=== PATIENT | female | born 1940 | race Caucasian/White ===

== ENCOUNTER → 2016-11-11 | Outpatient (CLI) | payer OTHER ==
[2016-11-11 11:19] LABS: ESTIMATED AVERAGE GLUCOSE 117 mg/dl; HA1C FLAG Normal (Normal)
[2016-11-11 11:39] LABS: ALT/SGPT 107 U/L (12-78); AST/SGOT 74 U/L (15-37); BLOOD UREA NITROGEN 32 mg/dl (7-18); BUN/CREATININE RATIO 21.5 (10-20); CALCIUM 9.8 mg/dl (8.5-10.1); CARBON DIOXIDE 26 mmol/L (21-32); CHLORIDE 105 mmol/L (98-107); GLUCOSE 114 mg/dl (70-99); POTASSIUM 3.8 mmol/L (3.5-5.1); SODIUM 142 mmol/L (136-145)
[2016-11-11 11:42] LABS: ALB/GLOB RATIO 0.9 (0.9-2); ALKALINE PHOSPHATASE 69 U/L (45-117); CHOLESTEROL 143 mg/dl (0-200); CHOLESTEROL/HDL RATIO 2.7; HDL CHOLESTEROL 53 mg/dl; LDL CHOLESTEROL CALCULATED 52 mg/dl; TRIGLYCERIDES 189 mg/dl (0-150); VERY LOW DENSITY LIPOPROT CALC 38 mg/dl
--- NOTE | 2016-11-17 13:55 | CODING QUERY MEDICAL NECESSITY ---
SUPPORTING DIAGNOSIS NEEDED A supporting diagnosis is required for the test/procedure performed on this patient in order for us to be reimbursed by the patient's insurance. Please provide a supporting diagnosis for the following test/procedure listed below next to the test name along with your signature. *If there is no additional diagnosis for this patient that would support the following test/procedure please document that below next to the test/procedure. Test(s)/Procedure(s) that require a supporting diagnosis: * GLYCATED HEMOGLOBIN DIAGNOSIS: * DOS: 11/11/16 Provider Signature: Date: Thank you Luann Sargent Health Information Management Once completed, please kindly fax back to [phone] For questions please call [phone]
== END | disposition home or self-care (01) ==
LOC: C.LABBC 08:19
PROVIDERS: ATTEND Family Medicine
DX: I12.9 Hypertensive chronic kidney disease with stage 1 through stage 4 chronic kidney disease, or unspecified chronic kidney disease (principal); E03.9 Hypothyroidism, unspecified; E78.00 Pure hypercholesterolemia, unspecified; E88.81 Metabolic syndrome and other insulin resistance; N18.3 Chronic kidney disease, stage 3 (moderate); R32 Unspecified urinary incontinence

== ENCOUNTER → 2016-12-01 | Outpatient (CLI) | payer OTHER | END | disposition home or self-care (01) | LOC: C.LABBC 14:48 | PROVIDERS: ATTEND Family Medicine | DX: R74.8 Abnormal levels of other serum enzymes (principal) ==

== ENCOUNTER → 2016-12-10 | Outpatient (CLI) | payer OTHER ==
--- NOTE | 2016-12-10 10:23 | DIAGNOSTIC IMAGING REPORT ---
ULTRASOUND RIGHT UPPER QUADRANT ABDOMEN CLINICAL HISTORY: Elevated hepatic transaminases. COMPARISON STUDY: No priors. TECHNIQUE: Real-time, grayscale, and color flow sonography of the right upper quadrant of the abdomen was performed. Images are reviewed in the transverse and longitudinal planes. FINDINGS: Liver: The liver is normal in size. The liver demonstrates slightly increased and heterogeneous echotexture suggesting steatosis. There is no intrahepatic biliary ductal dilatation. The main portal vein is patent. Gallbladder: The gallbladder is surgically absent. The common bile duct measures up to 1.0 cm in diameter. Pancreas: Visualized portions of the pancreatic head and body are normal in appearance. The splenic vein is patent. Right kidney: Survey images of the right kidney demonstrate mild cortical atrophy. There is no hydronephrosis. An 8 mm cyst is incidentally noted. Ascites: None. IMPRESSION: 1. No acute sonographic abnormality is identified noting status post cholecystectomy. 2. Findings suggest mild hepatic steatosis. Electronically signed by: Dom Ordaz M.D. 12/10/2016 10:21 AM Dictated Date/Time: 12/10/2016 10:20 AM
== END | disposition home or self-care (01) ==
LOC: C.ULTR 09:33
PROVIDERS: ATTEND Family Medicine
DX: R74.8 Abnormal levels of other serum enzymes (principal)

== ENCOUNTER → 2017-01-10 | Outpatient (CLI) | payer OTHER | END | disposition home or self-care (01) | LOC: C.LABBC 11:42 | PROVIDERS: ATTEND Family Medicine | DX: R74.8 Abnormal levels of other serum enzymes (principal) ==

== ENCOUNTER → 2017-06-16 | Outpatient (CLI) | payer OTHER ==
[2017-06-16 11:09] LABS: BASO % 0.1 %; BASO ABS # 0.01 K/uL (0-0.2); COMPLETE YES; EOS % 3.6 %; HEMATOCRIT 39.9 % (37-47); IG% 0.5 %; LYMPH % 36.7 %; LYMPH ABS # 3.17 K/uL (1.2-3.4); MEAN CELL VOLUME 90.1 fL (80-100); MEAN CORPUSCULAR HEMOGLOBIN 30.7 pg (25-34); MEAN CORPUSCULAR HGB CONC 34.1 g/dl (32-36); MEAN PLATELET VOLUME 10.2 fL (7.4-10.4); MONO % 10.1 %; PLATELET COUNT 234 K/uL (130-400); RED BLOOD COUNT 4.43 M/uL (4.2-5.4); WHITE BLOOD COUNT 8.63 K/uL (4.8-10.8)
[2017-06-16 11:36] LABS: ESTIMATED AVERAGE GLUCOSE 114 mg/dl; HA1C FLAG Normal (Normal)
[2017-06-16 11:39] LABS: ALT/SGPT 28 U/L (12-78); BLOOD UREA NITROGEN 28 mg/dl (7-18); BUN/CREATININE RATIO 18.5 (10-20); CALCIUM 9.3 mg/dl (8.5-10.1); CARBON DIOXIDE 28 mmol/L (21-32); CHLORIDE 105 mmol/L (98-107); CHOLESTEROL 224 mg/dl (0-200); GLUCOSE 113 mg/dl (70-99); POTASSIUM 3.7 mmol/L (3.5-5.1); SODIUM 139 mmol/L (136-145)
[2017-06-16 11:49] LABS: ALB/GLOB RATIO 0.9 (0.9-2); ALKALINE PHOSPHATASE 61 U/L (45-117); AST/SGOT 23 U/L (15-37); CHOLESTEROL/HDL RATIO 5.2; HDL CHOLESTEROL 43 mg/dl; LDL CHOLESTEROL CALCULATED 126 mg/dl; TRIGLYCERIDES 274 mg/dl (0-150); VERY LOW DENSITY LIPOPROT CALC 55 mg/dl
--- NOTE | 2017-07-01 13:44 | CODING QUERY MEDICAL NECESSITY ---
SUPPORTING DIAGNOSIS NEEDED A supporting diagnosis is required for the test/procedure performed on this patient in order for us to be reimbursed by the patient's insurance. Please provide a supporting diagnosis for the following test/procedure listed below next to the test name along with your signature. *If there is no additional diagnosis for this patient that would support the following test/procedure please document that below next to the test/procedure. Test(s)/Procedure(s) that require a supporting diagnosis: * HEMOGLOBIN A1C DIAGNOSIS: Provider Signature: Date: Thank you Marlyn Whiteside [employer] Information Management Once completed, please kindly fax back to [phone] For questions please call [phone]
== END | disposition home or self-care (01) ==
LOC: C.LABBC 07:59
PROVIDERS: ATTEND Family Medicine
DX: I12.9 Hypertensive chronic kidney disease with stage 1 through stage 4 chronic kidney disease, or unspecified chronic kidney disease (principal); E03.9 Hypothyroidism, unspecified; E78.00 Pure hypercholesterolemia, unspecified; N18.3 Chronic kidney disease, stage 3 (moderate); E66.3 Overweight

== ENCOUNTER → 2017-07-13 | Outpatient (CLI) | payer OTHER ==
--- NOTE | 2017-07-13 14:21 | MAMMOGRAPHY REPORT ---
BILATERAL DIGITAL SCREENING MAMMOGRAM TOMOSYNTHESIS WITH CAD: 07/13/2017 CLINICAL HISTORY: Routine screening. Patient has no complaints. TECHNIQUE: Breast tomosynthesis in addition to standard 2D mammography was performed. Current study was also evaluated with a Computer Aided Detection (CAD) system. COMPARISON: Comparison is made to exams dated: 07/12/2016 mammogram, 07/09/2015 mammogram, 07/08/2014 yane mogram, 07/05/2013 mammogram, 07/04/2012 mammogram, and 07/01/2011 mammogram - [facility] . BREAST COMPOSITION: There are scattered areas of fibroglandular density in both breasts. FINDINGS: No suspicious masses, calcifications, or areas of architectural distortion are noted in ei ther breast. There has been no significant interval change compared to prior exams. Scattered bilater al benign-appearing calcifications are not significantly changed. IMPRESSION: ACR BI-RADS CATEGORY 2: BENIGN There is no mammographic evidence of malignancy. A 1 year screening mammogram is recommended. The pa tient will receive written notification of the results. Approximately 10% of breast cancers are not detected with mammography. A negative mammographic report should not delay biopsy if a clinically suggestive mass is present. Kathleen Toledo M.D. /:07/13/2017 13:11:15 Infirmary Attendant: Larisa BRANNON)(M), [facility] letter sent: Normal 1/2 BI-RADS Code: ACR BI-RADS Category 2: Benign
== END | disposition home or self-care (01) ==
LOC: C.MAMM 12:05
PROVIDERS: ATTEND Nurse Practitioner Adult Health
DX: Z12.31 Encounter for screening mammogram for malignant neoplasm of breast (principal)

== ENCOUNTER → 2017-07-28 | Outpatient (CLI) | payer OTHER | END | disposition home or self-care (01) | LOC: C.LABBC 08:43 | PROVIDERS: ATTEND Nurse Practitioner Adult Health | DX: E78.00 Pure hypercholesterolemia, unspecified (principal) ==

== ENCOUNTER → 2017-12-27 | Outpatient (CLI) | payer OTHER ==
--- NOTE | 2017-12-27 10:20 | DIAGNOSTIC IMAGING REPORT ---
L VENOUS DOPP LOWER EXT UNILAT CLINICAL HISTORY: 77 years-old Female presenting with M79.89 Swelling of left lower [id number]. TECHNIQUE: Real-time grayscale and color and spectral Doppler ultrasound imaging of the veins of the left lower extremity was performed. Compression and augmentation were also utilized. COMPARISON: None. FINDINGS: Left: Common femoral vein: Patent. Greater saphenous vein: Patent. Deep femoral vein: Patent. Femoral vein: Patent. Popliteal vein: Patent. Calf veins: Patent. Other: None. IMPRESSION: No evidence of deep venous thrombosis. Electronically signed by: Spencer Alonzo M.D. 12/27/2017 10:19 AM Dictated Date/Time: 12/27/2017 10:18 AM
--- NOTE | 2018-01-02 10:07 | CODING QUERY MEDICAL NECESSITY ---
SUPPORTING DIAGNOSIS NEEDED Ritter SOLANO, A supporting diagnosis is required for the test/procedure performed on this patient in order for us to be reimbursed by the patient's insurance. Please provide a supporting diagnosis for the following test/procedure listed below next to the test name along with your signature. *If there is no additional diagnosis for this patient that would support the following test/procedure please document that below next to the test/procedure. Test(s)/Procedure(s) that require a supporting diagnosis: * ([id number]) VENOUS DOPPLER LOWER EXT UNILA DIAGNOSIS: DATE OF SERVICE: 12/27/17 Provider Signature: Date: Thank you Mack Saha [facility] Information Management Once completed, please kindly fax back to [phone] For questions please call [phone]
== END | disposition home or self-care (01) ==
LOC: C.ULTRBC 09:59
PROVIDERS: ATTEND Nurse Practitioner Adult Health
DX: M79.89 Other specified soft tissue disorders (principal)

== ENCOUNTER → 2018-01-24 | Outpatient (CLI) | payer OTHER ==
[2018-01-24 14:08] LABS: ALBUMIN 3.9 gm/dl (3.4-5.0); BLOOD UREA NITROGEN 35 mg/dl (7-18); CALCIUM 9.5 mg/dl (8.5-10.1); CARBON DIOXIDE 27 mmol/L (21-32); CREATININE 1.62 mg/dl (0.60-1.20); GLUCOSE 120 mg/dl (70-99); PHOSPHORUS 3.2 mg/dl (2.5-4.9); POTASSIUM 3.8 mmol/L (3.5-5.1); SODIUM 135 mmol/L (136-145)
== END | disposition home or self-care (01) ==
LOC: C.LABBC 10:19
PROVIDERS: ATTEND Neuromusculoskeletal Medicine & OMM
DX: N18.3 Chronic kidney disease, stage 3 (moderate) (principal)

== ENCOUNTER → 2018-06-20 | Outpatient (CLI) | payer OTHER ==
[2018-06-20 11:07] LABS: HEMOGLOBIN A1C 5.8 % (4.5-5.6)
[2018-06-20 11:24] LABS: ALBUMIN 3.7 gm/dl (3.4-5.0); ALKALINE PHOSPHATASE 56 U/L (45-117); ALT/SGPT 25 U/L (12-78); AST/SGOT 19 U/L (15-37); BLOOD UREA NITROGEN 36 mg/dl (7-18); CALCIUM 9.4 mg/dl (8.5-10.1); CARBON DIOXIDE 28 mmol/L (21-32); CHOLESTEROL 130 mg/dl (0-200); CREATININE 1.66 mg/dl (0.60-1.20); GLUCOSE 124 mg/dl (70-99); LDL CHOLESTEROL CALCULATED 51 mg/dl; POTASSIUM 3.7 mmol/L (3.5-5.1); SODIUM 137 mmol/L (136-145)
== END | disposition home or self-care (01) ==
LOC: C.LABBC 08:39
PROVIDERS: ATTEND Neuromusculoskeletal Medicine & OMM
DX: I10 Essential (primary) hypertension (principal); E03.9 Hypothyroidism, unspecified; E78.00 Pure hypercholesterolemia, unspecified; E88.81 Metabolic syndrome and other insulin resistance; Z86.39 Personal history of other endocrine, nutritional and metabolic disease

== ENCOUNTER 2019-08-20 07:46 | Observation (INO) ==
[2019-08-13 10:08] LABS: Basophils # (auto) 0.01 K/uL (0-0.2); Basophils % (auto) 0.1 %; Eosinophils # (auto) 0.26 K/uL (0-0.5); Eosinophils % (auto) 3.1 %; Hematocrit (blood only) 39.3 % (37-47); Hemoglobin 14.1 g/dL (12.0-16.0); Immature Granulocytes # (auto) 0.02 K/uL (0.00-0.02); Immature Granulocytes % (auto) 0.2 %; Lymphocytes # (auto) 3.21 K/uL (1.2-3.4); Lymphocytes % (auto) 37.8 %; Mean Corpuscular Hemoglobin 31.8 pg (25-34); Mean Corpuscular Hgb Conc 35.9 g/dL (32-36); Mean Corpuscular Volume 88.7 fL (80-100); Mean Platelet Volume 10.1 fL (7.4-10.4); Monocytes # (auto) 0.72 K/uL (0.11-0.59); Monocytes % (auto) 8.5 %; Neutrophils # (auto) 4.27 K/uL (1.4-6.5); Neutrophils % (auto) 50.3 %; Platelet Count 252 K/uL (130-400); RDW Standard Deviation 41.9 fL (36.4-46.3); Red Blood Count 4.43 M/uL (4.2-5.4); White Blood Count 8.49 K/uL (4.8-10.8)
[2019-08-13 10:21] LABS: BUN Creatinine Ratio 17.7 (10-20); Blood Urea Nitrogen 32 mg/dl (7-18); Calcium 10.1 mg/dl (8.5-10.1); Carbon Dioxide 25 mmol/L (21-32); Chloride 104 mmol/L (98-107); Est GFR (African American) 29.9; Est GFR (Non-African American) 25.8; Glucose 122 mg/dl (70-99); Potassium 3.5 mmol/L (3.5-5.1); Sodium 138 mmol/L (136-145)
--- NOTE | 2019-08-15 08:31 | Anesthesiology Consultation ---
Date of Service August 15, 2019 Assessment & Plan (1) Encounter for pre-operative examination: Chart Review Chart Review: Acceptable Risk for Surgery and Patient NOT seen in Pre Admission Testing Consults Requested none History Surgery Operation Date: 08/20/19 10:00 Proposed Procedures p Left Breast Lumpectomy with Needle Localization and Left [place] Lymph Node Biopsy (Injection Only) - Garrett Shelley MD, FACS Height/Weight Height: 5 ft 7 in Weight: 119.748 kg Allergies Allergy/AdvReac Type Severity Reaction Status Date / Time No Known Drug Allergies Allergy Verified 08/14/19 15:51 Medications Home Medications Medication Instructions Recorded Confirmed Last Taken calcium carbonate-vitamin D3 600 1 tab PO QAM 06/27/19 08/14/19 Unknown mg (1,500 mg)-800 unit tablet levothyroxine 137 mcg tablet 137 mcg PO QAM #90 tab 06/27/19 08/14/19 Unknown lisinopril 20 1 tab PO BID #180 tab 06/27/19 08/14/19 Unknown mg-hydrochlorothiazide 12.5 mg tablet multivitamin tablet 1 tab PO QAM 06/27/19 08/14/19 Unknown omega-3 fatty acids 1,000 mg 1,000 mg PO QAM 06/27/19 08/14/19 Unknown capsule simvastatin 20 mg tablet 20 mg PO HS #90 tab 06/27/19 08/14/19 Unknown hydrocodone 10 mg-acetaminophen 2 tab PO DAILY PRN #120 tab 07/03/19 08/14/19 Unknown 325 mg tablet ketoconazole 2 % topical cream 1 appln TOP BID #60 gm 07/03/19 08/14/19 Unknown oxybutynin chloride ER 10 mg 10 mg PO HS #90 tab 07/03/19 08/14/19 Unknown tablet,extended release 24 hr valacyclovir 1,000 mg PO DAILY PRN 08/14/19 08/14/19 Unknown Past Medical History Medical History Hyperlipidemia Hypertension Hypothyroidism Osteoarthritis Past Family History Family History Mother Thyroid disease Father Osteoarthritis Brother Colon cancer Grandmother Colon cancer Past Surgical History Surgical History Hx of cholecystectomy Hx of colonoscopy Social History Smoking Status: Former smoker Do You Dip or Chew Tobacco: No Smoking End Date: QUIT 40 YEARS AGO Hx Alcohol Use: No Hx Substance Use: No substance use type: does not use Testing Laboratory Results 08/20/19 10:00 08/20/19 10:00 Electrocardiogram Date: 08/13/19 Findings: + NSR @ (75 bpm) 1st degree av block
[~2019-08-20 07:46] MED LIST: CEFAZOLIN 2000MG 2,000 MG/15 ML SYR IV SCH; LR 15ML/HR IV SCH
--- NOTE | 2019-08-20 09:00 | Nuclear Medicine Report ---
Study: Breast sentinel node injection HISTORY: Carcinoma Prior studies: None. FINDINGS: Following description of procedure and informed consent, a total of 5 sequential left peria reolar injections were made. This totaled 0.548 mCi technetium 99m lymphocele. There are no complications. IMPRESSION: Successful left periareolar Edgar node injection. No complications at the time of the procedure. Electronically signed by: Marko Eaton M.D. 08/20/2019 8:58 AM
[2019-08-20] MEDS ORDERED: LIDOCAINE HCL 2% 2 ML VIAL/AMP(20MG/ML) INFIL ONE (11:58)
[2019-08-20] MEDS ORDERED: ONDANSETRON INJ 2 MG/ML 2 ML VIAL ONE (11:58)
[2019-08-20] MEDS ORDERED: PROPOFOL IV EMULSION 10 MG/ML 20 ML VIAL IV ONE (11:58)
[2019-08-20] MEDS ORDERED: MIDAZOLAM HCL 1 MG/ML 2ML VIAL ONE (11:59)
[2019-08-20] MEDS ORDERED: fentaNYL citrate 100 MCG/2 ML VIAL ONE ×2 (11:59→12:45)
--- NOTE | 2019-08-20 12:03 | History & Physical Bridge Note ---
Date of Service August 20, 2019 History & Physical Bridge Note I have examined the patient, reviewed the History & Physical and in the interval since the performance of the History & Physical I have noted the following changes of clinical significance: no changes noted
[2019-08-20] MEDS ORDERED: METHYLENE BLUE 0.5% 10 ML VIAL ONE (12:06)
[2019-08-20] MEDS ORDERED: BUPIVACAINE 0.5 % 5 MG/1 ML MPF 30ML VIAL ONE (12:06)
[2019-08-20] MEDS ORDERED: ACETAMINOPHEN 1,000 MG/100 ML VIAL IV STA (13:23)
--- NOTE | 2019-08-20 13:23 | Operative Report ---
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 Any exceptions are noted below.
[2019-08-20] MEDS ORDERED: ACETAMINOPHEN 1000 MG/100 ML IV IV ONE (13:54)
[2019-08-20] MEDS ORDERED: ATROPINE SULFATE 0.1 MG/ML 10ML SYR IV PRN (14:08)
[2019-08-20] MEDS ORDERED: ePHEDrine sulfate 50 MG/ML AMP IV PRN (14:08)
--- NOTE | 2019-08-20 14:09 | Anesthesiology Progress Note ---
Date of Service August 20, 2019 Anesthesia Post Procedure Vital Signs Vital Signs: Temp Pulse Pulse Resp BP BP Pulse Ox 08/20/19 14:05 73 18 120/55 L 95 08/20/19 13:55 73 18 123/52 L 95 08/20/19 13:45 77 18 126/49 L 93 08/20/19 13:38 36.0 C L 87 18 101/85 98 08/20/19 09:34 36.6 C 69 18 169/80 H 95 Transfer of Care Handoff Completed per policy Notes Mental Status: alert / awake / arousable Patient Amnestic to Procedure: Yes Nausea / Vomiting: adequately controlled Pain: adequately controlled Airway Patency, RR, SpO2: stable & adequate BP & HR: stable & adequate Hydration State: stable & adequate Anesthetic Complications: no major complications apparent
[2019-08-20] MEDS ORDERED: HYDROCODONE/ACETAMOPHEN 5/325MG TAB PO PRN (14:34)
[2019-08-20] MEDS ORDERED: ONDANSETRON INJ 2 MG/ML 2 ML VIAL IV PRN (14:34)
[2019-08-20] MEDS ORDERED: MoRPHine SULFATE 2 MG/ML CARP IV PRN ×2 (14:34)
[2019-08-20] MEDS ORDERED: PROMETHAZINE HCL 12.5 MG in SODIUM CHLORIDE 0.9% 50 ML IV PRN (14:34)
[2019-08-20] MEDS ORDERED: SODIUM CHLORIDE 0.9% 1000ML 1,000 ML IV SCH (14:34)
[2019-08-20] MEDS ORDERED: ACETAMINOPHEN 325 MG TAB PO PRN (14:34)
--- NOTE | 2019-08-20 15:00 | Mammography Report ---
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 She presents for preoperative needle and wire localization prior to lumpectomy. COMPARISON: Left breast stereotactic/tomosynthesis guided biopsy and post procedure mammograms dated 07/25/2019, left diagnostic mammograms 07/23/2019, screening mammograms 07/18/2019, 07/17/2018, 07/13/2017 . PATIENT CONSENT: The risks of the procedure were explained to the patient and informed consent was ob tained both verbally and in writing. Specific risks include: Bleeding, infection, puncture of adjace nt structure, nontarget localization, medication reaction. The patient denied eating or drinking any thing this morning that would preclude anesthesia. She also denied allergy to lidocaine. PROCEDURE DESCRIPTION: A timeout was performed and the left breast was confirmed as the site for preo perative localization. With the patient in the seated position, the left breast was placed in latera lmedial compression. A tomosynthesis warehouse logistics manager view was obtained which demonstrates the hourglass shape d biopsy marker and a few residual punctate calcifications within the localization window of an alpha numeric grid. The skin of the lateral left breast was cleansed with alcohol. 1% buffered Lidocaine without epinephrine was administered as local anesthesia. A 7.5cm Burrell II needle and wire combinat ion was inserted into the breast. Optimal positioning was confirmed and the wire was locked in place, leaving both the needle and wire within the breast, as per surgeon's preference. The entire procedu re including approach and needle length were discussed with the operating surgeon prior to surgery. The patient tolerated the procedure well and there was no immediate complication. She was sent to [facility] operating room in satisfactory condition. A specimen radiograph was obtained which demonstrates the localizing needle and wire, hourglass shape d biopsy marker and residual calcifications centrally within the surgical specimen, compatible with s uccessful preoperative localization and subsequent surgical excision. Final surgical pathology is pe nding. IMPRESSION: NEEDLE LOCALIZATION Status post preoperative needle and wire localization for biopsy-proven DCIS in the lateral left [facility]. The imaged specimen includes the intended abnormalities. Final surgical pathology is pending. Caroline Solano M.D. ay/:08/20/2019 13:22:16 Attending Technologist: RT Brandi(R)(M), [facility] Security Systems Engineer: RT Lindsay(R)(M), [facility]
--- NOTE | 2019-08-20 15:30 | Operative Report ---
DATE OF OPERATION: 08/20/2019 NAME OF OPERATION: Left breast lumpectomy with sentinel lymph node biopsy. PREOPERATIVE DIAGNOSIS: Ductal carcinoma in situ. POSTOPERATIVE DIAGNOSIS: Ductal carcinoma in situ. STAFF SURGEON: Garrett Shelley M.D. BELL PERSON: Janette Lopez. ANESTHESIA: General. DESCRIPTION OF PROCEDURE: The patient was brought in the operating room and placed on the operating table in supine position. Her left breast was prepped and draped in usual fashion. She had had a needle localization and also injection for sentinel lymph node biopsy. 0.5% plain Marcaine was used to anesthetize the skin and subcutaneous tissue of both incisions. Incision was made in the left axilla, carrying dissection down very deep into the axilla, identifying the sentinel lymph node sending it for frozen section, it was negative. During the frozen section, we performed lumpectomy. Elliptical incision was made around the needle which was essentially inferior and projected toward the retroareolar area. Dissection was carried down around the needle excising the tissue. This was marked left breast tissue with long silk lateral, short silk medial. Skin and needle were inferior. Additional anterior/superior tissue was taken. This was essentially retroareolar and marked with long silk lateral, short silk medial, methylene blue new margin. Then additional posterior/inferior tissue was taken, again this was marked, long silk lateral, short silk medial, methylene blue new margin. Deep tissue in both sites were closed using 2-0 plain suture and then the skin reapproximated in the breast using subcuticular 4-0 Monocryl with Steri-Strips. The axilla was closed using interrupted 4-0 nylon suture. My contract assistant Janette Lopez helped with prepping, draping, excision of the breast tissue and lymph node and closure of the wounds. I attest to the content of the Intraoperative Record and any orders documented therein. Any exception s are noted below.
[2019-08-20] MEDS: HYDROCODONE/ACETAMOPHEN 5/325MG TAB PO PRN ×2 (15:40→23:25)
[2019-08-20] MEDS: LISINOPRIL/HCTZ 20/12.5MG 1 TAB TAB PO SCH (18:52)
[2019-08-20] MEDS ORDERED: OXYBUTYNIN CHLORIDE XL 5 MG TABCR PO SCH (21:00)
[2019-08-20] MEDS ORDERED: SIMVASTATIN 20 MG TAB PO SCH (21:00)
[2019-08-20] MEDS ORDERED: INFLUENZA VACCINE HIGH DOSE 65+ 0.5 ML SYR IM ONE (21:30)
[2019-08-20] MEDS ORDERED: INFLUENZA ADMINISTRATION CHARGE ONE (21:30)
[2019-08-21] MEDS ORDERED: CEFAZOLIN 1000MG 1,000 MG/7.5 ML SYR IV SCH
--- NOTE | 2019-08-21 06:27 | Discharge Summary ---
PRINCIPAL DIAGNOSIS: Ductal carcinoma in situ, left breast. PROCEDURES: The patient underwent a left lumpectomy with sentinel lymph node biopsy. 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 HOSPITAL COURSE: She was brought into the hospital on 08/20/2019, where she underwent needle localization left breast lumpectomy with sentinel lymph node biopsy. She tolerated the procedure well, has done well overnight and is felt stable for discharge home today to be followed in the surgical clinic within 1-2 weeks.
[2019-08-21] MEDS ORDERED: LEVOTHYROXINE SODIUM 137 MCG TABLET PO SCH (06:30)
--- NOTE | 2019-08-21 08:03 | Anesthesiology Progress Note ---
Date of Service August 21, 2019 Anesthesia Post Procedure Vital Signs Vital Signs: Temp Pulse Pulse Resp BP BP Pulse Ox 08/21/19 07:12 36.8 C 70 18 114/70 98 08/21/19 03:27 36.8 C 60 16 125/56 L 99 08/20/19 23:15 36.5 C 69 16 121/70 100 08/20/19 17:24 36.5 C 61 17 104/61 98 08/20/19 16:32 36.6 C 61 17 100/62 98 08/20/19 15:04 36.5 C 64 17 110/63 99 08/20/19 14:35 37 C 69 18 121/71 99 08/20/19 14:15 36.2 C L 71 18 125/56 L 97 08/20/19 14:05 73 18 120/55 L 95 08/20/19 13:55 73 18 123/52 L 95 08/20/19 13:45 77 18 126/49 L 93 08/20/19 13:38 36.0 C L 87 18 101/85 98 08/20/19 09:34 36.6 C 69 18 169/80 H 95 Pain Intensity Bilateral Chest: Pain Intensity: 5 Notes Mental Status: alert / awake / arousable and participated in evaluation Patient Amnestic to Procedure: Yes Nausea / Vomiting: adequately controlled Pain: adequately controlled Airway Patency, RR, SpO2: stable & adequate BP & HR: stable & adequate Hydration State: stable & adequate Anesthetic Complications: no major complications apparent and Pt Satisfied with anesthetic care
[2019-08-21] MEDS: HYDROCODONE/ACETAMOPHEN 5/325MG TAB PO PRN (09:02)
[2019-08-21] MEDS: LISINOPRIL/HCTZ 20/12.5MG 1 TAB TAB PO SCH (09:54)
== END 2019-08-21 10:33 | disposition home or self-care (01) ==
LOC: ASU 07:46 → 3N 07:46

== ENCOUNTER 2019-09-24 06:25 | Observation (INO) ==
--- NOTE | 2019-09-17 14:21 | Anesthesiology Consultation ---
Date of Service September 17, 2019 Assessment & Plan (1) Encounter for pre-operative examination: s/p breast biopsy/lumpectomy 08/20/19 c= LMA #4, atraumatic, no issues noted on records. Chart Review Chart Review: Acceptable Risk for Surgery and Patient NOT seen in Pre Admission Testing History Surgery Operation Date: 09/24/19 09:40 Proposed Procedures p Re-Excision Left Breast Tissue - Garrett Shelley MD, FACS Height/Weight Height: 5 ft 7 in Weight: 117.934 kg Allergies Allergy/AdvReac Type Severity Reaction Status Date / Time No Known Drug Allergies Allergy Verified 09/17/19 10:14 Medications Home Medications Medication Instructions Recorded Confirmed Last Taken calcium carbonate-vitamin D3 600 1 tab PO QAM 06/27/19 09/17/19 08/19/19 21:00 mg (1,500 mg)-800 unit tablet levothyroxine 137 mcg tablet 137 mcg PO QAM #90 tab 06/27/19 09/17/19 08/20/19 06:15 lisinopril 20 1 tab PO BID #180 tab 06/27/19 09/17/19 08/20/19 06:15 mg-hydrochlorothiazide 12.5 mg tablet multivitamin 1 tab PO QAM 06/27/19 09/17/19 08/19/19 09:00 omega-3 fatty acids 1,000 mg 1,000 mg PO QAM 06/27/19 09/17/19 08/19/19 09:00 capsule hydrocodone 10 mg-acetaminophen 2 tab PO DAILY PRN #120 tab 07/03/19 09/17/19 Unknown 325 mg tablet valacyclovir [Valtrex] 1,000 mg PO DAILY PRN 08/14/19 09/17/19 Unknown acetaminophen [Tylenol] 325 mg PO Q6H PRN 08/20/19 09/17/19 08/18/19 cannabidiol (CBD) extract 100 mg PO DAILY 08/20/19 09/17/19 08/19/19 21:00 diphenhydramine-acetaminophen 2 tab PO HS PRN MDD and pain 08/20/19 09/17/19 08/19/19 21:00 [Tylenol PM Extra Strength] oxybutynin chloride [Ditropan XL] 10 mg PO HS 08/20/19 09/17/19 08/19/19 21:00 hydrocodone-acetaminophen [[place]] 1 - 2 tab PO Q6H PRN #30 tab 08/21/19 09/17/19 Unknown simvastatin 20 mg tablet 20 mg PO DAILY #90 tab 08/21/19 09/17/19 Unknown Past Medical History Medical History Chronic kidney disease stage 3 monitoring Hyperlipidemia Hypertension Hypothyroidism Osteoarthritis Past Surgical History Surgical History Hx of cholecystectomy Hx of colonoscopy Status post left breast lumpectomy (08/20/19) Left Breast Lumpectomy with Needle Localization and Left [place] Lymph Node Biopsy Dr. Shelley 08/20/19 Social History Smoking Status: Former smoker tobacco type: cigarettes Do You Dip or Chew Tobacco: No Smoking End Date: 1978 Hx Alcohol Use: No Hx Substance Use: No substance use type: does not use Testing Laboratory Results 08/20/19 WBC: 8.49 H/H: 14.1/39.3 PLATELETS: 252 SODIUM: 138 POTASSIUM: 3.5 CHLORIDE: 104 CO2: 25 BUN: 32 CREATININE: 1.82 GLUCOSE: 122 A1C = 5.7% Electrocardiogram Date: 08/13/19 Sinus rhythm at 75 bpm with first-degree AV block. Otherwise normal EKG.
--- NOTE | 2019-09-24 06:01 | History & Physical Report ---
Date of Service September 24, 2019 Assessment & Plan (1) Status post left breast lumpectomy: Patient with DCIS of the left breast at the lateral margin status post prior lumpectomy She is for reexcision of the left breast [facility], observation LMA anesthesia History of Present Illness Primary Care Provider: Dutch Moore, DO Please see prior H&P and office visit On 08/20/2019 patient underwent left lumpectomy with sentinel lymph node biopsy for prior biopsy high-grade DCIS Her tissue showed DCIS the lateral margin We planned MRI but her renal function not support the study The patient is now for reexcision of the left breast margins Allergies Allergy/AdvReac Type Severity Reaction Status Date / Time No Known Drug Allergies Allergy Verified 09/17/19 10:14 Home Medications Home Medications Medication Instructions Recorded Confirmed Type calcium carbonate-vitamin D3 600 1 tab PO QAM 06/27/19 09/24/19 History mg (1,500 mg)-800 unit tablet levothyroxine 137 mcg tablet 137 mcg PO QAM #90 tab 06/27/19 09/24/19 History lisinopril 20 1 tab PO BID #180 tab 06/27/19 09/24/19 History mg-hydrochlorothiazide 12.5 mg tablet multivitamin 1 tab PO QAM 06/27/19 09/24/19 History omega-3 fatty acids 1,000 mg 1,000 mg PO QAM 06/27/19 09/24/19 History capsule hydrocodone 10 mg-acetaminophen 2 tab PO DAILY PRN #120 tab 07/03/19 09/24/19 Rx 325 mg tablet valacyclovir [Valtrex] 1,000 mg PO DAILY PRN 08/14/19 09/24/19 History acetaminophen [Tylenol] 325 mg PO Q6H PRN 08/20/19 09/24/19 History cannabidiol (CBD) extract 100 mg PO DAILY 08/20/19 09/24/19 History diphenhydramine-acetaminophen 2 tab PO HS PRN MDD and pain 08/20/19 09/24/19 History [Tylenol PM Extra Strength] oxybutynin chloride [Ditropan XL] 10 mg PO HS 08/20/19 09/24/19 History hydrocodone-acetaminophen [[place]] 1 - 2 tab PO Q6H PRN #30 tab 08/21/19 09/24/19 Rx simvastatin 20 mg tablet 20 mg PO DAILY #90 tab 08/21/19 09/24/19 Rx Past Med/Surg History Medical History Chronic kidney disease stage 3 monitoring Hyperlipidemia Hypertension Hypothyroidism Osteoarthritis Surgical History Hx of cholecystectomy Hx of colonoscopy Status post left breast lumpectomy (08/20/19) Left Breast Lumpectomy with Needle Localization and Left [place] Lymph Node Biopsy Dr. Shelley 08/20/19 Social History Preferred Language: Latvian Communication Ability: Effective Visual Impairment: No Limitations 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: Normal Mac Artist Required: No Beliefs That Will Affect Care: None marital status: Single Current Living Situation: Spouse current occupational status: retired Other Information That Helps Us Care for You: No Feels Safe at Home: Yes Safety Concerns: Feels Safe At This Time Smoking Status: Former smoker Tobacco Type: cigarettes ; Do You Dip or Chew Tobacco: No ; Smoking End Date: 1978 ; Second Hand Exposure: No ; Tobacco Cessation Education Requested by Patient: No Hx Alcohol Use: No Hx Substance Use: No Childhood Exposure to Second-Hand Smoke: Yes Dental Care, Regularly: No Physical Activity Frequency: 1-2 Times per Week Seatbelt Use: always Review of Systems All systems reviewed & are unremarkable except as noted in HPI & below Physical Exam Physical Exam: Patient has a healing incision of the left breast Constitutional: well developed and well nourished; no acute distress Eyes: + anicteric sclerae Respiratory: normal respiratory effort; no respiratory distress Cardiovascular: Rate/Rhythm: regular rate Gastrointestinal (Abdomen): Percussion/Palpation: abdomen soft Musculoskeletal: Gait: normal gait Skin: no rashes, warm and dry Neurologic: awake Psychiatric: Orientation: alert
[2019-09-24] MEDS ORDERED: PROPOFOL IV EMULSION 10 MG/ML 20 ML VIAL IV ONE (07:25)
[2019-09-24] MEDS ORDERED: LIDOCAINE HCL 2% 2 ML VIAL/AMP(20MG/ML) INFIL ONE (07:25)
[2019-09-24] MEDS ORDERED: fentaNYL citrate 100 MCG/2 ML VIAL ONE ×3 (07:25→09:26)
[2019-09-24] MEDS ORDERED: ONDANSETRON INJ 2 MG/ML 2 ML VIAL ONE ×2 (07:25→08:39)
[2019-09-24] MEDS ORDERED: ISOSULFAN BLUE 10 MG/ML VIAL 5 ML ONE (07:46)
[2019-09-24] MEDS ORDERED: BUPIVACAINE 0.5 % 5 MG/1 ML MPF 30ML VIAL ONE (07:47)
[2019-09-24] MEDS ORDERED: ePHEDrine sulfate 50 MG/ML SYR ONE (08:39)
[2019-09-24] MEDS ORDERED: DEXAMETHASONE SOD INJ 4 MG/ML VIAL ONE (08:39)
[2019-09-24] MEDS ORDERED: ATROPINE SULFATE 0.1 MG/ML 10ML SYR IV PRN (09:00)
[2019-09-24] MEDS ORDERED: ePHEDrine sulfate 50 MG/ML AMP IV PRN (09:00)
[2019-09-24] MEDS ORDERED: ONDANSETRON INJ 2 MG/ML 2 ML VIAL IV PRN ×2 (09:00→10:16)
[2019-09-24] MEDS ORDERED: FLUMAZENIL 0.1 MG/1 ML 10 ML VIAL IV PRN (09:00)
[2019-09-24] MEDS ORDERED: LABETALOL HCL IV 5 MG/ML 20ML IV PRN (09:00)
[2019-09-24] MEDS ORDERED: PROMETHAZINE HCL 12.5 MG in SODIUM CHLORIDE 0.9% 50 ML IV PRN ×2 (09:00→10:16)
[2019-09-24] MEDS ORDERED: NALOXONE HCL 0.4 MG/1 ML VIAL/CARP IV PRN (09:00)
--- NOTE | 2019-09-24 09:06 | Post Operative Brief Note ---
PG Immediate Post Op with CF Date of Surgery September 24, 2019 Pre & Post Diagnosis Operation Date: 09/24/19 08:20 Pre-Op Diagnosis: Left Breast, Positive Lateral Margin Post-Op Diagnosis: Left Breast, Positive Lateral Margin I identified the patient and participated in the time-out.: Yes Procedure Operation Date: 09/24/19 08:20 Actual Procedures p Re-Excision Left Breast Tissue(Left) - Garrett Shelley MD, FACS Surgeon Garrett Shelley MD, FACS Traffic Inspector Shavonne Baker Estimated Blood Loss 5 Findings Consistent with Post-Op Diagnosis Specimens Specimen Description: A. Skin Left Breast- Silk Suture Lateral B. Lateral Breast Tissue Biopsy Cavity Medial Long Silk deep, Short silk superior, Methylene Blue New Margain C. Medial Tissue, Long Silk Deep, Short Silk Superior, Plan suture Inferior, Methylene blue New Margain
[2019-09-24] MEDS ORDERED: ACETAMINOPHEN 1,000 MG/100 ML VIAL IV ONE (09:10)
[2019-09-24] MEDS ORDERED: ACETAMINOPHEN 1000 MG/100 ML IV IV ONE (09:26)
[2019-09-24] MEDS: fentaNYL citrate 100 MCG/2 ML VIAL IV PRN ×3 (09:27→09:37)
--- NOTE | 2019-09-24 10:11 | Anesthesiology Progress Note ---
Date of Service September 24, 2019 Anesthesia Post Procedure Vital Signs Vital Signs: Temp Pulse Pulse Resp BP BP Pulse Ox 09/24/19 09:55 36.5 C 62 17 139/56 L 98 09/24/19 09:45 72 17 137/58 L 93 09/24/19 09:35 69 10 L 135/59 L 92 09/24/19 09:25 73 18 144/61 H 92 09/24/19 09:19 36.2 C L 81 15 132/64 96 09/24/19 07:02 36.9 C 75 18 178/90 H 95 Pain Intensity Left Breast: Pain Intensity: 2 Transfer of Care Handoff Completed per policy Notes Mental Status: alert / awake / arousable Patient Amnestic to Procedure: Yes Nausea / Vomiting: adequately controlled Pain: adequately controlled Airway Patency, RR, SpO2: stable & adequate BP & HR: stable & adequate Hydration State: stable & adequate Anesthetic Complications: no major complications apparent
[2019-09-24] MEDS ORDERED: HYDROCODONE/ACETAMOPHEN 5/325MG TAB PO PRN ×2 (10:16)
[2019-09-24] MEDS ORDERED: SODIUM CHLORIDE 0.9% 1000ML 1,000 ML IV SCH (10:16)
[2019-09-24] MEDS ORDERED: MoRPHine SULFATE 2 MG/ML CARP IV PRN ×2 (10:16)
[2019-09-24] MEDS ORDERED: ACETAMINOPHEN 325 MG TAB PO PRN (10:16)
[2019-09-24] MEDS ORDERED: POLYETHYLENE (MIRALAX) 17 GM PACK PO PRN (10:58)
[2019-09-24] MEDS ORDERED: DOCUSATE SODIUM/SENNA 50/8.6MG TAB PO PRN (10:58)
--- NOTE | 2019-09-24 11:02 | Operative Report ---
DATE OF OPERATION: 09/24/2019 NAME OF OPERATION: Reexcision of left breast tissue. PREOPERATIVE DIAGNOSIS: Ductal carcinoma in situ, left breast. POSTOPERATIVE DIAGNOSIS: Ductal carcinoma in situ, left breast with positive lateral margin on initial lumpectomy. STAFF SURGEON: Garrett Shelley MD. CURRICULUM WRITER: Janette Lopez. ANESTHESIA: General. DESCRIPTION OF PROCEDURE: The patient was brought in the operating room and placed on the operating table in supine position. Her left breast and axilla were prepped and draped in usual fashion. My commercial loan assistant helped with prepping, draping, excision of the breast tissue and closure of the wound. The initial incision was healed well. It was more inferior on the breast. Elliptical incision was made around this area, excising the skin marking it with a silk suture lateral. I then went deeper entering the biopsy cavity. At this point, the biopsy cavity was not significantly large. I took 2 pieces of the tissue, both specimens around the cavity, the initial specimen was lateral tissue, the biopsy cavity was medial, long silk suture deep, short silk suture superior, methylene blue was new lateral margin. I then took additional medial tissue around the biopsy cavity with it marked long silk suture deep, short silk suture superior and plain suture was inferior with methylene blue as the new medial margin. I placed clips at the level of the prior clip, which was approximately 3-4 centimeters deep to the skin. We closed the deep tissue using 2-0 plain suture and then the skin was reapproximated using subcuticular 4-0 Monocryl with Steri-Strips. The patient was transferred to recovery room in stable condition. I attest to the content of the Intraoperative Record and any orders documented therein. Any exception s are noted below.
--- NOTE | 2019-09-24 11:12 | Hospitalist Consultation ---
Date of Consultation September 24, 2019 Assessment & Plan (1) Chronic kidney disease, stage III (moderate): Avoid nephrotoxic agents. Will check for PTH. Control blood pressure systolic to be less than 135 and diastolic less than 85. Patient is borderline diabetic or prediabetic. Recommended diabetic diet for now. Patient would benefit from weight loss. Discussed with patient and her family. Patient is following with Dr. Candelaria nephrology every 6 months recommended to follow-up wi th her when appointment is scheduled. We also switched her from lisinopril hydrochlorothiazide due to her decreased renal function to amlodipine 5 mg daily. Patient advised to follow-up her blood pressure with PCP and titrate up medication as needed. Present on Admission?: Yes (2) Hypothyroidism: Will check PTH. Follow-up with the results. Follow-up with Dr. Candelaria. Continue calcium carbonate vitamin D3 600 mg / 800 units p.o. every morning. Present on Admission?: Yes (3) Essential (primary) hypertension: We switched lisinopril hydrochlorothiazide to amlodipine because of higher possibility of kidney injury when patient is already CKD stage III. Titrate up but amlodipine to keep blood pressure below 135/85 since patient also has predisposition to develop full-blown diabetes with A1c of 5.7. Present on Admission?: Yes (4) Vitamin D deficiency: Will check vitamin D. Follow-up with the results. Present on Admission?: Yes (5) Hypercholesterolemia: Continue home medicine: Simvastatin 20 mg p.o. daily, and fish oil 1000 mg p.o. every morning. Continue multivitamins every morning. Present on Admission?: Yes (6) Metabolic syndrome: Patient was advised to try to lose weight. Join a group such as weight watchers sometimes can be helpful. Present on Admission?: Yes (7) Hypothyroidism: TSH in July normal. Continue levothyroxine 137 MCG's p.o. every morning. (8) Status post left breast lumpectomy: Managed per surgery. Thank you for the consult will follow. Patient with DCIS of the left breast excision the lateral margin status post prior lumpectomy status post breast excision of the left breast tissue. Follow- up with the pathology. Present on Admission?: Yes History of Present Illness Reason for Consultation: Medical management Requesting Physician: Dr. Garrett Shelley Attending Physician: Garrett Shelley MD, [facility] History of Present Illness Patient is a 79 years old female with past medical history of ductal carcinoma in situ of the left breast with positive lateral margins in the initial lumpectomy. Patient is status post that this morning reexcision of the left breast tissue. Patient has past medical history of chronic kidney disease stage III, hypothyroidism, essential hypertension, hypercholesterolemia, osteoarthritis, vitamin D deficiency, urinary incontinence. Patient is postoperatively doing well. No specific complaint at this time. Patient reports that her pain status post surgery is acceptably controlled. Patient had large bowel movement yesterday. She did not have any bowel movement today. Labs are reviewed from August 20, 2019: WBCs 8.49, hemoglobin 14.1, hematocrit 39.3, platelets 252, sodium 138, potassium 3.5, chloride 104, anion gap 9, BUN 32, creatinine 1.82, GFR 25.8, hemoglobin A1c 5.7, calcium 10.1, cholesterol checked in May 2019 was within the normal limits with cholesterol 154, LDL 61, VLDL 47, HDL 46, TSH 2.25, PTH was last checked at December 2018 and it was 65.6. Allergies Allergy/AdvReac Type Severity Reaction Status Date / Time No Known Drug Allergies Allergy Verified 09/17/19 10:14 Home Medications Home Medications Medication Instructions Recorded Confirmed Type calcium carbonate-vitamin D3 600 1 tab PO QAM 06/27/19 09/24/19 History mg (1,500 mg)-800 unit tablet levothyroxine 137 mcg tablet 137 mcg PO QAM #90 tab 06/27/19 09/24/19 History lisinopril 20 1 tab PO BID #180 tab 06/27/19 09/24/19 History mg-hydrochlorothiazide 12.5 mg tablet multivitamin 1 tab PO QAM 06/27/19 09/24/19 History omega-3 fatty acids 1,000 mg 1,000 mg PO QAM 06/27/19 09/24/19 History capsule hydrocodone 10 mg-acetaminophen 2 tab PO DAILY PRN #120 tab 07/03/19 09/24/19 Rx 325 mg tablet valacyclovir [Valtrex] 1,000 mg PO DAILY PRN 08/14/19 09/24/19 History acetaminophen [Tylenol] 325 mg PO Q6H PRN 08/20/19 09/24/19 History cannabidiol (CBD) extract 100 mg PO DAILY 08/20/19 09/24/19 History diphenhydramine-acetaminophen 2 tab PO HS PRN MDD and pain 08/20/19 09/24/19 History [Tylenol PM Extra Strength] oxybutynin chloride [Ditropan XL] 10 mg PO HS 08/20/19 09/24/19 History hydrocodone-acetaminophen [[place]] 1 - 2 tab PO Q6H PRN #30 tab 08/21/19 09/24/19 Rx simvastatin 20 mg tablet 20 mg PO DAILY #90 tab 08/21/19 09/24/19 Rx Patient History Medical History Chronic kidney disease stage 3 monitoring Hyperlipidemia Hypertension Hypothyroidism Osteoarthritis Surgical History Hx of cholecystectomy Hx of colonoscopy Status post left breast lumpectomy (08/20/19) Left Breast Lumpectomy with Needle Localization and Left [place] Lymph Node Biopsy Dr. Shelley 08/20/19 Family History Mother Thyroid disease Father Osteoarthritis Brother Colon cancer Grandmother Colon cancer Social History Preferred Language: Sami Communication Ability: Effective Visual Impairment: No Limitations 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: Normal Gel Coat Sprayer Required: No Beliefs That Will Affect Care: None marital status: Single Current Living Situation: Spouse current occupational status: retired Other Information That Helps Us Care for You: No Feels Safe at Home: Yes Safety Concerns: Feels Safe At This Time Smoking Status: Former smoker Tobacco Type: cigarettes ; Do You Dip or Chew Tobacco: No ; Smoking End Date: 1978 ; Second Hand Exposure: No ; Tobacco Cessation Education Requested by Patient: No Hx Alcohol Use: No Hx Substance Use: No Childhood Exposure to Second-Hand Smoke: Yes Dental Care, Regularly: No Physical Activity Frequency: 1-2 Times per Week Seatbelt Use: always Physical Exam Constitutional: well developed, well nourished and + morbidly obese; no acute distress Eyes: + anicteric sclerae ENMT: Mouth: + edentulous; no dentition abnormality Mallampati Class: II Neck: normal visual inspection and trachea midline; neck extension not limited Respiratory: normal respiratory effort; no respiratory distress Auscultation: lungs clear to auscultation bilaterally Cardiovascular: Rate/Rhythm: regular rate and regular rhythm Heart Sounds: no murmur Vessels: no carotid bruit Gastrointestinal (Abdomen): Percussion/Palpation: abdomen soft Musculoskeletal: Spine: normal cervical ROM Gait: normal gait Skin: no rashes, warm and dry Neurologic: moves all extremities and awake Motor/Sensory: no sensory deficit Psychiatric: Orientation: alert and oriented x 3 Results & Data Vital Signs (Past 12 Hours) Vital Signs Temp Pulse Pulse Resp BP BP Pulse Ox 09/24/19 10:39 63 16 129/60 96 09/24/19 10:05 36.4 C L 67 16 130/67 98 09/24/19 09:55 36.5 C 62 17 139/56 L 98 09/24/19 09:45 72 17 137/58 L 93 09/24/19 09:35 69 10 L 135/59 L 92 09/24/19 09:25 73 18 144/61 H 92 09/24/19 09:19 36.2 C L 81 15 132/64 96 09/24/19 07:02 36.9 C 75 18 178/90 H 95 PG Care Time/CCT Total # of Minutes Spent Total Time Spent with Patient: Total time spent is greater than 50% in coordination of care (as documented) at patient's floor/unit and/or counseling patient: (1) Hypothyroidism Hypothyroidism type: unspecified Qualified Code(s): E03.9 - Hypothyroidism, unspecified
[2019-09-24] MEDS: CEFAZOLIN 1000MG 1,000 MG/7.5 ML SYR IV SCH (17:16)
[2019-09-24] MEDS ORDERED: LISINOPRIL/HCTZ 20/12.5MG 1 TAB TAB PO SCH (21:00)
[2019-09-24] MEDS ORDERED: OXYBUTYNIN CHLORIDE XL 5 MG TABCR PO SCH (21:00)
[2019-09-25] MEDS: CEFAZOLIN 1000MG 1,000 MG/7.5 ML SYR IV SCH ×2 (00:20→07:40)
--- NOTE | 2019-09-25 06:23 | Discharge Summary ---
PRINCIPAL DIAGNOSIS: Ductal carcinoma in situ, left breast. PROCEDURES: The patient underwent a reexcision left breast tissue. HISTORY OF PRESENT ILLNESS: The patient is an 79-year-old female who had undergone prior lumpectomy on the left side with sentinel lymph node biopsy showing a positive margin. HOSPITAL COURSE: She was brought into the hospital on 09/24/2019, taken to the operating room where she underwent reexcision of left breast tissue which she tolerated very well and was felt stable for discharge home today to be followed in the surgical clinic within 1-2 weeks.
[2019-09-25] MEDS ORDERED: LEVOTHYROXINE SODIUM 137 MCG TABLET PO SCH (06:30)
--- NOTE | 2019-09-25 08:07 | Anesthesiology Progress Note ---
Date of Service September 25, 2019 Anesthesia Post Procedure Vital Signs Vital Signs: Temp Pulse Pulse Pulse Resp BP Pulse Ox 09/25/19 07:50 36.9 C 64 18 146/67 H 94 09/25/19 03:57 36.8 C 68 17 130/70 92 09/24/19 23:08 36.9 C 72 18 148/79 H 94 09/24/19 19:53 36.8 C 69 17 142/66 H 96 09/24/19 15:05 36.8 C 75 17 124/66 94 09/24/19 13:05 36.8 C 81 16 145/67 H 93 09/24/19 12:13 36.6 C 77 16 127/80 95 09/24/19 11:10 65 16 129/64 96 09/24/19 10:39 63 16 129/60 96 09/24/19 10:05 36.4 C L 67 16 130/67 98 09/24/19 09:55 36.5 C 62 17 139/56 L 98 09/24/19 09:45 72 17 137/58 L 93 09/24/19 09:35 69 10 L 135/59 L 92 09/24/19 09:25 73 18 144/61 H 92 09/24/19 09:19 36.2 C L 81 15 132/64 96 Pain Intensity Left Breast: Pain Intensity: 2 Notes Mental Status: alert / awake / arousable and participated in evaluation Patient Amnestic to Procedure: Yes Nausea / Vomiting: adequately controlled Pain: adequately controlled Airway Patency, RR, SpO2: stable & adequate BP & HR: stable & adequate Hydration State: stable & adequate Anesthetic Complications: no major complications apparent and Pt Satisfied with anesthetic care
[2019-09-25 08:34] LABS: Basophils # (auto) 0.01 K/uL (0-0.2); Basophils % (auto) 0.1 %; Eosinophils # (auto) 0.03 K/uL (0-0.5); Eosinophils % (auto) 0.3 %; Hematocrit (blood only) 35.9 % (37-47); Hemoglobin 12.4 g/dL (12.0-16.0); Immature Granulocytes # (auto) 0.04 K/uL (0.00-0.02); Immature Granulocytes % (auto) 0.4 %; Lymphocytes % (auto) 26.1 %; Mean Corpuscular Hemoglobin 31.7 pg (25-34); Mean Corpuscular Hgb Conc 34.5 g/dL (32-36); Mean Corpuscular Volume 91.8 fL (80-100); Monocytes % (auto) 7.2 %; Neutrophils # (auto) 7.35 K/uL (1.4-6.5); Neutrophils % (auto) 65.9 %; Platelet Count 216 K/uL (130-400); RDW Coefficient of Variation 13.1 % (11.5-14.5); RDW Standard Deviation 43.6 fL (36.4-46.3); Red Blood Count 3.91 M/uL (4.2-5.4); White Blood Count 11.13 K/uL (4.8-10.8)
[2019-09-25] MEDS ORDERED: SIMVASTATIN 20 MG TAB PO SCH (09:00)
[2019-09-25] MEDS ORDERED: AMLODIPINE BESYLATE 5 MG TAB PO SCH (09:00)
[2019-09-25 09:09] LABS: Albumin Level 3.5 gm/dl (3.4-5.0); BUN Creatinine Ratio 23.7 (10-20); Calcium 9.3 mg/dl (8.5-10.1); Est GFR (African American) 34.6; Est GFR (Non-African American) 29.9; Potassium 3.6 mmol/L (3.5-5.1)
[2019-09-25 09:14] LABS: Albumin Globulin Ratio 0.8 (0.9-2); Bilirubin,Total 0.6 mg/dl (0.2-1); Globulin 4.2 gm/dl (2.5-4.0); Total Protein 7.7 gm/dl (6.4-8.2)
[2019-09-25 10:04] LABS: Estimated Average Glucose 117 mg/dl; Hemoglobin A1C 5.7 % (4.5-5.6)
== END 2019-09-25 08:53 | disposition home or self-care (01) ==
LOC: 3N 06:25 → ASU 06:25

== ENCOUNTER 2019-11-12 06:57 | Observation (INO) ==
--- NOTE | 2019-11-05 09:40 | Anesthesiology Consultation ---
Date of Service November 05, 2019 Assessment & Plan (1) Encounter for pre-operative examination: Chart Review Chart Review: Acceptable Risk for Surgery and Patient NOT seen in Pre Admission Testing Consults Requested none History Surgery Operation Date: 11/12/19 08:50 Proposed Procedures p Left Breast Mastectomy - Garrett Shelley MD, FACS Height/Weight Height: 5 ft 7 in Weight: 117.934 kg Allergies Allergy/AdvReac Type Severity Reaction Status Date / Time No Known Drug Allergies Allergy Verified 11/02/19 12:20 Medications Home Medications Medication Instructions Recorded Confirmed Last Taken calcium carbonate-vitamin D3 600 1 tab PO QAM 06/27/19 11/02/19 09/23/19 09:00 mg (1,500 mg)-800 unit tablet levothyroxine 137 mcg tablet 137 mcg PO QAM #90 tab 06/27/19 11/02/19 09/24/19 05:15 lisinopril 20 1 tab PO BID #180 tab 06/27/19 11/02/19 09/23/19 22:30 mg-hydrochlorothiazide 12.5 mg tablet multivitamin 1 tab PO QAM 06/27/19 11/02/19 09/23/19 09:00 omega-3 fatty acids 1,000 mg 1,000 mg PO QAM 06/27/19 11/02/19 09/23/19 09:00 capsule hydrocodone 10 mg-acetaminophen 2 tab PO DAILY PRN #120 tab 07/03/19 11/02/19 Unknown 325 mg tablet valacyclovir [Valtrex] 1,000 mg PO DAILY PRN 08/14/19 11/02/19 Unknown acetaminophen [Tylenol] 325 mg PO Q6H PRN 08/20/19 11/02/19 08/18/19 cannabidiol (CBD) extract 100 mg PO DAILY 08/20/19 11/02/19 09/23/19 09:00 diphenhydramine-acetaminophen 2 tab PO HS PRN MDD and pain 08/20/19 11/02/19 08/19/19 21:00 [Tylenol PM Extra Strength] oxybutynin chloride [Ditropan XL] 10 mg PO HS 08/20/19 11/02/19 09/23/19 22:30 simvastatin 20 mg tablet 20 mg PO DAILY #90 tab 08/21/19 11/02/19 09/23/19 22:30 Past Medical History Medical History Chronic kidney disease stage 3 monitoring Hyperlipidemia Hypertension Hypothyroidism Osteoarthritis Past Family History Family History Mother Thyroid disease Father Osteoarthritis Brother Colon cancer Grandmother Colon cancer Past Surgical History Surgical History (Updated 11/05/19 @ 09:38 by Arie Marrero MD) Hx of cholecystectomy Hx of colonoscopy Status post left breast lumpectomy (08/20/19) Left Breast Lumpectomy with Needle Localization and Left [place] Lymph Node Biopsy Dr. Shelley 08/20/19. LMA #4. No issues. Social History Smoking Status: Former smoker tobacco type: cigarettes Do You Dip or Chew Tobacco: No Smoking End Date: 1978 Hx Alcohol Use: No Hx Substance Use: No substance use type: does not use Testing Laboratory Results Laboratory Tests 09/25/19 09/25/19 08:16 08:16 WBC 11.13 H Hgb 12.4 Hct 35.9 L Plt Count 216 Sodium 139 Potassium 3.6 Chloride 105 Carbon Dioxide 25 Creatinine 1.61 H Glucose 114 H Electrocardiogram Date: 09/24/19 Findings: + NSR @ (82) Sinus rhythm with 1st degree A-V block Increased R/S ratio in V1, consider early transition or posterior infarct Nonspecific ST abnormality Abnormal ECG When compared with ECG of 13-AUG-2019 09:36, No significant change was found Confirmed by Con Rodríguez ([id number]) on 09/25/2019 6:08:57 AM
[2019-11-12] MEDS ORDERED: DEXAMETHASONE SOD INJ 4 MG/ML VIAL ONE (07:43)
[2019-11-12] MEDS ORDERED: LIDOCAINE HCL 2% 2 ML VIAL/AMP(20MG/ML) INFIL ONE (07:43)
[2019-11-12] MEDS ORDERED: ONDANSETRON INJ 2 MG/ML 2 ML VIAL ONE (07:43)
[2019-11-12] MEDS ORDERED: fentaNYL citrate 100 MCG/2 ML VIAL ONE ×2 (07:43→09:01)
[2019-11-12] MEDS ORDERED: PROPOFOL IV EMULSION 10 MG/ML 20 ML VIAL IV ONE (07:43)
[2019-11-12] MEDS ORDERED: MIDAZOLAM HCL 1 MG/ML 2ML VIAL ONE (07:44)
--- NOTE | 2019-11-12 08:14 | History & Physical Report ---
Date of Service November 12, 2019 Assessment & Plan (1) Ductal carcinoma in situ (DCIS) of breast: Patient is for left mastectomy General anesthesia Admission to the hospital History of Present Illness Primary Care Provider: Dutch Moore DO Patient is an 79-year-old female. Who has Widespread DCIS of the left breast. She has had prior lumpectomy and reexcision showing additional DCIS .She is now for left mastectomy Allergies Allergy/AdvReac Type Severity Reaction Status Date / Time No Known Drug Allergies Allergy Verified 11/12/19 07:22 Home Medications Home Medications Medication Instructions Recorded Confirmed Type calcium carbonate-vitamin D3 600 1 tab PO QAM 06/27/19 11/12/19 History mg (1,500 mg)-800 unit tablet levothyroxine 137 mcg tablet 137 mcg PO QAM #90 tab 06/27/19 11/12/19 History lisinopril 20 1 tab PO BID #180 tab 06/27/19 11/12/19 History mg-hydrochlorothiazide 12.5 mg tablet multivitamin 1 tab PO QAM 06/27/19 11/12/19 History omega-3 fatty acids 1,000 mg 1,000 mg PO QAM 06/27/19 11/12/19 History capsule hydrocodone 10 mg-acetaminophen 2 tab PO DAILY PRN #120 tab 07/03/19 11/12/19 Rx 325 mg tablet valacyclovir [Valtrex] 1,000 mg PO DAILY PRN 08/14/19 11/12/19 History acetaminophen [Tylenol] 325 mg PO Q6H PRN 08/20/19 11/12/19 History cannabidiol 100 mg PO DAILY 08/20/19 11/12/19 History diphenhydramine-acetaminophen 2 tab PO HS PRN MDD and pain 08/20/19 11/12/19 History [Tylenol PM Extra Strength] oxybutynin chloride [Ditropan XL] 10 mg PO HS 08/20/19 11/12/19 History simvastatin 20 mg tablet 20 mg PO DAILY #90 tab 08/21/19 11/12/19 Rx Past Med/Surg History Family History Mother Thyroid disease Father Osteoarthritis Brother Colon cancer Grandmother Colon cancer Social History Preferred Language: Upper Sorbian Communication Ability: Effective Visual Impairment: No Limitations 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: 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 Beliefs That Will Affect Care: None marital status: Single Current Living Situation: Spouse current occupational status: retired Feels Safe at Home: Yes Safety Concerns: Feels Safe At This Time Smoking Status: Former smoker Tobacco Type: cigarettes ; Do You Dip or Chew Tobacco: No ; Smoking End Date: 1978 ; Second Hand Exposure: No ; Hx Alcohol Use: No Hx Substance Use: No Childhood Exposure to Second-Hand Smoke: Yes Dental Care, Regularly: No Physical Activity Frequency: 1-2 Times per Week Seatbelt Use: always Review of Systems All systems reviewed & are unremarkable except as noted in HPI & below Physical Exam Constitutional: well developed and well nourished; no acute distress Eyes: + anicteric sclerae Respiratory: normal respiratory effort; no respiratory distress Cardiovascular: Rate/Rhythm: regular rate Gastrointestinal (Abdomen): Percussion/Palpation: abdomen soft Musculoskeletal: Gait: normal gait Skin: no rashes, warm and dry Neurologic: awake Psychiatric: Orientation: alert Results & Data Vital Signs (Past 12 Hours) Vital Signs Temp Pulse Resp BP Pulse Ox 11/12/19 07:20 36.7 C 72 20 163/79 H 97
[2019-11-12] MEDS ORDERED: fentaNYL citrate 100 MCG/2 ML VIAL IV PRN (08:21)
[2019-11-12] MEDS ORDERED: ONDANSETRON INJ 2 MG/ML 2 ML VIAL IV PRN ×2 (08:21→11:40)
[2019-11-12] MEDS ORDERED: ePHEDrine sulfate 50 MG/ML AMP IV PRN (08:21)
[2019-11-12] MEDS ORDERED: ATROPINE SULFATE 0.1 MG/ML 10ML SYR IV PRN (08:21)
--- NOTE | 2019-11-12 09:51 | Post Operative Brief Note ---
PG Immediate Post Op with CF Date of Surgery November 12, 2019 Pre & Post Diagnosis Operation Date: 11/12/19 08:50 Pre-Op Diagnosis: Left Breast Ductal carcinoma in situ Post-Op Diagnosis: Left Breast Ductal carcinoma in situ I identified the patient and participated in the time-out.: Yes Procedure Operation Date: 11/12/19 08:50 Actual Procedures p Left Breast Mastectomy(Left) - Garrett Shelley MD, FACS Surgeon Garrett Shelley MD, FACS Early Education Teacher Roxanne Menendez Estimated Blood Loss 20 Findings Consistent with Post-Op Diagnosis Specimens Specimen Description: Permanent specimen: A. left breast tissue - silk is lateral Drains David-Mesa Drain (15Fr round.)
[2019-11-12] MEDS ORDERED: ACETAMINOPHEN 1,000 MG/100 ML VIAL IV STA (09:55)
--- NOTE | 2019-11-12 11:30 | Operative Report ---
DATE OF OPERATION: 11/12/2019 NAME OF OPERATION: Left mastectomy. PREOPERATIVE DIAGNOSIS: Ductal carcinoma in situ, left breast. POSTOPERATIVE DIAGNOSIS: Ductal carcinoma in situ, left breast. STAFF SURGEON: Garrett Shelley MD. PSYCH NURSE: Mack Menendez PA-C. ANESTHESIA: General. DESCRIPTION OF PROCEDURE: The patient was brought in the operating room and placed on the operating table in supine position. Left arm was extended onto an arm board. Her left breast and axilla were prepped and draped in usual fashion. My psychiatric technician assistant helped with prepping, draping the mastectomy and then closure of the wound. An elliptical incision was made widely around the nipple areolar complex from the sternum to the axilla. The breast tissue was dissected away from the subcutaneous tissue constructing superior and inferior chest wall flaps. Dissection was carried down to the pectoralis muscle and then the fascia and breast dissected away from the pectoralis major muscle. The site was irrigated and then a 15 round David-Mesa drain placed into the chest wound, secured to the skin using 3-0 nylon suture. Subcutaneous tissue was reapproximated using 3-0 Vicryl suture, then the skin reapproximated using 4-0 Monocryl with Steri-Strips. Dressing applied and the patient was transferred to recovery room in stable condition. I attest to the content of the Intraoperative Record and any orders documented therein. Any exception s are noted below.
[2019-11-12] MEDS ORDERED: ACETAMINOPHEN 325 MG TAB PO PRN (11:40)
[2019-11-12] MEDS ORDERED: HYDROCODONE/ACETAMOPHEN 5/325MG TAB PO PRN (11:40)
[2019-11-12] MEDS ORDERED: PROMETHAZINE HCL 12.5 MG in SODIUM CHLORIDE 0.9% 50 ML IV PRN (11:40)
[2019-11-12] MEDS ORDERED: MoRPHine SULFATE 2 MG/ML CARP IV PRN ×2 (11:40)
--- NOTE | 2019-11-12 11:44 | Anesthesiology Progress Note ---
Date of Service November 12, 2019 Anesthesia Post Procedure Vital Signs Vital Signs: Temp Pulse Pulse Resp BP BP Pulse Ox 11/12/19 11:15 60 21 137/67 97 11/12/19 11:00 58 L 18 135/63 100 11/12/19 10:50 36.4 C L 57 L 17 143/62 H 100 11/12/19 10:40 59 L 15 145/68 H 99 11/12/19 10:30 62 13 148/68 H 100 11/12/19 10:20 64 16 146/68 H 100 11/12/19 10:12 36.5 C 71 16 136/67 100 11/12/19 07:20 36.7 C 72 20 163/79 H 97 Pain Intensity Left Breast: Pain Intensity: 3 Transfer of Care Handoff Completed per policy Notes Mental Status: alert / awake / arousable and participated in evaluation Patient Amnestic to Procedure: Yes Nausea / Vomiting: adequately controlled Pain: adequately controlled Airway Patency, RR, SpO2: stable & adequate BP & HR: stable & adequate Hydration State: stable & adequate Anesthetic Complications: no major complications apparent and Pt Satisfied with anesthetic care
--- NOTE | 2019-11-12 12:16 | Hospitalist Consultation ---
Date of Consultation November 12, 2019 Assessment & Plan (1) Ductal carcinoma in situ (DCIS) of breast: -Patient is s/p left mastectomy -Patient follows with heme-onc, Dr. Lezama as an outpatient -Patient has had newly diagnosed left breast high-grade ductal carcinoma in situ since abnormal mammography on 07/23/2019. Patient underwent needle biopsy on 07/25/2019 with positive margins, then has repeat mid July for lumpectomy, those surgical margins were also positive, then went back to the operating room on 09/24/2019 for reexcision. Pt now s/p mastectomy with Dr. Shelley. -Pain control and bowel regimen on board -Encourage ambulation -Follow-up with Dr. Shelley and Dr. Lezama have already been scheduled for the end of this month. (2) Hypertension: -BP stable at 137/59, continue lisinopril/HCTZ 1 tab twice daily. Pt did not take her morning med today with surgery, resume tomorrow. (3) Hypercholesterolemia: -Continue simvastatin 20 mg daily (4) Chronic kidney disease, stage III (moderate): -Trend morning PRP, creatinine 1.61 on 09/25 -Encourage p.o. hydration (5) Hypothyroidism: -Continue levothyroxine 137 mcg daily (6) DVT prophylaxis: -Teds, ambulatory Thank you for involving us in the care of Ms. Luo. Please do not hesitate to call with questions or concerns. At this time medicine service will sign off. Supervising Physician Co-Signing Physician Notes I personally saw and examined the patient. I verified all fontanez points and agree with ADRIÁN Carrasco with the following exceptions and/or additions: No acute medical needs identified by the patient or family at bedside. Chronic medications restarted. Vital signs stable On exam: CTAB (limited by post operative band), HS1+2, RRR, no murmurs, Abdo SNT, BS +ve Chronic medical conditions of hypothyroidism, hyperlipidemia and hypertension stable - continue home meds Thank you for the consult. Please do not hesitate to call with questions or concerns. Medicine to sign off at this time. History of Present Illness Reason for Consultation: Medical management Requesting Physician: Dr. Shelley Attending Physician: Garrett Shelley MD, [facility] History of Present Illness This is an 79 yo F with PMHx of HTN, HLD, CKD stage III, hypothyroidism, osteoarthritis, status post left breast lumpectomy on 08/20/2019 with reexcision showing DCIS who presented for elective left mastectomy completed by Dr. Shelley on 11/12/2019. The patient is doing well since surgery. Her three daughters are present at bedside. Pt notes she has been up and ambulated to the bathroom without difficulty, urinated, no discomfort, and has a lunch tray being delivered during our meeting. Her pain is well controlled, we discussed using tylenol around the clock for now and she would like to try this. Pt has regular BMs, will order dulcolax with having narcotic medications prn. Pt reports her left arm feels somewhat sore, denies numbness or tingling and has full active ROM. She denies any other acute complaints. She anticipates going home soon, lives alone, but has a good support system. Allergies Allergy/AdvReac Type Severity Reaction Status Date / Time No Known Drug Allergies Allergy Verified 11/12/19 07:22 Home Medications Home Medications Medication Instructions Recorded Confirmed Type calcium carbonate-vitamin D3 600 1 tab PO QAM 06/27/19 11/12/19 History mg (1,500 mg)-800 unit tablet levothyroxine 137 mcg tablet 137 mcg PO QAM #90 tab 06/27/19 11/12/19 History lisinopril 20 1 tab PO BID #180 tab 06/27/19 11/12/19 History mg-hydrochlorothiazide 12.5 mg tablet multivitamin 1 tab PO QAM 06/27/19 11/12/19 History omega-3 fatty acids 1,000 mg 1,000 mg PO QAM 06/27/19 11/12/19 History capsule hydrocodone 10 mg-acetaminophen 2 tab PO DAILY PRN #120 tab 07/03/19 11/12/19 Rx 325 mg tablet valacyclovir [Valtrex] 1,000 mg PO DAILY PRN 08/14/19 11/12/19 History acetaminophen [Tylenol] 325 mg PO Q6H PRN 08/20/19 11/12/19 History cannabidiol 100 mg PO DAILY 08/20/19 11/12/19 History diphenhydramine-acetaminophen 2 tab PO HS PRN MDD and pain 08/20/19 11/12/19 History [Tylenol PM Extra Strength] oxybutynin chloride [Ditropan XL] 10 mg PO HS 08/20/19 11/12/19 History simvastatin 20 mg tablet 20 mg PO DAILY #90 tab 08/21/19 11/12/19 Rx Patient History Medical History (Updated 11/12/19 @ 12:07 by Leslye Carrasco PA-C) Chronic kidney disease stage 3 monitoring Hyperlipidemia Hypertension Hypothyroidism Osteoarthritis Surgical History (Updated 11/12/19 @ 10:11 by Christie Alford RN) H/O mastectomy (11/12/19) Left Breast Mastectomy Dr. Shelley 11-12-19 Hx of cholecystectomy Hx of colonoscopy Status post left breast lumpectomy (08/20/19) Left Breast Lumpectomy with Needle Localization and Left [place] Lymph Node Biopsy Dr. Shelley 08/20/19. LMA #4. No issues. Family History Mother Thyroid disease Father Osteoarthritis Brother Colon cancer Grandmother Colon cancer Social History Preferred Language: [place] Communication Ability: Effective Visual Impairment: No Limitations 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: Normal Outreach Representative Required: No Beliefs That Will Affect Care: None marital status: Single Current Living Situation: Spouse current occupational status: retired Feels Safe at Home: Yes Safety Concerns: Feels Safe At This Time Smoking Status: Former smoker Tobacco Type: cigarettes ; Do You Dip or Chew Tobacco: No ; Smoking End Date: 1978 ; Second Hand Exposure: No ; Hx Alcohol Use: No Hx Substance Use: No Childhood Exposure to Second-Hand Smoke: Yes Dental Care, Regularly: No Physical Activity Frequency: 1-2 Times per Week Seatbelt Use: always Review of Systems Review of Systems: Constitutional: No fever, sweats or chills Eyes: No diplopia, no worsening or blurred vision ENT: normal hearing, no trouble swallowing Respiratory: No cough, sputum, dyspnea at rest or on exertion Cardiovascular: No chest pain, tightness or palpitations Abdomen: No pain, nausea, vomiting, diarrhea or constipation Musculoskeletal: No joint pain, calf pain, swelling Neurologic: No weakness, numbness/tingling, or balance problems Psychiatric: No anxiety or depression Skin: No rash or itch Physical Exam Physical Exam: General: awake, alert, no apparent distress Head: Normocephalic, atraumatic ENT: PERRL, EOMI, no pharyngeal exudate, mucous membranes moist Chest: Clear to auscultation, on room air, no adventitious breath sounds. + Chest bandaged s/p left mastectomy, dressing c/d/i. Cardiac: Regular rate and rhythm, no murmur, no JVD, normal peripheral pulses, good capillary refill Abdominal: NABS x 4 quadrants, soft, nondistended, nontender to palpation, no rebound, guarding or tenderness Extremities: Normal inspection, no peripheral edema or erythema, calfs nontender to palpation Psych: Normal mood and affect Neuro: AAO x 3, no gross motor deficits, speech is clear, no peripheral sensory deficits Results & Data Vital Signs (Past 12 Hours) Vital Signs Temp Pulse Pulse Resp BP BP Pulse Ox 11/12/19 11:31 36.4 C L 60 16 142/69 H 100 11/12/19 11:15 60 21 137/67 97 11/12/19 11:00 58 L 18 135/63 100 11/12/19 10:50 36.4 C L 57 L 17 143/62 H 100 11/12/19 10:40 59 L 15 145/68 H 99 11/12/19 10:30 62 13 148/68 H 100 11/12/19 10:20 64 16 146/68 H 100 11/12/19 10:12 36.5 C 71 16 136/67 100 11/12/19 07:20 36.7 C 72 20 163/79 H 97 PG Care Time/CCT Total # of Minutes Spent Total Time Spent with Patient: Total time spent is greater than 50% in c oordination of care (as documented) at patient's floor/unit and/or counseling patient: (1) Hypothyroidism Hypothyroidism type: unspecified Qualified Code(s): E03.9 - Hypothyroidism, unspecified
[2019-11-12] MEDS: ACETAMINOPHEN 325 MG TAB PO SCH ×3 (12:55→20:55)
[2019-11-12] MEDS: HYDROCODONE/ACETAMOPHEN 5/325MG TAB PO PRN ×2 (13:05→23:21)
[2019-11-12] MEDS ORDERED: SODIUM CHLORIDE 0.9% 1000ML 1,000 ML IV SCH (14:00)
[2019-11-12] MEDS: CEFAZOLIN 2000MG 2,000 MG/15 ML SYR IV SCH ×2 (15:37→23:22)
[2019-11-12] MEDS: LISINOPRIL/HCTZ 20/12.5MG 1 TAB TAB PO SCH (20:55)
[2019-11-12] MEDS: OXYBUTYNIN CHLORIDE XL 5 MG TABCR PO SCH (20:55)
[2019-11-13] MEDS: LEVOTHYROXINE SODIUM 137 MCG TABLET PO SCH (05:31)
[2019-11-13 06:46] LABS: Hematocrit (blood only) 37.4 % (37-47); Hemoglobin 12.7 g/dL (12.0-16.0); Mean Corpuscular Hemoglobin 31.1 pg (25-34); Mean Corpuscular Volume 91.4 fL (80-100); Mean Platelet Volume 9.9 fL (7.4-10.4); Platelet Count 233 K/uL (130-400); RDW Standard Deviation 43.3 fL (36.4-46.3); Red Blood Count 4.09 M/uL (4.2-5.4); White Blood Count 11.06 K/uL (4.8-10.8)
--- NOTE | 2019-11-13 07:04 | Surgery Progress Note ---
Date of Service November 13, 2019 Assessment & Plan (1) H/O mastectomy: awake, alert- vitals stable some pain- po meds drain- 25 cc last shift overall stable- change dressing, supportive care- plan d/c Wed 11/14 Results & Data Vital Signs (Past 12 Hours) Vital Signs Temp Pulse Pulse Resp BP Pulse Ox 11/13/19 06:54 36.9 C 55 L 19 148/68 H 96 11/13/19 03:25 36.6 C 61 18 143/74 H 96 11/12/19 23:15 37.0 C 63 18 139/71 95 11/12/19 20:57 66 135/78 11/12/19 20:22 36.9 C 75 16 145/72 H 95 PG Care Time/CCT Total # of Minutes Spent Total Time Spent with Patient: Total time spent is greater than 50% in coordination of care (as documented) at patient's floor/unit and/or counseling patient:
--- NOTE | 2019-11-13 07:39 | Anesthesiology Progress Note ---
Date of Service November 13, 2019 Anesthesia Post Procedure Vital Signs Vital Signs: Temp Pulse Pulse Pulse Resp BP Pulse Ox 11/13/19 06:54 36.9 C 55 L 19 148/68 H 96 11/13/19 03:25 36.6 C 61 18 143/74 H 96 11/12/19 23:15 37.0 C 63 18 139/71 95 11/12/19 20:57 66 135/78 11/12/19 20:22 36.9 C 75 16 145/72 H 95 11/12/19 14:57 72 16 134/74 95 11/12/19 13:30 67 16 113/69 92 11/12/19 12:30 71 16 131/77 99 11/12/19 12:04 60 16 137/59 L 99 11/12/19 11:31 36.4 C L 60 16 142/69 H 100 11/12/19 11:15 60 21 137/67 97 11/12/19 11:00 58 L 18 135/63 100 11/12/19 10:50 36.4 C L 57 L 17 143/62 H 100 11/12/19 10:40 59 L 15 145/68 H 99 11/12/19 10:30 62 13 148/68 H 100 11/12/19 10:20 64 16 146/68 H 100 11/12/19 10:12 36.5 C 71 16 136/67 100 Pain Intensity Left Breast: Pain Intensity: 6 Notes Mental Status: alert / awake / arousable and participated in evaluation Patient Amnestic to Procedure: Yes Nausea / Vomiting: adequately controlled Pain: adequately controlled Airway Patency, RR, SpO2: stable & adequate BP & HR: stable & adequate Hydration State: stable & adequate Anesthetic Complications: no major complications apparent and Pt Satisfied with anesthetic care
[2019-11-13] MEDS: ACETAMINOPHEN 325 MG TAB PO SCH ×4 (08:00→20:48)
[2019-11-13] MEDS: CEFAZOLIN 2000MG 2,000 MG/15 ML SYR IV SCH ×2 (08:52→16:39)
[2019-11-13] MEDS: SIMVASTATIN 20 MG TAB PO SCH (08:55)
[2019-11-13] MEDS: HEPARIN SOD 5,000 UNIT/0.5 ML VIAL SQ SCH ×2 (08:57→20:49)
[2019-11-13] MEDS: LISINOPRIL/HCTZ 20/12.5MG 1 TAB TAB PO SCH ×2 (08:57→20:48)
[2019-11-13] MEDS: bisacodyL 5 MG TABEC PO SCH (09:06)
[2019-11-13] MEDS: HYDROCODONE/ACETAMOPHEN 5/325MG TAB PO PRN (11:13)
[2019-11-13] MEDS: OXYBUTYNIN CHLORIDE XL 5 MG TABCR PO SCH (20:48)
[2019-11-14] MEDS: CEFAZOLIN 2000MG 2,000 MG/15 ML SYR IV SCH ×2 (00:22→08:59)
[2019-11-14] MEDS ORDERED: ACETAMINOPHEN 325 MG TAB PO PRN (05:47)
[2019-11-14] MEDS: LEVOTHYROXINE SODIUM 137 MCG TABLET PO SCH (05:48)
--- NOTE | 2019-11-14 06:46 | Discharge Summary ---
PRINCIPAL DIAGNOSIS: Ductal carcinoma in situ, left breast. PROCEDURES: The patient underwent left breast mastectomy. HISTORY OF PRESENT ILLNESS: The patient is an 79-year-old female with diffuse widespread DCIS of the left breast brought into the hospital for mastectomy. On 11/12/2019, she was taken to the operating room. She underwent left mastectomy. She tolerated it very well and has done quite well in the hospital with no significant abnormal physical findings today except her healing wound and drain in place. She was felt stable for discharge home for followup next week in the office.
[2019-11-14] MEDS: ACETAMINOPHEN 325 MG TAB PO SCH (09:00)
[2019-11-14] MEDS: SIMVASTATIN 20 MG TAB PO SCH (09:00)
[2019-11-14] MEDS: LISINOPRIL/HCTZ 20/12.5MG 1 TAB TAB PO SCH (09:02)
[2019-11-14] MEDS: bisacodyL 5 MG TABEC PO SCH (09:03)
[2019-11-14] MEDS: HEPARIN SOD 5,000 UNIT/0.5 ML VIAL SQ SCH (09:04)
== END 2019-11-14 10:31 | disposition home health service (06) ==
LOC: ASU 06:57 → 3W 09:54 → INTOOBSV 09:54

== ENCOUNTER 2022-03-27 15:38 | Inpatient (IN) ==
[2022-03-27] MEDS ORDERED: CEFEPIME 2,000 MG/20 ML VIAL IV STA (16:18)
[2022-03-27] MEDS ORDERED: ONDANSETRON INJ 2 MG/ML 2 ML VIAL IV STA (16:18)
--- NOTE | 2022-03-27 16:22 | Emergency Department Note ---
Impression & Plan Weakness, Anemia, Hematuria, Acute hyponatremia, Renal mass ED Provider Note NAME: ISABELLA SAMPSON AGE: 81 SEX: F : 1940 ARRIVES VIA: Walk-In INFORMANT: [Patient][family] ED PROVIDER(S): [Dom Mijares MD] CHIEF COMPLAINT: Urinary symptoms HISTORY OF PRESENT ILLNESS: The patient is an 81-year-old female who has had about a week of blood in her urine, she has been diagnosed with a UTI. She was on 1 antibiotic for a few days and then switched to a new antibiotic. She is now on Keflex but has only had a dose or 2. The patient is still having hematuria. She feels weak and tired. She began vomiting yesterday and continued vomiting today. There has been no fever, no cough or congestion or shortness of breath. She has not had any abdominal or bladder pain. She does state that she was recently diagnosed with a left renal malignancy. REVIEW OF SYSTEMS: See HPI for pertinent positives and negatives. A total of ten systems were reviewed and were otherwise negative. PMHx/PSHx: See Below SOCIAL HISTORY: See Below. PHYSICAL EXAM: GENERAL: Patient is in no acute distress. HEENT: No acute trauma, normocephalic atraumatic, mucous membranes moist, no nasal congestion, no scleral icterus. NECK: No stridor, no adenopathy, no meningismus, trachea is midline. LUNGS: Clear to auscultation bilaterally, no wheeze, no rhonchi, breath sounds equal. HEART: 3/6 systolic murmur, regular rate and rhythm. ABDOMEN: Soft, nontender, bowel sounds positive, no peritonitis. EXTREMITIES: No cyanosis, mild bilateral pedal edema, full range of motion of all the joints without pain or difficulty, no signs for acute trauma. NEUROLOGIC: Oriented x 3, no acute motor or sensory deficits, no focal weakness. SKIN: No rash, no jaundice, no diaphoresis. DIFFERENTIAL DIAGNOSIS: UTI, pyelonephritis, renal mass, hydronephrosis, urinary obstruction, anemia, electrolyte imbalance, failed outpatient treatment, bacteremia, sepsis, among others. EMERGENCY DEPARTMENT COURSE/PROCEDURES: Critical Care Note: I have personally spent 42 minutes of critical care time in the direct management of this patient. This includes bedside care, interpretation of diagnostic studies, and testing, discussion with consultants, patient, and family members, and other required patient management activities. This 42 minutes is in excess of all separately billable procedures. MEDICAL DECISION MAKING: There is no leukocytosis. The hemoglobin is low at just under 8. This is a significant drop for her. There is a normal platelet count. No coagulopathy. Sodium was quite low at 114. Her creatinine was elevated above baseline consistent with some acute kidney injury. Lactic acid level was not elevated making sepsis less likely. Magnesium was low at 1.4. No concerning liver enzyme elevation. Urinalysis showed white cells and red cells, no bacteria. COVID test returned negative. Abdominal and pelvis CT shows evidence for metastasis as well as a left renal mass. No urinary obstruction. The patient presents with ongoing hematuria. She has been weak. She has been on antibiotics for the possibility of UTI. The patient was given IV saline, 2 L. She received IV Zofran, IV magnesium, IV cefepime. I suspect the patient's hematuria is result of bleeding from her renal mass. I doubt UTI. The patient's weakness is from her anemia, her low magnesium, her low sodium. She is in need of a hospital stay. She will likely require a blood transfusion as I suspect her hemoglobin to drop below 7. I spoke with the patient and her family, I spoke with case management, the on- call hospitalist was consulted. Past Med/Surg History Medical History Benign colonic polyp Chronic kidney disease stage 3 monitoring Ductal carcinoma in situ (DCIS) of breast Gross hematuria Herpes simplex Herpesviral infection Hyperlipidemia Hypertension Hypothyroidism Left renal mass Osteoarthritis UTI (urinary tract infection) Surgical History H/O breast surgery (09/24/19) H/O lumpectomy H/O mastectomy (11/12/19) Hx of cholecystectomy Hx of colonoscopy Status post left breast lumpectomy (08/20/19) Family History Mother Thyroid disease Father Osteoarthritis Brother Colon cancer Grandmother Colon cancer Denies family history of Ovarian cancer Prostate cancer Myocardial infarction Breast cancer Social History Smoking Status: Former smoker Tobacco Type: Cigarettes Age Started Using Tobacco: 18; Age Quit Using Tobacco: 29; packs per day: 0.5; Years Smoked: 11; Cigarettes Per Day: 10; Number of Years Since Quit: 52; Second Hand Exposure: No; Do You Dip or Chew Tobacco: No; Tobacco Cessation Education Requested by Patient: No Hx Alcohol Use: No Hx Substance Use: No Preferred Language: American Communication Ability: Effective Visual Impairment: No Limitations 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: Normal 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 Beliefs That Will Affect Care: None marital status: / Current Living Situation: Alone current occupational status: retired How many Children do You have: 3 Other Information That Helps Us Care for You: No Feels Safe at Home: Yes Safety Concerns: Feels Safe At This Time Childhood Exposure to Second-Hand Smoke: Yes caffeine: Yes during the past year weight has: increased > 10 lbs Dental Care, Regularly: No Physical Activity Frequency: Does not Exercise Seatbelt Use: always Sunscreen Use: No Assistive Devices: Cane Allergies Allergies Allergy/AdvReac Type Severity Reaction Status Date / Time No Known Drug Allergies Allergy Verified 03/27/22 17:10 Home Meds Home Medications Medication Instructions Recorded Confirmed calcium carbonate 600 mg-vitamin 1 tab PO QAM 06/27/19 03/27/22 D3 20 mcg (800 unit) tablet (Caltrate with Vitamin D3) multivitamin (One Daily 1 tab PO QAM 06/27/19 03/27/22 Multivitamin) acetaminophen 325 mg tablet 325 mg PO Q6H PRN 08/20/19 03/27/22 (Tylenol) diphenhydramine 25 2 tab PO HS PRN MDD and pain 08/20/19 03/27/22 mg-acetaminophen 500 mg tablet (Tylenol PM Extra Strength) Previous Rx's Medication Instructions Recorded ketoconazole 2 % topical cream 1 applic TOPICAL BID #60 g 08/18/20 alprazolam 0.5 mg tablet 0.5 mg PO PRN #4 tab 12/17/21 levothyroxine 137 mcg tablet See Rx Instructions .ROUTE 12/22/21 .COMPLEX #90 tab lisinopril 20 1 tab PO BID #180 tab 12/28/21 mg-hydrochlorothiazide 12.5 mg tablet hydrocodone 10 mg-acetaminophen 2 tab PO DAILY PRN #60 tab 01/12/22 325 mg tablet valacyclovir 1 gram tablet 1,000 mg PO DAILY PRN #90 tab 01/12/22 (Valtrex) sulfamethoxazole 400 1 tab PO BID 3 Days #6 tab 03/09/22 mg-trimethoprim 80 mg tablet (Bactrim) oxybutynin chloride 10 mg 10 mg PO HS #90 tab 03/22/22 tablet,extended release 24 hr (Ditropan XL) simvastatin 20 mg tablet (Zocor) 20 mg PO DAILY #90 tab 03/22/22 cephalexin 500 mg capsule 500 mg PO Q12H #10 cap 03/26/22 Results & Data (ED) Vital Signs Vital Signs - 24 hr 03/27/22 15:41 03/27/22 16:32 03/27/22 16:35 Temperature 36.4 C L Temperature Source Temporal Artery Scan Pulse Rate 75 74 Pulse Rate [Right Finger] Pulse Rhythm Regular Respiratory Rate 18 19 20 Respiratory Effort / Characteristics Non-Labored Non-Labored Respiratory Depth Normal Respiratory Pattern Regular Blood Pressure 113/62 Blood Pressure [Right Arm] Blood Pressure Mean 79 Blood Pressure Mean [Right Arm] Pulse Oximetry 98 99 99 Oxygen Delivery Method Room Air Room Air Room Air Sepsis Recent Fever Within 48 Hours No Sepsis New/Unexplained Change in Mental Status No Sepsis Action Taken by Nursing No Action Required 03/27/22 16:50 03/27/22 19:35 03/27/22 19:36 Temperature Temperature Source Pulse Rate Pulse Rate [Right Finger] 68 75 Pulse Rhythm Respiratory Rate 19 21 21 Respiratory Effort / Characteristics Non-Labored Non-Labored Non-Labored Respiratory Depth Normal Respiratory Pattern Blood Pressure Blood Pressure [Right Arm] 136/57 L 127/74 Blood Pressure Mean Blood Pressure Mean [Right Arm] 83 91 Pulse Oximetry 99 99 99 Oxygen Delivery Method Room Air Room Air Room Air Sepsis Recent Fever Within 48 Hours Sepsis New/Unexplained Change in Mental Status Sepsis Action Taken by Custodial Medications Current Medication List: was personally reviewed by me Laboratory Data Attestation: I reviewed the patient's lab results. Result diagrams: 03/28/22 00:30 03/27/22 21:42 Lab Results 03/27/22 03/27/22 03/27/22 Range/Units 16:29 16:29 16:29 WBC 9.04 (4.8-10.8) K/uL RBC 2.56 L (4.2-5.4) M/uL Hgb 7.8 L (12.0-16.0) g/dL Hct 21.5 L (37-47) % MCV 84.0 (80-100) fL MCH 30.5 (25-34) pg MCHC 36.3 H (32-36) g/dL RDW Std Deviation 38.4 (36.4-46.3) fL RDW Coeff of Gala 12.5 (11.5-14.5) % Plt Count 253 (130-400) K/uL MPV 9.3 (7.4-10.4) fL Immature Gran % (Auto) 0.6 % Neut % (Auto) 68.8 % Lymph % (Auto) 20.6 % [place] % (Auto) 7.6 % Eos % (Auto) 2.3 % Baso % (Auto) 0.1 % Neut # (Auto) 6.22 (1.4-6.5) K/uL Lymph # (Auto) 1.86 (1.2-3.4) K/uL [place] # (Auto) 0.69 H (0.11-0.59) K/uL Eos # (Auto) 0.21 (0-0.5) K/uL Baso # (Auto) 0.01 (0-0.2) K/uL Immature Gran # (Auto) 0.05 H (0.00-0.02) K/uL RBC Morphology Unremarkable PT 10.7 (9.0-12.0) Seconds INR 1.0 (0.9-1.1) APTT 32.4 H (21.0-31.0) Seconds PTT Ratio 1.2 Sodium 114 L* (136-145) mmol/L Potassium 3.9 (3.5-5.1) mmol/L Chloride 84 L (98-107) mmol/L Carbon Dioxide 20 L (21-32) mmol/L Anion Gap 10 (3-11) BUN 38 H (6-23) mg/dl Creatinine 2.47 H (0.6-1.2) mg/dl Est Cr Clr Drug Dosing 24.4 ml/min Est GFR ( Amer) 20.4 ml/min Est GFR (Non-Af Amer) 17.6 ml/min BUN/Creatinine Ratio 15.4 (10-20) Glucose 102 H (70-99(Fasting)) mg/dl Lactate (0.4-2.0) mmol/L Calcium 9.2 (8.5-10.1) mg/dl Magnesium 1.4 L (1.7-2.4) mg/dl Total Bilirubin 0.6 (0.2-1.0) mg/dl AST 19 (13-39) U/L ALT 11 (7-52) U/L Alkaline Phosphatase 59 (34-104) U/L Total Protein 6.8 (6.0-8.3) gm/dl Albumin 3.8 (3.4-5.0) gm/dl Globulin 3.0 (2.5-4.0) gm/dl Albumin/Globulin Ratio 1.3 (0.9-2) Procalcitonin (0-0.5) ng/ml Urine Color Urine Appearance (Clear) Urine pH (4.5-7.5) Ur Specific Rudolph (1.000-1.030) Urine Protein (Negative) Urine Glucose (UA) (Negative) Urine Ketones (Negative) Urine Blood (Negative) Urine Nitrite (Negative) Urine Bilirubin (Negative) Urine Urobilinogen (Negative) Ur Leukocyte Esterase (Negative) Urine RBC (0-4) /hpf Urine WBC (0-5) /hpf Ur Epithelial Cells (0-5) /lpf Urine Bacteria (Negative) Ur Random Creatinine mg/dl Ur Random Sodium mmol/L SARS-CoV-2, RNA, NAAT (NEGATIVE) Blood Type Antibody Screen 03/27/22 03/27/22 03/27/22 Range/Units 16:29 16:29 16:43 WBC (4.8-10.8) K/uL RBC (4.2-5.4) M/uL Hgb (12.0-16.0) g/dL Hct (37-47) % MCV (80-100) fL MCH (25-34) pg MCHC (32-36) g/dL RDW Std Deviation (36.4-46.3) fL RDW Coeff of Gala (11.5-14.5) % Plt Count (130-400) K/uL MPV (7.4-10.4) fL Immature Gran % (Auto) % Neut % (Auto) % Lymph % (Auto) % [place] % (Auto) % Eos % (Auto) % Baso % (Auto) % Neut # (Auto) (1.4-6.5) K/uL Lymph # (Auto) (1.2-3.4) K/uL [place] # (Auto) (0.11-0.59) K/uL Eos # (Auto) (0-0.5) K/uL Baso # (Auto) (0-0.2) K/uL Immature Gran # (Auto) (0.00-0.02) K/uL RBC Morphology PT (9.0-12.0) Seconds INR (0.9-1.1) APTT (21.0-31.0) Seconds PTT Ratio Sodium (136-145) mmol/L Potassium (3.5-5.1) mmol/L Chloride (98-107) mmol/L Carbon Dioxide (21-32) mmol/L Anion Gap (3-11) BUN (6-23) mg/dl Creatinine (0.6-1.2) mg/dl Est Cr Clr Drug Dosing ml/min Est GFR ( Amer) ml/min Est GFR (Non-Af Amer) ml/min BUN/Creatinine Ratio (10-20) Glucose (70-99(Fasting)) mg/dl Lactate 0.9 (0.4-2.0) mmol/L Calcium (8.5-10.1) mg/dl Magnesium (1.7-2.4) mg/dl Total Bilirubin (0.2-1.0) mg/dl AST (13-39) U/L ALT (7-52) U/L Alkaline Phosphatase (34-104) U/L Total Protein (6.0-8.3) gm/dl Albumin (3.4-5.0) gm/dl Globulin (2.5-4.0) gm/dl Albumin/Globulin Ratio (0.9-2) Procalcitonin 0.06 (0-0.5) ng/ml Urine Color Urine Appearance (Clear) Urine pH (4.5-7.5) Ur Specific Rudolph (1.000-1.030) Urine Protein (Negative) Urine Glucose (UA) (Negative) Urine Ketones (Negative) Urine Blood (Negative) Urine Nitrite (Negative) Urine Bilirubin (Negative) Urine Urobilinogen (Negative) Ur Leukocyte Esterase (Negative) Urine RBC (0-4) /hpf Urine WBC (0-5) /hpf Ur Epithelial Cells (0-5) /lpf Urine Bacteria (Negative) Ur Random Creatinine mg/dl Ur Random Sodium mmol/L SARS-CoV-2, RNA, NAAT NEGATIVE (NEGATIVE) Blood Type Antibody Screen 03/27/22 03/27/22 03/27/22 Range/Units 17:15 17:15 17:39 WBC (4.8-10.8) K/uL RBC (4.2-5.4) M/uL Hgb (12.0-16.0) g/dL Hct (37-47) % MCV (80-100) fL MCH (25-34) pg MCHC (32-36) g/dL RDW Std Deviation (36.4-46.3) fL RDW Coeff of Gala (11.5-14.5) % Plt Count (130-400) K/uL MPV (7.4-10.4) fL Immature Gran % (Auto) % Neut % (Auto) % Lymph % (Auto) % [place] % (Auto) % Eos % (Auto) % Baso % (Auto) % Neut # (Auto) (1.4-6.5) K/uL Lymph # (Auto) (1.2-3.4) K/uL [place] # (Auto) (0.11-0.59) K/uL Eos # (Auto) (0-0.5) K/uL Baso # (Auto) (0-0.2) K/uL Immature Gran # (Auto) (0.00-0.02) K/uL RBC Morphology PT (9.0-12.0) Seconds INR (0.9-1.1) APTT (21.0-31.0) Seconds PTT Ratio Sodium (136-145) mmol/L Potassium (3.5-5.1) mmol/L Chloride (98-107) mmol/L Carbon Dioxide (21-32) mmol/L Anion Gap (3-11) BUN (6-23) mg/dl Creatinine (0.6-1.2) mg/dl Est Cr Clr Drug Dosing ml/min Est GFR ( Amer) ml/min Est GFR (Non-Af Amer) ml/min BUN/Creatinine Ratio (10-20) Glucose (70-99(Fasting)) mg/dl Lactate (0.4-2.0) mmol/L Calcium (8.5-10.1) mg/dl Magnesium (1.7-2.4) mg/dl Total Bilirubin (0.2-1.0) mg/dl AST (13-39) U/L ALT (7-52) U/L Alkaline Phosphatase (34-104) U/L Total Protein (6.0-8.3) gm/dl Albumin (3.4-5.0) gm/dl Globulin (2.5-4.0) gm/dl Albumin/Globulin Ratio (0.9-2) Procalcitonin (0-0.5) ng/ml Urine Color Red Urine Appearance Cloudy A (Clear) Urine pH 6.5 (4.5-7.5) Ur Specific Rudolph 1.020 (1.000-1.030) Urine Protein 3+ H (Negative) Urine Glucose (UA) Negative (Negative) Urine Ketones Negative (Negative) Urine Blood 3+ H (Negative) Urine Nitrite Negative (Negative) Urine Bilirubin 1+ H (Negative) Urine Urobilinogen Negative (Negative) Ur Leukocyte Esterase Negative (Negative) Urine RBC >30 H (0-4) /hpf Urine WBC >30 H (0-5) /hpf Ur Epithelial Cells 5-10 H (0-5) /lpf Urine Bacteria Negative (Negative) Ur Random Creatinine 44.4 mg/dl Ur Random Sodium 52 mmol/L SARS-CoV-2, RNA, NAAT (NEGATIVE) Blood Type A Positive Antibody Screen NEGATIVE Administered Medications Acetaminophen (Acetaminophen 325 Mg Tab) 650 mg PO Q4H PRN PRN Reason: Pain or Fever Stop: 04/26/22 20:22 Last Admin: 03/27/22 22:23 Dose: 650 mg Documented by: [id number] Ketoconazole (Ketoconazole 2% Cr 15 Gm Tube) 1 appln EXT BID EMELY Stop: 04/06/22 21:32 Last Admin: 03/27/22 22:20 Dose: Not Given Documented by: [id number] Oxybutynin Chloride (Oxybutynin Chloride Xl 5 Mg Tabcr) 10 mg PO HS EMELY Stop: 04/26/22 21:32 Last Admin: 03/27/22 22:21 Dose: 10 mg Documented by: [id number] Discontinued Medications Alprazolam (Alprazolam 0.5 Mg Tablet) 0.5 mg PO PRN EMELY Stop: 04/26/22 21:32 Last Admin: 03/27/22 22:18 Dose: Not Given Documented by: [id number] Sodium Chloride (Nss 1000ml) 1,000 mls @ 999 mls/hr IV .Q1H1M EMELY Stop: 03/27/22 17:30 Last Infusion: 03/27/22 17:48 Dose: 0 mls/hr Documented by: [id number] Admin: 03/27/22 16:30 Dose: 999 mls/hr Documented by: [id number] Cefepime HCl (Maxipime) 2,000 mg in 20 mls @ 5 mls/min IV NOW STA; Protocol Stop: 03/27/22 16:21 Last Admin: 03/27/22 16:30 Dose: 5 mls/min Documented by: [id number] Magnesium Sulfate/Dextrose (Magnesium Sulfate / D5w) 1 gm in 100 mls @ 100 mls/hr IV NOW STA Stop: 03/27/22 19:38 Last Infusion: 03/27/22 20:28 Dose: 0 mls/hr Documented by: [id number] Admin: 03/27/22 19:35 Dose: 100 mls/hr Documented by: [id number] Sodium Chloride (Nss 1000ml) 500 mls @ 999 mls/hr IV .Q31M ONE Stop: 03/27/22 19:09 Last Infusion: 03/27/22 20:28 Dose: 0 mls/hr Documented by: [id number] Admin: 03/27/22 19:35 Dose: 999 mls/hr Documented by: [id number] Sodium Chloride (Nss 1000ml) 500 mls @ 999 mls/hr IV .Q31M ONE Stop: 03/27/22 23:07 Last Infusion: 03/27/22 23:44 Dose: 0 mls/hr Documented by: [id number] Admin: 03/27/22 22:59 Dose: 999 mls/hr Documented by: [id number] Ondansetron HCl (Ondansetron Inj 2 Mg/Ml 2 Ml Vial) 4 mg IV NOW STA Stop: 03/27/22 16:19 Last Admin: 03/27/22 16:30 Dose: 4 mg Documented by: [id number] Imaging Data Radiologist's Impression: Abdomen/Pelvis CT 03/27/22 18:[address] WITHOUT CONTRAST CT DOSE: 1519.46 mGy.cm HISTORY: bloody urine, high creat TECHNIQUE: Multiaxial CT images of the abdomen and pelvis were performed without contrast. A dose lowering technique was utilized adhering to the principles of ALARA. COMPARISON STUDY: Abdomen and pelvis CT 12/24/2021. FINDINGS: Increase in size and number of the multiple pulmonary nodules with the largest in the right middle lobe measuring 1 cm. Therefore, this is highly suspicious for metastatic disease. No pneumoperitoneum. No pneumatosis. There is a 1.8 cm sclerotic focus within the left iliac bone on image 279. This is new from the prior study and is concerning for metastatic disease. There is a small hiatus hernia. Cholecystectomy. The unenhanced liver, spleen, adrenal glands, and pancreas unremarkable. Slight increase in size in a 5.2 cm mass within the upper pole the left kidney. Left perinephric edema has also slightly progressed. The left periaortic lymphadenopathy has also slightly increased in size with the dominant lymph node measuring 3.5 x 2.6 cm. Increased density within the distal left ureter suggestive of blood products given the patient's history of hematuria. No left-sided hydronephrosis. Normal right kidney. The bladder is unremarkable. The uterus and bilateral adnexa are within normal limits. There is mild pelvic floor collapse. A few colonic diverticula. No evidence for acute diverticulitis. No bowel wall thickening or obstruction. Normal appendix. Increase in size in a 1.2 cm left perinephric nodule on image 159. This likely represents a metastatic focus. Soft tissue thickening adjacent to the left adrenal gland may also represent metastatic disease.. IMPRESSION: 1. Interval increase in size in the 5.2 cm mass within the upper pole of the left kidney consistent with a renal cell carcinoma. 2. Interval progression of the pulmonary nodules and left perinephric lymphadenopathy consistent with metastatic disease. 3. A new sclerotic focus within the left iliac bone which is also concerning for metastatic focus. 4. Increased density within the distal left ureter suggestive of blood products given the patient's history of hematuria. ACT 112: Negative or not required by law. Electronically signed by: Vinod Yanez M.D. 03/27/2022 7:28 PM Discharge Plan Visit Data Chief Complaint: Urinary Symptoms Stated Complaint: BLOOD IN URINE, THROWING UP, GOING ON SINCE 5/22 ED Provider: Dom Mijares Discharge Problem: Weakness, Anemia, Hematuria, Acute hyponatremia, Renal mass Patient Disposition: Admitted As Inpatient Condition: Serious Discharge Instructions Interventions: ED Discharge Assessment Last Done: 03/27/22 21:13
[2022-03-27] MEDS ORDERED: SODIUM CHLORIDE 0.9% 1000ML 1,000 ML IV SCH (16:30)
[2022-03-27 16:58] LABS: Basophils # (auto) 0.01 K/uL (0-0.2); Basophils % (auto) 0.1 %; Eosinophils # (auto) 0.21 K/uL (0-0.5); Eosinophils % (auto) 2.3 %; Hematocrit (blood only) 21.5 % (37-47); Hemoglobin 7.8 g/dL (12.0-16.0); Immature Granulocytes # (auto) 0.05 K/uL (0.00-0.02); Immature Granulocytes % (auto) 0.6 %; Lymphocytes # (auto) 1.86 K/uL (1.2-3.4); Lymphocytes % (auto) 20.6 %; Mean Corpuscular Hemoglobin 30.5 pg (25-34); Mean Corpuscular Hgb Conc 36.3 g/dL (32-36); Mean Platelet Volume 9.3 fL (7.4-10.4); Monocytes # (auto) 0.69 K/uL (0.11-0.59); Monocytes % (auto) 7.6 %; Neutrophils # (auto) 6.22 K/uL (1.4-6.5); Neutrophils % (auto) 68.8 %; Platelet Count 253 K/uL (130-400); RDW Coefficient of Variation 12.5 % (11.5-14.5); RDW Standard Deviation 38.4 fL (36.4-46.3); Red Blood Count 2.56 M/uL (4.2-5.4); White Blood Count 9.04 K/uL (4.8-10.8)
[2022-03-27 16:59] LABS: Partial Thromboplastin Ratio 1.2; Partial Thromboplastin Time 32.4 Seconds (21.0-31.0); Prothrombin Time 10.7 Seconds (9.0-12.0)
[2022-03-27 17:20] LABS: RBC Morphology Unremarkable
[2022-03-27 17:32] LABS: Appearance Urine Cloudy (Clear); Bilirubin Urine 1+ (Negative); Blood Urine 3+ (Negative); Color Urine Red; Glucose Urine UA Negative (Negative); Ketones Urine Negative (Negative); Leukocyte Esterase Urine Negative (Negative); Nitrite Urine Negative (Negative); Protein Urine 3+ (Negative); Urobilinogen Urine Negative (Negative); pH Urine 6.5 (4.5-7.5)
[2022-03-27 17:34] LABS: RBC Urine >30 /hpf (0-4); WBC Urine >30 /hpf (0-5)
[2022-03-27 17:35] LABS: Bacteria Urine Negative (Negative)
[2022-03-27 18:35] LABS: Albumin Globulin Ratio 1.3 (0.9-2); Albumin Level 3.8 gm/dl (3.4-5.0); BUN Creatinine Ratio 15.4 (10-20); Bilirubin,Total 0.6 mg/dl (0.2-1.0); Calcium 9.2 mg/dl (8.5-10.1); Creatinine Clr Calc Pharmacy 24.4 ml/min; Est GFR (African American) 20.4 ml/min; Est GFR (Non-African American) 17.6 ml/min; Magnesium 1.4 mg/dl (1.7-2.4); Potassium 3.9 mmol/L (3.5-5.1); Total Protein 6.8 gm/dl (6.0-8.3)
[2022-03-27] MEDS ORDERED: SODIUM CHLORIDE 0.9% 1000ML 500 ML IV ONE ×2 (18:39→22:37)
[2022-03-27] MEDS ORDERED: MAGNESIUM SULFATE / D5W 1 GM/100 ML BAG IV STA (18:39)
--- NOTE | 2022-03-27 19:22 | History & Physical Report ---
Date of Service March 27, 2022 Assessment & Plan (1) Gross hematuria: Plan: This is an 81-year-old female with recent diagnosis of hematuria and L renal mass w/ paraaortic LN suspected to represent RCC, alongside h/o recurrent UTIs and possible incomplete bladder emptying on recent cystoscopy 02/2022, left- sided DCIS status postmastectomy, CKD stage IV, dyslipidemia, hypertension, hypothyroidism who presented to [facility] for evaluation of hematuria, subsequently found to have evidence of acute blood loss anemia on arrival alongside significant hyponatremia (114). Hematuria with Acute Blood Loss Anemia - Patient reporting approx. 6 days of margie hematuria with some dysuria, no but no frequency/urgency, in context of known L-sided renal mass - CT-A/P with interval growth in L kidney mass and "increased density within the distal left ureter suggestive of blood products given patient's history of hematuria" - Review of outpatient urology notes reveals patient had cystoscopy 03/09 - severe cystitis, incomplete bladder emptying, but negative to explain hematuria (per note) - Suspect her symptoms are primarily due to renal mass and possible invasion/erosion of vasculature - Consult urology: appreciate technical expertise on ?need for procedural intervention and preference for continued ABX given outpatient dx of cystitis - Hgb at 7.7 on arrival -- recheck now, in AM - Transfuse < 7 or with associated symptoms (somewhat difficult to elucidate right now given ongoing hyponatremia, poor PO intake) Patient received 1-time dose of cefepime in the ED. She was on Keflex for outpatient management of cystitis. Will hold from further scheduled antimicrobials for now - appreciate urology input given her h/o recurrent UTIs (2) Hyponatremia: Plan: Hyponatremia -- suspect euvolemic vs. hypovolemic - On arrival, presented with Na 114, chloride 84, and e/o TERRENCE (38 / 2.47) in context of L renal mass ; no e/o hypervolemia on exam - Check sOsm, uOsm, Betty, UCr (currently send-out labs) - In context of poor PO intake over last several days and previous +heavy consumption of water, but also worsening metastatic burden on CT-A/P - Primarily suspect secondary to polydipsia, potentially with SIADH - however, also likely from some GI losses - Await recheck s/p 1L NSS in ED to check response to guide next steps - Serial BMPs q4h - Neurovascular checks q4h, seizure precautions - Hold HCTZ-triamterene - Check CT-H to evaluate for metastases given severity of this hyponatremia and extensive metastases on CT-A/P - Monitor in PCU. Consider gentle 3% administration if needed. (3) Left renal mass: Plan: - Has been following with [facility] [place] [facility] -- recent paraaortic LN biopsy concerning for RCC - CT-A/P on admission: "1. Interval increase in size in the 5.2 cm mass within the upper pole of the left kidney consistent with a renal cell carcinoma. / 2. Interval progression of the pulmonary nodules and left perinephric lymphadenopathy consistent with metastatic disease. 3. A new sclerotic focus within the left iliac bone which is also concerning for metastatic focus." - Information above shared with patient and her daughter - Consult urology as above - Once acute issues are stabilized (ABLA, hyponatremia) - consider oncology consultation while here (patient does have appointment set up on 04/08) (4) TERRENCE (acute kidney injury): Plan: TERRENCE atop CKD4 - Patient with known h/o CKD4 (baseline creatinine appears to be 1.7 - 2.0 on recent labs) - On arrival, found to have e/o TERRENCE -- BUN 38 / Cr 2.47 - Suspect primarily prerenal process in setting of recent n/v x 3 days reported by patient - s/p 1L NSS in ED; hold from further fluids until recheck BMP is obtained for eval of Na - Betty, UCr sent (5) UTI (urinary tract infection): Plan: - Patient with history of recurrent UTIs, followed by Urology -- currently on Keflex at time of admission - Lower suspicion hematuria is secondary to [id number] UTI as outlined above -- no symptoms at this time - Obtain UCX. Last culture from 01/30/22 demonstrating pansensitive E. coli - s/p receipt of cefepime x 1 in ED As above, hold from further ABX at this time until clinical picture is clarified and urology consultation is obtained. Low threshold to restart PO/IV therapies if needed/symptoms develop. (6) Hypothyroidism: Plan: - Continue levothyroxine (7) Essential (primary) hypertension: Plan: - Hold HCTZ-triamterene in setting of ABLA, hyponatremia - Can give PRNs if needed once acute issues are resolved (8) Aortic stenosis: Plan: - Mild noted on TTE 07/2018; LVEF 55-60% with mild cLVH, grade I diastolic dysfunction Plan: Code: Full Diet: NPO at midnight in case of need for procedure PPX: Pharmacologic contraindicated w/ ABLA. SCDs. Dispo: PCU Exam, impression, and plan communicated with daughter who was in the room throughout the entirety of the admission. Case signed out to night team given ongoing work-up. History of Present Illness Primary Care Provider: Dutch Moore DO This is an 81-year-old female with recent diagnosis of hematuria and L renal mass w/ paraaortic LN suspected to represent RCC, alongside h/o recurrent UTIs and possible incomplete bladder emptying on recent cystoscopy 02/2022, left- sided DCIS status postmastectomy, CKD stage IV, dyslipidemia, hypertension, hypothyroidism who presented to [facility] for evaluation of hematuria. She says that intermittently over the last month, she has been having bouts of hematuria. Then over the last 6 days, became more persistent. She says that over the last 3 days, she has been experiencing nausea with vomiting. She also endorses some lightheadedness and feeling "off." Denies any chest pain, palpitations, shortness of breath. In the context of her nausea and vomiting, she says she has not been able to keep any food down. She says that prior to 3 days ago, she was drinking "a lot of water"perhaps more than 10 cups a dayto stay hydrated. This is decreased over the last few days. She has been voiding normally, but with margie blood. Of note, patient is currently being worked up for a left-sided renal mass. On CT abdomen pelvis, this has been associated with para-aortic lymph node. This lymph node was biopsied in 02/17/2022, and per recent urology note, "the morphology and immunoprofile are most suggestive of renal cell carcinoma, however this immunoprofile is nonspecific. I breast or bladder primary tumor, while less likely, cannot be excluded." Cystoscopy was recently performed in 02/2022 which demonstrated incomplete bladder emptying, but was otherwise negative for observed lesions and urine cytology was negative. Medications reviewed and include acetaminophen, alprazolam, calcium/vitamin D3, Keflex 500 mg twice daily, Tylenol PM as needed, hydrocodone/acetaminophen, levothyroxine, lisinopril 20hydrochlorothiazide 12.5 twice daily, multivitamin, oxybutynin 10 mg nightly, simvastatin. In the ED, patient was found to have normal vital signs but with temperature 36.4. Her labs demonstrated normocytic anemia 7.8 (appreciable drop from 13.5 in 12/2021), APTT 32.4, hyponatremia to 114, chloride 84, BUN 38, creatinine 2.47 (baseline appears to be between 1.7 - 2.0). Pro-Brian negative. Urinalysis demonstrated red cloudy urine with 3+ protein, 3+ blood, 1+ bilirubin, negative for nitrites and leuk esterase. Microscopy did reveal significantly elevated urine RBCs, WBCs. CT-A/P demonstrated "1. Interval increase in size in the 5.2 cm mass within the upper pole of the left kidney consistent with a renal cell carcinoma. / 2. Interval progression of the pulmonary nodules and left perinephric lymphadenopathy consistent with metastatic disease. 3. A new sclerotic focus within the left iliac bone which is also concerning for metastatic focus / 4 Increased density within the distal left ureter suggestive of blood products given the patient's history of hematuria." Type and screen was performed. She was given 1 L of NSS. She was given cefepime. Allergies Allergy/AdvReac Type Severity Reaction Status Date / Time No Known Drug Allergies Allergy Verified 03/27/22 17:10 Home Medications Medication Instructions Recorded Confirmed Type calcium carbonate 600 mg-vitamin 1 tab PO QAM 06/27/19 03/27/22 History D3 20 mcg (800 unit) tablet (Caltrate with Vitamin D3) multivitamin (One Daily 1 tab PO QAM 06/27/19 03/27/22 History Multivitamin) acetaminophen 325 mg tablet 325 mg PO Q6H PRN 08/20/19 03/27/22 History (Tylenol) diphenhydramine 25 2 tab PO HS PRN MDD and pain 08/20/19 03/27/22 History mg-acetaminophen 500 mg tablet (Tylenol PM Extra Strength) ketoconazole 2 % topical cream 1 applic TOPICAL BID #60 g 08/18/20 03/27/22 Rx alprazolam 0.5 mg tablet 0.5 mg PO PRN #4 tab 12/17/21 03/27/22 Rx levothyroxine 137 mcg tablet See Rx Instructions .ROUTE 12/22/21 03/27/22 Rx .COMPLEX #90 tab lisinopril 20 1 tab PO BID #180 tab 12/28/21 03/27/22 Rx mg-hydrochlorothiazide 12.5 mg tablet hydrocodone 10 mg-acetaminophen 2 tab PO DAILY PRN #60 tab 01/12/22 03/27/22 Rx 325 mg tablet valacyclovir 1 gram tablet 1,000 mg PO DAILY PRN #90 tab 01/12/22 03/27/22 Rx (Valtrex) sulfamethoxazole 400 1 tab PO BID 3 Days #6 tab 03/09/22 03/27/22 Rx mg-trimethoprim 80 mg tablet (Bactrim) oxybutynin chloride 10 mg 10 mg PO HS #90 tab 03/22/22 03/27/22 Rx tablet,extended release 24 hr (Ditropan XL) simvastatin 20 mg tablet (Zocor) 20 mg PO DAILY #90 tab 03/22/22 03/27/22 Rx cephalexin 500 mg capsule 500 mg PO Q12H #10 cap 03/26/22 03/27/22 Rx Past Med/Surg History Medical History Benign colonic polyp Chronic kidney disease stage 3 monitoring Ductal carcinoma in situ (DCIS) of breast Gross hematuria Herpes simplex Herpesviral infection Hyperlipidemia Hypertension Hypothyroidism Left renal mass Osteoarthritis UTI (urinary tract infection) Surgical History H/O breast surgery (09/24/19) H/O lumpectomy H/O mastectomy (11/12/19) Hx of cholecystectomy Hx of colonoscopy Status post left breast lumpectomy (08/20/19) Family History Mother Thyroid disease Father Osteoarthritis Brother Colon cancer Grandmother Colon cancer Denies family history of Ovarian cancer Prostate cancer Myocardial infarction Breast cancer Social History Smoking Status: Former smoker Tobacco Type: Cigarettes Age Started Using Tobacco: 18; Age Quit Using Tobacco: 29; packs per day: 0.5; Years Smoked: 11; Cigarettes Per Day: 10; Number of Years Since Quit: 52; Second Hand Exposure: No; Do You Dip or Chew Tobacco: No; Tobacco Cessation Education Requested by Patient: No Hx Alcohol Use: No Hx Substance Use: No Preferred Language: Turkmen Communication Ability: Effective Visual Impairment: No Limitations 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: Normal Overhead Garage Door Hanger Required: No Beliefs That Will Affect Care: None marital status: / Current Living Situation: Alone current occupational status: retired How many Children do You have: 3 Other Information That Helps Us Care for You: No Feels Safe at Home: Yes Safety Concerns: Feels Safe At This Time Childhood Exposure to Second-Hand Smoke: Yes caffeine: Yes during the past year weight has: increased > 10 lbs Dental Care, Regularly: No Physical Activity Frequency: Does not Exercise Seatbelt Use: always Sunscreen Use: No Assistive Devices: Cane Review of Systems Review of Systems: as per HPI Physical Exam Physical Exam: General: 81-year old female who is alert, oriented, and appears in no acute distress. HEENT: NCAT. - Eyes - Sclera are white, anicteric, and without injection. - Mouth - MMM - Neck - supple, no appreciable JVD Cardiac: Normal rate and regular rhythm; S1 and S2 present with no murmurs, rubs, or gallops. Pulmonary: Good respiratory effort with symmetric expansion of the chest. No use of accessory muscles. Lungs were clear to auscultation bilaterally with no crackles or wheezes. Abdominal: Normoactive bowel sounds. Abdomen was soft, nondistended, and non- tender to palpation. Extremities: Upper and lower extremities are warm and well perfused. [] peripheral edema in the lower extremities bilaterally Psych: Well-developed, well-nourished, appropriately dressed for occasion. Behavior is cooperative and appropriate. Affect is WNL. Insight is appropriate. Results & Data Results & Data ([facility]) Vital Signs (Past 12 Hours) Vital Signs Temp Pulse Pulse Resp BP BP Pulse Ox 03/27/22 16:50 68 19 136/57 L 99 03/27/22 16:35 74 20 99 03/27/22 16:32 19 99 03/27/22 15:41 36.4 C L 75 18 113/62 98 Supervising Physician Co-Signing Physician Notes Attending addendum: I have physically seen this patient, have supervised the medical residents activities, and agree with the H&P unless as otherwise noted. Assessment and Plan: Gross hematuria/left-sided renal mass- CT notes intermittent interval growth left kidney mass NPO Consult urology Anemia secondary to hematuria- Hemoglobin 7.7 upon admission Vital signs stable Type and screen performed and consent obtained Transfuse if hemoglobin less than 7 H&H every 6 hours Hyponatremia- Sodium 114 upon admission Check urine and serum osmolalities Received NSS 1 L in the ED Follow serial BMP and magnesium levels Hold triamterene/HCTZ Start sodium chloride 1 tablet p.o. twice daily Fluid restriction to 1500 cc Suspect polydipsia versus SIADH TERRENCE on CKD stage IV- Creatinine 2.47, with base range 1.7-to 2.0 Follow labs serially with rehydration Hypomagnesemia- Magnesium 1.4 upon admission Replete orally and recheck laboratories in a.m. Remaining orders and notations as noted Resident Activity Tracking Resident Involvement: Resident Care Provided Care Provided: Adult [facility] (1) Aortic stenosis Cardiac valve disease etiology: nonrheumatic Qualified Code(s): I35.0 - Nonrheumatic aortic (valve) stenosis
--- NOTE | 2022-03-27 19:30 | CT Scan Report ---
ABDOMEN AND PELVIS CT WITHOUT CONTRAST CT DOSE: 1519.46 mGy.cm HISTORY: bloody urine, high creat TECHNIQUE: Multiaxial CT images of the abdomen and pelvis were performed without contrast. A dose lo wering technique was utilized adhering to the principles of ALARA. COMPARISON STUDY: Abdomen and pelvis CT 12/24/2021. FINDINGS: Increase in size and number of the multiple pulmonary nodules with the largest in the right middle lobe measuring 1 cm. Therefore, this is highly suspicious for metastatic disease. No pneumope ritoneum. No pneumatosis. There is a 1.8 cm sclerotic focus within the left iliac bone on image 279. This is new from the prior study and is concerning for metastatic disease. There is a small hiatus he rnia. Cholecystectomy. The unenhanced liver, spleen, adrenal glands, and pancreas unremarkable. Sligh t increase in size in a 5.2 cm mass within the upper pole the left kidney. Left perinephric edema has also slightly progressed. The left periaortic lymphadenopathy has also slightly increased in size wi th the dominant lymph node measuring 3.5 x 2.6 cm. Increased density within the distal left ureter xie ggestive of blood products given the patient's history of hematuria. No left-sided hydronephrosis. No rmal right kidney. The bladder is unremarkable. The uterus and bilateral adnexa are within normal calvin its. There is mild pelvic floor collapse. A few colonic diverticula. No evidence for acute diverticul itis. No bowel wall thickening or obstruction. Normal appendix. Increase in size in a 1.2 cm left per inephric nodule on image 159. This likely represents a metastatic focus. Soft tissue thickening adjac ent to the left adrenal gland may also represent metastatic disease.. IMPRESSION: 1. Interval increase in size in the 5.2 cm mass within the upper pole of the left kidney consistent w ith a renal cell carcinoma. 2. Interval progression of the pulmonary nodules and left perinephric lymphadenopathy consistent with metastatic disease. 3. A new sclerotic focus within the left iliac bone which is also concerning for metastatic focus. 4. Increased density within the distal left ureter suggestive of blood products given the patient's h istory of hematuria. ACT 112: Negative or not required by law. Electronically signed by: Vinod Yanez M.D. 03/27/2022 7:28 PM
[2022-03-27 20:17] LABS: Creatinine Urine Random 44.4 mg/dl
[2022-03-27] MEDS ORDERED: ALPRAZolam 0.5 MG TABLET PO SCH (21:33)
[2022-03-27] MEDS ORDERED: ACETAMINOPHEN 325 MG TAB PO PRN (21:33)
[2022-03-27 21:59] LABS: Hematocrit (blood only) 21.4 % (37-47); Hemoglobin 7.7 g/dL (12.0-16.0)
[2022-03-27] MEDS: KETOCONAZOLE 2% CR 15 GM TUBE EXT SCH (22:20)
[2022-03-27] MEDS: OXYBUTYNIN CHLORIDE XL 5 MG TABCR PO SCH (22:21)
[2022-03-27 22:23] LABS: BUN Creatinine Ratio 15.7 (10-20); Creatinine Clr Calc Pharmacy 25.7 ml/min; Est GFR (African American) 21.6 ml/min; Est GFR (Non-African American) 18.7 ml/min; Potassium 3.8 mmol/L (3.5-5.1)
[2022-03-27] MEDS: ACETAMINOPHEN 325 MG TAB PO PRN (22:23)
[2022-03-28 01:06] LABS: Hematocrit (blood only) 18.3 % (37-47); Hemoglobin 6.7 g/dL (12.0-16.0)
[2022-03-28 01:22] LABS: BUN Creatinine Ratio 15.4 (10-20); Calcium 8.3 mg/dl (8.5-10.1); Creatinine Clr Calc Pharmacy 25.4 ml/min; Est GFR (African American) 21.7 ml/min; Est GFR (Non-African American) 18.8 ml/min; Potassium 3.9 mmol/L (3.5-5.1)
[2022-03-28] MEDS ORDERED: SODIUM CHLORIDE 0.9% 250 ML IV PRN (01:33)
[2022-03-28] MEDS: ACETAMINOPHEN 325 MG TAB PO PRN ×3 (04:34→21:08)
[2022-03-28] MEDS: LEVOTHYROXINE SODIUM 137 MCG TABLET PO SCH (05:16)
--- NOTE | 2022-03-28 05:54 | Billing Data ---
Date of Service March 28, 2022 Coding Level of Care Code 13821 Initial Inpt Care Lvl 3
--- NOTE | 2022-03-28 07:33 | CT Scan Report ---
HEAD CT NONCONTRAST CT DOSE: 773.57 mGy.cm HISTORY: severe hyponatremia, metastatic RCC TECHNIQUE: Multiaxial CT images of the head were performed without the use of intravenous contrast. A utomated exposure control was utilized for this study. A dose lowering technique was utilized adheri ng to the principles of ALARA. Comparison: None. Findings: The paranasal sinuses and mastoid air cells are clear. The calvarium and skull base are int act. There is no mass, hematoma, midline shift, acute infarct. White matter hypodensity is nonspecifi c but suggestive of microvascular ischemic change. The ventricles and sulci demonstrate mild age-rela ike involutional changes. Impression: No acute intracranial abnormality. ACT 112: Negative or not required by law. Electronically signed by: Vinod Yanez M.D. 03/28/2022 7:31 AM
[2022-03-28] MEDS: CALCIUM 600MG + VIT D 400 IU TAB PO SCH (07:38)
[2022-03-28] MEDS: KETOCONAZOLE 2% CR 15 GM TUBE EXT SCH ×2 (07:38→20:14)
[2022-03-28] MEDS: SIMVASTATIN 20 MG TAB PO SCH (07:39)
[2022-03-28] MEDS: MULTIVITAMIN TAB PO SCH (07:39)
--- NOTE | 2022-03-28 07:42 | Hospitalist Progress Note ---
Date of Service March 28, 2022 Assessment & Plan (1) Gross hematuria: Plan: 81-year-old female w/ L renal mass (possibly RCC w/ mets), recurrent UTIs, CKD4, HTN, hypothyroidim, and L DCIS s/p mastectectomy who presents for evaluation for hematuria and found to have anemia 7.7 and hyponatremia 114. - CT-A/P with interval growth in L kidney mass and "increased density within the distal left ureter suggestive of blood products given patient's history of hematuria" - cystoscopy 03/09 - severe cystitis, incomplete bladder emptying, but negative to explain hematuria - Consult urology: no intervention planned at this time; follow H/H for stability - Hgb at 7.7 on arrival -- check H/H q6h - Patient received 1-time dose of cefepime in the ED. She was on Keflex for outpatient management of cystitis. Per urology, consider Ancef; deferred at this time (2) TERRENCE (acute kidney injury): Plan: CKD4, baseline Cr 1.7-~2 - Cr slightly above baseline 2.47 at admission, down to 2.1s - considered prerenal w/ hx of n/v x 3 days - Fena 2.4% c/w intrinsic; interpret in context of ckd4 (3) Hyponatremia: Plan: - Presented with Na 114, chloride 84 - serum osm more consistent w/ siadh than primary polydipsia, though clinically more suggestive of the latter - q6h BMPs - Hold home HCTZ-triamterene (4) Left renal mass: Plan: - [place] been [place] [facility] [place] [facility] -- recent paraaortic LN biopsy concerning for RCC - CT-A/P on admission: "1. Interval increase in size in the 5.2 cm mass within the upper pole of the left kidney consistent with a renal cell carcinoma. / 2. Interval progression of the pulmonary nodules and left perinephric lymphadenopathy consistent with metastatic disease. 3. A new sclerotic focus within the left iliac bone which is also concerning for metastatic focus." - rad onc consult placed (5) Hypothyroidism: Plan: - Continue levothyroxine (6) Essential (primary) hypertension: Plan: - Hold HCTZ-triamterene as per above (7) Aortic stenosis: Plan: - Mild noted on TTE 07/2018; LVEF 55-60% with mild cLVH, grade I diastolic dysfunction (8) Anemia: Plan: - see above Plan: Code: Full Diet: full liquid PPX: SCDs. chemoppx contraindicated Dispo: PCU Admission and Anticipated Discharge Date Admission Date: March 27, 2022 Supervising Physician Co-Signing Physician Notes I personally examined the patient and verified all fontanez points of history and exam, discussed case, and agree with decision making with Dr Clements feeling better blood in urine about the same often getting up ~once an hour. no other new complaints. family present extensive questions answered to the best of my ability and to their satisfaction. ?45mins in the room answering questions, reviewing scans w family/etc vitals noted nad heent nc at mmm breathing unlabored no accessory muscles good effort skin no rashes no pallor or icterus neuro no focal deficits hematuria - from renal cancer. did cause enough acute blood loss anemia to require transfusion x 1 unit. continue to follow. hopefully will slow. ask radiation oncology to eval ?benefit from XRT to lesion to slow/stop bleeding? for oncology appt 04/08 - depending on clinical course ?possibly move up metastatic cancer - extensive discussion w pt and family in this regard - worrisome overall, but have seen some surprising results w immunotherapy - to that end will definitely want oncology opinion/eval and close f/u DVT proph - pharmacologic contraindicated due to bleeding. mechanical of dubious benefit and possible risks (skin breakdown, falls); encouraged to be as ambulatory as possible otherwise as above Subjective She is feeling better this morning. No current dizziness or N/V (her presenting complaint that started 2 days ago). She had drank a lot of water ("8 glasses/day" as she had been told once while sick). Denies melena or bloody stool. Review of Systems Review of Systems: All systems reviewed & are unremarkable except as noted in HPI & below Physical Exam Physical Exam: General: Grossly A&O. NAD. Cooperative. HEENT: Atraumatic, normocephalic. EOMI Pulm: CTAB. -wheezes, -rales, -rhonchi. No respiratory distress. Cardiac: RRR, -mrg. Abdominal: Nontender, nondistended, soft. Results & Data Results & Data ([facility]) Vital Signs (Past 12 Hours) Vital Signs Temp Pulse Pulse Resp BP BP Pulse Ox 03/28/22 07:01 36.7 C 68 18 123/64 100 03/28/22 06:01 36.7 C 65 18 108/65 100 03/28/22 05:01 36.7 C 75 18 132/69 100 03/28/22 04:31 36.7 C 64 18 130/74 100 03/28/22 04:16 36.7 C 68 18 100/65 100 03/28/22 03:58 36.4 C L 69 18 100/59 L 100 03/28/22 03:00 36.6 C 66 16 110/63 98 03/28/22 02:47 36.4 C L 84 20 96/56 L 99 03/27/22 23:41 86 18 138/60 99 03/27/22 22:20 66 03/27/22 21:55 76 03/27/22 21:34 36.5 C 82 18 100/65 100 03/27/22 21:25 36.5 C 82 18 100/65 100 Resident Activity Tracking Resident Involvement: Resident Care Provided Care Provided: Adult Hospital Medicine (1) Aortic stenosis Cardiac valve disease etiology: nonrheumatic Qualified Code(s): I35.0 - Nonrheumatic aortic (valve) stenosis (2) Anemia Anemia type: unspecified type Qualified Code(s): D64.9 - Anemia, unspecified
--- NOTE | 2022-03-28 08:29 | Urology Consultation ---
Date of Consultation March 28, 2022 Assessment & Plan (1) Hematuria: (2) Acute hyponatremia: (3) Left renal mass: (4) Metastatic cancer: 81-year-old female with a history of a left renal mass and UTIs who was admitted to the hospital for acute blood loss anemia and significant hyponatremia. Transfuse as necessary per primary team Q6h hemoglobin and hematocrit until proven stability Slowly replete sodium per primary team Patient does not require Iyer catheter at this time. Recommend bladder scan post void to ensure she is emptying. If PVRs were greater than 300, recommend Iyer catheter placement. No urgent intervention needed at this time. If patient were to not improve with transfusions, recommend transfer to tertiary care center with interventional radiology as the next step would be embolization of the kidney to help with bleeding. Nephrectomy is not the answer as this would put her at significant risk given her current medical state and age. Additionally, cancer is metastatic and therefore nephrectomy would not be curative. Ideally would avoid embolization as this would decrease the chance of any further chemotherapeutics reaching that kidney depending on what treatment medical oncology elects for in the future. Patient is scheduled to see medical oncology on April 08. Patient can have clear liquid diet. Hold off on solid food until we can prove hemoglobin stability following transfusion -Regarding antibiotics, no obvious concern for UTI at this point but urine may be sterile as she was previously on antibiotics prior to admission. Scheduled Ancef is not unreasonable until we get culture data back. Urology to follow History of Present Illness Reason for Consultation: Left renal mass and hematuria Attending Physician: Mikal Ray MD History of Present Illness 81-year-old female with a history of a left renal mass and UTIs who was admitted to the hospital for acute blood loss anemia and significant hyponatremia. She is a patient of Dr. Thapa. She has a known left renal mass and para-aortic lymphadenopathy. She underwent a biopsy of the periaortic lymph nodes on 02/17/2022. Biopsy results were not entirely clear but was suggestive of renal cell carcinoma. Could not rule out a breast or primary bladder tumor. Her last 2 urine cultures in the system back in December and January of this year have grown out E. coli. Dr. Thapa performed a cystoscopy on 03/09/2022 which showed evidence of incomplete bladder emptying and cystitis cystica. There was no concern for malignancy. She has been referred to Dr. Galeana for a medical oncology appointment to manage her suspected metastatic kidney cancer. She called into our office several times with hematuria concerning for infection and was recently started on a 5-day course of Keflex on 03/26/2022. She presented to the hospital on 03/27/2022 with gross hematuria. Labs were significant for hyponatremia with a sodium of 114, and TERRENCE with a creatinine of 2.47 up from baseline of roughly 1.8. Hemoglobin was noted to be 7.7 down from 13.5 on 12/14/2021. Her hemoglobin this morning was 6.7. Creatinine slightly down to 2.34 and sodium is [address] scan of the abdomen and pelvis on 03/27/2022 without contrast was independently reviewed and shows increased interval size of 5.2 cm mass within the upper pole of the left kidney. There is interval progression of pulmonary nodes and left perinephric lymphadenopathy. She has a new sclerotic focus within left iliac bone concerning for metastatic disease and increased density within the left distal ureter which could be blood product. Urinalysis on 03/19/2022 was negative for nitrites and leukocyte esterase, had 30+ RBCs, 30+ WBCs and negative for bacteria. Urine and blood cultures are pending. She was given cefepime in the ED. She is hemodynamically stable today. Urine output is 0.73 ml/kg/hr. She has been transfused 1 unit of blood so far. She reports feeling better since admission. She does report hematuria that is stable with minimal clot passage. She does feel as if she is emptying her bladder. Allergies Allergy/AdvReac Type Severity Reaction Status Date / Time No Known Drug Allergies Allergy Verified 03/27/22 17:10 Home Medications Medication Instructions Recorded Confirmed Type calcium carbonate 600 mg-vitamin 1 tab PO QAM 06/27/19 03/27/22 History D3 20 mcg (800 unit) tablet (Caltrate with Vitamin D3) multivitamin (One Daily 1 tab PO QAM 06/27/19 03/27/22 History Multivitamin) acetaminophen 325 mg tablet 325 mg PO Q6H PRN 08/20/19 03/27/22 History (Tylenol) diphenhydramine 25 2 tab PO HS PRN MDD and pain 08/20/19 03/27/22 History mg-acetaminophen 500 mg tablet (Tylenol PM Extra Strength) ketoconazole 2 % topical cream 1 applic TOPICAL BID #60 g 08/18/20 03/27/22 Rx alprazolam 0.5 mg tablet 0.5 mg PO PRN #4 tab 12/17/21 03/27/22 Rx levothyroxine 137 mcg tablet See Rx Instructions .ROUTE 12/22/21 03/27/22 Rx .COMPLEX #90 tab lisinopril 20 1 tab PO BID #180 tab 12/28/21 03/27/22 Rx mg-hydrochlorothiazide 12.5 mg tablet hydrocodone 10 mg-acetaminophen 2 tab PO DAILY PRN #60 tab 01/12/22 03/27/22 Rx 325 mg tablet valacyclovir 1 gram tablet 1,000 mg PO DAILY PRN #90 tab 01/12/22 03/27/22 Rx (Valtrex) sulfamethoxazole 400 1 tab PO BID 3 Days #6 tab 03/09/22 03/27/22 Rx mg-trimethoprim 80 mg tablet (Bactrim) oxybutynin chloride 10 mg 10 mg PO HS #90 tab 03/22/22 03/27/22 Rx tablet,extended release 24 hr (Ditropan XL) simvastatin 20 mg tablet (Zocor) 20 mg PO DAILY #90 tab 03/22/22 03/27/22 Rx cephalexin 500 mg capsule 500 mg PO Q12H #10 cap 03/26/22 03/27/22 Rx Patient History Medical History Benign colonic polyp Chronic kidney disease stage 3 monitoring Ductal carcinoma in situ (DCIS) of breast Gross hematuria Herpes simplex Herpesviral infection Hyperlipidemia Hypertension Hypothyroidism Left renal mass Osteoarthritis UTI (urinary tract infection) Surgical History H/O breast surgery (09/24/19) H/O lumpectomy H/O mastectomy (11/12/19) Hx of cholecystectomy Hx of colonoscopy Status post left breast lumpectomy (08/20/19) Family History Mother Thyroid disease Father Osteoarthritis Brother Colon cancer Grandmother Colon cancer Denies family history of Ovarian cancer Prostate cancer Myocardial infarction Breast cancer Social History Smoking Status: Former smoker Tobacco Type: Cigarettes Age Started Using Tobacco: 18; Age Quit Using Tobacco: 29; packs per day: 0.5; Years Smoked: 11; Cigarettes Per Day: 10; Number of Years Since Quit: 52; Second Hand Exposure: No; Do You Dip or Chew Tobacco: No; Tobacco Cessation Education Requested by Patient: No Hx Alcohol Use: No Hx Substance Use: No Preferred Language: Marshallese Communication Ability: Effective Visual Impairment: No Limitations 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: Normal Sweatband Maker Required: No Beliefs That Will Affect Care: None marital status: / Current Living Situation: Alone current occupational status: retired How many Children do You have: 3 Other Information That Helps Us Care for You: No Feels Safe at Home: Yes Safety Concerns: Feels Safe At This Time Childhood Exposure to Second-Hand Smoke: Yes caffeine: Yes during the past year weight has: increased > 10 lbs Dental Care, Regularly: No Physical Activity Frequency: Does not Exercise Seatbelt Use: always Sunscreen Use: No Assistive Devices: Cane Review of Systems Review of Systems: 14 point review of systems negative outside of what is listed above in HPI Physical Exam Physical Exam: General: Alert and oriented, no acute distress HEENT: Normocephalic, mucous membranes moist Pulmonary: Nonlabored respirations Abdomen: Nondistended soft, nontender. No CVA tenderness. Extremities: Moves all 4 spontaneously Neuro: No gross deficits Skin: Warm, dry, no rashes noted Results & Data ([facility]) Vital Signs (Past 12 Hours) Vital Signs Temp Pulse Pulse Resp BP BP Pulse Ox 03/28/22 08:00 71 03/28/22 07:01 36.7 C 68 18 123/64 100 03/28/22 06:01 36.7 C 65 18 108/65 100 03/28/22 05:01 36.7 C 75 18 132/69 100 03/28/22 04:31 36.7 C 64 18 130/74 100 03/28/22 04:16 36.7 C 68 18 100/65 100 03/28/22 03:58 36.4 C L 69 18 100/59 L 100 03/28/22 03:00 36.6 C 66 16 110/63 98 03/28/22 02:47 36.4 C L 84 20 96/56 L 99 03/27/22 23:41 86 18 138/60 99 05/28/22 22:20 66 03/27/22 21:55 76 03/27/22 21:34 36.5 C 82 18 100/65 100 03/27/22 21:25 36.5 C 82 18 / 100 PG Care Time/CCT Total # of Minutes Spent Total Time Spent with Patient: Total time spent is greater than 50% in coordination of care (as documented) at patient's floor/unit and/or counseling patient: [place] [address] Inpt Consult Level 5 Patient Type Established History Comprehensive Exam Comprehensive Medical Decision Making High Complexity Diagnoses Hematuria R31.0 Hematuria type: gross Acute hyponatremia E87.1 Left renal mass N28.89 Metastatic cancer C79.9 (1) Hematuria Hematuria type: gross Qualified Code(s): R31.0 - Gross hematuria
[2022-03-28 09:21] LABS: Eosinophils % (auto) 2.9 %; Hematocrit (blood only) 23.4 % (37-47); Hemoglobin 8.5 g/dL (12.0-16.0); Immature Granulocytes # (auto) 0.06 K/uL (0.00-0.02); Immature Granulocytes % (auto) 0.6 %; Lymphocytes % (auto) 23.4 %; Mean Corpuscular Hemoglobin 30.5 pg (25-34); Mean Corpuscular Hgb Conc 36.3 g/dL (32-36); Mean Corpuscular Volume 83.9 fL (80-100); Monocytes # (auto) 0.74 K/uL (0.11-0.59); Monocytes % (auto) 7.2 %; Neutrophils # (auto) 6.75 K/uL (1.4-6.5); Neutrophils % (auto) 65.9 %; Platelet Count 258 K/uL (130-400); RDW Coefficient of Variation 12.9 % (11.5-14.5); RDW Standard Deviation 39.5 fL (36.4-46.3); Red Blood Count 2.79 M/uL (4.2-5.4); White Blood Count 10.25 K/uL (4.8-10.8)
[2022-03-28 09:50] LABS: Calcium 8.8 mg/dl (8.5-10.1); Creatinine Clr Calc Pharmacy 27.7 ml/min; Est GFR (African American) 24.2 ml/min; Est GFR (Non-African American) 20.9 ml/min; Potassium 3.9 mmol/L (3.5-5.1)
[2022-03-28 13:26] LABS: Hemoglobin 8.6 g/dL (12.0-16.0); Mean Corpuscular Hemoglobin 29.9 pg (25-34); Mean Corpuscular Hgb Conc 35.8 g/dL (32-36); Mean Corpuscular Volume 83.3 fL (80-100); Mean Platelet Volume 9.1 fL (7.4-10.4); Platelet Count 273 K/uL (130-400); RDW Coefficient of Variation 12.8 % (11.5-14.5); RDW Standard Deviation 38.9 fL (36.4-46.3); Red Blood Count 2.88 M/uL (4.2-5.4); White Blood Count 10.23 K/uL (4.8-10.8)
[2022-03-28 13:45] LABS: BUN Creatinine Ratio 14.4 (10-20); Creatinine Clr Calc Pharmacy 27.6 ml/min; Est GFR (African American) 24.1 ml/min; Est GFR (Non-African American) 20.8 ml/min; Potassium 3.8 mmol/L (3.5-5.1)
--- NOTE | 2022-03-28 16:12 | Billing Data ---
Date of Service March 28, 2022 Coding Level of Care Code 58399 Subseq Hosp Care Lvl 3
[2022-03-28 19:20] LABS: Hematocrit (blood only) 21.7 % (37-47); Hemoglobin 7.9 g/dL (12.0-16.0); Mean Corpuscular Hemoglobin 30.3 pg (25-34); Mean Corpuscular Hgb Conc 36.4 g/dL (32-36); Mean Corpuscular Volume 83.1 fL (80-100); Mean Platelet Volume 8.9 fL (7.4-10.4); Platelet Count 233 K/uL (130-400); RDW Standard Deviation 38.8 fL (36.4-46.3); Red Blood Count 2.61 M/uL (4.2-5.4); White Blood Count 9.11 K/uL (4.8-10.8)
[2022-03-28 19:28] LABS: BUN Creatinine Ratio 15.4 (10-20); Calcium 8.7 mg/dl (8.5-10.1); Creatinine Clr Calc Pharmacy 29.5 ml/min; Est GFR (African American) 26.1 ml/min; Est GFR (Non-African American) 22.5 ml/min; Potassium 3.9 mmol/L (3.5-5.1)
[2022-03-28] MEDS: OXYBUTYNIN CHLORIDE XL 5 MG TABCR PO SCH (20:15)
[2022-03-29] MEDS ORDERED: MELATONIN 3 MG TAB PO PRN (00:23)
[2022-03-29 01:45] LABS: BUN Creatinine Ratio 15.5 (10-20); Calcium 8.6 mg/dl (8.5-10.1); Creatinine Clr Calc Pharmacy 31.7 ml/min; Est GFR (African American) 28.5 ml/min; Est GFR (Non-African American) 24.6 ml/min; Potassium 3.9 mmol/L (3.5-5.1)
[2022-03-29 01:53] LABS: Hematocrit (blood only) 20.8 % (37-47); Hemoglobin 7.6 g/dL (12.0-16.0); Mean Corpuscular Hemoglobin 30.4 pg (25-34); Mean Corpuscular Hgb Conc 36.5 g/dL (32-36); Mean Corpuscular Volume 83.2 fL (80-100); Mean Platelet Volume 9.1 fL (7.4-10.4); Platelet Count 247 K/uL (130-400); RDW Coefficient of Variation 13.3 % (11.5-14.5); White Blood Count 9.22 K/uL (4.8-10.8)
[2022-03-29] MEDS: LEVOTHYROXINE SODIUM 137 MCG TABLET PO SCH (05:57)
[2022-03-29] MEDS: ACETAMINOPHEN 325 MG TAB PO PRN (06:00)
[2022-03-29 06:44] LABS: Hematocrit (blood only) 21.2 % (37-47); Hemoglobin 7.6 g/dL (12.0-16.0); Mean Corpuscular Hgb Conc 35.8 g/dL (32-36); Mean Corpuscular Volume 83.8 fL (80-100); Mean Platelet Volume 9.1 fL (7.4-10.4); Platelet Count 243 K/uL (130-400); RDW Coefficient of Variation 13.3 % (11.5-14.5); RDW Standard Deviation 40.3 fL (36.4-46.3); Red Blood Count 2.53 M/uL (4.2-5.4); White Blood Count 9.34 K/uL (4.8-10.8)
[2022-03-29 07:11] LABS: BUN Creatinine Ratio 14.5 (10-20); Calcium 8.6 mg/dl (8.5-10.1); Creatinine Clr Calc Pharmacy 30.5 ml/min; Est GFR (African American) 27.4 ml/min; Est GFR (Non-African American) 23.7 ml/min
[2022-03-29] MEDS: KETOCONAZOLE 2% CR 15 GM TUBE EXT SCH ×2 (08:11→19:44)
[2022-03-29] MEDS: SIMVASTATIN 20 MG TAB PO SCH (08:11)
[2022-03-29] MEDS: CALCIUM 600MG + VIT D 400 IU TAB PO SCH (08:11)
[2022-03-29] MEDS: MULTIVITAMIN TAB PO SCH (08:11)
[2022-03-29] MEDS ORDERED: oxyCODONE/ACETAMINOPHEN 10-325 TAB PO PRN ×2 (08:27→10:13)
--- NOTE | 2022-03-29 09:07 | Urology Progress Note ---
Date of Service March 29, 2022 Assessment & Plan (1) Metastatic cancer: (2) Gross hematuria: (3) Left renal mass: Plan: 81-year-old female with a history of a left renal mass and UTIs who was admitted to the hospital for acute blood loss anemia and significant hyponatremia. Transfuse as necessary per primary team Ok to space out hemoglobins at this point to q12 Slowly replete sodium per primary team Patient does not require Iyer catheter at this time. Bladder scan reportedly low yesterday. No urgent intervention needed at this time. If patient were to not improve with transfusions, recommend transfer to tertiary care center with interventional radiology as the next step would be embolization of the kidney to help with bleeding. Nephrectomy is not the answer as this would put her at significant risk given her current medical state and age. Additionally, cancer is metastatic and therefore nephrectomy would not be curative. Ideally would avoid embolization as this would decrease the chance of any further chemother apeutics reaching that kidney depending on what treatment medical oncology elects for in the future. Patient is scheduled to see medical oncology on April 08. Patient can have regular diet. -Regarding antibiotics, no obvious concern for UTI at this point but urine may be sterile as she was previously on antibiotics prior to admission. Scheduled Ancef is not unreasonable until we get culture data back. Urine culture prelim negative at this time Urology to follow Admission and Anticipated Discharge Date Admission Date: March 27, 2022 Subjective No acute issues overnight. Patient doing well. Does report some lower abdominal and back pain. I suspect back pain is due to laying in bed. She reports hematuria is relatively stable and feels as if she continues to empty her bladder. Hemoglobin trend was 7.7, 8.5, 7.9 and 7.6 this morning. Sodium has slowly improved to 122 this morning. Creatinine downtrending to 1.93 this morning. Urine and blood cultures preliminarily no growth. She has received 1 unit of PRBCs at this point. Remains hemodynamically stable. Urine output currently at 0.74 ml/kg/hr. Review of Systems Review of Systems: 14 point review of systems negative outside of what is listed above in HPI Physical Exam Physical Exam: General: Alert and oriented, no acute distress HEENT: Normocephalic, mucous membranes moist Pulmonary: Nonlabored respirations Abdomen: Nondistended, soft, nontender. Mild CVA tenderness bilaterally Extremities: Moves all 4 spontaneously Neuro: No gross deficits Skin: Warm, dry, no rashes noted Results & Data ([facility]) Vital Signs (Past 12 Hours) Vital Signs Temp Pulse Resp BP Pulse Ox 03/29/22 08:09 36.4 C L 66 17 108/64 100 03/29/22 04:00 36.8 C 63 20 128/57 L 100 03/28/22 23:08 36.7 C 76 20 123/66 100 PG Care Time/CCT Total # of Minutes Spent Total Time Spent with Patient: Total time spent is greater than 50% in coordination of care (as documented) at patient's floor/unit and/or counseling patient: Coding Level of Care Code 58617 Subseq Hosp Care Lvl 2 Diagnoses Metastatic cancer C79.9 Gross hematuria R31.0 Left renal mass N28.89
--- NOTE | 2022-03-29 15:23 | Hospitalist Progress Note ---
Date of Service March 29, 2022 Assessment & Plan (1) Gross hematuria: Plan: 81-year-old female w/ L renal mass (possibly RCC w/ mets), recurrent UTIs, CKD4, HTN, hypothyroidim, and L DCIS s/p mastectectomy who presents for evaluation for hematuria and found to have anemia 7.7 and hyponatremia 114. Hematuria and acute blood loss Anemia - CT-A/P with interval growth in L kidney mass and "increased density within the distal left ureter suggestive of blood products given patient's history of hematuria" - Cystoscopy 03/09 - severe cystitis, incomplete bladder emptying, but negative to explain hematuria - Urine cx 03/24 and 03/27 negative to date - Urology following: no intervention, follow H/H for stability - Pt received 1x dose of cefepime in ED. Was on Keflex for outpt management of cystitis; - d/c abx since urine culture neg - Hgb at 7.7 on arrival -- H/H checks q6h with stability therefore will decrease H/H check to q12h Left renal mass - RCC with mets - s/p paraaoritc LN biopsy. - Has been following with [facility] -- recent paraaortic LN biopsy concerning for RCC - CT-A/P on admission: Interval increase in size in the 5.2 cm mass in upper pole lt kidney consistent with a renal cell carcinoma. Interval progression of the pulmonary nodules and left perinephric lymphadenopathy consistent with metastatic disease. New sclerotic focus - left iliac bone. - Per urology - not a candidate for nephrectomy due to overall high risk for surgery and it will not be curative d/t mets. No Embolization since it will not allow chemotherapy if planned in future. - Scheduled to see medical oncology 04/08 - Rad onc consult placed, pending Back pain - No CVA tenderness - Pain consistent with MSK complaint - Restarted home Percocet 10-325mg 1-2 tablet daily prn for pain control TERRENCE on CKD, resolved - Baseline Cr 1.7-2; Cr slightly above baseline 2.47 at admission - Likely prerenal w/ hx of n/v x 3 days prior to admission - Fena 2.4% c/w intrinsic; interpret in context of ckd4 - Kidney function now at baseline Hyponatremia, improving - Presented with Na 114, chloride 84 - Serum osm consistent w/ SIADH - BMPs - Hold home HCTZ-triamterene - consider adding salt tab/tolvaptan Chronic conditions: Hypothyroidism: continue home levothyroxine HTN: hold home HCTZ-triamterene as noted above Aortic stenosis: mild noted on TTE 07/2018; LVEF 55-60% with mild cLVH, grade I diastolic dysfunction FENGI: Regular diet Ppx: SCDs. Chemo ppx contraindicated Dispo: continue management on PCU Code status: FULL CODE (2) TERRENCE (acute kidney injury): (3) Hyponatremia: (4) Left renal mass: (5) Hypothyroidism: (6) Essential (primary) hypertension: (7) Aortic stenosis: (8) Anemia: Admission and Anticipated Discharge Date Admission Date: March 27, 2022 Supervising Physician Co-Signing Physician Notes Resident Physician Supervision Note: I independently interviewed and examined the patient and verified the fontanez history and physical, reviewed labs and image studies and agree with resident Dr. James findings and care plan. Subjective Patient seen and evaluated at bedside this morning. Reports low back pain radiating across lower back which she attributes to sleeping in hospital bed; reports that she does not typically sleep on her back at home. Has liquid diet ordered and reports tolerating this diet well thus far. Some difficulty sleeping. + hematuria and "blood clots" but no other urinary symptoms including dysuria. No abd pain, nausea, vomiting, hematemesis, hematochezia, or melena. Denies CP, SOB, ELENA, lightheadedness, or dizziness. Review of Systems Review of Systems: See HPI Physical Exam Physical Exam: GENERAL: No acute distress. Well developed and well nourished. Vital signs reviewed. HENT: Moist mucous membranes. RESPIRATORY: Clear to auscultation bilaterally. No wheezing, rales, or rhonchi. CARDIOVASCULAR: Regular rate and rhythm. + murmur. ABDOMEN: Soft, non-tender and non-distended. Normal bowel sounds. No CVA ttp. BACK: No spinous tenderness to palpation. Some lumbar paraspinal tightness w/o tenderness to palpation, L>R. No point tenderness. EXTREMITIES: No edema. Non-tender. SKIN: Warm, dry. NEUROLOGIC: A/O x3. No focal neurological deficits. PSYCHIATRIC: Cooperative. Appropriate mood and affect. Results & Data Results & Data ([facility]) Vital Signs (Past 12 Hours) Vital Signs Temp Pulse Pulse Resp BP Pulse Ox 03/29/22 11:59 36.4 C L 62 17 99/53 L 100 03/29/22 08:09 36.4 C L 66 17 108/64 100 03/29/22 08:00 70 03/29/22 04:00 36.8 C 63 20 128/57 L 100 Laboratory Results 03/29/22 03/29/22 03/29/22 Range/Units 06:18 06:18 01:04 WBC 9.34 (4.8-10.8) K/uL RBC 2.53 L (4.2-5.4) M/uL Hgb 7.6 L (12.0-16.0) g/dL Hct 21.2 L (37-47) % MCV 83.8 (80-100) fL MCH 30.0 (25-34) pg MCHC 35.8 (32-36) g/dL RDW Std Deviation 40.3 (36.4-46.3) fL RDW Coeff of Gala 13.3 (11.5-14.5) % Plt Count 243 (130-400) K/uL MPV 9.1 (7.4-10.4) fL Sodium 122 L 120 L (136-145) mmol/L Potassium 4.0 3.9 (3.5-5.1) mmol/L Chloride 91 L 91 L (98-107) mmol/L Carbon Dioxide 22 21 (21-32) mmol/L Anion Gap 9 8 (3-11) BUN 28 H 29 H (6-23) mg/dl Creatinine 1.93 H 1.87 H (0.6-1.2) mg/dl Est Cr Clr Drug Dosing 30.5 31.7 ml/min Est GFR ( Amer) 27.4 28.5 ml/min Est GFR (Non-Af Amer) 23.7 24.6 ml/min BUN/Creatinine Ratio 14.5 15.5 (10-20) Glucose 100 H 93 (70-99(Fasting)) mg/dl Calcium 8.6 8.6 (8.5-10.1) mg/dl 03/29/22 03/28/22 03/28/22 Range/Units 01:04 19:00 19:00 WBC 9.22 9.11 (4.8-10.8) K/uL RBC 2.50 L 2.61 L (4.2-5.4) M/uL Hgb 7.6 L 7.9 L (12.0-16.0) g/dL Hct 20.8 L* 21.7 L (37-47) % MCV 83.2 83.1 (80-100) fL MCH 30.4 30.3 (25-34) pg MCHC 36.5 H 36.4 H (32-36) g/dL RDW Std Deviation 40.0 38.8 (36.4-46.3) fL RDW Coeff of Gala 13.3 13.0 (11.5-14.5) % Plt Count 247 233 (130-400) K/uL MPV 9.1 8.9 (7.4-10.4) fL Sodium 120 L (136-145) mmol/L Potassium 3.9 (3.5-5.1) mmol/L Chloride 90 L (98-107) mmol/L Carbon Dioxide 22 (21-32) mmol/L Anion Gap 8 (3-11) BUN 31 H (6-23) mg/dl Creatinine 2.01 H (0.6-1.2) mg/dl Est Cr Clr Drug Dosing 29.5 ml/min Est GFR ( Amer) 26.1 ml/min Est GFR (Non-Af Amer) 22.5 ml/min BUN/Creatinine Ratio 15.4 (10-20) Glucose 97 (70-99(Fasting)) mg/dl Calcium 8.7 (8.5-10.1) mg/dl Resident Activity Tracking Resident Involvement: Resident Care Provided Care Provided: Adult Hospital Medicine (1) Anemia Anemia type: unspecified type Qualified Code(s): D64.9 - Anemia, unspecified (2) Aortic stenosis Cardiac valve disease etiology: nonrheumatic Qualified Code(s): I35.0 - Nonrheumatic aortic (valve) stenosis
[2022-03-29 18:00] LABS: Hematocrit (blood only) 21.5 % (37-47); Hemoglobin 7.8 g/dL (12.0-16.0)
[2022-03-29] MEDS: OXYBUTYNIN CHLORIDE XL 5 MG TABCR PO SCH (19:44)
[2022-03-29] MEDS: MELATONIN 3 MG TAB PO PRN (21:36)
[2022-03-30] MEDS: LEVOTHYROXINE SODIUM 137 MCG TABLET PO SCH (05:59)
[2022-03-30 08:28] LABS: Hematocrit (blood only) 20.4 % (37-47); Hemoglobin 7.4 g/dL (12.0-16.0); Mean Corpuscular Hgb Conc 36.3 g/dL (32-36); Mean Corpuscular Volume 85.4 fL (80-100); Mean Platelet Volume 8.9 fL (7.4-10.4); Platelet Count 256 K/uL (130-400); RDW Coefficient of Variation 13.2 % (11.5-14.5); RDW Standard Deviation 40.7 fL (36.4-46.3); Red Blood Count 2.39 M/uL (4.2-5.4); White Blood Count 11.14 K/uL (4.8-10.8)
--- NOTE | 2022-03-30 08:31 | Radiation OncologyConsultation ---
Date of Consultation March 30, 2022 Assessment & Plan (1) Metastatic renal cell carcinoma: Assessment: Ms. Luo is an 81-year-old female with a history of severe chronic kidney disease who presents with a recent diagnosis of metastatic renal cell carcinoma to lungs and retroperitoneal lymph nodes. The patient is currently admitted to the hospital due to hematuria and anemia. The patient has been seen by Dr. Bean from urology who has recommended consideration for trans dominic to tertiary center for IR embolization of the left kidney to prevent further bleeding. The patient is scheduled to see medical oncology in the outpatient setting. Recommendation: I agree with Dr. Bean that the most appropriate option for this patient is to be considered for embolization to prevent further bleeding. Although palliative radiation therapy is an option, the patient does have severe chronic kidney disease and also has metastatic disease and renal function should be attempted to be preserved if possible especially if the patient elects to undergo systemic therapy. If the patient refuses to undergo IR guided embolization and/or systemic therapy, palliative radiation therapy may be a reasonable option to help prevent bleeding however this comes with risk of reducing the patient's renal function even further. Plan: 1. No plan for radiation therapy at this time. We will continue to follow-up with patient as needed. I will discuss case with Dr. Candelaria to determine renal function and left kidney if patient does require palliative radiation therapy in the future. 2. Medical oncology consultation the outpatient setting. 3. Appreciate urology input. 4. Recommend consideration for completion of staging work-up while patient is admitted which would include a CT of the chest as well as bone scan. 5. Medical management as per primary team otherwise. 6. Patient and family encouraged to call us with any further questions or concerns. I have spoken with patient's daughter, Eveline, as well and all questions were answered. History of Present Illness Attending Physician: Tonya Painting MD History of Present Illness 12/15/2021. Urine cytology. Urine (cytologic analysis): - Severe acute cystitis is seen. - The specimen is negative for high-grade urothelial carcinoma. 12/17/2021. Renal ultrasound. IMPRESSION: Partial visualization of a left upper pole renal mass measuring 4.3 x 3.2 x 3.7 cm. No prior images are available for correlation, correlation with outside images if available or follow-up by renal protocol CT or MRI is recommended. 12/24/2021. CT of abdomen/pelvis. IMPRESSION: 1. Mass within the upper pole of the left kidney which corresponds to the finding on ultrasound of December 17, 2021. This is suboptimally assessed on this unenhanced exam but measures approximately 4.6 cm and is highly suggestive of renal cell carcinoma. Urology consultation is recommended. 2. Multiple pathologically enlarged left para- aortic lymph nodes consistent with tasha spread of disease. 3. Multiple small indeterminate nodules within the lower lungs. A nonemergent chest CT could be obtained for further evaluation. 02/17/2022. Biopsy of periaortic lymph node. Positive for metastatic carcinoma. Most likely suggestive of renal cell carcinoma. 03/09/2022. Cystoscopy by Dr. Thapa. No concern for primary bladder malignancy. 03/27/2022. Patient admitted to hospital due to hematuria with acute blood loss. 03/27/2022. CT of abdomen/pelvis. IMPRESSION: 1. Interval increase in size in the 5.2 cm mass within the upper pole of the left kidney consistent with a renal cell carcinoma. 2. Interval progression of the pulmonary nodules and left perinephric lymphadenopathy consistent with metastatic disease. 3. A new sclerotic focus within the left iliac bone which is also concerning for metastatic focus. 4. Increased density within the distal left ureter suggestive of blood products given the patient's history of hematuria. 03/27/2022. CT head. Impression: No acute intracranial abnormality. 03/29/2022. Urology inpatient follow-up with Dr. Bean. No acute surgical inte rvention recommended. Interventional radiology embolization of kidney to prevent bleeding could be considered. Oncology input appreciated. Allergies Allergy/AdvReac Type Severity Reaction Status Date / Time No Known Drug Allergies Allergy Verified 03/27/22 17:10 Home Medications Medication Instructions Recorded Confirmed Type calcium carbonate 600 mg-vitamin 1 tab PO QAM 06/27/19 03/27/22 History D3 20 mcg (800 unit) tablet (Caltrate with Vitamin D3) multivitamin (One Daily 1 tab PO QAM 06/27/19 03/27/22 History Multivitamin) acetaminophen 325 mg tablet 325 mg PO Q6H PRN 08/20/19 03/27/22 History (Tylenol) diphenhydramine 25 2 tab PO HS PRN MDD and pain 08/20/19 03/27/22 History mg-acetaminophen 500 mg tablet (Tylenol PM Extra Strength) ketoconazole 2 % topical cream 1 applic TOPICAL BID #60 g 08/18/20 03/27/22 Rx alprazolam 0.5 mg tablet 0.5 mg PO PRN #4 tab 12/17/21 03/27/22 Rx levothyroxine 137 mcg tablet See Rx Instructions .ROUTE 12/22/21 03/27/22 Rx .COMPLEX #90 tab lisinopril 20 1 tab PO BID #180 tab 12/28/21 03/27/22 Rx mg-hydrochlorothiazide 12.5 mg tablet hydrocodone 10 mg-acetaminophen 2 tab PO DAILY PRN #60 tab 01/12/22 03/27/22 Rx 325 mg tablet valacyclovir 1 gram tablet 1,000 mg PO DAILY PRN #90 tab 01/12/22 03/27/22 Rx (Valtrex) sulfamethoxazole 400 1 tab PO BID 3 Days #6 tab 03/09/22 03/27/22 Rx mg-trimethoprim 80 mg tablet (Bactrim) oxybutynin chloride 10 mg 10 mg PO HS #90 tab 03/22/22 03/27/22 Rx tablet,extended release 24 hr (Ditropan XL) simvastatin 20 mg tablet (Zocor) 20 mg PO DAILY #90 tab 03/22/22 03/27/22 Rx cephalexin 500 mg capsule 500 mg PO Q12H #10 cap 03/26/22 03/27/22 Rx Patient History Medical History (Updated 03/30/22 @ 09:39 by Maximino Hill MD) Benign colonic polyp Chronic kidney disease stage 3 monitoring Ductal carcinoma in situ (DCIS) of breast Gross hematuria Herpes simplex Herpesviral infection Hyperlipidemia Hypertension Hypothyroidism Left renal mass Metastatic renal cell carcinoma Osteoarthritis Surgical History H/O breast surgery (09/24/19) Re-Excision Left Breast Tissue Dr. Shelley 09/24/19 H/O lumpectomy H/O mastectomy (11/12/19) Left Breast Mastectomy Dr. Shelley 11-12-19 Hx of cholecystectomy Hx of colonoscopy Status post left breast lumpectomy (08/20/19) Left Breast Lumpectomy with Needle Localization and Left Hiram Lymph Node Biopsy Dr. Shelley 08/20/19. LMA #4. No issues. Family History Mother Thyroid disease Father Osteoarthritis Brother Colon cancer Grandmother Colon cancer Denies family history of Ovarian cancer Prostate cancer Myocardial infarction Breast cancer Social History Smoking Status: Former smoker Tobacco Type: Cigarettes Age Started Using Tobacco: 18; Age Quit Using Tobacco: 29; packs per day: 0.5; Years Smoked: 11; Cigarettes Per Day: 10; Number of Years Since Quit: 52; Second Hand Exposure: No; Do You Dip or Chew Tobacco: No; Tobacco Cessation Education Requested by Patient: No Hx Alcohol Use: No Hx Substance Use: No Preferred Language: Micronesian Communication Ability: Effective Visual Impairment: No Limitations 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: Normal Plate [place] Hand Required: No Beliefs That Will Affect Care: None marital status: / Current Living Situation: Alone current occupational status: retired How many Children do You have: 3 Other Information That Helps Us Care for You: No Feels Safe at Home: Yes Safety Concerns: Feels Safe At This Time Childhood Exposure to Second-Hand Smoke: Yes caffeine: Yes during the past year weight has: increased > 10 lbs Dental Care, Regularly: No Physical Activity Frequency: Does not Exercise Seatbelt Use: always Sunscreen Use: No Assistive Devices: Cane Review of Systems Review of Systems: All systems reviewed & are unremarkable except as noted in HPI & below Physical Exam Constitutional: WD/WN, vitals as above Skin: no rashes, warm and dry Psychiatric: A+Ox3, euthymic affect Results (Rad Onc) Most recent lab results Calcium 8.6 mg/dl (8.5-10.1) 03/29/22 06:18 Magnesium 1.7 mg/dl (1.7-2.4) 03/28/22 12:59 Time Spent Attending I spent 15 minutes in preparation for this consultation including reviewing all the clinical records, reviewing laboratory studies, pathology reports and imaging results. I spent 25 minutes with direct face to face interaction with the patient and/or family including performing a physical exam and answering all questions. I spent 20 minutes documenting this patient's visit.
[2022-03-30] MEDS: SIMVASTATIN 20 MG TAB PO SCH (08:50)
[2022-03-30] MEDS: KETOCONAZOLE 2% CR 15 GM TUBE EXT SCH ×2 (08:50→19:02)
[2022-03-30] MEDS: MULTIVITAMIN TAB PO SCH (08:50)
[2022-03-30] MEDS: CALCIUM 600MG + VIT D 400 IU TAB PO SCH (08:50)
[2022-03-30] MEDS: ACETAMINOPHEN 325 MG TAB PO PRN ×2 (08:54→18:38)
[2022-03-30 09:58] LABS: BUN Creatinine Ratio 14.1 (10-20); Calcium 8.9 mg/dl (8.5-10.1); Creatinine Clr Calc Pharmacy 30.7 ml/min; Est GFR (African American) 27.8 ml/min; Potassium 4.1 mmol/L (3.5-5.1)
--- NOTE | 2022-03-30 12:25 | Hospitalist Progress Note ---
Date of Service March 30, 2022 Assessment & Plan (1) Gross hematuria: Plan: 81-year-old female w/ L renal mass (possibly RCC w/ mets), recurrent UTIs, CKD4, HTN, hypothyroidim, and L DCIS s/p mastectectomy who presents for evaluation for hematuria and found to have anemia 7.7 and hyponatremia 114. Hematuria and acute blood loss Anemia - CT-A/P with interval growth in L kidney mass and "increased density within the distal left ureter suggestive of blood products given patient's history of hematuria" - Cystoscopy 03/09 - severe cystitis, incomplete bladder emptying, but negative to explain hematuria - Urine cx 03/24 and 03/27 negative to date - Urology following: no intervention, follow H/H for stability - Pt received 1x dose of cefepime in ED. Was on Keflex for outpt management of cystitis; - d/c abx since urine culture neg - Hgb at 7.7 on arrival -- s/p 1 unit PRB on 03/28. - H/H checks q6h with stability therefore will decrease H/H check to q12h Left renal mass - RCC with mets - s/p paraaoritc LN biopsy. - Has been following with [facility] -- recent paraaortic LN biopsy concerning for RCC - CT-A/P on admission: Interval increase in size in the 5.2 cm mass in upper pole lt kidney consist ent with a renal cell carcinoma. Interval progression of the pulmonary nodules and left perinephric lymphadenopathy consistent with metastatic disease. New sclerotic focus - left iliac bone. - Per urology - not a candidate for nephrectomy due to overall high risk for surgery and it will not be curative d/t mets. - Plan on transfer to tertiary care center for renal embolization with IR - Scheduled to see medical oncology 04/08 as outpatient -for eval today. will follow - Rad onc consult. Appreciate their recommendations - Completion of staging work up including chest CT and bone scan (findings below); rec transfer for embolization - Chest CT 03/30: Multifocal pulmonary metastasis. Osseous metastatic disease is most pronounced within the sternum. No acute pathologic fracture. - Bone scan, pending Back pain - No CVA tenderness - Pain consistent with MSK complaint - Restarted home Percocet 10-325mg 1-2 tablet daily prn for pain control TERRENCE on CKD, resolved - Baseline Cr 1.7-2; Cr slightly above baseline 2.47 at admission - Likely prerenal w/ hx of n/v x 3 days prior to admission - Fena 2.4% c/w intrinsic; interpret in context of ckd4 - Kidney function now at baseline Hyponatremia, improving - Presented with Na 114, chloride 84 - Serum osm consistent w/ SIADH - BMPs - Hold home HCTZ-triamterene - Started on 1g salt tab 03/30. Fluid restrict 1800cc/24h Chronic conditions: Hypothyroidism: continue home levothyroxine HTN: hold home HCTZ-triamterene as noted above Aortic stenosis: mild noted on TTE 07/2018; LVEF 55-60% with mild cLVH, grade I diastolic dysfunction FENGI: Regular diet Ppx: SCDs. Chemo ppx contraindicated Dispo: continue management on PCU Code status: Conditional code -- compressions only, DNI (2) TERRENCE (acute kidney injury): (3) Hyponatremia: (4) Left renal mass: (5) Hypothyroidism: (6) Essential (primary) hypertension: (7) Aortic stenosis: (8) Anemia: Admission and Anticipated Discharge Date Admission Date: March 27, 2022 Supervising Physician Co-Signing Physician Notes Resident Physician Supervision Note: I independently interviewed and examined the patient and verified the fontanez history and physical, reviewed labs and image studies and agree with resident Dr. James findings and care plan. Subjective Patient seen and evaluated at bedside this morning. States that she slept much better last night. Does report persistent low back pain radiating across lower back which she attributes to sleeping in hospital bed; she has not yet been able to get a hot pad for her back pain. Has tolerated full diet. No abd pain, nausea, vomiting, hematemesis, hematochezia, or melena. Denies CP, SOB, ELENA, lightheadedness, or dizziness. Review of Systems Review of Systems: See HPI Physical Exam Physical Exam: GENERAL: No acute distress. Well developed and well nourished. Vital signs reviewed. HENT: Moist mucous membranes. RESPIRATORY: Clear to auscultation bilaterally. No wheezing, rales, or rhonchi. CARDIOVASCULAR: Regular rate and rhythm. + murmur. ABDOMEN: Soft, non-tender and non-distended. Normal bowel sounds. EXTREMITIES: No edema. Non-tender. SKIN: Warm, dry. NEUROLOGIC: A/O x3. No focal neurological deficits. PSYCHIATRIC: Cooperative. Appropriate mood and affect. Results & Data Results & Data ([facility]) Vital Signs (Past 12 Hours) Vital Signs Temp Pulse Resp BP Pulse Ox 03/30/22 08:13 36.7 C 75 18 113/68 100 03/30/22 02:13 36.5 C 68 18 123/69 100 Laboratory Results 03/30/22 03/30/22 03/30/22 Range/Units 17:59 07:30 07:30 WBC 11.14 H (4.8-10.8) K/uL RBC 2.39 L (4.2-5.4) M/uL Hgb 7.6 L 7.4 L (12.0-16.0) g/dL Hct 21.0 L 20.4 L* (37-47) % MCV 85.4 (80-100) fL MCH 31.0 (25-34) pg MCHC 36.3 H (32-36) g/dL RDW Std Deviation 40.7 (36.4-46.3) fL RDW Coeff of Gala 13.2 (11.5-14.5) % Plt Count 256 (130-400) K/uL MPV 8.9 (7.4-10.4) fL Sodium 120 L (136-145) mmol/L Potassium 4.1 (3.5-5.1) mmol/L Chloride 89 L (98-107) mmol/L Carbon Dioxide 23 (21-32) mmol/L Anion Gap 8 (3-11) BUN 27 H (6-23) mg/dl Creatinine 1.91 H (0.6-1.2) mg/dl Est Cr Clr Drug Dosing 30.7 ml/min Est GFR ( Amer) 27.8 ml/min Est GFR (Non-Af Amer) 24.0 ml/min BUN/Creatinine Ratio 14.1 (10-20) Glucose 100 H (70-99(Fasting)) mg/dl Calcium 8.9 (8.5-10.1) mg/dl Diagnostic Findings [facility], [place] [phone] CT Scan Report Patient:ISABELLA SAMPSON Admit Date:03/27/22 MR#:[id number] Address1:[address] Acct ID:[id number] Address2: [address] Date:1940 [facility] Zip:[place] [address] Age:81 Location:2S Sex:F Room/Bed:[facility] Att Phy:Tonya Painting MD Diagnosis:HYPONATREMIA, ACUTE BLOOD LOSS, ANEMIA Chaya Phy:Dutch Moore DO Service Date:03/30/22 Fam Phy: Interpreting Phy:Alexander NascimentoAdmit Phy:Sumeet Cruz MD Ordering Phy:Yanelis James DO cc: ~ CT chest diagnostic wo con CT DOSE: 682.92 mGy.cm CLINICAL HISTORY: 81 years-old Female with cancer staging. Follow-up study in a patient with a left renal mass and metastatic disease. TECHNIQUE: Multiaxial CT images of the chest were performed without contrast. A dose lowering technique was utilized adhering to the principles of ALARA. COMPARISON: CT abdomen and pelvis 03/27/2022. FINDINGS: Streak artifact from the patient's necklace. No thyroid nodules. The heart is normal in size without pericardial effusion. Atherosclerosis of the thoracic aorta. No pneumothorax, pleural effusion or overt pulmonary edema. Bilateral subpleural reticulation, suggestive of scarring. Numerous bilateral solid pulmonary nodules compatible with metastatic disease redemonstrated. This includes a 1.2 cm nodule within the lingula and a 1.2 cm nodule within the left lung apex. Right-sided pulmonary nodules measure up to 10 mm within the right middle lobe. Mild bibasilar traction bronchiectasis. The central airways are patent. Cholecystectomy. Left perinephric stranding with left perinephric metastatic disease redemonstrated. Partially imaged mass of the superior pole left kidney. Sclerotic metastasis of the sternum. No acute pathologic fracture. Subcentimeter sclerotic focus is also noted involving the T12 vertebral body on image 266. IMPRESSION: 1. Multifocal pulmonary metastasis. 2. Osseous metastatic disease is most pronounced within the sternum. No acute pathologic fracture. 3. Partially imaged mass of the superior pole left kidney with adjacent metastatic foci is better characterized on the CT abdomen and pelvis study from 03/27/2022. ACT 112: Negative or not required by law. Dictated: 03/30/2022 2:53 PM Transcribed: 03/30/2022 3:07 PM Jacinda [id number] YUAN_Varsha Electronically signed by: Alexander Nascimento M.D. 03/30/2022 3:29 PM Dictated:03/30/22 1453 Transcribed: 03/30/22 1507 Resident Activity Tracking Resident Involvement: Resident Care Provided Care Provided: Adult Hospital Medicine (1) Anemia Anemia type: unspecified type Qualified Code(s): D64.9 - Anemia, unspecified (2) Aortic stenosis Cardiac valve disease etiology: nonrheumatic Qualified Code(s): I35.0 - Nonrheumatic aortic (valve) stenosis
--- NOTE | 2022-03-30 12:46 | Urology Progress Note ---
Date of Service March 30, 2022 Assessment & Plan (1) Left renal mass: (2) Gross hematuria: Plan: 81-year-old female with a history of a left renal mass and UTIs who was admitted to the hospital for acute blood loss anemia and significant hyponatremia. - Afebrile. - Labs reviewed - Wbc 11.14, Hemoglobin 7.4, Creatinine 1.91. - Voiding without issue. Bladder scan reportedly low this morning. Continue to monitor, bladder scan prn. - Urine culture 03/24 and 03/27 negative. Blood cultures preliminary no growth x 48 hours. - No acute intervention indicated at this time. - Continue supportive care. - Monitor H&H, transfuse as felt necessary per primary team. - Rad onc note reviewed. - Scheduled to see medical oncology 04/08. - See attending note for further details. Admission and Anticipated Discharge Date Admission Date: March 27, 2022 Supervising Physician Co-Signing Physician Notes I have seen and examined Ms. Luo and agree with the above documentation. Regarding her renal mass, i think the treatment options at this point are going to be with medical oncology. Neither radiation nor surgery will be curative for her disease. She is scheduled for a visit next week with medical oncology, but there may be a role for consultation while she is here in the hospital. I agree that complete staging with CT of the chest and bone scan would be worthwhile while she is here as well. Initially her hematuria was thought to be due to a bad bacterial cystitis. Cystoscopy performed in the office did not identify any bladder tumor or other explanation for bleeding, there was also no blood effluxing from her ureteral orifices. At this point, the hematuria is persistent enough that I am concerned there may be invasion of her kidney mass into the collecting system causing bleeding of the upper tract. If the bleeding persists and she has an ongoing transfusion requirement, it may be worth discussion with interventional radiology for selective embolization. While nephrectomy or palliative radiation are potential options to address the hematuria, both would likely worsen her renal function, which is not ideal to begin. If she requires intervention for ongoing hematuria, embolization may be the approach that can maximally preserve her renal function. Subjective Pt examined at bedside this AM with Dr. Thapa. Awake, resting in bed on arrival. No acute distress. Still with hematuria, but feels as if she continues to empty her bladder well. Offered no additional complaints at time of exam. Review of Systems Constitutional: as per Subjective / HPI Genitourinary: as per Subjective / HPI Physical Exam Constitutional: cooperative and comfortable; no acute distress Respiratory: no respiratory distress and no labored breathing Skin: No visible rashes or lesions Neurologic: moves all extremities and awake Psychiatric: Orientation: alert, oriented x 3 and cooperative Results & Data ([facility]) Vital Signs (Past 12 Hours) Vital Signs Temp Pulse Resp BP Pulse Ox 03/30/22 08:13 36.7 C 75 18 113/68 100 03/30/22 02:13 36.5 C 68 18 123/69 100 PG Care Time/CCT Total # of Minutes Spent Total Time Spent with Patient: Total time spent is greater than 50% in coordination of care (as documented) at patient's floor/unit and/or counseling patient: Coding Level of Care Code 75361 Subseq Hosp Care Lvl 2 Diagnoses Left renal mass N28.89 Gross hematuria R31.0
--- NOTE | 2022-03-30 15:32 | CT Scan Report ---
CT chest diagnostic wo con CT DOSE: 682.92 mGy.cm CLINICAL HISTORY: 81 years-old Female with cancer staging. Follow-up study in a patient with a left renal mass and metastatic disease. TECHNIQUE: Multiaxial CT images of the chest were performed without contrast. A dose lowering techni que was utilized adhering to the principles of ALARA. COMPARISON: CT abdomen and pelvis 03/27/2022. FINDINGS: Streak artifact from the patient's necklace. No thyroid nodules. The heart is normal in siz e without pericardial effusion. Atherosclerosis of the thoracic aorta. No pneumothorax, pleural effus ion or overt pulmonary edema. Bilateral subpleural reticulation, suggestive of scarring. Numerous jose ateral solid pulmonary nodules compatible with metastatic disease redemonstrated. This includes a 1.2 cm nodule within the lingula and a 1.2 cm nodule within the left lung apex. Right-sided pulmonary no dules measure up to 10 mm within the right middle lobe. Mild bibasilar traction bronchiectasis. The c entral airways are patent. Cholecystectomy. Left perinephric stranding with left perinephric metastatic disease redemonstrated. Partially imaged mass of the superior pole left kidney. Sclerotic metastasis of the sternum. No acute pathologic fracture. Subcentimeter sclerotic focus is also noted involving the T12 vertebral body on image 266. IMPRESSION: 1. Multifocal pulmonary metastasis. 2. Osseous metastatic disease is most pronounced within the sternum. No acute pathologic fracture. 3. Partially imaged mass of the superior pole left kidney with adjacent metastatic foci is better fanny racterized on the CT abdomen and pelvis study from 03/27/2022. ACT 112: Negative or not required by law. Dictated: 03/30/2022 2:53 PM Transcribed: 03/30/2022 3:07 PM Jacinda [id number] YUAN_Varsha Electronically signed by: Alexander Nascimento M.D. 03/30/2022 3:29 PM
[2022-03-30] MEDS: SODIUM CHLORIDE 1 GM TABLET PO SCH (15:51)
[2022-03-30 18:11] LABS: Hemoglobin 7.6 g/dL (12.0-16.0)
[2022-03-30] MEDS: OXYBUTYNIN CHLORIDE XL 5 MG TABCR PO SCH (19:21)
[2022-03-30] MEDS: MELATONIN 3 MG TAB PO PRN (22:01)
[2022-03-31] MEDS: LEVOTHYROXINE SODIUM 137 MCG TABLET PO SCH (06:07)
[2022-03-31] MEDS: CALCIUM 600MG + VIT D 400 IU TAB PO SCH (08:51)
[2022-03-31] MEDS: SODIUM CHLORIDE 1 GM TABLET PO SCH (08:51)
[2022-03-31] MEDS: KETOCONAZOLE 2% CR 15 GM TUBE EXT SCH ×2 (08:52→19:47)
[2022-03-31] MEDS: SIMVASTATIN 20 MG TAB PO SCH (08:52)
[2022-03-31] MEDS: MULTIVITAMIN TAB PO SCH (08:52)
[2022-03-31 08:53] LABS: BUN Creatinine Ratio 14.4 (10-20); Creatinine Clr Calc Pharmacy 31.5 ml/min; Est GFR (African American) 28.5 ml/min; Est GFR (Non-African American) 24.6 ml/min; Potassium 4.2 mmol/L (3.5-5.1)
[2022-03-31 09:41] LABS: Hematocrit (blood only) 19.9 % (37-47); Hemoglobin 7.2 g/dL (12.0-16.0); Mean Corpuscular Hgb Conc 36.2 g/dL (32-36); Mean Corpuscular Volume 85.8 fL (80-100); Mean Platelet Volume 8.8 fL (7.4-10.4); Platelet Count 261 K/uL (130-400); RDW Coefficient of Variation 13.5 % (11.5-14.5); RDW Standard Deviation 41.6 fL (36.4-46.3); Red Blood Count 2.32 M/uL (4.2-5.4)
[2022-03-31] MEDS: TOLVAPTAN 15 MG TABLET PO SCH (10:26)
--- NOTE | 2022-03-31 12:41 | Urology Progress Note ---
Date of Service March 31, 2022 Assessment & Plan (1) Left renal mass: (2) Gross hematuria: Plan: 81-year-old female with a history of a left renal mass and UTIs who was admitted to the hospital for acute blood loss anemia and significant hyponatremia. - Plan of care reviewed with Dr. Thapa, on-call urologist. - Pt afebrile. - Labs reviewed - Wbc 10.60, Hemoglobin 7.2, Creatinine 1.87. - Urine culture 03/24 and 03/27 negative. Blood cultures preliminary no growth x 48 hours. - Voiding spontaneously without issue. Reports urine as tea colored today, continue to monitor. - No acute intervention indicated at this time. - For now, would recommend continuing with supportive care and close monitoring. - Continue to trend labs and monitor H&H, transfuse as felt necessary per primary team. - If the bleeding persists and she has an ongoing transfusion requirement, may need to consider transfer to tertiary care center for embolization with IR. - Urology will follow Admission and Anticipated Discharge Date Admission Date: March 27, 2022 Supervising Physician Co-Signing Physician Notes I have discussed Ms. Luo' case with RUSS Meehan and agree with the above documentation. Doing well today. Hemoglobin slowly drifting down, she remains hemodynamically stable. Reasonable to continue monitoring for now with supportive care. Ideally we can avoid embolization as this would impair renal function, however if bleeding worsens it may remain the best option for her. Subjective Pt examined at bedside this AM. Awake, resting in bed on arrival. No acute distress. Reports her urine was clear yesterday and is tea colored this morning. Denies dysuria. Feels she is emptying her bladder well. Reports back pain, states this chronic in nature. Denies flank or abdominal pain. Denies f/c/n/v. Review of Systems Constitutional: as per Subjective / HPI Gastrointestinal: as per Subjective / HPI Genitourinary: as per Subjective / HPI Physical Exam Constitutional: cooperative and comfortable; no acute distress Respiratory: no respiratory distress and no labored breathing Skin: No visible rashes or lesions Neurologic: moves all extremities and awake Psychiatric: Orientation: alert, oriented x 3 and cooperative Results & Data ([facility]) Vital Signs (Past 12 Hours) Vital Signs Temp Pulse Resp BP Pulse Ox 03/31/22 10:53 36.8 C 69 18 107/59 L 100 03/31/22 07:09 36.7 C 69 19 108/53 L 100 03/31/22 03:18 36.7 C 72 18 98/51 L 100 PG Care Time/CCT Total # of Minutes Spent Total Time Spent with Patient: Total time spent is greater than 50% in coordination of care (as documented) at patient's floor/unit and/or counseling patient: Coding Level of Care Code 24732 Subseq Hosp Care Lvl 2 Diagnoses Left renal mass N28.89 Gross hematuria R31.0
--- NOTE | 2022-03-31 14:59 | Nuclear Medicine Report ---
WHOLE-BODY NUCLEAR BONE SCAN CLINICAL HISTORY: Left renal mass. Cancer staging.. COMPARISON STUDY: Chest CT dated 03/30/2022. CT scan of the abdomen and pelvis dated 03/27/2022. CT of the brain dated 03/19/2022.. TECHNIQUE: Three hours following the IV administration of 27 mCi of technetium 99m MDP, whole body n uclear bone scan was performed in the anterior and posterior projections. FINDINGS: There are foci of abnormal tracer deposition localizing to the right convexity, the sternum, the lumb ar spine, and the left iliac wing. Sclerotic lesions are seen at several of these sites on the recent CT scans, and these foci are consistent with multifocal osseous metastatic disease. Typically degenerative uptake is identified in the shoulders, sternoclavicular joints, knees, ankles, and feet. There is expected excreted activity within the right renal collecting system and bladder. There is on ly minimal tracer suggested in the left renal collecting system. IMPRESSION: 1. Findings of multifocal osseous metastatic disease as above. 2. There is only minimal tracer activity is suggested in the left renal collecting system. ACT 112: Negative or not required by law. Electronically signed by: Dom Ordaz M.D. 03/31/2022 2:58 PM
--- NOTE | 2022-03-31 17:08 | Hospitalist Progress Note ---
Date of Service March 31, 2022 Assessment & Plan (1) Gross hematuria: Plan: 81-year-old female w/ L renal mass (possibly RCC w/ mets), recurrent UTIs, CKD4, HTN, hypothyroidim, and L DCIS s/p mastectectomy who presents for evaluation for hematuria and found to have anemia 7.7 and hyponatremia 114. Hematuria and acute blood loss Anemia - CT-A/P with interval growth in L kidney mass and "increased density within the distal left ureter suggestive of blood products given patient's history of hematuria" - Cystoscopy 03/09 - severe cystitis, incomplete bladder emptying, but negative to explain hematuria - Urine cx 03/24 and 03/27 negative to date - Patient voiding spontaneously - Urology following: no intervention, follow H/H for stability - Pt received 1x dose of cefepime in ED. Was on Keflex for outpt management of cystitis; - d/c abx since urine culture neg - Hgb at 7.7 on arrival -- s/p 1 unit PRB on 03/28. - H/H down to 7.2 this AM, continue to trend q12h Left renal mass - RCC with mets - s/p paraaoritc LN biopsy. - Has been following with [facility] -- recent paraaortic LN biopsy concerning for RCC - CT-A/P on admission: Interval increase in size in the 5.2 cm mass in upper pole lt kidney consistent with a renal cell carcinoma. Interval progression of the pulmonary nodules and left perinephric lymphadenopathy consistent with metastatic disease. New sclerotic focus - left iliac bone. - Per urology - not a candidate for nephrectomy due to overall high risk for surgery and it will not be curative d/t mets. - Possible transfer to tertiary care center for renal embolization with IR if patient continues to require transfusions - Scheduled to see medical oncology 04/08 as outpatient - Rad onc consult. Appreciate their recommendations - Completion of staging work up including chest CT and bone scan (findings below); rec transfer for embolization - Chest CT 03/30: Multifocal pulmonary metastasis. Osseous metastatic disease is most pronounced within the sternum. No acute pathologic fracture. - Bone scan 03/31: Findings of multifocal osseous metastatic disease as above. There is only minimal tracer activity is suggested in the left renal collecting system. Back pain - No CVA tenderness - Pain consistent with MSK complaint - Restarted home Percocet 10-325mg 1-2 tablet daily prn for pain control TERRENCE on CKD, resolved - Baseline Cr 1.7-2; Cr slightly above baseline 2.47 at admission - Likely prerenal w/ hx of n/v x 3 days prior to admission - Fena 2.4% c/w intrinsic; interpret in context of ckd4 - Kidney function now at baseline Hyponatremia, improving - Presented with Na 114, chloride 84 - Serum osm consistent w/ SIADH - BMPs - Hold home HCTZ-triamterene - Started on 1g salt tab 03/30 (discontinued 03/31). Started on Tolvaptan 15mg po qAM as of 03/31. Chronic conditions: Hypothyroidism: continue home levothyroxine HTN: hold home HCTZ-triamterene as noted above Aortic stenosis: mild noted on TTE 07/2018; LVEF 55-60% with mild cLVH, grade I diastolic dysfunction FENGI: Regular diet Ppx: SCDs. Chemo ppx contraindicated Dispo: continue management on PCU Code status: Conditional code -- compressions only, DNI (2) TERRENCE (acute kidney injury): (3) Hyponatremia: (4) Left renal mass: (5) Hypothyroidism: (6) Essential (primary) hypertension: (7) Aortic stenosis: (8) Anemia: Admission and Anticipated Discharge Date Admission Date: March 27, 2022 Supervising Physician Co-Signing Physician Notes Resident Physician Supervision Note: I independently interviewed and examined the patient and verified the fontanez history and physical, reviewed labs and image studies and agree with resident Dr. James findings and care plan. Subjective Patient seen and evaluated at bedside this morning. Notes that she did not sleep as well last night as she did the night prior. Eating well without difficulty. Low back pain has improved with heating pad. No abdominal pain, nausea, or vomiting. Patient reports that her hematuria improved significantly/resolved last night but she has had some mild recurrent "pink tinge" to the urine this morning. Patient denies SOB, CP, ELENA, lightheadedness, or dizziness. Review of Systems Review of Systems: See HPI Physical Exam Physical Exam: GENERAL: No acute distress. Well developed and well nourished. Vital signs reviewed. EYES: EOMI. Anicteric sclerae. HENT: Moist mucous membranes. RESPIRATORY: Clear to auscultation bilaterally. No wheezing, rales, or rhonchi. CARDIOVASCULAR: Regular rate and rhythm. + murmur. ABDOMEN: Soft, non-tender and non-distended. No palpable masses. Normal bowel sounds. EXTREMITIES: No edema. Non-tender. SKIN: Warm, dry. NEUROLOGIC: A/O x3. No focal neurological deficits. PSYCHIATRIC: Cooperative. Appropriate mood and affect. Results & Data Results & Data ([facility]) Vital Signs (Past 12 Hours) Vital Signs Temp Pulse Resp BP Pulse Ox 03/31/22 15:26 37.0 C 68 18 106/60 100 03/31/22 10:53 36.8 C 69 18 107/59 L 100 03/31/22 07:09 36.7 C 69 19 108/53 L 100 Laboratory Results 03/31/22 03/31/22 03/30/22 Range/Units 07:55 07:55 17:59 WBC 10.60 (4.8-10.8) K/uL RBC 2.32 L (4.2-5.4) M/uL Hgb 7.2 L 7.6 L (12.0-16.0) g/dL Hct 19.9 L* 21.0 L (37-47) % MCV 85.8 (80-100) fL MCH 31.0 (25-34) pg MCHC 36.2 H (32-36) g/dL RDW Std Deviation 41.6 (36.4-46.3) fL RDW Coeff of Gala 13.5 (11.5-14.5) % Plt Count 261 (130-400) K/uL MPV 8.8 (7.4-10.4) fL Sodium 118 L* (136-145) mmol/L Potassium 4.2 (3.5-5.1) mmol/L Chloride 87 L (98-107) mmol/L Carbon Dioxide 23 (21-32) mmol/L Anion Gap 8 (3-11) BUN 27 H (6-23) mg/dl Creatinine 1.87 H (0.6-1.2) mg/dl Est Cr Clr Drug Dosing 31.5 ml/min Est GFR ( Amer) 28.5 ml/min Est GFR (Non-Af Amer) 24.6 ml/min BUN/Creatinine Ratio 14.4 (10-20) Glucose 115 H (70-99(Fasting)) mg/dl Calcium 9.0 (8.5-10.1) mg/dl Diagnostic Findings [place], [place] [phone] Nuclear Medicine Report Patient:ISABELLA SAMPSON Admit Date:03/27/22 MR#:[id number] Address1:[address] [place] [address] Acct ID:[id number] Address2: [address] Date:1940 [facility] Zip:[place] [address] Age:81 Location: Sex:F Room/Bed:[facility] Att Phy:Tonya Painting MD Diagnosis:HYPONATREMIA, ACUTE BLOOD LOSS, ANEMIA Chaya Phy:Dutch Moore DO Service Date:03/31/22 Fam Phy: Interpreting Phy:Dom Ordaz MDAdmit Phy:Sumeet Cruz MD Ordering Phy:Yanelis James DO cc: ~ WHOLE-BODY NUCLEAR BONE SCAN CLINICAL HISTORY: Left renal mass. Cancer staging.. COMPARISON STUDY: Chest CT dated 03/30/2022. CT scan of the abdomen and pelvis dated 03/27/2022. CT of the brain dated 03/19/2022.. TECHNIQUE: Three hours following the IV administration of 27 mCi of technetium 99m MDP, whole body nuclear bone scan was performed in the anterior and posterior projections. FINDINGS: There are foci of abnormal tracer deposition localizing to the right convexity, the sternum, the lumbar spine, and the left iliac wing. Sclerotic lesions are seen at several of these sites on the recent CT scans, and these foci are consistent with multifocal osseous metastatic disease. Typically degenerative uptake is identified in the shoulders, sternoclavicular joints, knees, ankles, and feet. There is expected excreted activity within the right renal collecting system and bladder. There is only minimal tracer suggested in the left renal collecting system. IMPRESSION: 1. Findings of multifocal osseous metastatic disease as above. 2. There is only minimal tracer activity is suggested in the left renal collecting system. ACT 112: Negative or not required by law. Electronically signed by: Dom Ordaz M.D. 03/31/2022 2:58 PM Dictated:03/31/22 1453 Transcribed: 03/31/22 1453 Resident Activity Tracking Resident Involvement: Resident Care Provided Care Provided: Adult Hospital Medicine (1) Anemia Anemia type: unspecified type Qualified Code(s): D64.9 - Anemia, unspecified (2) Aortic stenosis Cardiac valve disease etiology: nonrheumatic Qualified Code(s): I35.0 - Nonrheumatic aortic (valve) stenosis
[2022-03-31 17:37] LABS: BUN Creatinine Ratio 15.6 (10-20); Creatinine Clr Calc Pharmacy 30.7 ml/min; Est GFR (African American) 27.6 ml/min; Est GFR (Non-African American) 23.8 ml/min; Potassium 4.2 mmol/L (3.5-5.1)
[2022-03-31 17:38] LABS: Hematocrit (blood only) 20.2 % (37-47); Hemoglobin 7.1 g/dL (12.0-16.0); Mean Corpuscular Hemoglobin 30.5 pg (25-34); Mean Corpuscular Hgb Conc 35.1 g/dL (32-36); Mean Corpuscular Volume 86.7 fL (80-100); Mean Platelet Volume 8.6 fL (7.4-10.4); Platelet Count 283 K/uL (130-400); RDW Coefficient of Variation 13.7 % (11.5-14.5); RDW Standard Deviation 42.6 fL (36.4-46.3); Red Blood Count 2.33 M/uL (4.2-5.4); White Blood Count 11.04 K/uL (4.8-10.8)
[2022-03-31] MEDS: POLYETHYLENE (MIRALAX) 17 GM PACK PO PRN (17:55)
[2022-03-31] MEDS: OXYBUTYNIN CHLORIDE XL 5 MG TABCR PO SCH (20:20)
[2022-03-31] MEDS: MELATONIN 3 MG TAB PO PRN (21:27)
[2022-03-31] MEDS: ACETAMINOPHEN 325 MG TAB PO PRN (21:27)
[2022-04-01] MEDS: LEVOTHYROXINE SODIUM 137 MCG TABLET PO SCH (05:49)
[2022-04-01] MEDS: TOLVAPTAN 15 MG TABLET PO SCH (07:55)
[2022-04-01] MEDS: MULTIVITAMIN TAB PO SCH (07:55)
[2022-04-01] MEDS: CALCIUM 600MG + VIT D 400 IU TAB PO SCH (07:55)
[2022-04-01] MEDS: KETOCONAZOLE 2% CR 15 GM TUBE EXT SCH ×2 (07:55→20:11)
[2022-04-01] MEDS: SIMVASTATIN 20 MG TAB PO SCH (07:55)
[2022-04-01 08:49] LABS: BUN Creatinine Ratio 15.5 (10-20); Calcium 9.1 mg/dl (8.5-10.1); Creatinine Clr Calc Pharmacy 30.4 ml/min; Est GFR (African American) 27.3 ml/min; Est GFR (Non-African American) 23.5 ml/min; Magnesium 1.6 mg/dl (1.7-2.4); Potassium 4.1 mmol/L (3.5-5.1)
[2022-04-01 09:06] LABS: Hematocrit (blood only) 21.4 % (37-47); Hemoglobin 7.6 g/dL (12.0-16.0); Mean Corpuscular Hemoglobin 30.6 pg (25-34); Mean Corpuscular Hgb Conc 35.5 g/dL (32-36); Mean Corpuscular Volume 86.3 fL (80-100); Mean Platelet Volume 8.9 fL (7.4-10.4); Platelet Count 314 K/uL (130-400); RDW Standard Deviation 43.6 fL (36.4-46.3); Red Blood Count 2.48 M/uL (4.2-5.4); White Blood Count 11.29 K/uL (4.8-10.8)
[2022-04-01] MEDS: MAGNESIUM SULFATE / D5W 1 GM/100 ML BAG IV SCH ×2 (11:02→12:53)
[2022-04-01] MEDS: POLYETHYLENE (MIRALAX) 17 GM PACK PO PRN (11:03)
--- NOTE | 2022-04-01 13:27 | Hospitalist Progress Note ---
Date of Service April 01, 2022 Assessment & Plan (1) Gross hematuria: Plan: 81-year-old female w/ L renal mass (possibly RCC w/ mets), recurrent UTIs, CKD4, HTN, hypothyroidim, and L DCIS s/p mastectectomy who presents for evaluation for hematuria and found to have anemia 7.7 and hyponatremia 114. Hematuria and acute blood loss Anemia - CT-A/P with interval growth in L kidney mass and "increased density within the distal left ureter suggestive of blood products given patient's history of hematuria" - Cystoscopy 03/09 - severe cystitis, incomplete bladder emptying, but negative to explain hematuria - Urine cx 03/24 and 03/27 negative to date - Patient voiding spontaneously - Urology following: no intervention, follow H/H for stability - Pt received 1x dose of cefepime in ED. Was on Keflex for outpt management of cystitis; - d/c abx since urine culture neg - Hgb at 7.7 on arrival -- s/p 1 unit PRB on 03/28. - Patient with recurrent gross hematuria that has been progressively worsening throughout the day today. No other urinary sxs. Otherwise asymptomatic including no lightheadedness, dizziness, CP, or SOB. Recheck H&H q6h. If Hgb < 7 or if patient develops sxs with Hgb < 8 will transfuse. Left renal mass - RCC with mets - s/p paraaoritc LN biopsy. - Has been following with [facility] -- recent paraaortic LN biopsy concerning for RCC - CT-A/P on admission: Interval increase in size in the 5.2 cm mass in upper pole lt kidney consistent with a renal cell carcinoma. Interval progression of the pulmonary nodules and left perinephric lymphadenopathy consistent with metastatic disease. New sclerotic focus - left iliac bone. - Per urology - not a candidate for nephrectomy due to overall high risk for surgery and it will not be curative d/t mets. - Ideally we can avoid embolization as this would impair renal function. However, if the bleeding persists and she has an ongoing transfusion requirement, may need to consider transfer to tertiary care center for embolization with IR. - Scheduled to see medical oncology 04/08 as outpatient - Rad onc consult. Appreciate their recommendations - Completion of staging work up including chest CT and bone scan (findings below) - Chest CT 03/30: Multifocal pulmonary metastasis. Osseous metastatic disease is most pronounced within the sternum. No acute pathologic fracture. - Bone scan 03/31: Findings of multifocal osseous metastatic disease as above. There is only minimal tracer activity is suggested in the left renal collecting system. Back pain - No CVA tenderness - Pain consistent with MSK complaint - Restarted home Percocet 10-325mg 1-2 tablet daily prn for pain control TERRENCE on CKD, resolved - Baseline Cr 1.7-2; Cr slightly above baseline 2.47 at admission - Likely prerenal w/ hx of n/v x 3 days prior to admission - Fena 2.4% c/w intrinsic; interpret in context of ckd4 - Kidney function now at baseline Electrolyte abnormalities: Hyponatremia, improving - Presented with Na 114, chloride 84 - Serum osm consistent w/ SIADH - BMPs - Hold home HCTZ-triamterene - Started on 1g salt tab 03/30 (discontinued 03/31). Started on Tolvaptan 15mg po qAM as of 03/31. Hypomagnesia - Repleting with 2g mag today - Recheck mag level in AM Chronic conditions: Hypothyroidism: continue home levothyroxine HTN: hold home HCTZ-triamterene as noted above Aortic stenosis: mild noted on TTE 07/2018; LVEF 55-60% with mild cLVH, grade I diastolic dysfunction FENGI: Regular diet Ppx: SCDs. Chemo ppx contraindicated Dispo: continue management on PCU Code status: Conditional code -- compressions only, DNI (2) TERRENCE (acute kidney injury): (3) Hyponatremia: (4) Left renal mass: (5) Hypothyroidism: (6) Essential (primary) hypertension: (7) Aortic stenosis: (8) Anemia: Admission and Anticipated Discharge Date Admission Date: March 27, 2022 Supervising Physician Co-Signing Physician Notes Resident Physician Supervision Note: I independently interviewed and examined the patient and verified the fontanez history and physical, reviewed labs and image studies and agree with resident Dr. James findings and care plan. Subjective Patient seen and evaluated in room this morning with patient sitting in chair at bedside. She states that she is overall doing well. Patient does note recurrent gross hematuria, "much more red than the pink-tinge yesterday." She denies dysuria, urinary frequency, urinary retention. Patient is eating well without abd pain, nausea, or vomiting. Low back pain has improved with heating pad. Patient denies CP, SOB, cough, ELENA, lightheadedness, dizziness, extremity swelling. Review of Systems Review of Systems: See HPI Physical Exam Physical Exam: GENERAL: No acute distress. Well developed and well nourished. Vital signs reviewed. EYES: EOMI. Anicteric sclerae. HENT: Moist mucous membranes. RESPIRATORY: Clear to auscultation bilaterally. + expiratory wheezing. No rales or rhonchi. CARDIOVASCULAR: Regular rate and rhythm. + murmur. ABDOMEN: Soft, non-tender and non-distended. Normal bowel sounds. EXTREMITIES: No edema. Non-tender. SKIN: Warm, dry. NEUROLOGIC: A/O x3. No focal neurological deficits. PSYCHIATRIC: Cooperative. Appropriate mood and affect. Results & Data Results & Data ([facility]) Vital Signs (Past 12 Hours) Vital Signs Temp Pulse Pulse Resp BP Pulse Ox 04/01/22 11:29 36.7 C 69 18 109/57 L 100 04/01/22 07:28 36.7 C 63 67 18 143/69 H 100 04/01/22 02:53 36.7 C 92 H 18 132/69 98 Laboratory Results 04/01/22 04/01/22 03/31/22 Range/Units 07:55 07:55 17:15 WBC 11.29 H 11.04 H (4.8-10.8) K/uL RBC 2.48 L 2.33 L (4.2-5.4) M/uL Hgb 7.6 L 7.1 L (12.0-16.0) g/dL Hct 21.4 L 20.2 L* (37-47) % MCV 86.3 86.7 (80-100) fL MCH 30.6 30.5 (25-34) pg MCHC 35.5 35.1 (32-36) g/dL RDW Std Deviation 43.6 42.6 (36.4-46.3) fL RDW Coeff of Gala 14.0 13.7 (11.5-14.5) % Plt Count 314 283 (130-400) K/uL MPV 8.9 8.6 (7.4-10.4) fL Sodium 123 L (136-145) mmol/L Potassium 4.1 (3.5-5.1) mmol/L Chloride 92 L (98-107) mmol/L Carbon Dioxide 23 (21-32) mmol/L Anion Gap 8 (3-11) BUN 30 H (6-23) mg/dl Creatinine 1.94 H (0.6-1.2) mg/dl Est Cr Clr Drug Dosing 30.4 ml/min Est GFR ( Amer) 27.3 ml/min Est GFR (Non-Af Amer) 23.5 ml/min BUN/Creatinine Ratio 15.5 (10-20) Glucose 115 H (70-99(Fasting)) mg/dl Calcium 9.1 (8.5-10.1) mg/dl Magnesium 1.6 L (1.7-2.4) mg/dl 03/31/22 Range/Units 16:54 WBC (4.8-10.8) K/uL RBC (4.2-5.4) M/uL Hgb (12.0-16.0) g/dL Hct (37-47) % MCV (80-100) fL MCH (25-34) pg MCHC (32-36) g/dL RDW Std Deviation (36.4-46.3) fL RDW Coeff of Gala (11.5-14.5) % Plt Count (130-400) K/uL MPV (7.4-10.4) fL Sodium 120 L (136-145) mmol/L Potassium 4.2 (3.5-5.1) mmol/L Chloride 89 L (98-107) mmol/L Carbon Dioxide 23 (21-32) mmol/L Anion Gap 8 (3-11) BUN 30 H (6-23) mg/dl Creatinine 1.92 H (0.6-1.2) mg/dl Est Cr Clr Drug Dosing 30.7 ml/min Est GFR ( Amer) 27.6 ml/min Est GFR (Non-Af Amer) 23.8 ml/min BUN/Creatinine Ratio 15.6 (10-20) Glucose 143 H (70-99(Fasting)) mg/dl Calcium 9.0 (8.5-10.1) mg/dl Magnesium (1.7-2.4) mg/dl Resident Activity Tracking Resident Involvement: Resident Care Provided Care Provided: Adult [facility] (1) Anemia Anemia type: unspecified type Qualified Code(s): D64.9 - Anemia, unspecified (2) Aortic stenosis Cardiac valve disease etiology: nonrheumatic Qualified Code(s): I35.0 - Nonrheumatic aortic (valve) stenosis
--- NOTE | 2022-04-01 14:07 | Urology Progress Note ---
Date of Service April 01, 2022 Assessment & Plan (1) Left renal mass: (2) Gross hematuria: Plan: 81-year-old female with a history of a left renal mass and UTIs who was admitted to the hospital for acute blood loss anemia and significant hyponatremia. - Pt afebrile, hemodynamically stable. - Labs reviewed - Wbc 11.29, Hemoglobin 7.6, Creatinine 1.94. - Urine culture 03/24 and 03/27 negative. Blood cultures preliminary no growth. - Voiding spontaneously, reports intermittent hematuria today. - For now, would recommend continuing with supportive care and close monitoring. - Continue to trend labs and monitor H&H, transfuse as felt necessary per primary team. - Ideally we can avoid embolization as this would impair renal function. However, if the bleeding persists and she has an ongoing transfusion requirement, may need to consider transfer to tertiary care center for embolization with IR. - Urology will follow. Admission and Anticipated Discharge Date Admission Date: March 27, 2022 Supervising Physician Co-Signing Physician Notes Discussed patient with MARY ALICE. Agree with plan. Subjective Pt examined at bedside this AM. Awake, sitting in bedside chair on arrival. No acute distress. Reports intermittent hematuria today. Denies dysuria. Feels she is emptying her bladder well. Denies abdominal and flank pain. Denies f/c/n/v. Review of Systems Constitutional: as per Subjective / HPI Gastrointestinal: as per Subjective / HPI Genitourinary: as per Subjective / HPI Physical Exam Constitutional: cooperative and comfortable; no acute distress Respiratory: no respiratory distress and no labored breathing Skin: No visible rashes or lesions Neurologic: moves all extremities and awake Psychiatric: Orientation: alert, oriented x 3 and cooperative Results & Data ([facility]) Vital Signs (Past 12 Hours) Vital Signs Temp Pulse Pulse Resp BP Pulse Ox 04/01/22 11:29 36.7 C 69 18 109/57 L 100 04/01/22 07:28 36.7 C 63 67 18 143/69 H 100 04/01/22 02:53 36.7 C 92 H 18 132/69 98 PG Care Time/CCT Total # of Minutes Spent Total Time Spent with Patient: Total time spent is greater than 50% in coordination of care (as documented) at patient's floor/unit and/or counseling patient: Coding Level of Care Code 19462 Subseq Hosp Care Lvl 2 Diagnoses Left renal mass N28.89 Gross hematuria R31.0
[2022-04-01] MEDS ORDERED: POLYETHYLENE (MIRALAX) 17 GM PACK PO ONE (15:11)
[2022-04-01] MEDS: OXYBUTYNIN CHLORIDE XL 5 MG TABCR PO SCH (20:10)
[2022-04-01 21:28] LABS: Hematocrit (blood only) 20.7 % (37-47); Hemoglobin 7.2 g/dL (12.0-16.0)
[2022-04-01] MEDS: MELATONIN 3 MG TAB PO PRN (21:41)
[2022-04-01] MEDS: ACETAMINOPHEN 325 MG TAB PO PRN (21:41)
[2022-04-02] MEDS: LEVOTHYROXINE SODIUM 137 MCG TABLET PO SCH (06:43)
--- NOTE | 2022-04-02 07:05 | Hospitalist Progress Note ---
Date of Service April 02, 2022 Assessment & Plan (1) Gross hematuria: Plan: 81-year-old female w/ L renal mass (possibly RCC w/ mets), recurrent UTIs, CKD4, HTN, hypothyroidim, and L DCIS s/p mastectectomy who presents for evaluation for hematuria and found to have anemia 7.7 and hyponatremia 114. Hematuria and acute blood loss Anemia - CT-A/P with interval growth in L kidney mass and "increased density within the distal left ureter suggestive of blood products given patient's history of hematuria" - Cystoscopy 03/09 - severe cystitis, incomplete bladder emptying, but negative to explain hematuria - Urine cx 03/24 and 03/27 negative to date - Patient voiding spontaneously - Urology following: no intervention, follow H/H for stability - Pt received 1x dose of cefepime in ED. Was on Keflex for outpt management of cystitis; - d/c abx since urine culture neg - Hgb at 7.7 on arrival -- s/p 1 unit PRB on 03/28. - Gross hematuria resolved evening of 04/01/22, however, Hgb on recheck this AM at 7.0. Will transfuse 1u PRBC and repeat in AM. Left renal mass - RCC with mets - s/p paraaoritc LN biopsy. - Has been following with [facility] -- recent paraaortic LN biopsy concerning for RCC - CT-A/P on admission: Interval increase in size in the 5.2 cm mass in upper pole lt kidney consistent with a renal cell carcinoma. Interval progression of the pulmonary nodules and left perinephric lymphadenopathy consistent with metastatic disease. New sclerotic focus - left iliac bone. - Per urology - not a candidate for nephrectomy due to overall high risk for surgery and it will not be curative d/t mets. - Ideally we can avoid embolization as this would impair renal function. However, if the bleeding persists and she has an ongoing transfusion requirement, may need to consider transfer to tertiary care center for embolization with IR. - Scheduled to see medical oncology 04/08 as outpatient - Rad onc consult. Appreciate their recommendations - Completion of staging work up including chest CT and bone scan (findings below) - Chest CT 03/30:Multifocal pulmonary metastasis. Osseous metastatic disease is most pronounced within the sternum. No acute pathologic fracture. - Bone scan 03/31: Findings of multifocal osseous metastatic disease as above. There is only minimal tracer activity is suggested in the left renal collecting system. Back pain - No CVA tenderness - Pain consistent with MSK complaint - Restarted home Percocet 10-325mg 1-2 tablet daily prn for pain control TERRENCE on CKD,resolved - Baseline Cr 1.7-2; Cr slightly above baseline 2.47 at admission - Likely prerenal w/ hx of n/v x 3 days prior to admission - Fena 2.4% c/w intrinsic; interpret in context of ckd4 - Kidney function now at baseline Electrolyte abnormalities: Hyponatremia,improving - Presented with Na 114, chloride 84 - Serum osm consistent w/ SIADH - BMPs - Hold home HCTZ-triamterene - Started on 1g salt tab 03/30 (discontinued 03/31). - Started on Tolvaptan 15mg po qAM as of 03/31. Hypomagnesia -Magnesium 2 on recheck this AM, resolved Chronic conditions: Hypothyroidism:continue home levothyroxine HTN:hold home HCTZ-triamterene as noted above Aortic stenosis:mild noted on TTE 07/2018; LVEF 55-60% with mild cLVH, grade I diastolic dysfunction FENGI: Regular diet Ppx: SCDs. Chemo ppx contraindicated Dispo: continue management on PCU Code status: Conditional code -- compressions only, DNI (2) TERRENCE (acute kidney injury): (3) Hyponatremia: (4) Left renal mass: (5) Hypothyroidism: (6) Essential (primary) hypertension: (7) Aortic stenosis: (8) Anemia: Admission and Anticipated Discharge Date Admission Date: March 27, 2022 Supervising Physician Co-Signing Physician Notes Resident Physician Supervision Note: I independently interviewed and examined the patient and verified the fontanez history and physical, reviewed labs and image studies and agree with resident Dr. Guillen findings and care plan. Subjective Patient evaluated at the bedside this AM. Patient noting over all she was feeling "fine." Denies any pain at this time. Denies fever, chills, SOB, chest pain, abdominal pain. Review of Systems Review of Systems: All systems reviewed & are unremarkable except as noted in Subjective Physical Exam Physical Exam: GENERAL: No acute distress. Well developed and well nourished. Vital signs reviewed. EYES: EOMI. Anicteric sclerae. HENT: Moist mucous membranes. RESPIRATORY: Clear to auscultation bilaterally. No wheeze. No rales or rhonchi. CARDIOVASCULAR: Regular rate and rhythm. + murmur. ABDOMEN: Soft, non-tender and non-distended. Normal bowel sounds. EXTREMITIES: No edema. Non-tender. SKIN: Warm, dry. NEUROLOGIC: A/O x3. No focal neurological deficits. PSYCHIATRIC: Cooperative. Appropriate mood and affect. Results & Data Results & Data ([facility]) Vital Signs (Past 12 Hours) Vital Signs Temp Pulse Pulse Resp BP Pulse Ox 04/02/22 03:00 36.8 C 68 16 117/60 98 04/01/22 23:59 68 04/01/22 23:10 36.7 C 73 18 111/53 L 96 Resident Activity Tracking Resident Involvement: Resident Care Provided Care Provided: Adult Hospital Medicine (1) Anemia Anemia type: unspecified type Qualified Code(s): D64.9 - Anemia, unspecified (2) Aortic stenosis Cardiac valve disease etiology: nonrheumatic Qualified Code(s): I35.0 - Nonrheumatic aortic (valve) stenosis
[2022-04-02 07:52] LABS: Hematocrit (blood only) 20.4 % (37-47); Mean Corpuscular Hgb Conc 34.3 g/dL (32-36); Mean Corpuscular Volume 87.6 fL (80-100); Mean Platelet Volume 8.5 fL (7.4-10.4); Platelet Count 282 K/uL (130-400); RDW Coefficient of Variation 14.1 % (11.5-14.5); RDW Standard Deviation 44.7 fL (36.4-46.3); Red Blood Count 2.33 M/uL (4.2-5.4); White Blood Count 8.78 K/uL (4.8-10.8)
[2022-04-02 08:07] LABS: BUN Creatinine Ratio 16.9 (10-20); Calcium 8.9 mg/dl (8.5-10.1); Creatinine Clr Calc Pharmacy 31.4 ml/min; Est GFR (African American) 28.1 ml/min; Est GFR (Non-African American) 24.3 ml/min; Potassium 4.3 mmol/L (3.5-5.1)
[2022-04-02] MEDS: TOLVAPTAN 15 MG TABLET PO SCH (08:13)
[2022-04-02] MEDS: SIMVASTATIN 20 MG TAB PO SCH (08:13)
[2022-04-02] MEDS: CALCIUM 600MG + VIT D 400 IU TAB PO SCH (08:13)
[2022-04-02] MEDS: KETOCONAZOLE 2% CR 15 GM TUBE EXT SCH ×2 (08:13→20:19)
[2022-04-02] MEDS: MULTIVITAMIN TAB PO SCH (08:13)
[2022-04-02] MEDS: POLYETHYLENE (MIRALAX) 17 GM PACK PO PRN (08:25)
--- NOTE | 2022-04-02 09:30 | Urology Progress Note ---
Date of Service April 02, 2022 Assessment & Plan (1) Left renal mass: (2) Gross hematuria: Plan: 81-year-old female with a history of a left renal mass and UTIs who was admitted to the hospital for acute blood loss anemia and significant hyponatremia. - Pt afebrile, hemodynamically stable. - Labs reviewed - Wbc 8.78, Hemoglobin 7.0 (7.6 yesterday), Creatinine 1.89 (previously 1.94). - Urine culture 03/24 and 03/27 negative. Blood cultures final no growth. - Voiding spontaneously, reports urine is clear today. Continue to monitor. - For now, would recommend continuing with supportive care and close monitoring. - Continue to trend labs and monitor H&H, transfuse as felt necessary per primary team. - Ideally we can avoid embolization as this would impair renal function. However, if the bleeding persists and she has an ongoing transfusion requirement, may need to consider transfer to tertiary care center for embolization with IR. - Urology will follow. Admission and Anticipated Discharge Date Admission Date: March 27, 2022 Subjective Pt examined at bedside this AM. Awake, resting in bed on arrival. No acute distress. Overall feeling fine. Reports her urine has been clear overnight and so far this morning. Denies dysuria. Feels she is emptying her bladder well. Denies abdominal and flank pain. Denies f/c/n/v. Offered no additional or new complaints at time of exam. Review of Systems Constitutional: as per Subjective / HPI; no fever, no chills and no weakness Cardiovascular: no chest pain, no dyspnea and no lightheadedness Gastrointestinal: as per Subjective / HPI Genitourinary: as per Subjective / HPI Neurologic: no dizziness Physical Exam Constitutional: cooperative and comfortable; no acute distress Respiratory: no respiratory distress and no labored breathing Cardiovascular: Extremities: no calf tenderness Skin: No visible rashes or lesions Neurologic: moves all extremities and awake Psychiatric: A+Ox3, euthymic affect Results & Data ([facility]) Vital Signs (Past 12 Hours) Vital Signs Temp Pulse Pulse Resp BP Pulse Ox 04/02/22 08:00 59 L 04/02/22 07:29 36.8 C 68 18 124/71 99 04/02/22 03:00 36.8 C 68 16 117/60 98 04/01/22 23:59 68 04/01/22 23:10 36.7 C 73 18 111/53 L 96 PG Care Time/CCT Total # of Minutes Spent Total Time Spent with Patient: Total time spent is greater than 50% in coordination of care (as documented) at patient's floor/unit and/or counseling patient: Coding Level of Care Code 46217 Subseq Hosp Care Lvl 2 Diagnoses Left renal mass N28.89 Gross hematuria R31.0
[2022-04-02] MEDS ORDERED: DOCUSATE SODIUM/SENNA 50/8.6MG TAB PO STA (09:59)
[2022-04-02] MEDS ORDERED: SODIUM CHLORIDE 0.9% 250 ML IV PRN ×3 (12:27→13:03)
[2022-04-02] MEDS: OXYBUTYNIN CHLORIDE XL 5 MG TABCR PO SCH (20:18)
[2022-04-02] MEDS: DOCUSATE SODIUM/SENNA 50/8.6MG TAB PO SCH (20:18)
[2022-04-03] MEDS: LEVOTHYROXINE SODIUM 137 MCG TABLET PO SCH (06:26)
[2022-04-03 07:01] LABS: Hematocrit (blood only) 23.3 % (37-47); Hemoglobin 8.2 g/dL (12.0-16.0); Mean Corpuscular Hemoglobin 31.3 pg (25-34); Mean Corpuscular Hgb Conc 35.2 g/dL (32-36); Mean Corpuscular Volume 88.9 fL (80-100); Mean Platelet Volume 8.6 fL (7.4-10.4); Platelet Count 314 K/uL (130-400); RDW Coefficient of Variation 14.3 % (11.5-14.5); RDW Standard Deviation 46.3 fL (36.4-46.3); Red Blood Count 2.62 M/uL (4.2-5.4); White Blood Count 10.41 K/uL (4.8-10.8)
[2022-04-03 07:50] LABS: Calcium 8.9 mg/dl (8.5-10.1); Potassium 4.5 mmol/L (3.5-5.1)
[2022-04-03 07:55] LABS: BUN Creatinine Ratio 17.2 (10-20); Creatinine Clr Calc Pharmacy 30.7 ml/min; Est GFR (African American) 27.6 ml/min; Est GFR (Non-African American) 23.8 ml/min
[2022-04-03] MEDS: MULTIVITAMIN TAB PO SCH (09:30)
[2022-04-03] MEDS: CALCIUM 600MG + VIT D 400 IU TAB PO SCH (09:30)
[2022-04-03] MEDS: KETOCONAZOLE 2% CR 15 GM TUBE EXT SCH ×2 (09:31→20:13)
[2022-04-03] MEDS: SIMVASTATIN 20 MG TAB PO SCH (09:31)
[2022-04-03] MEDS: DOCUSATE SODIUM/SENNA 50/8.6MG TAB PO SCH ×2 (09:31→20:12)
[2022-04-03] MEDS: POLYETHYLENE (MIRALAX) 17 GM PACK PO PRN (09:39)
[2022-04-03] MEDS: TOLVAPTAN 15 MG TABLET PO SCH (09:59)
--- NOTE | 2022-04-03 10:39 | Urology Progress Note ---
Date of Service April 03, 2022 Assessment & Plan (1) Metastatic renal cell carcinoma: (2) Hematuria: Plan: Status post transfusion for anemia yesterday Her urine has been clear for 2 days Subjectively feeling well No plan for any intervention at the moment Has oncology follow-up scheduled next week From a standpoint okay for DC home when medically stable Admission and Anticipated Discharge Date Admission Date: March 27, 2022 Subjective Subjectively doing much better today She tolerated her transfusion yesterday and she denies any hematuria or flank pain today Physical Exam Constitutional: well developed and well nourished Respiratory: no respiratory distress Cardiovascular: Extremities: no pedal edema Gastrointestinal (Abdomen): Inspection/Auscultation: abdomen normal to inspection Results & Data ([facility]) Vital Signs (Past 12 Hours) Vital Signs Temp Pulse Pulse Resp BP Pulse Ox 04/03/22 08:00 87 04/03/22 03:21 36.6 C 90 20 133/72 97 04/02/22 23:34 75 04/02/22 23:06 37.1 C 68 18 118/67 98 PG Care Time/CCT Total # of Minutes Spent Total Time Spent with Patient: Total time spent is greater than 50% in coordination of care (as documented) at patient's floor/unit and/or counseling patient: Coding Level of Care Code 14770 Subseq Hosp Care Lvl 2 Diagnoses Metastatic renal cell carcinoma C64.9 Hematuria R31.0 Hematuria type: gross (1) Hematuria Hematuria type: gross Qualified Code(s): R31.0 - Gross hematuria
--- NOTE | 2022-04-03 14:45 | Hospitalist Progress Note ---
Date of Service April 03, 2022 Assessment & Plan (1) Gross hematuria: Plan: 81-year-old female w/ L renal mass (possibly RCC w/ mets) who presents for evaluation for hematuria and found to have anemia 7.7 and hyponatremia 114. Hematuria and acute blood loss anemia - Hgb improved to 8.2 today, up from 7.0, s/p 1 unit of PRBC. Appropriate response. Trend H+H - CT-A/P on admission with interval growth in L kidney mass - Urine cx 03/27 finalized negative. No acute UTI - Patient voiding spontaneously, no indication for rivas catheter - Urology following: no intervention. May need transfer to tertiary care center for embolization if bleeding resumes Left renal mass - RCC with mets - s/p para-aortic LN biopsy. - Has been following with [facility] -- recent paraaortic LN biopsy concerning for RCC at [facility] (02/17/22). Pathology report: The morphology and immunoprofile are most suggestive of renal cell carcinoma; however, this immunoprofile is not specific. A breast or primary bladder tumor cannot be excluded. - Cystoscopy 03/09/22 - no bladder tumor - Last mammogram 07/2021 - CT-A/P on admission: Interval increase in size in the 5.2 cm mass in upper pole lt kidney consiste nt with a renal cell carcinoma. Interval progression of the pulmonary nodules and left perinephric lymphadenopathy consistent with metastatic disease. New sclerotic focus - left iliac bone. - Per urology - not a candidate for nephrectomy due to overall high risk for surgery and it will not be curative due to mets. - Ideally we can avoid embolization as this would impair renal function. However, if the bleeding persists and she has an ongoing transfusion requirement, may need to consider transfer to tertiary care center for emboli zation with IR. - Scheduled to see medical oncology 04/08/22 as outpatient - Rad onc consult placed, see note from 03/30/22. No radiation recommendation at this time, however consideration can be given for palliative radiation in the future - Completion of staging work up including chest CT and bone scan (findings below) - Chest CT 03/30:Multifocal pulmonary metastasis. Osseous metastatic disease is most pronounced within the sternum. No acute pathologic fracture. - Bone scan 03/31: Findings of multifocal osseous metastatic disease as above. There is only minimal tracer activity is suggested in the left renal collecting system. Back pain - No CVA tenderness - Pain consistent with MSK complaint - Restarted home Percocet 10-325mg 1-2 tablet daily prn for pain control TERRENCE on CKD,resolved - Baseline Cr 1.7-2; Cr slightly above baseline 2.47 at admission - Likely prerenal w/ hx of n/v x 3 days prior to admission - Fena 2.4% c/w intrinsic; interpret in context of ckd4 - Kidney function now at baseline Electrolyte abnormalities: Hyponatremia,improving - Presented with Na 114, chloride 84 - Serum osm consistent w/ SIADH (secondary to malignancy?) - Hold home HCTZ-triamterene - Started on Tolvaptan 15mg po qAM as of 03/31. Discontinued on 04/03 given marked improvement in Na level - trend BMP daily Hypomagnesia -Magnesium 2 on recheck, resolved Chronic conditions: Hypothyroidism:continue home levothyroxine HTN:hold home HCTZ-triamterene as noted above Aortic stenosis:mild noted on TTE 07/2018; LVEF 55-60% with mild cLVH, grade I diastolic dysfunction FENGI: Regular diet Ppx: SCDs. Chemo ppx contraindicated in setting of acute bleed Dispo: med/tele Code status: Conditional code -- compressions only, DNI (2) TERRENCE (acute kidney injury): (3) Hyponatremia: (4) Left renal mass: (5) Hypothyroidism: (6) Essential (primary) hypertension: (7) Aortic stenosis: (8) Anemia: Admission and Anticipated Discharge Date Admission Date: March 27, 2022 Supervising Physician Co-Signing Physician Notes Resident Physician Supervision Note: I independently interviewed and examined the patient and verified the fontanez history and physical, reviewed labs and image studies and agree with resident Dr. Peguero findings and care plan. Subjective no acute events overnight. Patient says she feels well - when voiding last night and this morning, she denied any gross hematuria Review of Systems Review of Systems: All systems reviewed & are unremarkable except as noted in HPI & below Physical Exam Constitutional: WD/WN, vitals as above no acute distress Eyes: + anicteric sclerae ENMT: external ear and nose normal, oropharynx normal Neck: normal visual inspection and trachea midline Respiratory: normal respiratory effort, lungs clear to auscultation Cardiovascular: Rate/Rhythm: regular rate and regular rhythm Heart Sounds: normal S1, normal S2 and + murmur (systolic ejection ) Gastrointestinal (Abdomen): normal bowel sounds, soft, nontender, no hepatosplenomegaly Musculoskeletal: Head/Neck/Chest: normocephalic and head atraumatic Skin: no rashes, warm and dry Neurologic: moves all extremities Psychiatric: A+Ox3, euthymic affect Results & Data Results & Data ([facility]) Vital Signs (Past 12 Hours) Vital Signs Temp Pulse Pulse Resp BP Pulse Ox 04/03/22 13:01 36.6 C 77 20 124/69 97 04/03/22 08:00 36.8 C 87 67 16 120/77 97 04/03/22 03:21 36.6 C 90 20 133/72 97 Resident Activity Tracking Resident Involvement: Resident Care Provided Care Provided: Adult Hospital Medicine (1) Anemia Anemia type: unspecified type Qualified Code(s): D64.9 - Anemia, unspecified (2) Aortic stenosis Cardiac valve disease etiology: nonrheumatic Qualified Code(s): I35.0 - Nonrheumatic aortic (valve) stenosis
[2022-04-03] MEDS: OXYBUTYNIN CHLORIDE XL 5 MG TABCR PO SCH (20:13)
[2022-04-03] MEDS: ACETAMINOPHEN 325 MG TAB PO PRN (22:03)
[2022-04-04] MEDS: LEVOTHYROXINE SODIUM 137 MCG TABLET PO SCH (05:53)
[2022-04-04 06:53] LABS: Hematocrit (blood only) 25.7 % (37-47); Hemoglobin 8.5 g/dL (12.0-16.0); Mean Corpuscular Hemoglobin 29.9 pg (25-34); Mean Corpuscular Hgb Conc 33.1 g/dL (32-36); Mean Corpuscular Volume 90.5 fL (80-100); Mean Platelet Volume 8.5 fL (7.4-10.4); Platelet Count 324 K/uL (130-400); RDW Coefficient of Variation 14.3 % (11.5-14.5); RDW Standard Deviation 47.5 fL (36.4-46.3); Red Blood Count 2.84 M/uL (4.2-5.4); White Blood Count 8.93 K/uL (4.8-10.8)
[2022-04-04 07:12] LABS: BUN Creatinine Ratio 19.1 (10-20); Creatinine Clr Calc Pharmacy 32.2 ml/min; Est GFR (African American) 29.3 ml/min; Est GFR (Non-African American) 25.2 ml/min; Potassium 4.2 mmol/L (3.5-5.1)
[2022-04-04] MEDS ORDERED: bisacodyL 10 MG SUPP PR STA (08:35)
[2022-04-04] MEDS: MULTIVITAMIN TAB PO SCH (08:35)
[2022-04-04] MEDS: DOCUSATE SODIUM/SENNA 50/8.6MG TAB PO SCH (08:35)
[2022-04-04] MEDS: SIMVASTATIN 20 MG TAB PO SCH (08:35)
[2022-04-04] MEDS: CALCIUM 600MG + VIT D 400 IU TAB PO SCH (08:35)
[2022-04-04] MEDS: KETOCONAZOLE 2% CR 15 GM TUBE EXT SCH (08:36)
[2022-04-04] MEDS ORDERED: POLYETHYLENE (MIRALAX) 17 GM PACK PO STA (08:36)
--- NOTE | 2022-04-04 09:22 | Urology Progress Note ---
Date of Service April 04, 2022 Assessment & Plan (1) Metastatic renal cell carcinoma: Plan: No hematurialabs stable Asymptomatic We will step back and follow from a distance but if there are acute changes during the remainder of the hospitalization please recontact us Admission and Anticipated Discharge Date Admission Date: March 27, 2022 Subjective Subjectively doing well No hematuria overnight Labs are all stablehemoglobin 8.5 today Physical Exam Constitutional: well developed and well nourished Respiratory: no respiratory distress Cardiovascular: Extremities: no pedal edema Gastrointestinal (Abdomen): Inspection/Auscultation: abdomen normal to inspection Results & Data ([facility]) Vital Signs (Past 12 Hours) Vital Signs Temp Pulse Pulse Resp BP Pulse Ox 04/04/22 07:13 36.9 C 68 17 123/73 100 04/04/22 03:13 36.6 C 70 17 128/70 98 04/03/22 23:23 36.9 C 67 76 17 152/72 H 97 PG Care Time/CCT Total # of Minutes Spent Total Time Spent with Patient: Total time spent is greater than 50% in coordination of care (as documented) at patient's floor/unit and/or counseling patient: Coding Level of Care Code 75360 Subseq Hosp Care Lvl 2 Diagnoses Metastatic renal cell carcinoma C64.9
--- NOTE | 2022-04-04 10:07 | Discharge Summary ---
Date of Service April 04, 2022 Admission HPI Per Admitting Provider This is an 81-year-old female with recent diagnosis of hematuria and L renal mass w/ paraaortic LN suspected to represent RCC, alongside h/o recurrent UTIs and possible incomplete bladder emptying on recent cystoscopy 02/2022, left- sided DCIS status postmastectomy, CKD stage IV, dyslipidemia, hypertension, hypothyroidism who presented to [facility] for evaluation of hematuria. She says that intermittently over the last month, she has been having bouts of hematuria. Then over the last 6 days, became more persistent. She says that over the last 3 days, she has been experiencing nausea with vomiting. She also endorses some lightheadedness and feeling "off." Denies any chest pain, palpitations, shortness of breath. In the context of her nausea and vomiting, she says she has not been able to keep any food down. She says that prior to 3 days ago, she was drinking "a lot of water"perhaps more than 10 cups a dayto stay hydrated. This is decreased over the last few days. She has been voiding normally, but with margie blood. Of note, patient is currently being worked up for a left-sided renal mass. On CT abdomen pelvis, this has been associated with para-aortic lymph node. This lymph node was biopsied in 02/17/2022, and per recent urology note, "the morphology and immunoprofile are most suggestive of renal cell carcinoma, however this immunoprofile is nonspecific. I breast or bladder primary tumor, w hile less likely, cannot be excluded." Cystoscopy was recently performed in 02/2022 which demonstrated incomplete bladder emptying, but was otherwise negative for observed lesions and urine cytology was negative. Medications reviewed and include acetaminophen, alprazolam, calcium/vitamin D3, Keflex 500 mg twice daily, Tylenol PM as needed, hydrocodone/acetaminophen, levothyroxine, lisinopril 20hydrochlorothiazide 12.5 twice daily, multivitamin, oxybutynin 10 mg nightly, simvastatin. In the ED, patient was found to have normal vital signs but with temperature 36.4. Her labs demonstrated normocytic anemia 7.8 (appreciable drop from 13.5 in 12/2021), APTT 32.4, hyponatremia to 114, chloride 84, BUN 38, creatinine 2.47 (baseline appears to be between 1.7 - 2.0). Pro-Brian negative. Urinalysis demonstrated red cloudy urine with 3+ protein, 3+ blood, 1+ bilirubin, negative for nitrites and leuk esterase. Microscopy did reveal significantly elevated urine RBCs, WBCs. CT-A/P demonstrated "1. Interval increase in size in the 5.2 cm mass within the upper pole of the left kidney consistent with a renal cell carcinoma. / 2. Interval progression of the pulmonary nodules and left perinephric lymphadenopathy consistent with metastatic disease. 3. A new sclerotic focus within the left iliac bone which is also concerning for metastatic focus / 4 Increased density within the distal left ureter suggestive of blood products given the patient's history of hematuria." Type and screen was performed. She was given 1 L of NSS. She was given cefepime. Admission Exam Per Admitting Provider General: 81-year old female who is alert, oriented, and appears in no acute distress. HEENT: NCAT. - Eyes - Sclera are white, anicteric, and without injection. - Mouth - MMM - Neck - supple, no appreciable JVD Cardiac: Normal rate and regular rhythm; S1 and S2 present with no murmurs, rubs, or gallops. Pulmonary: Good respiratory effort with symmetric expansion of the chest. No use of accessory muscles. Lungs were clear to auscultation bilaterally with no crackles or wheezes. Abdominal: Normoactive bowel sounds. Abdomen was soft, nondistended, and non- tender to palpation. Extremities: Upper and lower extremities are warm and well perfused. [] peripheral edema in the lower extremities bilaterally Psych: Well-developed, well-nourished, appropriately dressed for occasion. Behavior is cooperative and appropriate. Affect is WNL. Insight is appropriate. Principal Diagnosis Acute Blood Loss Anemia Discharge Exam Constitutional WD/WN, vitals as above no acute distress Eyes + anicteric sclerae ENMT external ear and nose normal, oropharynx normal Neck normal visual inspection and trachea midline Respiratory normal respiratory effort, lungs clear to auscultation Cardiovascular Rate/Rhythm: regular rate and regular rhythm Heart Sounds: normal S1, normal S2 and + murmur (systolic ejection ) Gastrointestinal (Abdomen) normal bowel sounds, soft, nontender, no hepatosplenomegaly Musculoskeletal Head/Neck/Chest: normocephalic and head atraumatic Skin no rashes, warm and dry Neurologic moves all extremities Psychiatric A+Ox3, euthymic affect Discharge Data Allergies Allergy/AdvReac Type Severity Reaction Status Date / Time No Known Drug Allergies Allergy Verified 03/27/22 17:10 Consultations 03/27/22 19:07 ED Decision to Admit Stat 03/27/22 20:23 Consult Urology Routine 03/28/22 15:30 Consult Radiation Oncology Routine Ordered Studies 03/27/22 18:38 CT abd pelvis wo con Stat 03/27/22 20:38 CT head/brain wo con Urgent 03/30/22 11:52 CT chest diagnostic wo con Routine Hospital Course (1) Gross hematuria: 81-year-old female w/ L renal mass (possibly RCC w/ mets) who presents for evaluation for hematuria and found to have anemia 7.7 and hyponatremia 114. Hematuria and acute blood loss anemia - Hgb improved to 8.5 today, up from 7.0, s/p 1 unit of PRBC. - CT-A/P on admission with interval growth in L kidney mass - Urine cx 03/27 finalized negative. No acute UTI - Patient voiding spontaneously, no indication for rivas catheter - Urology following: recommended no intervention. Outpatient items to do: Repeat CBC ordered in 3 days Left renal mass - RCC with mets - s/p para-aortic LN biopsy. - Has been following with [facility] -- recent paraaortic LN biopsy concerning for RCC at [facility] (02/17/22). Pathology report: The morphology and immunoprofile are most suggestive of renal cell carcinoma; however, this immunoprofile is not specific. A breast or primary bladder tumor cannot be excluded. - Cystoscopy 03/09/22 - no bladder tumor - Last mammogram 07/2021 - CT-A/P on admission: Interval increase in size in the 5.2 cm mass in upper pole lt kidney consistent with a renal cell carcinoma. Interval progression of the pulmonary nodules and left perinephric lymphadenopathy consistent with metastatic disease. New sclerotic focus - left iliac bone. - Per urology - not a candidate for nephrectomy due to overall high risk for surgery and it will not be curative due to mets. - Scheduled to see medical oncology 04/08/22 as outpatient - Rad onc consult placed, see note from 03/30/22. No radiation recommendation at this time, however consideration can be given for palliative radiation in the future - Completion of staging work up including chest CT and bone scan (findings below) - Chest CT 03/30:Multifocal pulmonary metastasis. Osseous metastatic disease is most pronounced within the sternum. No acute pathologic fracture. - Bone scan 03/31: Findings of multifocal osseous metastatic disease as above. There is only minimal tracer activity is suggested in the left renal collecting system. Back pain - No CVA tenderness - Pain consistent with MSK complaint - Restarted home Percocet 10-325mg 1-2 tablet daily prn for pain control TERRENCE on CKD,resolved - Baseline Cr 1.7-2; Cr slightly above baseline 2.47 at admission - Likely prerenal w/ hx of n/v x 3 days prior to admission - Fena 2.4% c/w intrinsic; interpret in context of ckd4 - Kidney function now at baseline Electrolyte abnormalities: Hyponatremia,improved - Presented with Na 114. - Serum osm consistent w/ SIADH (secondary to malignancy?) - improved to 137 by the time of discharge Hypomagnesia -Magnesium 2 on recheck, resolved Chronic conditions: Hypothyroidism:continue home levothyroxine HTN: home HCTZ-triamterene resumed upon discharge Aortic stenosis:mild noted on TTE 07/2018; LVEF 55-60% with mild cLVH, grade I diastolic dysfunction (2) TERRENCE (acute kidney injury): (3) Hyponatremia: (4) Left renal mass: (5) Hypothyroidism: (6) Essential (primary) hypertension: (7) Aortic stenosis: (8) Anemia: Total Time Total Time Spent Total Time Spent (In Minutes): see attending attestation Discharge Plan Discharge Items Patient Disposition: Home - Self-Care Reason For Visit: HYPONATREMIA, ACUTE BLOOD LOSS, ANEMIA Discharge Diagnosis: Acute blood loss anemia Condition on Discharge: Serious Activity: Resume your previous activity Non-emergency contact: Primary Care Provider Call non-emergency contact if: your symptoms worsen Follow-up/Referrals: Dutch Moore, [Primary Care Provider] - Diet: Regular Ambulatory Orders: Complete Blood Count no Diff (Routine) Timeframe: 3 Days Location: Determined by Patient Ordered By: Maura Yepez Attending Provider Instructions: You were hospitalized at [facility] for weakness, and on admission you were found to be anemic. The cause of your anemia was the loss of blood from your urine. You were losing blood from your urine because of your known renal cell carcinoma (cancerous kidney mass). We did transfuse you one unit of donor blood. Fortunately, your urine cleared and your hemoglobin improved, both of which were suggestive that the bleeding had ceased. We would like you to get a repeat blood count checked in three days. An order has been placed for you to do so. However, if you have recurrent bloody urine, please get your blood count done immediately (ie do not wait the full three days) and contact your family doctor, Dr. Moore to discuss the results. You have an outpatient visit scheduled with Dr. Galeana on 04/08/22 to discuss treatment options for your kidney cancer. It was a pleasure taking care of you in the hospital. Pending Studies at Discharge: No Stand-Alone Forms: [facility], Smoking Cessation Medications and DC Order Prescriptions: Continued levothyroxine 137 mcg tablet See Rx Instructions .ROUTE .COMPLEX Qty: 90 RF: 3 lisinopril-hydrochlorothiazide 20-12.5 mg tablet 1 tab PO BID Qty: 180 RF: 3 oxybutynin chloride [Ditropan XL] 10 mg tablet extended release 24 hr 10 mg PO HS Qty: 90 RF: 1 simvastatin [Zocor] 20 mg tablet 20 mg PO DAILY Qty: 90 RF: 1 calcium carbonate-vitamin D3 [Caltrate with Vitamin D3] 600 mg(1,500mg) -800 unit tablet 1 tab PO QAM RF: 0 multivitamin [One Daily Multivitamin] tablet 1 tab PO QAM RF: 0 ketoconazole 2 % cream 1 applic topical BID Qty: 60 RF: 2 hydrocodone-acetaminophen 10-325 mg tablet 2 tab PO DAILY PRN (Reason: pain) Qty: 60 RF: 0 valacyclovir [Valtrex] 1 gram tablet 1,000 mg PO DAILY PRN (Reason: Cold Sores) Qty: 90 RF: 1 Discontinued cephalexin 500 mg capsule 500 mg PO Q12H Qty: 10 RF: 0 alprazolam 0.5 mg tablet 0.5 mg PO PRN Qty: 4 RF: 0 sulfamethoxazole-trimethoprim [Bactrim] 400-80 mg tablet 1 tab PO BID 3 Days Qty: 6 RF: 3 acetaminophen [Tylenol] 325 mg Tablet 325 mg PO Q6H PRN (Reason: Pain) RF: 0 diphenhydramine-acetaminophen [Tylenol PM Extra Strength] 25-500 mg Tablet 2 tab PO HS MDD and pain PRN (Reason: Sleep) RF: 0 Discharge Orders: Discharge Order (Routine); Ordered 04/04/22 Ordered By: Maura Peguero Admission Data Admit Date/Time: 03/27/22 20:23 Attending Provider: Tonya Painting Admit Provider: Sumeet Cruz Primary Care Provider: Dutch Moore Other Providers: Mikal Ray ; Jose Horne ; Houston Tellez ; Marco Solano ; Suzanne Mcnair ; Alex Salas ; Caroline Montes ; Matilde Marcus ; Elida Gardner ; Rui Thapa ; Zander Guan ; Eliza Chaparro ; Eliza Gardner ; Avel Bean ; Maximino Hill ; Sumeet Frank Other Interventions: Discharge Summary Assessment (RN) Last Done: 04/04/22 12:01 Supervising Physician Co-Signing Physician Notes Resident Physician Supervision Note: I independently interviewed and examined the patient and verified the fontanez history and physical, reviewed labs and image studies and agree with resident Dr. Peguero findings and care plan. Resident Activity Tracking Resident Involvement: Resident Care Provided Care Provided: Adult Hospital Medicine
== END 2022-04-04 13:36 | disposition home or self-care (01) | DRG 687 ==
LOC: ED 15:38 → SUATTDRO 20:23 → 2S 20:23

== ENCOUNTER 2022-05-15 10:22 | Inpatient (IN) ==
[2022-05-15] MEDS ORDERED: SODIUM CHLORIDE 0.9% 500 ML IV ONE (10:31)
[2022-05-15] MEDS ORDERED: fentaNYL citrate 100 MCG/2 ML VIAL IV STA (10:31)
[2022-05-15] MEDS ORDERED: ONDANSETRON INJ 2 MG/ML 2 ML VIAL IV STA (10:31)
--- NOTE | 2022-05-15 10:36 | Emergency Department Note ---
Impression & Plan Cancer related pain, Metastatic renal cell carcinoma to bone ED Provider Note Name: ISABELLA SAMPSON Age: 81 Sex: F Arrives Via: Ambulance Informant: Patient, family ED Provider: Rui Benites MD Chief Complaint: Back pain Impression: As per impressions above Medical Decision Makin-year-old female with known renal cell carcinoma with metastasis to the bone. Worsening pain despite using narcotics at home. She lives with family and has not been doing well at home either. Imaging reveals worsening lumbar/iliac metastasis likely causing her pain that brings her into the ER today. She was given IV narcotics with improvement but movement seems to make the pain worse. She is not septic appearing. Discussed the case with on-call oncology who know her well and they do feel that she would benefit from inpatient stay for pain control and possibly placement depending on how this pain control works. Prior Medical Record and Triage/Nursing Notes reviewed by Me Additional history obtained from chart Differentials:Musculoskeletal, disc herniation, fracture, metastatic disease, cord compression, discitis, sciatica, cauda equina, infection, aortic disease, renal colic, gastrointestinal, as well as other pathologies. Vital Signs: reviewed and remarkable for no significant abnormalities Interventions: Fentanyl IV, Dilaudid IV, Zofran IV, normal saline bolus Labs:Reviewed and remarkable for no significant abnormalities Imaging:CT imaging of the abdomen pelvis with lumbar spine reveals worsening T12/L2/left iliac metastatic disease see radiologist read for full report Consults:Dr Zac ROSAS Hospitalist Plan: Disposition:Hospitalization. Condition: Good History of Present Illness:-year-old female arrives for evaluation of worsening low back pain. She notes low back pain to her left hip. Its been gradually w orsening over the last few weeks. She has known mets from her kidney cancer to her bone. She states she has been using hydrocodone without improvement. She did take a tablet this morning without improvement. No associated fevers, chills, nausea, vomiting, abdominal pain, syncope, chest pain, shortness of breath, leg swelling, calf pain, leg weakness, urinary/bowel symptoms or other concerning signs or symptoms. She has had no recent rashes. She denies any recent infectious etiologies. She discussed the case with her oncologist who advised she come to the ER for further evaluation. Patient without any recent falls, trauma, injuries. ROS: See above HPI for pertinent positives & negatives. A total of 10 systems reviewed and were otherwise negative. Past Medical History:See Below Past Surgical History:See Below Family History:See Below Social History:See Below Home Medications:See Below Allergies:NKDA Vitals:Blood Pressure: 185/91, Pulse 58, RR 20, T 36.6C, O2 97% on RA Physical Exam: GENERAL: Patient is very uncomfortable appearing and in moderate distress. EYES: No scleral icterus, unremarkable pupils. ENT: Mucous membranes moist, no nasal congestion. NECK: No masses appreciated, nomeningismus, trachea is midline. RESPIRATORY: No dyspnea. Clear to auscultation and equal bilaterally. No wheeze, no rhonchi. CARDIOVASCULAR: Regular rate and rhythm.No murmurs, rubs, gallops appreciated. GASTROINTESTINAL: Abdomen soft, non-tender, no peritonitis.Bowel sounds positive.No masses appreciated. BACK: Vague TTP over left lower back, No midline tenderness, no CVA tenderness EXTREMITIES: Mild TTP over left hip. Normal motion all extremities, no cyanosis, no edema. NEUROLOGIC: Alert and oriented, no acute motor or sensory deficits, no focal weakness, cranial nerves grossly intact. SKIN: No rash, no jaundice, no diaphoresis. PSYCH: Appropriate GCS: 15 ED Course: Times/Reassessments: Patient mildly improved with IV narcotics the pain returned and required further pain medication. 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 No issues noted per post-op anesthesia progress note. Hx of cholecystectomy Hx of colonoscopy Port-A-Cath in place (04/26/22) Port placement and fluoroscopy. Dr. Shelley Status post left breast lumpectomy Left Breast Lumpectomy with Needle Localization and Left [place] Lymph Node Biopsy Family History Mother Thyroid disease Father Osteoarthritis Brother Colon cancer Grandmother Colon cancer Other No family history of adverse response to anesthesia Denies family history of Ovarian cancer Prostate cancer Myocardial infarction Breast cancer Social History Smoking Status: Former smoker Tobacco Type: Cigarettes Age Started Using Tobacco: 18; Age Quit Using Tobacco: 29; packs per day: 0.5; Years Smoked: 11; Cigarettes Per Day: 10; Number of Years Since Quit: 52; Second Hand Exposure: No; Do You Dip or Chew Tobacco: No; Tobacco Cessation Education Requested by Patient: No Hx Alcohol Use: No Hx Substance Use: No Preferred Language: Uzbek Communication Ability: Effective Visual Impairment: No Limitations 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: Normal Senior Loan Processor Required: No Beliefs That Will Affect Care: None marital status: / Current Living Situation: Alone Current Living Situation Comment: daughters to help current occupational status: retired How many Children do You have: 3 Other Information That Helps Us Care for You: No Feels Safe at Home: Yes Safety Concerns: Feels Safe At This Time Childhood Exposure to Second-Hand Smoke: Yes caffeine: Yes during the past year weight has: increased > 10 lbs Dental Care, Regularly: No Physical Activity Frequency: Does not Exercise Seatbelt Use: always Sunscreen Use: No Assistive Devices: Denture - Upper, Denture - Lower and Glasses Assistive Devices Comment: all activites now require help d/t pain Allergies Allergies Allergy/AdvReac Type Severity Reaction Status Date / Time No Known Drug Allergies Allergy Verified 05/15/22 14:46 Home Meds Home Medications Medication Instructions Recorded Confirmed calcium carbonate 600 mg-vitamin 1 tab PO QAM 06/27/19 05/15/22 D3 20 mcg (800 unit) tablet (Caltrate with Vitamin D3) multivitamin (One Daily 1 tab PO QAM 06/27/19 05/15/22 Multivitamin) glucosamine-chondroitin 250 mg-200 1 tab PO QAM 04/21/22 05/15/22 mg tablet (Osteo Bi-Flex) ketoconazole 2 % topical cream 1 applic topical BID PRN Rash 04/21/22 05/15/22 krill 1,000 mg-omega-3 230 mg-dha 1 cap PO QAM 04/21/22 05/15/22 60 ls-ahp-jbvbwdjdt-astaxan capsule (MegaRed [place]-3 Krill Oil) levothyroxine 137 mcg tablet 137 mcg PO QAM 04/21/22 05/15/22 simvastatin 20 mg tablet (Zocor) 20 mg PO HS 04/21/22 05/15/22 sulfamethoxazole 800 1 tab PO Q12H PRN uti 04/21/22 05/15/22 mg-trimethoprim 160 mg tablet (Bactrim DS) axitinib 5 mg tablet (Inlyta) 5 mg PO BID 05/15/22 05/15/22 docusate sodium 50 mg capsule 0 mg PO BID 05/15/22 05/15/22 Previous Rx's Medication Instructions Recorded lisinopril 20 1 tab PO BID #180 tabs 12/28/21 mg-hydrochlorothiazide 12.5 mg tablet oxybutynin chloride 10 mg 10 mg PO HS #90 tabs 03/22/22 tablet,extended release 24 hr (Ditropan XL) Results & Data (ED) Vital Signs Vital Signs - 24 hr 05/15/22 10:31 05/15/22 10:37 05/15/22 12:09 Temperature 36.6 C Temperature Source Oral Pulse Rate 68 Pulse Rate [Apical] 54 L Pulse Rhythm [Apical] Regular Respiratory Rate 18 18 Respiratory Effort / Characteristics Non-Labored Respiratory Depth Normal Respiratory Pattern Regular Blood Pressure 180/91 H Blood Pressure [Right Arm] 188/112 H Blood Pressure Mean 120 Blood Pressure Mean [Right Arm] 137 Pulse Oximetry 97 97 98 Oxygen Delivery Method Room Air Room Air Room Air Sepsis Recent Fever Within 48 Hours No Sepsis New/Unexplained Change in Mental Status No Sepsis Action Taken by Nursing No Action Required Laboratory Data Result diagrams: 05/16/22 05:47 05/16/22 05:47 Lab Results 05/15/22 05/15/22 05/15/22 Range/Units 10:55 10:55 11:10 WBC 7.94 (4.8-10.8) K/ul RBC 3.45 L (3.93-5.22) M/uL Hgb 9.9 L (12.0-16.0) g/dl Hct 29.3 L (34.1-44.9) % MCV 84.9 (80.0-100.0) fL MCH 28.7 (25.0-34.0) pg MCHC 33.8 (32.0-36.0) g/dL RDW Std Deviation 42.5 (36.4-46.3) fL RDW Coeff of Gala 15.0 H (11.5-14.5) % Plt Count 177 (130-400) K/uL MPV 9.3 L (9.4-12.3) fL Immature Gran % (Auto) 0.6 % Neut % (Auto) 59.3 % Lymph % (Auto) 26.2 % [place] % (Auto) 7.8 % Eos % (Auto) 5.8 % Baso % (Auto) 0.3 % Neut # (Auto) 4.71 (1.4-6.5) K/uL Lymph # (Auto) 2.08 (1.2-3.4) K/uL [place] # (Auto) 0.62 (0.24-0.82) K/uL Eos # (Auto) 0.46 (0-0.50) K/uL Baso # (Auto) 0.02 (0-0.2) K/uL Immature Gran # (Auto) 0.05 H (0.00-0.02) K/uL Sodium 132 L (136-145) mmol/L Potassium 3.7 (3.5-5.1) mmol/L Chloride 97 L (98-107) mmol/L Carbon Dioxide 26 (21-32) mmol/L Anion Gap 9 (3-11) BUN 37 H (6-23) mg/dl Creatinine 1.98 H (0.6-1.2) mg/dl Est Cr Clr Drug Dosing 28.6 ml/min Est GFR ( Amer) 26.6 ml/min Est GFR (Non-Af Amer) 23.0 ml/min BUN/Creatinine Ratio 18.7 (10-20) Glucose 92 (70-99(Fasting)) mg/dl Calcium 8.7 (8.5-10.1) mg/dl Magnesium 1.6 L (1.7-2.4) mg/dl Total Bilirubin 1.2 H (0.2-1.0) mg/dl Direct Bilirubin 0.2 (0-0.2) mg/dl AST 22 (13-39) U/L ALT 13 (7-52) U/L Alkaline Phosphatase 70 (34-104) U/L Total Protein 7.0 (6.0-8.3) gm/dl Albumin 3.9 (3.4-5.0) gm/dl Lipase 40 (11-82) U/L Urine Color Yellow Urine Appearance Clear (Clear) Urine pH 5.0 (4.5-7.5) Ur Specific [place] 1.014 (1.000-1.030) Urine Protein 1+ H (Negative) Urine Glucose (UA) Negative (Negative) Urine Ketones Negative (Negative) Urine Blood Trace H (Negative) Urine Nitrite Negative (Negative) Urine Bilirubin Negative (Negative) Urine Urobilinogen Negative (Negative) Ur Leukocyte Esterase 1+ H (Negative) Urine WBC (Auto) >30 H (0-5) /hpf Urine RBC (Auto) 0-4 (0-4) /hpf U Hyaline Cast (Auto) 1-5 (0-5) /lpf U Epithel Cells (Auto) 0-5 (0-5) /lpf Urine Bacteria (Auto) Negative (Negative) Administered Medications Acetaminophen (Acetaminophen 325 Mg Tab) 650 mg PO Q6 EMELY Stop: 06/14/22 17:59 Last Admin: 05/16/22 05:45 Dose: 650 mg Documented By: Admin: 05/16/22 01:33 Dose: Not Given Documented By: Admin: 05/15/22 17:05 Dose: 650 mg Documented By: HEBERT Axitinib (Axitinib 5 Mg Tablets) 1 each PO Q12H EMELY Stop: 06/14/22 18:59 Last Admin: 05/16/22 05:46 Dose: 1 each Documented By: VISHNU Co-signed By: [id number] Admin: 05/15/22 21:23 Dose: 1 each Documented By: VISHNU Co-signed By: [id number] Docusate Sodium (Docusate Sodium 100 Mg Cap) 100 mg PO BID EMELY Stop: 06/14/22 20:59 Last Admin: 05/15/22 19:38 Dose: 100 mg Documented By: VISHNU Gabapentin (Gabapentin 300 Mg Cap) 300 mg PO BID [facility] Stop: 06/14/22 16:28 Last Admin: 05/15/22 19:32 Dose: 300 mg Documented By: Admin: 05/15/22 17:04 Dose: 300 mg Documented By: HEBERT Lisinopril/HCTZ (Lisinopril/Hctz 20/12.5mg 1 Tab Tab) 1 tab PO BID EMELY Stop: 06/14/22 20:59 Last Admin: 05/15/22 19:33 Dose: 1 tab Documented By: VISHNU Heparin Sodium (Porcine) (Heparin Sod 5,000 Unit/0.5 Ml Vial) 5,000 units SQ Q12 EMELY Stop: 06/14/22 20:59 Last Admin: 05/15/22 19:33 Dose: 5,000 units Documented By: VISHNU Heparin Sodium (Porcine) (Heparin 100 Unit/Ml 5ml Flush) 5 ml FLUSH PRN PRN PRN Reason: Flush Stop: 06/14/22 16:57 Last Admin: 05/16/22 05:50 Dose: 5 ml Documented By: VISHNU Lidocaine (Lidocaine 5% 1 Patch) 1 patch TD QAM [facility] Stop: 06/14/22 16:28 Last Admin: 05/15/22 17:05 Dose: 1 patch Documented By: HEBERT Miscellaneous (Remove Lidoderm Patch) 1 each N/A DAILY@2100 [facility] Stop: 06/14/22 20:59 Last Admin: 05/15/22 19:36 Dose: 1 each Documented By: VISHNU Oxybutynin Chloride (Oxybutynin Chloride Xl 5 Mg Tabcr) 10 mg PO [facility] Stop: 06/14/22 20:59 Last Admin: 05/15/22 19:32 Dose: 10 mg Documented By: VISHNU Simvastatin (Simvastatin 20 Mg Tab) 20 mg PO [facility] Stop: 06/14/22 20:59 Last Admin: 05/15/22 19:32 Dose: 20 mg Documented By: VISHNU Trimethoprim/Sulfamethoxazole (Sulfamethoxazole/Trimethoprim Ds 800/160mg Tab) 1 tab PO Q12H [facility] Stop: 05/20/22 16:28 Last Admin: 05/16/22 05:46 Dose: 1 tab Documented By: Admin: 05/15/22 17:28 Dose: 1 tab Documented By: HEBERT Discontinued Medications Fentanyl Citrate (Fentanyl Citrate 100 Mcg/2 Ml Vial) 50 mcg IV NOW STA Stop: 05/15/22 10:32 Last Admin: 05/15/22 11:03 Dose: 50 mcg Documented By: SUDHIR Hydromorphone HCl (Hydromorphone Inj 0.5 Mg/0.5 Ml Syr) 0.5 mg IV NOW STA Stop: 05/15/22 12:23 Last Admin: 05/15/22 12:48 Dose: 0.5 mg Documented By: ROMAN Hydromorphone HCl (Hydromorphone Inj 0.5 Mg/0.5 Ml Syr) 0.5 mg IV Q6H PRN PRN Reason: severe Pain Stop: 05/29/22 16:28 Last Admin: 05/15/22 18:08 Dose: 0.5 mg Documented By: HEBERT Sodium Chloride (Nss) 500 mls @ 999 mls/hr IV .Q31M ONE Stop: 05/15/22 11:01 Last Infusion: 05/15/22 11:32 Dose: 0 mls/hr Documented By: Admin: 05/15/22 10:52 Dose: 999 mls/hr Documented By: SUDHIR Magnesium Sulfate/Dextrose (Magnesium Sulfate / D5w) 1 gm in 100 mls @ 50 mls/hr IV Q2H EMELY Stop: 05/15/22 19:59 Last Admin: 05/15/22 16:58 Dose: Not Given Documented By: Admin: 05/15/22 16:57 Dose: Not Given Documented By: HEBERT Magnesium Sulfate/Dextrose (Magnesium Sulfate / D5w) 1 gm in 100 mls @ 50 mls/hr IV Q2H EMELY Stop: 05/15/22 22:59 Last Infusion: 05/16/22 01:33 Dose: 0 mls/hr Documented By: Admin: 05/15/22 21:23 Dose: 50 mls/hr Documented By: Infusion: 05/15/22 21:23 Dose: 50 mls/hr Documented By: Admin: 05/15/22 19:32 Dose: 50 mls/hr Documented By: Infusion: 05/15/22 19:13 Dose: 50 mls/hr Documented By: Admin: 05/15/22 17:13 Dose: 50 mls/hr Documented By: HEBERT Ketorolac Tromethamine (Ketorolac Tromethamine 15 Mg/Ml Vial) 10 mg IV NOW ONE Stop: 05/15/22 18:45 Last Admin: 05/15/22 19:30 Dose: 10 mg Documented By: VISHNU Ondansetron HCl (Ondansetron Inj 2 Mg/Ml 2 Ml Vial) 4 mg IV NOW STA Stop: 05/15/22 10:32 Last Admin: 05/15/22 11:03 Dose: 4 mg Documented By: SUDHIR Oxycodone HCl (Oxycodone Hcl Ir 5 Mg Tab (Immediate Release)) 5 mg PO Q6 PRN PRN Reason: Pain Stop: 05/29/22 16:28 Last Admin: 05/15/22 17:04 Dose: 5 mg Documented By: HEBERT Discharge Plan Visit Data Chief Complaint: Back Injury/Pain Stated Complaint: back pain ED Provider: Rui Benites Discharge Problem: Cancer related pain, Metastatic renal cell carcinoma to bone Patient Disposition: Admitted As Inpatient Discharge Instructions Interventions: ED Discharge Assessment Last Done: 05/15/22 15:42
[2022-05-15 11:29] LABS: Basophils # (auto) 0.02 K/uL (0-0.2); Basophils % (auto) 0.3 %; Eosinophils # (auto) 0.46 K/uL (0-0.50); Eosinophils % (auto) 5.8 %; Hematocrit (blood only) 29.3 % (34.1-44.9); Hemoglobin 9.9 g/dl (12.0-16.0); Immature Granulocytes # (auto) 0.05 K/uL (0.00-0.02); Immature Granulocytes % (auto) 0.6 %; Lymphocytes # (auto) 2.08 K/uL (1.2-3.4); Lymphocytes % (auto) 26.2 %; Mean Corpuscular Hemoglobin 28.7 pg (25.0-34.0); Mean Corpuscular Hgb Conc 33.8 g/dL (32.0-36.0); Mean Corpuscular Volume 84.9 fL (80.0-100.0); Mean Platelet Volume 9.3 fL (9.4-12.3); Monocytes # (auto) 0.62 K/uL (0.24-0.82); Monocytes % (auto) 7.8 %; Neutrophils # (auto) 4.71 K/uL (1.4-6.5); Neutrophils % (auto) 59.3 %; Platelet Count 177 K/uL (130-400); RDW Standard Deviation 42.5 fL (36.4-46.3); Red Blood Count 3.45 M/uL (3.93-5.22); White Blood Count 7.94 K/ul (4.8-10.8)
[2022-05-15 11:42] LABS: Appearance Urine Clear (Clear); Bacteria Urine Automated Negative (Negative); Bilirubin Urine Negative (Negative); Blood Urine Trace (Negative); Color Urine Yellow; Epithelial Cell Urine Auto 0-5 /lpf (0-5); Glucose Urine UA Negative (Negative); Ketones Urine Negative (Negative); Leukocyte Esterase Urine 1+ (Negative); Nitrite Urine Negative (Negative); Protein Urine 1+ (Negative); RBC Urine Automated 0-4 /hpf (0-4); Specific Gravity Urine 1.014 (1.000-1.030); Urobilinogen Urine Negative (Negative); WBC Urine Automated >30 /hpf (0-5)
--- NOTE | 2022-05-15 12:00 | CT Scan Report ---
ABDOMEN AND PELVIS CT WITHOUT CONTRAST CT DOSE: 1605.93 mGy.cm HISTORY: worsening left lower back and left hip pain TECHNIQUE: Multiaxial CT images of the abdomen and pelvis were performed without contrast. A dose lo wering technique was utilized adhering to the principles of ALARA. COMPARISON STUDY: Abdomen and pelvis CT 03/27/2022. FINDINGS: Again noted multiple scattered pulmonary nodules at the lung bases which have increased in size. This consistent with progressive metastatic disease. No pneumoperitoneum. No pneumatosis. Incre ase in size in the sclerotic lesion within the left posterior iliac bone which measures 2.8 cm. This is consistent with a metastatic focus. No acute fractures identified within the visualized osseous st ructures. Grade 2 anterolisthesis of L4 on L5, unchanged. Interval progression of the sclerotic foci as T12 and L2 consistent with metastatic disease. No hepatic or splenic masses. Mild thickening of th e left adrenal gland, unchanged. Normal right adrenal gland. The pancreas is unremarkable. Normal rig ht kidney. There is again noted an infiltrated left renal mass which is suboptimally assessed on this noncontrast study. This is similar to the prior study. Soft tissue extension into the surrounding pe rinephric fat and left anterior pararenal space persists. Left paracolic lymphadenopathy is not signi ficantly changed. There is an 11 mm left perinephric soft tissue nodule which is also similar to the prior study. The bladder, uterus, bilateral adnexa are unremarkable. Suboptimal evaluation for bowel pathology due to the lack of intravenous and oral contrast. However, there is no definite bowel wall thickening or obstruction. A few colonic diverticula. No evidence for acute diverticulitis. Normal ap pendix. IMPRESSION: 1. Redemonstration of the infiltrative left renal mass with associated perinephric soft tissue infilt ration and metastatic left para-aortic lymphadenopathy. This is similar to the prior study. 2. Interval progression of the metastatic disease within the lung bases as well as the scattered oste oblastic metastatic lesions. ACT 112: Negative or not required by law. Electronically signed by: Vinod Yanez M.D. 05/15/2022 11:58 AM
[2022-05-15 12:01] LABS: Albumin Level 3.9 gm/dl (3.4-5.0); BUN Creatinine Ratio 18.7 (10-20); Bilirubin Direct 0.2 mg/dl (0-0.2); Bilirubin,Total 1.2 mg/dl (0.2-1.0); Calcium 8.7 mg/dl (8.5-10.1); Creatinine Clr Calc Pharmacy 28.6 ml/min; Est GFR (African American) 26.6 ml/min; Magnesium 1.6 mg/dl (1.7-2.4); Potassium 3.7 mmol/L (3.5-5.1)
--- NOTE | 2022-05-15 12:02 | CT Scan Report ---
LUMBAR SPINE CT CT DOSE: HISTORY: low back pain, left sciatica, met Renal CA TECHNIQUE: Multiaxial CT images of the lumbar spine were performed and reformatted in the sagittal an d coronal plane without the use of contrast. A dose lowering technique was utilized adhering to the principles of ALARA. COMPARISON: Abdomen and pelvis CT 03/19/2022. FINDINGS: Interval progression of the sclerotic lesions at T12 and L2 consistent with metastatic dise ase. No fractures identified within the lumbar spine. Visualized sacrum is intact. Increase in size i n the osteoblastic metastatic lesion within the left posterior iliac bone. Moderate facet degenerativ e changes within the lower lumbar spine. There is moderate central canal narrowing at L4-5 due to the grade 2 anterolisthesis and ligamentum flavum and facet hypertrophy. Paravertebral soft tissues are unremarkable. The patient's known left renal mass, left periaortic lymphadenopathy, and pulmonary nod ules are better appreciated on the same day abdomen and pelvis CT. IMPRESSION: 1. No acute fractures within the lumbar spine. 2. Interval progression of the osteoblastic metastatic lesions at T12, L2, and the left iliac bone. 3. The patient's known left renal mass, left periaortic lymphadenopathy, and pulmonary nodules are be tter appreciated on the same day abdomen and pelvis CT. ACT 112: Negative or not required by law. Electronically signed by: Vinod Yanez M.D. 05/15/2022 12:00 PM
[2022-05-15] MEDS ORDERED: HYDROmorphone INJ 0.5 MG/0.5 ML SYR IV STA (12:22)
--- NOTE | 2022-05-15 13:29 | History & Physical Report ---
Date of Service May 15, 2022 Assessment & Plan (1) Pain due to malignant neoplasm metastatic to bone: Plan: Acute worsening of left illiac bone pain - Tylenol scheduled - Oxy IR 5mg q4 prn - can increase as needed - Gabapentin 300mg PO BID dose now- increase if effective and tolerated - Lidocaine patch - Hydromorphone 0.5mg IV q6prn- adjust as needed - If ineffective or further adjuvants needed can consider calcitonin nasal spray - transition to orals and fentanyl patch likely - consult radiation oncology - consult haematology/oncology (2) Metastatic renal cell carcinoma: Plan: Metastatic disease- current therapy Keytruda/Axitinib - Continue home dose of Axitinig- family to bring in BID - Haematology for Pembrolizumab dosing if patient remains in house (3) Hypomagnesemia: Plan: With decreased oral intake at home - Magnesium 3 GM IV - replace - (4) Hypothyroidism: Plan: Continue Synthroid (5) Essential (primary) hypertension: Plan: CKD IIIb stable OFFICE SERVICES CLERK at 1.98- baseline 1,8-2.0 - follow volume status and renal function - continue lisinopril for now (6) Chronic kidney disease, stage 4 (severe): Plan: As above follow electrolytes, renal dose medications, avoid further nephrotoxic medications as able (7) Absent kidney, acquired: Plan: Nephrectomy secondary to RCC- follow renal function - metastatic disease- continue follow up and management by Haematology/Oncology (8) UTI (urinary tract infection): Plan: Amox/Clav S <=8/4 Ampicillin R >16 Amp/Sul R >16/8 Cefazolin S 4 Cefepime S <=2 Ceftriaxone S <=1 Ciprofloxacin S <=0.25 Ertapenem S <=0.5 Gentamicin S <=4 Levofloxacin S <=0.5 Meropenem S <=1 Nitrofurantoin S <=32 Tobramycin S <=4 Trimeth/Sulfa S <=2/38 Pip/Tazo S <=16 05/11/22 Continue Bactrim DS q12 UA today without bacteria. 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 Patient comes to the [facility] for complaints of acute worsening of her left lower back pain. The patient was onHydrocodone APAP 10/325, BID PRN and Hydrocodone 5/325 prn breakthrough pain at home, which she endorses that she was not really using much until yesterday with scheduled and PRN doses. This did not provide her much relief. The pain is in her left lower back/iliac/SI joint. This pain is sharp and stabbing, worsened with her rolling or sitting forward and standing. Once she stands, she is unable to straighten up or walk. Her daughter endorses that she has been stooping over and shuffling with her pain. The pain occasionally will radiate to her left hip, but does not go down her leg. They have been in contact with their primary oncologist. She has not been on any other pain adjunctive medications and has not been on much higher doses of narcotics. Will provide multi-tiered approach with excalation as needed. Her current therapy is Pembrolizumab with axitinib with Prolia. The patient is due for her Pembrolizumab this week. Continue her Axitinib PO BID (patient to bring from home). Will consult haematology for continuation of her Keytruda while in house if warranted as well continued adjuvant pain therapy. Will consult radiation oncology for evaluation for possible palliative radiation. Allergies Allergy/AdvReac Type Severity Reaction Status Date / Time No Known Drug Allergies Allergy Verified 05/15/22 14:46 Home Medications Medication Instructions Recorded Confirmed Type calcium carbonate 600 mg-vitamin 1 tab PO QAM 06/27/19 05/15/22 History D3 20 mcg (800 unit) tablet (Caltrate with Vitamin D3) multivitamin (One Daily 1 tab PO QAM 06/27/19 05/15/22 History Multivitamin) lisinopril 20 1 tab PO BID #180 tabs 12/28/21 05/15/22 Rx mg-hydrochlorothiazide 12.5 mg tablet oxybutynin chloride 10 mg 10 mg PO HS #90 tabs 03/22/22 05/15/22 Rx tablet,extended release 24 hr (Ditropan XL) glucosamine-chondroitin 250 mg-200 1 tab PO QAM 04/21/22 05/15/22 History mg tablet (Osteo Bi-Flex) ketoconazole 2 % topical cream 1 applic topical BID PRN Rash 04/21/22 05/15/22 History krill 1,000 mg-omega-3 230 mg-dha 1 cap PO QAM 04/21/22 05/15/[address] 60 [address]-pzv-rvamlvyll-astaxan capsule (MegaRed Drummond-3 Krill Oil) levothyroxine 137 mcg tablet 137 mcg PO QAM 04/21/22 05/15/22 History simvastatin 20 mg tablet (Zocor) 20 mg PO HS 04/21/22 05/15/22 History sulfamethoxazole 800 1 tab PO Q12H PRN uti 04/21/22 05/15/22 History mg-trimethoprim 160 mg tablet (Bactrim DS) axitinib 5 mg tablet (Inlyta) 5 mg PO BID 05/15/22 05/15/22 History docusate sodium 50 mg capsule 0 mg PO BID 05/15/22 05/15/22 History Past Med/Surg History Medical History Aortic stenosis Mild aortic stenosis (PADMINI 1.7cm2) per 07/2018 echo Chronic anemia Chronic kidney disease, stage 4 (severe) 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 No issues noted per post-op anesthesia progress note. Hx of cholecystectomy Hx of colonoscopy Port-A-Cath in place (04/26/22) Port placement and fluoroscopy. Dr. Shelley Status post left breast lumpectomy Left Breast Lumpectomy with Needle Localization and Left [employer] Lymph Node Biopsy Family History Mother Thyroid disease Father Osteoarthritis Brother Colon cancer Grandmother Colon cancer Other No family history of adverse response to anesthesia Denies family history of Ovarian cancer Prostate cancer Myocardial infarction Breast cancer Social History Smoking Status: Former smoker Tobacco Type: Cigarettes Age Started Using Tobacco: 18; Age Quit Using Tobacco: 29; packs per day: 0.5; Years Smoked: 11; Cigarettes Per Day: 10; Number of Years Since Quit: 52; Second Hand Exposure: No; Do You Dip or Chew Tobacco: No; Tobacco Cessation Education Requested by Patient: No Hx Alcohol Use: No Hx Substance Use: No Preferred Language: Gabonese Communication Ability: Effective Visual Impairment: No Limitations 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: Normal Cleaning Laborer Required: No Beliefs That Will Affect Care: None marital status: / Current Living Situation: Alone Current Living Situation Comment: daughters to help current occupational status: retired How many Children do You have: 3 Other Information That Helps Us Care for You: No Feels Safe at Home: Yes Safety Concerns: Feels Safe At This Time Childhood Exposure to Second-Hand Smoke: Yes caffeine: Yes during the past year weight has: increased > 10 lbs Dental Care, Regularly: No Physical Activity Frequency: Does not Exercise Seatbelt Use: always Sunscreen Use: No Assistive Devices: Cane and Walker Assistive Devices Comment: all activites now require help d/t pain Review of Systems Review of Systems: REVIEW OF SYSTEMS: Constitutional: No fever, sweats or chills Eyes: No diplopia, no worsening or blurred vision ENT: normal hearing, no trouble swallowing Respiratory: No cough, sputum, dyspnea at rest or on exertion Cardiovascular: No chest pain, tightness or palpitations Abdomen: No pain, nausea, vomiting, diarrhea or constipation Musculoskeletal: (+) back pain, more sedentary, NO calf pain, swelling Neurologic: No weakness, numbness/tingling, or balance problems Psychiatric: No anxiety or depression Skin: No rash or itch Physical Exam Physical Exam: PHYSICAL EXAM: General: awake, alert, no apparent distress Head: Normocephalic, atraumatic ENT: PERRL, EOMI, no pharyngeal exudate, mucous membranes moist Neuro: AAO x 3, speech clear and appropriate, strength intact bilaterally 5/5, sensation intact and equal all extremities and dermatomes, no pronator drift Chest: equal rise and fall of the chest, no accessory muscle use, no heaves or thrills, Clear to auscultation, on room air, Cardiac: Regular rate and rhythm, telemetry reviewed, skin warm dry, cap refill <3 seconds, peripheral pulses +2 no JVD, grade II systolic murmur, 2+ edema to feet GI: NABS x 4 quadrants, soft, nontender to palpation, no rebound, guarding or tenderness : Spontaneously voiding, no pain, no CVA tenderness, MSK: left sided pain at SI joint, ilium and sacrum, some tenderness to left trochanter, no erythema or bruising Psych: Normal mood and affect Skin: no rash or erythema, infusion port siite clean Results & Data Results & Data ([facility] [place]) Vital Signs (Past 12 Hours) Vital Signs Temp Pulse Pulse Resp BP BP Pulse Ox 05/15/22 12:09 54 L 18 188/112 H 98 05/15/22 10:37 97 05/15/22 10:31 36.6 C 68 18 180/91 H 97 O2 Del Method 05/15/22 12:09 Room Air 05/15/22 10:37 Room Air 05/15/22 10:31 Room Air Laboratory Results Abnormal lab results 05/15/22 05/15/22 05/15/22 Range/Units 10:55 10:55 11:10 RBC 3.45 L (3.93-5.22) M/uL Hgb 9.9 L (12.0-16.0) g/dl Hct 29.3 L (34.1-44.9) % RDW Coeff of Gala 15.0 H (11.5-14.5) % MPV 9.3 L (9.4-12.3) fL Immature Gran # (Auto) 0.05 H (0.00-0.02) K/uL Sodium 132 L (136-145) mmol/L Chloride 97 L (98-107) mmol/L BUN 37 H (6-23) mg/dl Creatinine 1.98 H (0.6-1.2) mg/dl Magnesium 1.6 L (1.7-2.4) mg/dl Total Bilirubin 1.2 H (0.2-1.0) mg/dl Urine Protein 1+ H (Negative) Urine Blood Trace H (Negative) Ur Leukocyte Esterase 1+ H (Negative) Urine WBC (Auto) >30 H (0-5) /hpf Diagnostic Findings Abdomen/Pelvis CT 05/15/22 10:[address] WITHOUT CONTRAST CT DOSE: 1605.93 mGy.cm HISTORY: worsening left lower back and left hip pain TECHNIQUE: Multiaxial CT images of the abdomen and pelvis were performed without contrast. A dose lowering technique was utilized adhering to the principles of ALARA. COMPARISON STUDY: Abdomen and pelvis CT 03/27/2022. FINDINGS: Again noted multiple scattered pulmonary nodules at the lung bases which have increased in size. This consistent with progressive metastatic disease. No pneumoperitoneum. No pneumatosis. Increase in size in the sclerotic lesion within the left posterior iliac bone which measures 2.8 cm. This is consistent with a metastatic focus. No acute fractures identified within the visualized osseous structures. Grade 2 anterolisthesis of L4 on L5, unchanged. Interval progression of the sclerotic foci as T12 and L2 consistent with metastatic disease. No hepatic or splenic masses. Mild thickening of the left adrenal gland, unchanged. Normal right adrenal gland. The pancreas is unremarkable. Normal right kidney. There is again noted an infiltrated left renal mass which is suboptimally assessed on this noncontrast study. This is similar to the prior study. Soft tissue extension into the surrounding perinephric fat and left anterior pararenal space persists. Left paracolic lymphadenopathy is not significantly changed. There is an 11 mm left perinephric soft tissue nodule which is also similar to the prior study. The bladder, uterus, bilateral adnexa are unremarkable. Suboptimal evaluation for bowel pathology due to the lack of intravenous and oral contrast. However, there is no definite bowel wall thickening or obstruction. A few colonic diverticula. No evidence for acute diverticulitis. Normal appendix. IMPRESSION: 1. Redemonstration of the infiltrative left renal mass with associated perinephric soft tissue infiltration and metastatic left para-aortic lymphadenopathy. This is similar to the prior study. 2. Interval progression of the metastatic disease within the lung bases as well as the scattered osteoblastic metastatic lesions. ACT 112: Negative or not required by law. Electronically signed by: Vinod Yanez M.D. 05/15/2022 11:[address] 05/15/22 10:[address] DOSE: HISTORY: low back pain, left sciatica, met Renal CA TECHNIQUE: Multiaxial CT images of the lumbar spine were performed and reformatted in the sagittal and coronal plane without the use of contrast. A dose lowering technique was utilized adhering to the principles of ALARA. COMPARISON: Abdomen and pelvis CT 03/19/2022. FINDINGS: Interval progression of the sclerotic lesions at T12 and L2 consistent with metastatic disease. No fractures identified within the lumbar spine. Visualized sacrum is intact. Increase in size in the osteoblastic metastatic lesion within the left posterior iliac bone. Moderate facet degenerative changes within the lower lumbar spine. There is moderate central canal narrowing at L4-5 due to the grade 2 anterolisthesis and ligamentum flavum and facet hypertrophy. Paravertebral soft tissues are unremarkable. The patient's known left renal mass, left periaortic lymphadenopathy, and pulmonary nodules are better appreciated on the same day abdomen and pelvis CT. IMPRESSION: 1. No acute fractures within the lumbar spine. 2. Interval progression of the osteoblastic metastatic lesions at T12, L2, and the left iliac bone. 3. The patient's known left renal mass, left periaortic lymphadenopathy, and pulmonary nodules are better appreciated on the same day abdomen and pelvis CT. ACT 112: Negative or not required by law. Electronically signed by: Vinod Yanez M.D. 05/15/2022 12:00 PM Medications Administered Home Medications calcium carbonate 600 mg-vitamin D3 20 mcg (800 unit) tablet (Caltrate with Vitamin D3) 1 tab PO QAM 06/27/19 [History Confirmed 04/26/22] multivitamin (One Daily Multivitamin) 1 tab PO QAM 06/27/19 [History Confirmed 04/26/22] lisinopril 20 mg-hydrochlorothiazide 12.5 mg tablet 1 tab PO BID #180 tabs 12/28/21 [Rx Confirmed 04/26/22] hydrocodone 10 mg-acetaminophen 325 mg tablet 2 tab PO DAILY PRN pain #60 tabs 01/12/22 [Rx Confirmed 04/26/22] valacyclovir 1 gram tablet (Valtrex) 1,000 mg PO DAILY PRN Cold Sores #90 tabs 01/12/22 [Rx Confirmed 04/26/22] oxybutynin chloride 10 mg tablet,extended release 24 hr (Ditropan XL) 10 mg PO HS #90 tabs 03/22/22 [Rx Confirmed 04/26/22] glucosamine-chondroitin 250 mg-200 mg tablet (Osteo Bi-Flex) 1 tab PO QAM 04/21/22 [History Confirmed 04/26/22] ketoconazole 2 % topical cream 1 applic topical BID PRN Rash 04/21/22 [History Confirmed 04/26/22] krill 1,000 mg-omega-3 230 mg-dha 60 bu-udq-izwyvvemr-astaxan capsule (MegaRed Drummond-3 Krill Oil) 1 cap PO QAM 04/21/22 [History Confirmed 04/26/22] levothyroxine 137 mcg tablet 137 mcg PO QAM 04/21/22 [History Confirmed 04/26/22] simvastatin 20 mg tablet (Zocor) 20 mg PO HS 04/21/22 [History Confirmed 04/26/22] sulfamethoxazole 800 mg-trimethoprim 160 mg tablet (Bactrim DS) 1 tab PO Q12H PRN uti 04/21/22 [History Confirmed 04/26/22] hydrocodone 5 mg-acetaminophen 325 mg tablet 1 tab PO Q4H PRN pain #20 tabs 04/26/22 [Rx] Discontinued Medications Fentanyl Citrate (Fentanyl Citrate 100 Mcg/2 Ml Vial) 50 mcg IV NOW STA Stop: 05/15/22 10:32 Last Admin: 05/15/22 11:03 Dose: 50 mcg Documented By: SUDHIR Hydromorphone HCl (Hydromorphone Inj 0.5 Mg/0.5 Ml Syr) 0.5 mg IV NOW STA Stop: 05/15/22 12:23 Last Admin: 05/15/22 12:48 Dose: 0.5 mg Documented By: ROMAN Sodium Chloride (Nss) 500 mls @ 999 mls/hr IV .Q31M ONE Stop: 05/15/22 11:01 Last Infusion: 05/15/22 11:32 Dose: 0 mls/hr Documented By: Admin: 05/15/22 10:52 Dose: 999 mls/hr Documented By: SUDHIR Ondansetron HCl (Ondansetron Inj 2 Mg/Ml 2 Ml Vial) 4 mg IV NOW STA Stop: 05/15/22 10:32 Last Admin: 05/15/22 11:03 Dose: 4 mg Documented By: SUDHIR Code Status & VTE Plan Code Status CODE: DNR/DNI VTE: SCDS, Heparin 5000 units subq q12 - GFR <30 VTE Prophylaxis Plan VTE Prophylaxis will be ordered: Yes Supervising Physician Co-Signing Physician Notes Patient seen and examined at bedside. Obtained a history and physical examination during face to face encounter. I reviewed above note and agree with it. Discussed plan of care with patient and APC Natasha. Patient will be admitted for pain control. Pain medicine as stated above./ PG Care Time/CCT Total # of Minutes Spent Total Time Spent with Patient: Total time spent is greater than 50% in coordination of care (as documented) at patient's floor/unit and/or counseling patient: Coding Level of Care Code 94586 Initial Inpt Care Lvl 3 Diagnoses Pain due to malignant neoplasm metastatic to bone G89.3; C79.51 Metastatic renal cell carcinoma C64.9 Hypomagnesemia E83.42 Hypothyroidism E03.9 Hypothyroidism type: unspecified Essential (primary) hypertension I10 Chronic kidney disease, stage 4 (severe) N18.4 Absent kidney, acquired Z90.5 UTI (urinary tract infection) N39.0 (1) Hypothyroidism Hypothyroidism type: unspecified Qualified Code(s): E03.9 - Hypothyroidism, unspecified
[2022-05-15] MEDS ORDERED: NALOXONE HCL 0.4 MG/1 ML VIAL/CARP IV PRN (16:29)
[2022-05-15] MEDS ORDERED: HYDROmorphone INJ 0.5 MG/0.5 ML SYR IV PRN (16:29)
[2022-05-15] MEDS ORDERED: ONDANSETRON 8MG OD TAB PO PRN (16:29)
[2022-05-15] MEDS ORDERED: oxyCODONE HCL IR 5 MG TAB (IMMEDIATE RELEASE) PO PRN (16:29)
[2022-05-15] MEDS: MAGNESIUM SULFATE / D5W 1 GM/100 ML BAG IV SCH ×5 (16:57→21:23)
[2022-05-15] MEDS: GABAPENTIN 300 MG CAP PO SCH ×2 (17:04→19:32)
[2022-05-15] MEDS: LIDOCAINE 5% 1 PATCH TD SCH (17:05)
[2022-05-15] MEDS: ACETAMINOPHEN 325 MG TAB PO SCH (17:05)
[2022-05-15] MEDS: SULFAMETHOXAZOLE/TRIMETHOPRIM DS 800/160MG TAB PO SCH (17:28)
[2022-05-15] MEDS ORDERED: KETOROLAC TROMETHAMINE 15 MG/ML VIAL IV ONE (18:44)
[2022-05-15] MEDS: OXYBUTYNIN CHLORIDE XL 5 MG TABCR PO SCH (19:32)
[2022-05-15] MEDS: LISINOPRIL/HCTZ 20/12.5MG 1 TAB TAB PO SCH (19:33)
[2022-05-15] MEDS: HEPARIN SOD 5,000 UNIT/0.5 ML VIAL SQ SCH (19:33)
[2022-05-15] MEDS: DOCUSATE SODIUM 100 MG CAP PO SCH (19:38)
[2022-05-15] MEDS ORDERED: AXITINIB 5 MG PO SCH (21:00)
[2022-05-15] MEDS ORDERED: SIMVASTATIN 20 MG TAB PO SCH (21:00)
[2022-05-15] MEDS: AXITINIB 5 MG PO SCH (21:23)
[2022-05-16] MEDS: ACETAMINOPHEN 325 MG TAB PO SCH ×2 (01:33→05:45)
[2022-05-16] MEDS: SULFAMETHOXAZOLE/TRIMETHOPRIM DS 800/160MG TAB PO SCH (05:46)
[2022-05-16] MEDS: AXITINIB 5 MG PO SCH ×2 (05:46→19:44)
[2022-05-16] MEDS: HEPARIN 100 UNIT/ML 5ML FLUSH FLUSH PRN (05:50)
[2022-05-16 07:00] LABS: Basophils # (auto) 0.02 K/uL (0-0.2); Basophils % (auto) 0.3 %; Eosinophils # (auto) 0.48 K/uL (0-0.50); Eosinophils % (auto) 7.2 %; Hematocrit (blood only) 27.7 % (34.1-44.9); Hemoglobin 9.4 g/dl (12.0-16.0); Immature Granulocytes # (auto) 0.03 K/uL (0.00-0.02); Immature Granulocytes % (auto) 0.4 %; Lymphocytes % (auto) 32.9 %; Mean Corpuscular Hemoglobin 28.6 pg (25.0-34.0); Mean Corpuscular Hgb Conc 33.9 g/dL (32.0-36.0); Mean Corpuscular Volume 84.2 fL (80.0-100.0); Mean Platelet Volume 9.4 fL (9.4-12.3); Monocytes # (auto) 0.69 K/uL (0.24-0.82); Monocytes % (auto) 10.3 %; Neutrophils # (auto) 3.27 K/uL (1.4-6.5); Neutrophils % (auto) 48.9 %; Platelet Count 167 K/uL (130-400); RDW Coefficient of Variation 15.1 % (11.5-14.5); RDW Standard Deviation 42.3 fL (36.4-46.3); Red Blood Count 3.29 M/uL (3.93-5.22); White Blood Count 6.69 K/ul (4.8-10.8)
[2022-05-16 07:13] LABS: Iron 55 mcg/dl (35-150); Total Iron Binding Cap Calc 304 mcg/dl (250-450); Transferrin (FE) Percent Satur 18 % (15-50); Unsaturated Iron Binding Cap 249 mcg/dl (155-355)
[2022-05-16 07:14] LABS: BUN Creatinine Ratio 17.2 (10-20); Calcium 8.5 mg/dl (8.5-10.1); Creatinine Clr Calc Pharmacy 27.1 ml/min; Est GFR (African American) 24.9 ml/min; Est GFR (Non-African American) 21.5 ml/min; Potassium 3.8 mmol/L (3.5-5.1)
[2022-05-16 07:18] LABS: Ferritin 90.7 ng/ml (8-388)
--- NOTE | 2022-05-16 07:27 | Hospitalist Progress Note ---
Date of Service May 16, 2022 Assessment & Plan (1) Pain due to malignant neoplasm metastatic to bone: Plan: Acute worsening of left iliac bone pain. T12, L 1 osteoblastic lesions -her pain is positional making me suspicious of pathological fracture, no pain at rest - Tylenol scheduled - Oxy IR 7.5mg q4 prn - can increase as needed - Gabapentin 300mg PO BID dose now- increase if effective and tolerated - Lidocaine patch - Hydromorphone 0.5mg IV q6prn- adjust as needed - calcitonin nasal spray, one dose of solumedrol - consult radiation oncology - consult haematology/oncology (2) Metastatic renal cell carcinoma: Plan: Metastatic disease- current therapy Keytruda/Axitinib - Continue home dose of Axitinig- family to bring in BID - Haematology for Pembrolizumab dosing if patient remains in house (3) Hypomagnesemia: Plan: With decreased oral intake at home - Magnesium 3 GM IV - replace - (4) Hypothyroidism: Plan: Continue Synthroid (5) Essential (primary) hypertension: Plan: CKD IIIb stable RAD TECHNOLOGIST at 1.98- baseline 1,8-2.0 - follow volume status and renal function - continue lisinopril for now (6) Chronic kidney disease, stage 4 (severe): Plan: As above follow electrolytes, renal dose medications, avoid further nephrotoxic medications as able (7) Absent kidney, acquired: Plan: Nephrectomy secondary to RCC- follow renal function - metastatic disease- continue follow up and management by Haematology/Oncology (8) UTI (urinary tract infection): Plan: previous e coli uti Amox/Clav S <=8/4 Ampicillin R >16 Amp/Sul R >16/8 Cefazolin S 4 Cefepime S <=2 Ceftriaxone S <=1 Ciprofloxacin S <=0.25 Ertapenem S <=0.5 Gentamicin S <=4 Levofloxacin S <=0.5 Meropenem S <=1 Nitrofurantoin S <=32 Tobramycin S <=4 Trimeth/Sulfa S <=2/38 Pip/Tazo S <=16 05/11/22 changed to keflex due to hyponatremia Admission and Anticipated Discharge Date Admission Date: May 15, 2022 Subjective pt has pain with movement mostly located at T12-L1 area where there are osteoblastic lesions and concerns for possible pathologic fractures with the amount of pain she is having her clinical symptoms are more reminiscent of vertebral fractures with pain on movement but no pain at rest. Has no radicular symptoms Calcium levels are not elevated Review of Systems Review of Systems: Patient feels fine when she does not move no headache, no visual changes no speech or swallowing issues no chest pain, pressure or palpitations no shortness of breath, cough or wheezes no abdominal pain, nausea or vomiting, has not had a bowel movement for 1 to 2 days no dysuria, hematuria or frequency no focal joint pain or swelling Focal nonradiating back pain at the area of the metastatic disease T12-L1 worse with movement no bruising, bleeding or rashes no focal signs of weakness or numbness or altered sensation no complaints of anxiety or depression.. Physical Exam Physical Exam: The patient appeared well nourished and normally developed. Vital signs as documented. Head exam is normocephalic atraumatic Neck is without JVD, thyromegaly, or carotid bruits. Extremities are nonedematous and both pedal pulses are present Neurologic exam is alert and oriented, no focal loss of strength or sensation Skin is without bruises or rashes Psychologically is without concerns for anxiety or depression.. Results & Data Results & Data ([facility]) Vital Signs (Past 12 Hours) Vital Signs Temp Pulse Resp BP Pulse Ox O2 Del Method 05/15/22 23:13 97.7 F 59 L 18 153/81 H 95 Room Air PG Care Time/CCT Total # of Minutes Spent Total Time Spent with Patient: Total time spent is greater than 50% in coordination of care (as documented) at patient's floor/unit and/or counseling patient: Coding Level of Care Code 94875 Subseq Hosp Care Lvl 2 Diagnoses Pain due to malignant neoplasm metastatic to bone G89.3; C79.51 Metastatic renal cell carcinoma C64.9 Hypomagnesemia E83.42 Hypothyroidism E03.9 Hypothyroidism type: unspecified Essential (primary) hypertension I10 Chronic kidney disease, stage 4 (severe) N18.4 Absent kidney, acquired Z90.5 UTI (urinary tract infection) N39.0 (1) Hypothyroidism Hypothyroidism type: unspecified Qualified Code(s): E03.9 - Hypothyroidism, unspecified
[2022-05-16] MEDS: GABAPENTIN 300 MG CAP PO SCH ×2 (09:39→19:41)
[2022-05-16] MEDS: DOCUSATE SODIUM 100 MG CAP PO SCH ×2 (09:39→19:39)
[2022-05-16] MEDS: LEVOTHYROXINE SODIUM 137 MCG TABLET PO SCH (09:39)
[2022-05-16] MEDS: LIDOCAINE 5% 1 PATCH TD SCH (09:39)
[2022-05-16] MEDS: LISINOPRIL/HCTZ 20/12.5MG 1 TAB TAB PO SCH ×2 (09:39→19:40)
[2022-05-16] MEDS: HEPARIN SOD 5,000 UNIT/0.5 ML VIAL SQ SCH ×2 (09:39→19:41)
[2022-05-16] MEDS: HYDROmorphone INJ 0.5 MG/0.5 ML SYR IV PRN (09:43)
[2022-05-16] MEDS ORDERED: dexAMETHasone 2 MG in SYRINGE 0 ML IV ONE (11:22)
[2022-05-16] MEDS ORDERED: LACTATED RINGER'S 1,000 ML IV SCH (11:45)
[2022-05-16] MEDS ORDERED: methylPREDNISolone 40 MG in SYRINGE 0 ML IV ONE (12:00)
[2022-05-16] MEDS: CALCITONIN SALMON NA 200 IU/AC 3.7 ML BTL SCH (13:06)
[2022-05-16] MEDS: ACETAMINOPHEN 500 MG TAB PO SCH ×2 (13:08→19:42)
[2022-05-16] MEDS: OXYBUTYNIN CHLORIDE XL 5 MG TABCR PO SCH (19:40)
[2022-05-16] MEDS: cephALEXin 500 MG CAP PO SCH (19:41)
[2022-05-17] MEDS: AXITINIB 5 MG PO SCH (05:44)
[2022-05-17] MEDS: ACETAMINOPHEN 500 MG TAB PO SCH ×3 (07:50→19:46)
[2022-05-17 08:20] LABS: Basophils # (auto) 0.02 K/uL (0-0.2); Basophils % (auto) 0.2 %; Eosinophils # (auto) 0.09 K/uL (0-0.50); Hematocrit (blood only) 27.7 % (34.1-44.9); Hemoglobin 9.6 g/dl (12.0-16.0); Immature Granulocytes # (auto) 0.09 K/uL (0.00-0.02); Lymphocytes # (auto) 2.16 K/uL (1.2-3.4); Lymphocytes % (auto) 24.1 %; Mean Corpuscular Hemoglobin 28.7 pg (25.0-34.0); Mean Corpuscular Hgb Conc 34.7 g/dL (32.0-36.0); Mean Corpuscular Volume 82.9 fL (80.0-100.0); Mean Platelet Volume 9.6 fL (9.4-12.3); Monocytes # (auto) 0.83 K/uL (0.24-0.82); Monocytes % (auto) 9.3 %; Neutrophils # (auto) 5.77 K/uL (1.4-6.5); Neutrophils % (auto) 64.4 %; Platelet Count 186 K/uL (130-400); RDW Coefficient of Variation 14.9 % (11.5-14.5); RDW Standard Deviation 41.1 fL (36.4-46.3); Red Blood Count 3.34 M/uL (3.93-5.22); White Blood Count 8.96 K/ul (4.8-10.8)
[2022-05-17 08:38] LABS: Calcium 8.4 mg/dl (8.5-10.1); Est GFR (African American) 29.3 ml/min; Est GFR (Non-African American) 25.2 ml/min; Potassium 4.1 mmol/L (3.5-5.1)
[2022-05-17] MEDS: HEPARIN SOD 5,000 UNIT/0.5 ML VIAL SQ SCH ×2 (09:06→19:47)
[2022-05-17] MEDS: GABAPENTIN 300 MG CAP PO SCH ×2 (09:06→19:46)
[2022-05-17] MEDS: cephALEXin 500 MG CAP PO SCH ×2 (09:09→19:47)
[2022-05-17] MEDS: LISINOPRIL/HCTZ 20/12.5MG 1 TAB TAB PO SCH ×2 (09:09→19:46)
[2022-05-17] MEDS: LEVOTHYROXINE SODIUM 137 MCG TABLET PO SCH (09:09)
[2022-05-17] MEDS: CALCITONIN SALMON NA 200 IU/AC 3.7 ML BTL SCH (09:10)
[2022-05-17] MEDS: DOCUSATE SODIUM 100 MG CAP PO SCH ×2 (09:10→19:46)
[2022-05-17] MEDS: LIDOCAINE 5% 1 PATCH TD SCH (09:11)
--- NOTE | 2022-05-17 09:23 | Radiation OncologyConsultation ---
Date of Consultation May 17, 2022 Assessment & Plan (1) Metastatic renal cell carcinoma: Plan Assessment: Ms. 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 The patient is currently receiving pembrolizumab/axitinib in the outpatient setting underneath the supervision of Dr. Galeana. She is having the left lower back and pelvis pain associated with a bone metastasis. She was admitted to the hospital for further pain control and work-up and evaluation. I am now seeing the patient in consultation to discuss the role of radiation therapy. Recommendation: Palliative external beam radiation therapy to left pelvis. 10 fractions. Hold axitinib during radiation therapy. Plan: 1. CT simulation for treatment planning for radiation therapy. Treatment can start in the inpatient or outpatient setting. Hold axitinib during radiation therapy. Keytruda can continue underneath supervision of CCP. 2. Follow-up with medical oncology in the outpatient setting. 3. Referral other recommendations to primary medical team. 4. Patient and family encouraged to call us with any further questions or concerns. I have spoken with patient's daughter, Eveline, as well and all questions were answered. Discussion: I did explain the indications, alternatives, benefits, risks and side effects of external beam radiation therapy. I did explain the most common side effects including, but not limited to, skin erythema, skin breakdown, hyperpigmentation, telangiectasia, wound complications, perianal fistula development, fistula formation, bowel obstruction, bowel perforation, vaginal dryness, vaginal stenosis, dyspareunia, dysuria, increased urinary frequency, urgency, diarrhea, constipation, melena, hematochezia, hematuria, radiation cystitis, radiation proctitis, fatigue, decreased blood counts, wound complications from surgery, rectal incontinence, secondary malignancy development. I did explain the procedures and daily process of radiation therapy. The patient understands and would be willing to consent to treatment. The patient had multiple questions which were answered to her full satisfaction. Thank you for allowing us to participate in the care of this patient. This chart was completed in part utilizing [employer] Voice Recognition software. Attempts were made to minimize the grammatical errors, random word insertions, pronoun errors and incomplete sentences. Any formal questions or concerns about the content, text or information contained within the body of this dictation should be directly addressed to the provider for clarification. Maximino Hill MD Department of Radiation Oncology [facility] History of Present Illness Attending Physician: Zander Don MD History of Present Illness 12/15/2021. Urine cytology. Urine (cytologic analysis): - Severe acute cystitis is seen. - The specimen is negative for high-grade urothelial carcinoma. 12/17/2021. Renal ultrasound. IMPRESSION: Partial visualization of a left upper pole renal mass measuring 4.3 x 3.2 x 3.7 cm. No prior images are available for correlation, correlation with outside images if available or follow-up by renal protocol CT or MRI is recommended. 12/24/2021. CT of abdomen/pelvis. IMPRESSION: 1. Mass within the upper pole of the left kidney which corresponds to the finding on ultrasound of December 17, 2021. This is suboptimally assessed on this unenhanced exam but measures approximately 4.6 cm and is highly suggestive of renal cell carcinoma. Urology consultation is recommended. 2. Multiple pathologically enlarged left para- aortic lymph nodes consistent with tasha spread of disease. 3. Multiple small indeterminate nodules within the lower lungs. A nonemergent chest CT could be obtained for further evaluation. 02/17/2022. Biopsy of periaortic lymph node. Positive for metastatic carcinoma. Most likely suggestive of renal cell carcinoma. 03/09/2022. Cystoscopy by Dr. Thapa. No concern for primary bladder malignancy. 03/27/2022. Patient admitted to hospital due to hematuria with acute blood loss. 03/27/2022. CT of abdomen/pelvis. IMPRESSION: 1. Interval increase in size in the 5.2 cm mass within the upper pole of the left kidney consistent with a renal cell carcinoma. 2. Interval progression of the pulmonary nodules and left perinephric lymphadenopathy consistent with metastatic disease. 3. A new sclerotic focus within the left iliac bone which is also concerning for metastatic focus. 4. Increased density within the distal left ureter suggestive of blood products given the patient's history of hematuria. 03/27/2022. CT head. Impression: No acute intracranial abnormality. 03/29/2022. Urology inpatient follow-up with Dr. Bean. No acute surgical intervention recommended. Interventional radiology embolization of kidney to prevent bleeding could be considered. Oncology input appreciated. 03/31/2022. Bone scan. IMPRESSION: 1. Findings of multifocal osseous metastatic disease as above. 2. There is only minimal tracer activity is suggested in the left renal collecting system. 04/28/2022. Patient started on axitinib/pembrolizumb underneath supervision of Dr. Galeana. 05/07/2022. Medical oncology follow-up with Dr. Galeana. Continue axitinib/pembrolizumab. Start Xgeva for bone metastasis. 05/15/2022. CT of abdomen/pelvis. IMPRESSION: 1. Redemonstration of the infiltrative left renal mass with associated perinephric soft tissue infiltration and metastatic left para-aortic lymphadenopathy. This is similar to the prior study. 2. Interval progression of the metastatic disease within the lung bases as well as the scattered osteoblastic metastatic lesions. 05/15/2022. CT lumbar spine. IMPRESSION: 1. No acute fractures within the lumbar spine. 2. Interval progression of the osteoblastic metastatic lesions at T12, L2, and the left iliac bone. 3. The patient's known left renal mass, left periaortic lymphadenopathy, and pulmonary nodules are better appreciated on the same day abdomen and pelvis CT. 05/15/2022. Patient admitted to hospital for pain control. Allergies Allergy/AdvReac Type Severity Reaction Status Date / Time No Known Drug Allergies Allergy Verified 05/15/22 14:46 Home Medications Medication Instructions Recorded Confirmed Type calcium carbonate 600 mg-vitamin 1 tab PO QAM 06/27/19 05/15/22 History D3 20 mcg (800 unit) tablet (Caltrate with Vitamin D3) multivitamin (One Daily 1 tab PO QAM 06/27/19 05/15/22 History Multivitamin) lisinopril 20 1 tab PO BID #180 tabs 12/28/21 05/15/22 Rx mg-hydrochlorothiazide 12.5 mg tablet oxybutynin chloride 10 mg 10 mg PO HS #90 tabs 03/22/22 05/15/22 Rx tablet,extended release 24 hr (Ditropan XL) glucosamine-chondroitin 250 mg-200 1 tab PO QAM 04/21/22 05/15/22 History mg tablet (Osteo Bi-Flex) ketoconazole 2 % topical cream 1 applic topical BID PRN Rash 04/21/22 05/15/22 History krill 1,000 mg-omega-3 230 mg-dha 1 cap PO QAM 04/21/22 05/15/22 History 60 ic-rpl-safsdslpa-astaxan capsule (MegaRed [place]-3 Krill Oil) levothyroxine 137 mcg tablet 137 mcg PO QAM 04/21/22 05/15/22 History simvastatin 20 mg tablet (Zocor) 20 mg PO HS 04/21/22 05/15/22 History sulfamethoxazole 800 1 tab PO Q12H PRN uti 04/21/22 05/15/22 History mg-trimethoprim 160 mg tablet (Bactrim DS) axitinib 5 mg tablet (Inlyta) 5 mg PO BID 05/15/22 05/15/22 History docusate sodium 50 mg capsule 0 mg PO BID 05/15/22 05/15/22 History Patient History Medical History Aortic stenosis Mild aortic stenosis (PADMINI 1.7cm2) per 07/2018 echo Chronic anemia Chronic kidney disease, stage 4 (severe) 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 No issues noted per post-op anesthesia progress note. Hx of cholecystectomy Hx of colonoscopy Port-A-Cath in place (04/26/22) Port placement and fluoroscopy. Dr. Shelley Status post left breast lumpectomy Left Breast Lumpectomy with Needle Localization and Left [place] Lymph Node Biopsy Family History Mother Thyroid disease Father Osteoarthritis Brother Colon cancer Grandmother Colon cancer Other No family history of adverse response to anesthesia Denies family history of Ovarian cancer Prostate cancer Myocardial infarction Breast cancer Social History (Reviewed 05/15/22 @ 13:34 by MORGAN Varela Smoking Status: Former smoker Tobacco Type: Cigarettes Age Started Using Tobacco: 18; Age Quit Using Tobacco: 29; packs per day: 0.5; Years Smoked: 11; Cigarettes Per Day: 10; Number of Years Since Quit: 52; Second Hand Exposure: No; Do You Dip or Chew Tobacco: No; Tobacco Cessation Education Requested by Patient: No Hx Alcohol Use: No Hx Substance Use: No Preferred Language: Salvadorean Communication Ability: Effective Visual Impairment: No Limitations 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: Normal 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 Beliefs That Will Affect Care: None marital status: / Current Living Situation: Alone Current Living Situation Comment: daughters to help current occupational status: retired How many Children do You have: 3 Other Information That Helps Us Care for You: No Feels Safe at Home: Yes Safety Concerns: Feels Safe At This Time Childhood Exposure to Second-Hand Smoke: Yes caffeine: Yes during the past year weight has: increased > 10 lbs Dental Care, Regularly: No Physical Activity Frequency: Does not Exercise Seatbelt Use: always Sunscreen Use: No Assistive Devices: Cane and Walker Assistive Devices Comment: all activites now require help d/t pain Review of Systems Review of Systems: Pain involving the left lower pelvis/back. Otherwise unremarkable. Physical Exam Constitutional: WD/WN, vitals as above Psychiatric: A+Ox3, euthymic affect Time Spent Attending I spent 15 minutes in preparation for this consultation including reviewing all the clinical records, reviewing laboratory studies, pathology reports and im aging results. I spent 20 minutes with direct face to face interaction with the patient and/or family including performing a physical exam and answering all questions. I spent 15 minutes documenting this patient's visit.
[2022-05-17] MEDS: oxyCODONE HCL IR 5 MG TAB (IMMEDIATE RELEASE) PO PRN (10:16)
[2022-05-17] MEDS ORDERED: methylPREDNISolone 40 MG in SYRINGE 0 ML IV ONE (13:00)
[2022-05-17] MEDS: SENNA 8.6 MG TAB PO SCH (13:17)
--- NOTE | 2022-05-17 16:29 | Palliative Care Consultation ---
Date of Consultation May 17, 2022 Assessment & Plan (1) Cancer related pain: She is getting some relief with steroid, though this would not be a chcf solution with her immunotherapy. She unfortunately has a creatinine of 1.83 and is not a candidate for NSAIDs. Pain is localized which makes lidocaine patch helpful. She was seen by Dr. Hill today and will be starting palliative radiation which will also help to relieve her pain. We reviewed all of these things which will help minimize opioid use and side effects though I think she would benefit from IV hydromorphone prior to her radiation treatments and prn. She is agreeable to this. Order placed to try and coordinate dose with radiation schedule. (2) Constipation: On senna and colace. Monitor. (3) Palliative care encounter: I talked with Mr. Luo about how she is coping with her cancer diagnosis. She tells me that her of lung cancer seven years ago and she has had multiple family members of colon cancer. She thinks about what her dying time will be like, having watched what they went through. I asked her if she had fears or worries. She became tearful and told me that her biggest worry is being a burden to her daughters. She has three daughters who are all teachers and have been taking turns staying with her over the summer to help. They are arranging her home for any necessary equipment to accommodate her when she returns home. We discussed their caring for her as a way to help them cope with her illness which she acknowledges. It has been difficult for her to be the one needing help. She and her daughter's are looking at options for support moving forward. They did have hospice for her at his dying time and she would want that as well. I spoke with her daughter, Eveline, on the phone. Eveline asked about whether hospice could be concurrent with radiation and immunotherapy. They are looking at home care support and had been thinking that they want [facility]. Discussed option for [facility] palliative care which would provide nurses with hospice training and facilitate transition to hospice when ready. Eveline is thinking that they will complete palliative radiation and two further infusions. They are planning to meet with Dr. Galeana at that time to decide if transition to hospice is appropriate. Notified case management. (4) Metastatic renal cell carcinoma to bone: History of Present Illness Reason for Consultation: goals of care, pain management Requesting Physician: Dr. Don Attending Physician: Zander Don MD History of Present Illness 81 yo lady with renal cell carcinoma metastatic to lungs, lymph nodes and bone. She is followed by Dr. Galeana and has been receiving immunotherapy as an outpatient. She presented with progressive left low back pain that was not responding to hydrocodone/APAP at home. She has known osteoblastic lesions at T12, L2 and left iliac bone. She has had IV solumedrol since admission with some relief. She has oxycodone 7.5 mg which has not really provided relief. She also has a topical lidocaine patch. She is sitting up in the chair and notes that she does not have pain when lying down or sitting without movement. She has moderate pain, "like a knife", with twisting and changing position. She has not had a bowel movement since , which is five days ago but notes that she has had poor appetite. She denies abdominal pain or nausea. Allergies Allergy/AdvReac Type Severity Reaction Status Date / Time No Known Drug Allergies Allergy Verified 05/15/22 14:46 Home Medications Medication Instructions Recorded Confirmed Type calcium carbonate 600 mg-vitamin 1 tab PO QAM 06/27/19 05/15/22 History D3 20 mcg (800 unit) tablet (Caltrate with Vitamin D3) multivitamin (One Daily 1 tab PO QAM 06/27/19 05/15/22 History Multivitamin) lisinopril 20 1 tab PO BID #180 tabs 12/28/21 05/15/22 Rx mg-hydrochlorothiazide 12.5 mg tablet oxybutynin chloride 10 mg 10 mg PO HS #90 tabs 03/22/22 05/15/22 Rx tablet,extended release 24 hr (Ditropan XL) glucosamine-chondroitin 250 mg-200 1 tab PO QAM 04/21/22 05/15/22 History mg tablet (Osteo Bi-Flex) ketoconazole 2 % topical cream 1 applic topical BID PRN Rash 04/21/22 05/15/22 History krill 1,000 mg-omega-3 230 mg-dha 1 cap PO QAM 04/21/22 05/15/22 History 60 hj-mwc-ydtyervpi-astaxan capsule (MegaRed [place]-3 Krill Oil) levothyroxine 137 mcg tablet 137 mcg PO QAM 04/21/22 05/15/22 History simvastatin 20 mg tablet (Zocor) 20 mg PO HS 04/21/22 05/15/22 History sulfamethoxazole 800 1 tab PO Q12H PRN uti 04/21/22 05/15/22 History mg-trimethoprim 160 mg tablet (Bactrim DS) axitinib 5 mg tablet (Inlyta) 5 mg PO BID 05/15/22 05/15/22 History docusate sodium 50 mg capsule 0 mg PO BID 05/15/22 05/15/22 History Patient History Medical History Aortic stenosis Mild aortic stenosis (PADMINI 1.7cm2) per 07/2018 echo Chronic anemia Chronic kidney disease, stage 4 (severe) 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 No issues noted per post-op anesthesia progress note. Hx of cholecystectomy Hx of colonoscopy Port-A-Cath in place (04/26/22) Port placement and fluoroscopy. Dr. Shelley Status post left breast lumpectomy Left Breast Lumpectomy with Needle Localization and Left [place] Lymph Node Biopsy Family History Mother Thyroid disease Father Osteoarthritis Brother Colon cancer Grandmother Colon cancer Other No family history of adverse response to anesthesia Denies family history of Ovarian cancer Prostate cancer Myocardial infarction Breast cancer Social History Smoking Status: Former smoker Tobacco Type: Cigarettes Age Started Using Tobacco: 18; Age Quit Using Tobacco: 29; packs per day: 0.5; Years Smoked: 11; Cigarettes Per Day: 10; Number of Years Since Quit: 52; Second Hand Exposure: No; Do You Dip or Chew Tobacco: No; Tobacco Cessation Education Requested by Patient: No Hx Alcohol Use: No Hx Substance Use: No Preferred Language: Filipino Communication Ability: Effective Visual Impairment: No Limitations 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: Normal 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: No Beliefs That Will Affect Care: None marital status: / Current Living Situation: Alone Current Living Situation Comment: daughters to help current occupational status: retired How many Children do You have: 3 Other Information That Helps Us Care for You: No Feels Safe at Home: Yes Safety Concerns: Feels Safe At This Time Childhood Exposure to Second-Hand Smoke: Yes caffeine: Yes during the past year weight has: increased > 10 lbs Dental Care, Regularly: No Physical Activity Frequency: Does not Exercise Seatbelt Use: always Sunscreen Use: No Assistive Devices: Cane and Walker Assistive Devices Comment: all activites now require help d/t pain Review of Systems Review of Systems: ESAS Pain 2/3 Dyspnea 0/3 Fatigue 1/3 Nausea 0/3 Anxiety 0/3 Drowsiness 0/3 PPS 50% Physical Exam Constitutional: no acute distress Respiratory: normal respiratory effort; no labored breathing Musculoskeletal: Extremities: extremities normal to inspection Neurologic: moves all extremities Speech / Cognition: normal cognition Psychiatric: Orientation: oriented x 3 Affect: + tearful affect Results & Data ([facility]) Vital Signs (Past 12 Hours) Vital Signs Temp Pulse Pulse Resp BP Pulse Ox O2 Del Method 05/17/22 14:31 97.9 F 60 18 148/74 H 98 Room Air 05/17/22 12:15 98.2 F 57 L 18 148/75 H 98 Room Air 05/17/22 07:24 97.7 F 59 L 18 168/72 H 98 Room Air PG Care Time/CCT Total # of Minutes Spent Total Time Spent: 60 Total Time Spent with Patient: Total time spent is greater than 50% in coordination of care (as documented) at patient's floor/unit and/or counseling patient: symptom management, goals of care, hospice, patient and family education and support Coding Level of Care Code 76391 Initial Inpt Care Lvl 2 Diagnoses Cancer related pain G89.3 Constipation K59.00 Palliative care encounter Z51.5 Metastatic renal cell carcinoma to bone C79.51; C64.9
--- NOTE | 2022-05-17 17:47 | Consultation Report ---
DATE OF SERVICE: 05/17/2022. REASON FOR CONSULTATION: Metastatic renal cell carcinoma. HISTORY OF PRESENT ILLNESS: Ms. Luo is an 81-year-old female with history of metastatic renal cell carcinoma for which she was started on axitinib/pembrolizumab on 04/28/2022. The patient was admitted for worsening left-sided hip pain due to osseous metastatic disease. During my evaluation of patient today, she states that pain has been better controlled with IV hydromorphone as well as one dose of Solu-Medrol 40 mg given yesterday. She was evaluated by Dr. Hill of radiation oncology earlier today who plans to give 10 fractions of palliative radiation to the left iliac wing lesion. HOME MEDICATIONS: 1. Axitinib 5 mg p.o. b.i.d. 2. Simvastatin 20 mg p.o. at bedtime. 3. Levothyroxine. 4. Oxybutynin. 5. Lisinopril/hydrochlorothiazide. 6. Multivitamin daily. ALLERGIES: No known drug allergies. PAST MEDICAL HISTORY: 1. Metastatic renal cell carcinoma. 2. DCIS. 3. Hyperlipidemia. 4. Hypertension. 5. Hypothyroidism. PAST SURGICAL HISTORY: 1. Left mastectomy. 2. Cholecystectomy. 3. Lumpectomy. FAMILY HISTORY: Significant for colon cancer in her brother and grandmother. SOCIAL HISTORY: Quit smoking at the age of 29. Prior to this, had a 6-pack year history of smoking. Denies alcohol and illicit drug use. REVIEW OF SYSTEMS: CONSTITUTIONAL: Negative for weight loss, night sweats or fever. CARDIOVASCULAR: Denies chest pain, palpitations, dizziness, or diaphoresis. GASTROINTESTINAL: Denies diarrhea, hematemesis, melena, nausea, vomiting or dyspepsia. GENITOURINARY: Negative for urinary frequency or hematuria. NEUROLOGIC: Unremarkable. MUSCULOSKELETAL: Positive for left hip pain. PHYSICAL EXAMINATION: VITAL SIGNS: Blood pressure 148/74, heart rate 60, respiratory rate 18, temperature 36.6, oxygen saturation 98% on room air. EYES: No conjunctival erythema or icterus. NECK: Negative for masses or palpable thyromegaly. RESPIRATORY: Lung sounds were clear bilaterally. CARDIOVASCULAR: III/ systolic ejection murmur. GASTROINTESTINAL: Abdomen is soft with normal bowel sounds. LYMPHATIC SYSTEM: No palpable peripheral lymphadenopathy. EXTREMITIES: No edema bilaterally. LABORATORY TESTING: CBC from 05/17/2022 significant for white count of 8.96, hemoglobin 9.6, hematocrit 27.7, MCV 82.9, platelet count 186,000. Sodium 129, potassium 4.1, chloride 97, bicarbonate 26, anion gap 6, BUN 13, creatinine 1.83. IMAGING STUDIES: CT abdomen and pelvis on 05/15/2022, impression: 1. Redemonstration of infiltrative left renal mass with associated perinephric soft tissue infiltration and metastatic left paraaortic lymphadenopathy. 2. Interval progression of metastatic disease within the lung bases as well as scattered osteoblastic metastatic lesions. CT lumbar spine on 05/15/2022, impression: 1. No acute fractures within the lumbar spine. 2. Interval progression of osteoblastic metastatic lesions at T12, L2 and left iliac bone. IMPRESSION: 1. Metastatic renal cell carcinoma. 2. Left iliac bone metastasis with worsening pain. 3. Hyponatremia. 4. Anemia. An 81-year-old female recently diagnosed metastatic renal cell carcinoma for which she is status post one cycle of Keytruda/axitinib. She was admitted with refractory left hip pain due to left iliac wing bone metastasis. She was recently evaluated by Dr. Hill of radiation oncology who plans to start her on palliative radiation treatment tomorrow. Agree with palliative radiation treatment. She was instructed to hold TKI (Axitinib) while receiving RT. Also, agree with optimizing pain control with pain medications. Will reschedule her Keytruda and xgeva for later this week. Regarding her anemia, we would recommend giving a dose of IV Venofer as I suspect that she has a component of iron deficiency and her ferritin is falsely normal due to underlying malignancy. Thank you for this consult. Oncology will see the patient upon discharge from hospital as scheduled. Please feel free to call if you have any further questions. Job ID: [id number] [id number]
[2022-05-17] MEDS: OXYBUTYNIN CHLORIDE XL 5 MG TABCR PO SCH (19:46)
[2022-05-17] MEDS: HYDROmorphone INJ 0.5 MG/0.5 ML SYR IV PRN (19:50)
[2022-05-17] MEDS: HEPARIN 100 UNIT/ML 5ML FLUSH FLUSH PRN (19:50)
[2022-05-18 07:25] LABS: Basophils # (auto) 0.01 K/uL (0-0.2); Basophils % (auto) 0.1 %; Eosinophils # (auto) 0.13 K/uL (0-0.50); Eosinophils % (auto) 1.5 %; Hemoglobin 9.7 g/dl (12.0-16.0); Immature Granulocytes # (auto) 0.07 K/uL (0.00-0.02); Immature Granulocytes % (auto) 0.8 %; Lymphocytes # (auto) 2.53 K/uL (1.2-3.4); Lymphocytes % (auto) 28.7 %; Mean Corpuscular Hemoglobin 28.6 pg (25.0-34.0); Mean Corpuscular Hgb Conc 34.6 g/dL (32.0-36.0); Mean Corpuscular Volume 82.6 fL (80.0-100.0); Mean Platelet Volume 9.7 fL (9.4-12.3); Monocytes # (auto) 0.75 K/uL (0.24-0.82); Monocytes % (auto) 8.5 %; Neutrophils # (auto) 5.34 K/uL (1.4-6.5); Neutrophils % (auto) 60.4 %; Platelet Count 207 K/uL (130-400); RDW Coefficient of Variation 15.5 % (11.5-14.5); RDW Standard Deviation 44.2 fL (36.4-46.3); Red Blood Count 3.39 M/uL (3.93-5.22); White Blood Count 8.83 K/ul (4.8-10.8)
[2022-05-18 07:46] LABS: BUN Creatinine Ratio 24.4 (10-20); Calcium 8.5 mg/dl (8.5-10.1); Creatinine Clr Calc Pharmacy 31.5 ml/min; Est GFR (African American) 29.9 ml/min; Est GFR (Non-African American) 25.8 ml/min; Potassium 4.2 mmol/L (3.5-5.1)
[2022-05-18] MEDS: LIDOCAINE 5% 1 PATCH TD SCH (08:47)
[2022-05-18] MEDS: HEPARIN SOD 5,000 UNIT/0.5 ML VIAL SQ SCH ×2 (08:48→20:15)
[2022-05-18] MEDS: LISINOPRIL/HCTZ 20/12.5MG 1 TAB TAB PO SCH ×2 (08:50→20:14)
[2022-05-18] MEDS: GABAPENTIN 300 MG CAP PO SCH ×2 (08:50→20:14)
[2022-05-18] MEDS: ACETAMINOPHEN 500 MG TAB PO SCH ×3 (08:51→20:14)
[2022-05-18] MEDS: CALCITONIN SALMON NA 200 IU/AC 3.7 ML BTL SCH (08:51)
[2022-05-18] MEDS: predniSONE 20 MG TAB PO SCH (08:52)
[2022-05-18] MEDS: LEVOTHYROXINE SODIUM 137 MCG TABLET PO SCH (08:52)
[2022-05-18] MEDS: DOCUSATE SODIUM 100 MG CAP PO SCH ×2 (08:52→20:14)
[2022-05-18] MEDS: cephALEXin 500 MG CAP PO SCH ×2 (08:53→20:13)
[2022-05-18] MEDS: SENNA 8.6 MG TAB PO SCH (09:52)
[2022-05-18] MEDS: oxyCODONE HCL IR 5 MG TAB (IMMEDIATE RELEASE) PO PRN (09:54)
[2022-05-18] MEDS ORDERED: oxyCODONE HCL IR 5 MG TAB (IMMEDIATE RELEASE) PO PRN (12:55)
--- NOTE | 2022-05-18 13:12 | Palliative Care Progress Note ---
Date of Service May 18, 2022 Assessment & Plan (1) Cancer related pain: Plan: Given that pain is associated with routine movements, she may benefit from long acting opioid. Discussed adding oxycodone ER for more consistent analgesia. She is agreeable. Continue prn oxycodone. Recommend predmedication prior to XRT. Discussed with RN (2) Constipation: Plan: Add miralax (3) Palliative care encounter: Plan: I talked with Eveline about my discussion with her daughter yesterday and plan for home with [facility] palliative care, transitioning to hospice when appropriate. She feels this is a good plan. Admission and Anticipated Discharge Date Admission Date: May 15, 2022 Subjective Sitting up in bed. Has 5-6/10 pain with twisting movements. Oxycodone increased to 10mg which she felt was more effective. Starting radiation therapy today at 3pm. No BM since last . Denies abdominal pain, bloating or nausea. Review of Systems Review of Systems: ESAS Pain 2/3 Dypsnea 0/3 Nausea 0/3 Fatigue 1/3 Anxiety 0/3 Drowsiness 0/3 PPS 50 Physical Exam Constitutional: no acute distress ENMT: Mouth: oral mucous membranes not dry Respiratory: normal respiratory effort; no labored breathing Gastrointestinal (Abdomen): obese, nontender Neurologic: Speech / Cognition: normal cognition Results & Data ([facility]) Vital Signs (Past 12 Hours) Vital Signs Temp Pulse Resp BP Pulse Ox O2 Del Method 05/18/22 07:21 98.1 F 57 L 18 151/75 H 97 Room Air 05/18/22 03:54 97.7 F 58 L 17 167/76 H 97 Room Air PG Care Time/CCT Total # of Minutes Spent Total Time Spent with Patient: Total time spent is greater than 50% in coordination of care (as documented) at patient's floor/unit and/or counseling patient: Coding Level of Care Code 89512 Subseq Hosp Care Lvl 2 Diagnoses Cancer related pain G89.3 Constipation K59.00 Palliative care encounter Z51.5
[2022-05-18] MEDS ORDERED: IRON SUCROSE 200 MG in 0.9 % SODIUM CHLORIDE 100 ML IV ONE (14:00)
[2022-05-18] MEDS: HYDROmorphone INJ 0.5 MG/0.5 ML SYR IV PRN (14:30)
--- NOTE | 2022-05-18 17:38 | Hospitalist Progress Note ---
Date of Service May 18, 2022 Assessment & Plan (1) Pain due to malignant neoplasm metastatic to bone: Plan: Acute worsening of left iliac bone pain. T12, L 1 osteoblastic lesions -her pain is positional making me suspicious of pathological fracture, although not commented on specifically on imaging - Tylenol scheduled -Palliative care started on OxyContin 10 twice daily on 05/18/2022 - Oxy IR 10mg q4 prn - can increase as needed - Gabapentin 300mg PO BID dose now- increase if effective and tolerated - Lidocaine patch - Hydromorphone 0.5mg IV q6prn- adjust as needed - calcitonin nasal spray, one dose of solumedrol - consult radiation oncology 10 treatments planned starting on 05/18/2022 - consult haematology/oncology follows with Dr. Lissett Esqueda fair therapy (2) Metastatic renal cell carcinoma: Plan: Metastatic disease- current therapy Keytruda/Axitinib -holding Axitinib with XRT - Hematology for Pembrolizumab dosing if patient remains in house (3) Hypomagnesemia: Plan: With decreased oral intake at home - Magnesium 3 GM IV - replace - (4) Hypothyroidism: Plan: Continue Synthroid (5) Essential (primary) hypertension: Plan: CKD IIIb stable [employer] at 1.98- baseline 1,8-2.0 - follow volume status and renal function - continue lisinopril for now (6) Chronic kidney disease, stage 4 (severe): Plan: As above follow electrolytes, renal dose medications, avoid further nephrotoxic medications as able (7) Absent kidney, acquired: Plan: Nephrectomy secondary to RCC- follow renal function - metastatic disease- continue follow up and management by Haematology/Oncology (8) UTI (urinary tract infection): Plan: previous e coli uti Amox/Clav S <=8/4 Ampicillin R >16 Amp/Sul R >16/8 Cefazolin S 4 Cefepime S <=2 Ceftriaxone S <=1 Ciprofloxacin S <=0.25 Ertapenem S <=0.5 Gentamicin S <=4 Levofloxacin S <=0.5 Meropenem S <=1 Nitrofurantoin S <=32 Tobramycin S <=4 Trimeth/Sulfa S <=2/38 Pip/Tazo S <=16 05/11/22 changed to keflex due to hyponatremia Admission and Anticipated Discharge Date Admission Date: May 15, 2022 Subjective Patient having significant pain even though attempts were made adjusting her regimen. For initiation of radiation therapy today. Daughter is at bedside and updated. Palliative care has given OxyContin on 05/18/2022 Review of Systems Review of Systems: Patient feels fine when she does not move no headache, no visual changes no speech or swallowing issues no chest pain, pressure or palpitations no shortness of breath, cough or wheezes no abdominal pain, nausea or vomiting, remains with constipation no dysuria, hematuria or frequency no focal joint pain or swelling Focal nonradiating back pain at the area of the metastatic disease T12-L1 worse with movement no bruising, bleeding or rashes no focal signs of weakness or numbness or altered sensation no complaints of anxiety or depression.. Physical Exam Physical Exam: The patient appeared well nourished and normally developed. Vital signs as documented. Head exam is normocephalic atraumatic Neck is without JVD, thyromegaly, or carotid bruits. Heart is regular no significant murmurs Lungs are with basilar rales that clear with deep inspiration Abdomen is NABS soft nontender Extremities are nonedematous and both pedal pulses are present Neurologic exam is alert and oriented, no focal loss of strength or sensation Skin is without bruises or rashes Psychologically is without concerns for anxiety or depression.. Results & Data Results & Data ([facility]) Vital Signs (Past 12 Hours) Vital Signs Temp Pulse Pulse Resp BP Pulse Ox O2 Del Method 05/18/22 16:15 98.1 F 64 18 152/74 H 98 Room Air 05/18/22 07:21 98.1 F 57 L 18 151/75 H 97 Room Air PG Care Time/CCT Total # of Minutes Spent Total Time Spent with Patient: Total time spent is greater than 50% in coordination of care (as documented) at patient's floor/unit and/or counseling patient: Coding Level of Care Code 43214 Subseq Hosp Care Lvl 3 Diagnoses Pain due to malignant neoplasm metastatic to bone G89.3; C79.51 Metastatic renal cell carcinoma C64.9 Hypomagnesemia E83.42 Hypothyroidism E03.9 Hypothyroidism type: unspecified Essential (primary) hypertension I10 Chronic kidney disease, stage 4 (severe) N18.4 Absent kidney, acquired Z90.5 UTI (urinary tract infection) N39.0 (1) Hypothyroidism Hypothyroidism type: unspecified Qualified Code(s): E03.9 - Hypothyroidism, unspecified
[2022-05-18] MEDS: POLYETHYLENE (MIRALAX) 17 GM PACK PO PRN (18:27)
[2022-05-18] MEDS: OXYBUTYNIN CHLORIDE XL 5 MG TABCR PO SCH (20:13)
[2022-05-18] MEDS: oxyCODONE HCL 10 MG TABCR (OxyCONTIN) PO SCH (20:16)
[2022-05-19] MEDS: POLYETHYLENE (MIRALAX) 17 GM PACK PO PRN (07:56)
[2022-05-19] MEDS: oxyCODONE HCL 10 MG TABCR (OxyCONTIN) PO SCH ×2 (09:15→21:06)
[2022-05-19] MEDS: DOCUSATE SODIUM 100 MG CAP PO SCH ×2 (09:16→21:06)
[2022-05-19] MEDS: SENNA 8.6 MG TAB PO SCH ×2 (09:16→21:09)
[2022-05-19] MEDS: predniSONE 20 MG TAB PO SCH (09:17)
[2022-05-19] MEDS: HEPARIN SOD 5,000 UNIT/0.5 ML VIAL SQ SCH ×2 (09:17→21:08)
[2022-05-19] MEDS: ACETAMINOPHEN 500 MG TAB PO SCH ×3 (09:19→21:07)
[2022-05-19] MEDS: LIDOCAINE 5% 1 PATCH TD SCH (09:19)
[2022-05-19] MEDS: GABAPENTIN 300 MG CAP PO SCH ×2 (09:20→21:07)
[2022-05-19] MEDS: LISINOPRIL/HCTZ 20/12.5MG 1 TAB TAB PO SCH (09:20)
[2022-05-19] MEDS: cephALEXin 500 MG CAP PO SCH ×2 (09:21→21:07)
[2022-05-19] MEDS: CALCITONIN SALMON NA 200 IU/AC 3.7 ML BTL SCH (09:21)
[2022-05-19] MEDS: LEVOTHYROXINE SODIUM 137 MCG TABLET PO SCH (09:21)
[2022-05-19] MEDS ORDERED: bisacodyL 10 MG SUPP PR STA ×2 (09:56→09:57)
[2022-05-19 10:06] LABS: Calcium 8.8 mg/dl (8.5-10.1); Creatinine Clr Calc Pharmacy 32.4 ml/min; Est GFR (African American) 30.9 ml/min; Est GFR (Non-African American) 26.7 ml/min; Magnesium 1.8 mg/dl (1.7-2.4); Potassium 3.9 mmol/L (3.5-5.1)
--- NOTE | 2022-05-19 11:58 | Hospitalist Progress Note ---
Date of Service May 19, 2022 Assessment & Plan (1) Pain due to malignant neoplasm metastatic to bone: Plan: Mets to left iliac bone. This is the likely cause of ongoing low back pain. Also with mets to T12 and L2 but she does not have midline spine pain. Day #2 of 10 today for radiation c/o Dr Hill. Continue the following pain meds - * Tylenol scheduled * OxyContin 10 twice daily (first dose - 05/18/2022) * Oxy IR 10mg q4 prn * Gabapentin 300mg PO BID * Lidocaine patches * Hydromorphone 0.5mg IV q6 prn- * calcitonin nasal spray * prednisone 20mg daily - consider changing to dexamethasone 2mg or 4mg/day - may work better for bone pain Appreciate palliative care, rad onc, and onc consultations. Holding Axitinib at this time. (2) Metastatic renal cell carcinoma: Plan: Metastatic disease - current therapy Keytruda/Axitinib. Holding Axitinib with XRT. Next chemo treatment was to be this Tuesday - I spoke with Dr Galenaa - patient likely to still be hospitalized thus likely to be deferred to next week at [facility]. (3) Hypomagnesemia: Plan: replaced resolved mag level wnl today (4) Hypothyroidism: Plan: Continue Synthroid TSH in early April and this admission both high Consider small dose increase to 150mcg/day (5) Essential (primary) hypertension: Plan: Stop HCTZ due to ongoing issues with hyponatremia Cont lisinopril Add additional agents as necessary (6) Chronic kidney disease, stage 4 (severe): Plan: baseline CrCl low 30s at baseline today (7) Absent kidney, acquired: Plan: LEFT Nephrectomy secondary to RCC (8) UTI (urinary tract infection): Plan: currently on keflex 500mg BID day # 4 plan 7 days in total (9) Hyponatremia: Plan: suspect 2nd to HCTZ use serum osm, urine osm, and urine Na now c/w SIADH [id number] will use NaCl 1gm daily and will stop the HCTZ BMP daily (10) Constipation: Plan: severe opiate-induced s/p dulcolax suppos today then increase senna to 2 tabs BID and make miralax scheduled (11) DVT prophylaxis: Plan: heparin SC - but will increase to TID dosing Plan cont PT, OT keep hospitalized until pain with movement is reasonably controlled daughters updated at bedside today Admission and Anticipated Discharge Date Admission Date: May 15, 2022 Subjective patient complains of pain over the left low back, near the location of the iliac crest metastatic deposit no pain at rest or sleeping but any activity leads to the pain denies pain in any other location eating fair tolerated her first XRT treatment yesterday goes this afternoon for 2nd treatment no BM for 5+ days had dulcolax suppos and with such had 2 small BMs feels a little better following such 2 daughters and a grand-daughter at bedside Review of Systems Review of Systems: gen - no fevers or chills cv - no chest pain pulm - no dyspnea GI - no nausea or emesis Physical Exam Physical Exam: gen - comfortable appearing, sitting in chair, awake/alert mouth - MMM neck - no JVD heart - RRR, s1 s2, 2/6 systolic murmur RUSB lungs - CTA b/l abd - soft NT ND BS+ back - tender over lower left paraspinal region; no pain over t-spine or l-spine to palpation ext - no edema, pulses 2+ b/l psych - awake, alert Results & Data Results & Data ([facility]) Vital Signs (Past 12 Hours) Vital Signs Temp Pulse Resp BP Pulse Ox O2 Del Method 05/19/22 07:45 147/69 H 05/19/22 07:17 36.7 C 68 16 99 Room Air Laboratory Results Laboratory Results - last 24 hr 05/19/22 05/19/22 05/19/22 09:06 09:06 09:27 Sodium 128 L Potassium 3.9 Chloride 95 L Carbon Dioxide 24 Anion Gap 9 BUN 42 H Creatinine 1.75 H Est Cr Clr Drug Dosing 32.4 Est GFR ( Amer) 30.9 Est GFR (Non-Af Amer) 26.7 BUN/Creatinine Ratio 24.0 H Glucose 137 H Osmolality Calcium 8.8 Magnesium 1.8 Urine Osmolality 269 L Ur Random Sodium 56 05/19/22 09:27 Sodium Potassium Chloride Carbon Dioxide Anion Gap BUN Creatinine Est Cr Clr Drug Dosing Est GFR ( Amer) Est GFR (Non-Af Amer) BUN/Creatinine Ratio Glucose Osmolality 283 Calcium Magnesium Urine Osmolality Ur Random Sodium PG Care Time/CCT Total # of Minutes Spent Total Time Spent with Patient: Total time spent is greater than 50% in coordination of care (as documented) at patient's floor/unit and/or counseling patient: Coding Level of Care Code 23267 Subseq Hosp Care Lvl 3 Diagnoses Pain due to malignant neoplasm metastatic to bone G89.3; C79.51 Metastatic renal cell carcinoma C64.9 Hypomagnesemia E83.42 Hypothyroidism E03.9 Hypothyroidism type: unspecified Essential (primary) hypertension I10 Chronic kidney disease, stage 4 (severe) N18.4 Absent kidney, acquired Z90.5 UTI (urinary tract infection) N39.0 Hyponatremia E87.1 Constipation K59.00 DVT prophylaxis Z29.9 (1) Hypothyroidism Hypothyroidism type: unspecified Qualified Code(s): E03.9 - Hypothyroidism, unspecified
[2022-05-19] MEDS: POLYETHYLENE (MIRALAX) 17 GM PACK PO SCH (14:01)
[2022-05-19] MEDS: HYDROmorphone INJ 0.5 MG/0.5 ML SYR IV PRN (14:03)
[2022-05-19] MEDS: HEPARIN 100 UNIT/ML 5ML FLUSH FLUSH PRN (16:03)
[2022-05-19] MEDS: SODIUM CHLORIDE 1 GM TABLET PO SCH (21:06)
[2022-05-19] MEDS: OXYBUTYNIN CHLORIDE XL 5 MG TABCR PO SCH (21:06)
[2022-05-19] MEDS: lisinopril 20 MG TAB PO SCH (21:08)
[2022-05-20] MEDS: HYDROmorphone INJ 0.5 MG/0.5 ML SYR IV PRN ×2 (07:26→13:59)
[2022-05-20] MEDS: HEPARIN 100 UNIT/ML 5ML FLUSH FLUSH PRN ×2 (07:26→14:00)
[2022-05-20] MEDS: POLYETHYLENE (MIRALAX) 17 GM PACK PO SCH (08:40)
[2022-05-20] MEDS: CALCITONIN SALMON NA 200 IU/AC 3.7 ML BTL SCH (08:40)
[2022-05-20] MEDS: lisinopril 20 MG TAB PO SCH (08:40)
[2022-05-20] MEDS: ACETAMINOPHEN 500 MG TAB PO SCH ×3 (08:41→21:10)
[2022-05-20] MEDS: SODIUM CHLORIDE 1 GM TABLET PO SCH (08:41)
[2022-05-20] MEDS: LEVOTHYROXINE SODIUM 137 MCG TABLET PO SCH (08:41)
[2022-05-20] MEDS: predniSONE 20 MG TAB PO SCH (08:41)
[2022-05-20] MEDS: HEPARIN SOD 5,000 UNIT/0.5 ML VIAL SQ SCH ×5 (08:41→21:11)
[2022-05-20] MEDS: oxyCODONE HCL 10 MG TABCR (OxyCONTIN) PO SCH ×2 (08:41→19:13)
[2022-05-20] MEDS: DOCUSATE SODIUM 100 MG CAP PO SCH ×2 (08:41→19:46)
[2022-05-20] MEDS: cephALEXin 500 MG CAP PO SCH ×2 (08:41→19:46)
[2022-05-20] MEDS: LIDOCAINE 5% 1 PATCH TD SCH (08:41)
[2022-05-20] MEDS: SENNA 8.6 MG TAB PO SCH ×2 (08:42→19:56)
[2022-05-20] MEDS: GABAPENTIN 300 MG CAP PO SCH ×2 (08:43→19:46)
[2022-05-20] MEDS: dexAMETHasone 4 MG TAB PO SCH (08:45)
[2022-05-20 11:25] LABS: Hematocrit (blood only) 29.9 % (34.1-44.9); Hemoglobin 10.2 g/dl (12.0-16.0); Mean Corpuscular Hemoglobin 29.1 pg (25.0-34.0); Mean Corpuscular Hgb Conc 34.1 g/dL (32.0-36.0); Mean Corpuscular Volume 85.2 fL (80.0-100.0); Mean Platelet Volume 9.5 fL (9.4-12.3); Platelet Count 208 K/uL (130-400); RDW Coefficient of Variation 16.2 % (11.5-14.5); RDW Standard Deviation 49.1 fL (36.4-46.3); Red Blood Count 3.51 M/uL (3.93-5.22); White Blood Count 11.53 K/ul (4.8-10.8)
[2022-05-20 11:29] LABS: BUN Creatinine Ratio 27.5 (10-20); Calcium 8.5 mg/dl (8.5-10.1); Creatinine Clr Calc Pharmacy 33.9 ml/min; Est GFR (African American) 32.7 ml/min; Est GFR (Non-African American) 28.2 ml/min; Potassium 4.4 mmol/L (3.5-5.1)
[2022-05-20] MEDS ORDERED: oxyCODONE HCL IR 5 MG TAB (IMMEDIATE RELEASE) PO PRN (12:37)
--- NOTE | 2022-05-20 13:30 | Palliative Care Progress Note ---
Date of Service May 20, 2022 Assessment & Plan (1) Cancer related pain: Plan: Has been on oxycontin for baseline analgesia. This is not likely to get through prior auth on discharge. Given her renal failure, will rotate to fentanyl patch. One additional dose of oxycodone SR tonight until fentanyl is therapeutic. Discussed with Eveline and her daughters about safety and what to watch for. Continue prn oxycodone. Continue steroid taper and lidocaine patch. (2) Constipation: Plan: BM x 3 yesterday with senna and miralax. (3) Palliative care encounter: Plan: Talked with Eveline and her daughters about support and managing pain when she goes home. Goal is to have [facility] palliative care following her at home, however, they have limited staffing. Discussed some strategies for managing pain and for care at home. She wants to finish palliative XRT and complete course of immunotherapy and decide at that time whether to shift to hospice care. (4) Metastatic renal cell carcinoma to bone: Admission and Anticipated Discharge Date Admission Date: May 15, 2022 Subjective Sitting in chair at bedside visiting with her daughters, Eveline and Devi. Still having pain with movement. Uses prn opioid about once a day which is primarily pretreatment for radiation therapy. BM x 3 yesterday. Review of Systems Review of Systems: ESAS Pain 2/3 Dyspnea 0/3 Nausea 0/3 Anxiety 0/3 Fatigue 1/3 Drowsiness 0/3 PPS 50% Physical Exam Constitutional: no acute distress ENMT: Mouth: oral mucous membranes not dry Respiratory: normal respiratory effort; no labored breathing Musculoskeletal: Extremities: extremities normal to inspection Neurologic: moves all extremities Speech / Cognition: normal cognition Psychiatric: Orientation: oriented x 3 Affect: euthymic affect Results & Data ([facility]) Vital Signs (Past 12 Hours) Vital Signs Temp Pulse Pulse Resp BP Pulse Ox O2 Del Method 05/20/22 07:49 97.9 F 68 16 139/84 98 Room Air 05/20/22 07:25 97.9 F 68 18 139/84 99 Room Air PG Care Time/CCT Total # of Minutes Spent Total Time Spent: 40 Total Time Spent with Patient: Total time spent is greater than 50% in coordination of care (as documented) at patient's floor/unit and/or counseling patient: symptom management, medications, patient and family education and support, coordination of care Coding Level of Care Code 95928 Subseq Hosp Care Lvl 3 Diagnoses Cancer related pain G89.3 Constipation K59.00 Palliative care encounter Z51.5 Metastatic renal cell carcinoma to bone C79.51; C64.9
[2022-05-20] MEDS: fentaNYL 12 MCG/HR TDSY TD SCH (13:34)
[2022-05-20] MEDS: CHECK fentaNYL PATCH PLACEMENT SCH (15:09)
[2022-05-20] MEDS ORDERED: TOLVAPTAN 15 MG TABLET PO ONE (18:45)
[2022-05-20] MEDS: OXYBUTYNIN CHLORIDE XL 5 MG TABCR PO SCH (19:46)
--- NOTE | 2022-05-20 20:39 | Hospitalist Progress Note ---
Date of Service May 20, 2022 Assessment & Plan (1) Hyponatremia: Plan: worse today despite institution of salt tablets last evening. 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 her decompensated hypothyroidism will contribute to some degree of her hy ponatremia. recent HCTZ use also may have been contributing (d/c yesterday). given the worsening Na I discussed her care with oncall nephrology and plan is as follows - * tolvaptan 15mg po x 1 now * repeat Na at 2200 this evening, then again in am * if Na does not start to trend up consider 3% NaCl * adjust synthroid dose * continue off of HCTZ * move to telemetry for closer monitoring * daily weights * strict I's and O's formal nephrology consult in am (2) Pain due to malignant neoplasm metastatic to bone: Plan: Mets to left iliac bone, T12 and L2. Most of her pain is likely due to the iliac mets. Her pain IS improved today. Today is day #3 of 10 for her radiation treatments - under the direction of Dr Hill. Continue the following pain meds - * Tylenol scheduled * Oxy IR 10mg q4 prn * Gabapentin 300mg PO BID * Lidocaine patches * Hydromorphone 0.5mg IV q6 prn- * calcitonin nasal spray * change prednisone 20mg daily to dexamethasone 4mg daily (Axitinib is on hold); dex may provide more bone pain relief * Dr Tang from palliative saw in consult again today -- recommends changing oxycontin BID to fentanyl patch * Appreciate palliative care, rad onc, and onc consultations. Holding Axitinib at this time. (3) Metastatic renal cell carcinoma: Plan: Metastatic disease - current therapy Keytruda/Axitinib. Holding Axitinib with XRT. Next chemo treatment was to be this Tuesday but given her hospitalization will be pushed to next week. (4) Hypomagnesemia: Plan: replaced resolved (5) Hypothyroidism: Plan: Continue Synthroid TSH in early April and this admission both high Increase synthroid to 150mcg/day repeat TSH 6 weeks (6) Essential (primary) hypertension: Plan: Stop HCTZ due to ongoing issues with hyponatremia Cont lisinopril Add additional agents as necessary (7) Chronic kidney disease, stage 4 (severe): Plan: baseline CrCl low 30s at baseline again today (8) Absent kidney, acquired: Plan: LEFT Nephrectomy secondary to RCC (9) UTI (urinary tract infection): Plan: currently on keflex 500mg BID day # 5 plan 7 days in total (10) Constipation: Plan: severe but improved opiate-induced cont senna 2 tabs BID and miralax scheduled (11) DVT prophylaxis: Plan: heparin SC TID Plan cont PT, OT RLE is larger than LLE - check doppler, r/o DVT move to PCU for closer observation in setting of low sodium daughter updated by phone this evening plan of care signed out to the night resident team Admission and Anticipated Discharge Date Admission Date: May 15, 2022 Subjective patient resting comfortably during the visit she states that her pain today is the best it has felt in several days tolerated XRT today in the cancer center states she ate good breakfast and fair at lunch liquid intake is adequate denies feeling thirsty denies dizziness or lightheadedness no diarrhea or vomiting Review of Systems Review of Systems: gen - no fevers or chills pulm - no cough or dyspnea CV - no orthopnea, no chest pain GI - no abd pain Physical Exam Physical Exam: gen - comfortable appearing, looks good today mouth - MMM neck - no JVD heart - RRR, s1 s2, 2/6 systolic murmur RUSB lungs - CTA b/l except slight crackle at the bases abd - soft NT ND BS+ ext - <1+ edema on right, trace left; right leg is larger than left leg; pulses 2+ b/l psych - awake, alert, oriented x 3 Results & Data Results & Data ([facility]) Vital Signs (Past 12 Hours) Vital Signs Temp Pulse Pulse Resp BP Pulse Ox O2 Del Method 05/20/22 07:49 36.6 C 68 16 139/84 98 Room Air 05/20/22 07:25 36.6 C 68 18 139/84 99 Room Air 05/19/22 21:33 37 C 68 18 178/97 H 99 Intake and Output 05/20/22 05/20/22 05/20/22 06:59 14:59 22:59 Intake Total 1277 / 1277 Output Total 1300 / 2450 825 / 1525 700 / 1525 Balance -1300 / -1730 -825 / -248 577 / -248 Intake: Oral 1277 / 1277 Output: Urine Amount (Catheter) 1300 / 2450 825 / 1525 700 / 1525 Iyer/Indwelling 1300 / 2450 825 / 1525 700 / 1525 Other: Weight 119.6 kg Patient Weight 05/21/22 06:59 Weight 119.6 kg Laboratory Results Laboratory Results - last 24 hr 05/20/22 05/20/22 05/20/22 10:31 10:31 16:17 WBC 11.53 H RBC 3.51 L Hgb 10.2 L Hct 29.9 L MCV 85.2 MCH 29.1 MCHC 34.1 RDW Std Deviation 49.1 H RDW Coeff of Gala 16.2 H Plt Count 208 MPV 9.5 Sodium 127 L 122 L Potassium 4.4 Chloride 95 L Carbon Dioxide 25 Anion Gap 7 BUN 46 H Creatinine 1.67 H Est Cr Clr Drug Dosing 33.9 Est GFR ( Amer) 32.7 Est GFR (Non-Af Amer) 28.2 BUN/Creatinine Ratio 27.5 H Glucose 145 H Calcium 8.5 Urine Osmolality Ur Random Sodium 05/20/22 05/20/22 17:30 17:30 WBC RBC Hgb Hct MCV MCH MCHC RDW Std Deviation RDW Coeff of Gala Plt Count MPV Sodium Potassium Chloride Carbon Dioxide Anion Gap BUN Creatinine Est Cr Clr Drug Dosing Est GFR ( Amer) Est GFR (Non-Af Amer) BUN/Creatinine Ratio Glucose Calcium Urine Osmolality 426 L Ur Random Sodium 33 PG Care Time/CCT Total # of Minutes Spent Total Time Spent with Patient: Total time spent is greater than 50% in coordination of care (as documented) at patient's floor/unit and/or counseling patient: Coding Level of Care Code 41127 Subseq Hosp Care Lvl 3 Diagnoses Hyponatremia E87.1 Pain due to malignant neoplasm metastatic to bone G89.3; C79.51 Metastatic renal cell carcinoma C64.9 Hypomagnesemia E83.42 Hypothyroidism E03.9 Hypothyroidism type: unspecified Essential (primary) hypertension I10 Chronic kidney disease, stage 4 (severe) N18.4 Absent kidney, acquired Z90.5 UTI (urinary tract infection) N39.0 Constipation K59.00 DVT prophylaxis Z29.9 (1) Hypothyroidism Hypothyroidism type: unspecified Qualified Code(s): E03.9 - Hypothyroidism, unspecified
--- NOTE | 2022-05-20 21:20 | Ultrasound Report ---
ULTRASOUND RIGHT LOWER EXTREMITY VENOUS CLINICAL HISTORY: Right lower extremity edema. COMPARISON STUDY: No priors. TECHNIQUE: Real-time, grayscale, and color Doppler sonography of the deep veins of the right lower ex tremity was performed from the inguinal crease to the calf. Compression and augmentation were utilize d. FINDINGS: There is no sonographic evidence of deep venous thrombosis identified in the right lower ex tremity. The common femoral, superficial femoral, and popliteal veins are patent and normally hollie sible. The greater saphenous vein and the profunda femoris vein at the junction with the common femor al vein are clear. The visualized calf veins are patent. IMPRESSION: There is no sonographic evidence of deep venous thrombosis identified in the right lower extremity. ACT 112: Negative or not required by law. Electronically signed by: Dom Ordaz M.D. 05/20/2022 9:19 PM
[2022-05-21] MEDS ORDERED: SODIUM CHLORIDE 3 % 50 ML IV ONE (00:02)
[2022-05-21 04:32] LABS: BUN Creatinine Ratio 27.3 (10-20); Calcium 8.3 mg/dl (8.5-10.1); Creatinine Clr Calc Pharmacy 33.5 ml/min; Est GFR (African American) 30.7 ml/min; Est GFR (Non-African American) 26.5 ml/min; Potassium 4.8 mmol/L (3.5-5.1)
[2022-05-21] MEDS: LEVOTHYROXINE SODIUM 150 MCG TABLET PO SCH (05:30)
[2022-05-21] MEDS ORDERED: TOLVAPTAN 15 MG TABLET PO ONE (08:15)
[2022-05-21] MEDS: dexAMETHasone 4 MG TAB PO SCH (09:31)
[2022-05-21] MEDS: LIDOCAINE 5% 1 PATCH TD SCH (09:31)
[2022-05-21] MEDS: ACETAMINOPHEN 500 MG TAB PO SCH (09:31)
[2022-05-21] MEDS: cephALEXin 500 MG CAP PO SCH (09:31)
[2022-05-21] MEDS: GABAPENTIN 300 MG CAP PO SCH ×2 (09:31→20:41)
[2022-05-21] MEDS: SODIUM CHLORIDE 1 GM TABLET PO SCH ×2 (09:31→20:42)
[2022-05-21] MEDS: SENNA 8.6 MG TAB PO SCH ×2 (09:31→20:42)
[2022-05-21] MEDS: POLYETHYLENE (MIRALAX) 17 GM PACK PO SCH (09:31)
[2022-05-21] MEDS: lisinopril 20 MG TAB PO SCH ×2 (09:31→20:40)
[2022-05-21] MEDS: HEPARIN SOD 5,000 UNIT/0.5 ML VIAL SQ SCH ×3 (09:32→20:40)
[2022-05-21] MEDS: CALCITONIN SALMON NA 200 IU/AC 3.7 ML BTL SCH (09:32)
[2022-05-21] MEDS: DOCUSATE SODIUM 100 MG CAP PO SCH ×2 (09:32→20:43)
[2022-05-21] MEDS: CHECK fentaNYL PATCH PLACEMENT SCH ×4 (09:33→23:06)
--- NOTE | 2022-05-21 10:01 | Nephrology Consultation ---
Date of Consultation May 21, 2022 Assessment & Plan (1) Hyponatremia: (2) Metastatic renal cell carcinoma to bone: (3) Essential (primary) hypertension: (4) Anemia: (5) Chronic kidney disease, stage 4 (severe): Plan Metastatic left renal cell carcinoma found incidentally in December 2021 after patient had 1 episode of painless gross hematuria. Stage IIIB/4 CKD, b/l cr 1.7-1.8, renal function has been stable. Anemia improved, hemoglobin above 10 but continues to have iron deficiency but no active bleeding. Admitted on 05/15/2022 with intractable lower back pain related to osteoblastic bony metastatic disease. Pain improved on multiple analgesic. During hospitalizatio vladimir developed acute hyponatremia, while on hydrochlorothiazide in the setting of intractable pain. Sodium was 132 on admission but dropped to 122 yesterday did not respond to salt tablet. Started on tolvaptan 15 mg x 1 dose on 05/20/2022 and 100 mL 3% saline overnight. Sodium 125 this morning. Blood pressure acceptable. Otherwise asymptomatic. Renal function stable and all electrolyte at goal. Volume status acceptable. -- Tolvaptan 15 mg x 1 dose now. Monitor serum sodium every 4 hours. Avoid fluid restriction. -- liberalize salt in diet, continue on oral salt tablet 1 g twice a day. -- keep off of thiazide diuretics in future, start on Lasix 20 mg p.o daily -- start on IV iron Will follow. Thank you for allowing me to participate in your patient's care. It was a pleasure to see Eveline. History of Present Illness Reason for Consultation: Acute Hyponatremia with h/o stage 3B CKD, metastatic RCC Attending Physician: Colby Dukes History of Present Illness Maynor is a 81 y o F With past medical history significant for stage IIIB CKD, hypertension and recent diagnosis of metastatic renal cell carcinoma admitted to the hospital with intractable back pain with history of osteoblastic metastatic disease. Nephrology consult was requested for management of acute hyponatremia developed during hospitalization. EMR records are reviewed in detail during patient's visit. Maynor was admitted to hospital on 05/15/22 with intractable lower back pain. on admission CT lumbar spine showed progressive osteoblastic disease. currently she is on fentanyl patch, oxycodone and gabapentin with improvement in pain. She is also on dexamethasone for bony metastatic disease. Lab on admission showed sodium slightly low at 132 which progressively worsened and sodium dropped to 122 yesterday. Urine osmolality has been variable from 250- 400. She had history of acute hyponatremia in February when sore serum sodium was lowest at 114 and it took several days for sodium to improve and eventually improved to 137 and stayed stable until recently. At that time she was on hydrochlorothiazide which was stopped however it was restarted as an outpatient. she was taking hydrochlorothiazide when she initially presented to hospital this time and it was discontinued 2 days ago. She was initially started on salt tablet but there was no improvement in sodium and received 1 dose of tolvaptan yesterday afternoon however repeat sodium check at 10:00 p.m. showed sodium stable at 122 and she received 100 mL of 3% saline. Sodium this morning slightly improved to 125. renal function stayed relatively stable at baseline. Other electrolyte including potassium, magnesium and calcium was normal. Her TSH was found to be elevated and levothyroxine dose was increased. blood pressure has been variable without significant hypotensive episode. No nausea, vomiting and reports decent appetite. Has been having decent urine output. No shortness of breath, chest pain, fever or chills. Denies headache, confusion. Maynor is well known to me as I have been seeing him her since December 22 for stage III B CKD. Her baseline creatinine has been around 1.7-1.8 at least since 2018 or longer. Urinalysis at that time was negative for proteinuria, hematuria pyuria. Renal function was stable at that point for at least 2-3 years and she was asymptomatic. CKD was attributed to secondary to hypertensi on, history of smoking for 30 years and prior history of NSAID use. Over last 2 years her renal function was relatively stable. In December 2021 when she presented for routine f/u, her daughter reported hematuria and Eveline admitted that she had 1 episode of gross hematuria which stopped at that point. She was otherwise asymptomatic. Workup was ordered for the underlying cause of hematuria and renal ultrasound was concerning for left renal mass. Eventually she had follow-up CT scan showing 4.2 cm left renal mass and further evaluation revealed metastatic disease. She was seen by Urology and then Oncology as well as Radiation Oncology. She was started on keytruda and Axitinib, received 1 infusion of Keytruda and next dose was supposed to be this Tuesday but most likely will be pushed to next week. Axitinib is on hold , continued on radiation therapy, she had four treatments and she tolerated well. Prior history of breast cancer before with no recurrence. Multiple family member with history of cancer but no urothelial cancer. She had history of 30 years smoking, quit more than 30 years ago. Hypertension has been well controlled. She also has history of dyslipidemia and osteoarthritis of knee. Pain significantly improved compared to with a pain level on admission. Overall she is feeling better. Allergies Allergy/AdvReac Type Severity Reaction Status Date / Time No Known Drug Allergies Allergy Verified 05/15/22 14:46 Home Medications Medication Instructions Recorded Confirmed Type calcium carbonate 600 mg-vitamin 1 tab PO QAM 06/27/19 05/15/22 History D3 20 mcg (800 unit) tablet (Caltrate with Vitamin D3) multivitamin (One Daily 1 tab PO QAM 06/27/19 05/15/22 History Multivitamin) lisinopril 20 1 tab PO BID #180 tabs 12/28/21 05/15/22 Rx mg-hydrochlorothiazide 12.5 mg tablet oxybutynin chloride 10 mg 10 mg PO HS #90 tabs 03/22/22 05/15/22 Rx tablet,extended release 24 hr (Ditropan XL) glucosamine-chondroitin 250 mg-200 1 tab PO QAM 04/21/22 05/15/22 History mg tablet (Osteo Bi-Flex) ketoconazole 2 % topical cream 1 applic topical BID PRN Rash 04/21/22 05/15/22 History krill 1,000 mg-omega-3 230 mg-dha 1 cap PO QAM 04/21/22 05/15/22 History 60 tb-pkz-iseihllfv-astaxan capsule (MegaRed [place]-3 Krill Oil) levothyroxine 137 mcg tablet 137 mcg PO QAM 04/21/22 05/15/22 History simvastatin 20 mg tablet (Zocor) 20 mg PO HS 04/21/22 05/15/22 History sulfamethoxazole 800 1 tab PO Q12H PRN uti 04/21/22 05/15/22 History mg-trimethoprim 160 mg tablet (Bactrim DS) axitinib 5 mg tablet (Inlyta) 5 mg PO BID 05/15/22 05/15/22 History docusate sodium 50 mg capsule 0 mg PO BID 05/15/22 05/15/22 History Patient History Medical History Aortic stenosis Mild aortic stenosis (PADMINI 1.7cm2) per 07/2018 echo Chronic anemia Chronic kidney disease, stage 4 (severe) 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 No issues noted per post-op anesthesia progress note. Hx of cholecystectomy Hx of colonoscopy Port-A-Cath in place (04/26/22) Port placement and fluoroscopy. Dr. Shelley Status post left breast lumpectomy Left Breast Lumpectomy with Needle Localization and Left M[place]racken Lymph Node Biopsy Family History Mother Thyroid disease Father Osteoarthritis Brother Colon cancer Grandmother Colon cancer Other No family history of adverse response to anesthesia Denies family history of Ovarian cancer Prostate cancer Myocardial infarction Breast cancer Social History Smoking Status: Former smoker Tobacco Type: Cigarettes Age Started Using Tobacco: 18; Age Quit Using Tobacco: 29; packs per day: 0.5; Years Smoked: 11; Cigarettes Per Day: 10; Number of Years Since Quit: 52; Second Hand Exposure: No; Hx Alcohol Use: No Hx Substance Use: No Preferred Language: Cook Islander Communication Ability: Effective Visual Impairment: No Limitations 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: Normal Maintenance Mechanic Required: No Beliefs That Will Affect Care: None marital status: / Current Living Situation: Alone Current Living Situation Comment: daughters to help current occupational status: retired How many Children do You have: 3 Feels Safe at Home: Yes Childhood Exposure to Second-Hand Smoke: Yes caffeine: Yes during the past year weight has: increased > 10 lbs Dental Care, Regularly: No Physical Activity Frequency: Does not Exercise Seatbelt Use: always Sunscreen Use: No Assistive Devices: Cane and Walker Review of Systems Review of Systems: Detailed review of system was done and pertinent positives and negatives are mentioned in HPI. Physical Exam Constitutional: WD/WN, vitals as above no acute distress Eyes: + anicteric sclerae ENMT: Ears: no hearing impairment Neck: normal visual inspection Respiratory: normal respiratory effort; no respiratory distress and no cough Auscultation: lungs clear to auscultation bilaterally Cardiovascular: Rate/Rhythm: regular rate and regular rhythm Extremities: no edema Gastrointestinal (Abdomen): Inspection/Auscultation: abdomen normal to inspection and normal bowel sounds Percussion/Palpation: abdomen soft; abdomen nontender Musculoskeletal: Extremities: extremities normal to inspection Skin: no rashes Neurologic: no focal motor deficits and not confused Psychiatric: Orientation: alert and oriented x 3 Affect: euthymic affect Results & Data ([facility]) Vital Signs (Past 12 Hours) Vital Signs Temp Pulse Pulse Resp BP Pulse Ox O2 Del Method 05/21/22 07:38 36.6 C 65 19 105/81 98 Room Air 05/21/22 07:32 53 L 05/21/22 03:40 36.7 C 60 18 135/63 98 Room Air 05/20/22 23:21 37.1 C 63 18 153/68 H 96 Room Air 05/20/22 23:06 60 PG Care Time/CCT Total # of Minutes Spent Total Time Spent with Patient: Total time spent is greater than 50% in coordination of care (as documented) at patient's floor/unit and/or counseling patient: Coding Level of Care Code 00293 Initial Inpt Care Lvl 3 Diagnoses Hyponatremia E87.1 Metastatic renal cell carcinoma to bone C79.51; C64.9 Essential (primary) hypertension I10 Anemia D64.9 Anemia type: unspecified type Chronic kidney disease, stage 4 (severe) N18.4 (1) Anemia Anemia type: unspecified type Qualified Code(s): D64.9 - Anemia, unspecified
[2022-05-21] MEDS: IRON SUCROSE 200 MG in 0.9 % SODIUM CHLORIDE 100 ML IV SCH (11:45)
--- NOTE | 2022-05-21 13:15 | Palliative Care Progress Note ---
Date of Service May 21, 2022 Assessment & Plan (1) Cancer related pain: Plan: Fentanyl patch started yesterday. May be contributing to her fatigue along with hyponatremia. She reports more relief with hydromorphone than oxycodone. While hydromorphone is IV, she may respond better to po dosing than oxycodone. Will stop oxycodone and add prn hydromorphone. Continue IV for now if oral is not effective. Goal is to simulate home regimen to ensure adequate analgesia. (2) Palliative care encounter: (3) Pain due to malignant neoplasm metastatic to bone: Admission and Anticipated Discharge Date Admission Date: May 15, 2022 Subjective Feeling tired today. Significant hyponatremia. She feels like pain is a little worse today and had prn oxycodone this morning. She feels that it had little effect. Review of Systems Review of Systems: ESAS Pain 2/3 Fatigue 2/3 Nausea 0/3 Anxiety 0/3 Drowsiness 1/3 PPS 50% Physical Exam Constitutional: tired appearing Respiratory: normal respiratory effort; no labored breathing Cardiovascular: Rate/Rhythm: regular rate and regular rhythm LE edema Skin: warm and dry Neurologic: Speech / Cognition: normal cognition Results & Data ([facility]) Vital Signs (Past 12 Hours) Vital Signs Temp Pulse Pulse Resp BP Pulse Ox O2 Del Method 05/21/22 12:12 98.2 F 69 20 113/70 96 Room Air 05/21/22 07:38 97.9 F 65 19 105/81 98 Room Air 05/21/22 07:32 53 L 05/21/22 03:40 98.1 F 60 18 135/63 98 Room Air PG Care Time/CCT Total # of Minutes Spent Total Time Spent with Patient: Total time spent is greater than 50% in coordination of care (as documented) at patient's floor/unit and/or counseling patient: Coding Level of Care Code 45408 Subseq Hosp Care Lvl 2 Diagnoses Cancer related pain G89.3 Palliative care encounter Z51.5 Pain due to malignant neoplasm metastatic to bone G89.3; C79.51
[2022-05-21] MEDS: HYDROmorphone HCL 2 MG TAB PO PRN ×2 (13:41→19:18)
[2022-05-21] MEDS: OXYBUTYNIN CHLORIDE XL 5 MG TABCR PO SCH (20:41)
[2022-05-21] MEDS: ACETAMINOPHEN 500 MG TAB PO PRN (20:41)
--- NOTE | 2022-05-21 21:10 | Hospitalist Progress Note ---
Date of Service May 21, 2022 Assessment & Plan (1) Hyponatremia: Plan: finally improving. 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 did not respond to salt tablet therapy alone. ultimately tolvaptan yesterday/today along with 3% saline yesterday needed. lowest Na 122 this admission. in late February/early March also had severe hyponatremia to the low 110s requiring tolvaptan therapy. repeat urine osm and urine Na noted. appreciate nephrology consultation today. plan - * tolvaptan 15mg x 1 given again this am * serial Na levels q4h today, then full BMP am tomorrow * cont NaCl - increased to 1gm BID by Dr Candelaria * may need lasix 20mg po daily to enhance free water diuresis * adjust synthroid for decompensated hypothyroidism * remain off of HCTZ (2) Pain due to malignant neoplasm metastatic to bone: Plan: Mets to left iliac bone, T12 and L2. Most of her pain is likely due to the iliac mets. Today is day #4 of 10 for her radiation treatments - under the direction of Dr Hill. Agree with Dr Tang's recommendation to stop IR oxycodone and switch to PO dilaudid prn for refractory breakthrough pain. Continue the following pain meds - * Tylenol prn * Gabapentin 300mg PO BID * Lidocaine patches * Hydromorphone 0.5mg IV q6 prn * calcitonin nasal spray * dexamethasone 4mg daily (Axitinib is on hold); dex may provide more bone pain relief than prednisone * fentanyl patch 12mcg q72h * bowel region Appreciate palliative care, rad onc, and onc consultations. Holding Axitinib at this time. (3) Metastatic renal cell carcinoma: Plan: Metastatic disease - current therapy Keytruda/Axitinib. Holding Axitinib with XRT. Next chemo treatment was to be today but given her hospitalization this will be pushed to next week. 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 (9) UTI (urinary tract infection): Plan: currently on keflex 500mg BID day # 6 plan 7 days in total then stop abx (10) Constipation: Plan: severe opiate-induced cont senna 2 tabs BID and miralax scheduled - may need BID of latter (11) DVT prophylaxis: Plan: heparin SC TID Plan cont PT, OT RLE is larger than LLE - checked doppler, NO DVT seen granddaughter updated at bedside during my visit she is in correspondence with her mother d/c rivas tomorrow am progressing hopefully home this weekend depending on Na level & back pain Admission and Anticipated Discharge Date Admission Date: May 15, 2022 Subjective pt underwent XRT treatment #4 today. pain is a bit worse than yesterday, and oxycodone given this am was not effective at relieving her pain. at worst, however, pain is about 5-6/10. lowest about 2/10. pain in L low back/pelvic region was 10/10 at time of admission. no BM in 2 days. but no bloating or nausea/dyspepsia. eating fair. feels tired this afternoon. granddaughter is at bedside. tele overnight wnl. Review of Systems Review of Systems: gen - no fever cv - no chest pain pulm - no dyspnea GI - no nausea/emesis musculo - denies pain in any other location except the low back on Left Physical Exam Physical Exam: gen - comfortable appearing, sitting in chair - but looks tired mouth - MMM neck - no JVD heart - RRR, s1 s2, 2/6 systolic murmur RUSB lungs - CTA b/l except slight crackle at the bases -- no change abd - soft NT ND BS+ ext - <1+ edema b/l; right leg is larger than left leg (baseline); pulses 2+ b/l psych - awake, alert, oriented x 3 - a little tired/sleepy today Results & Data Results & Data ([facility]) Vital Signs (Past 12 Hours) Vital Signs Temp Pulse Pulse Resp BP Pulse Ox O2 Del Method 05/21/22 19:00 36.6 C 61 20 155/60 H 99 05/21/22 16:11 37.1 C 62 18 130/57 L 96 05/21/22 12:12 36.8 C 69 20 113/70 96 Room Air Laboratory Results Laboratory Results - last 24 hr 05/20/22 05/21/22 05/21/22 22:22 02:40 02:40 Sodium 122 L Potassium Chloride Carbon Dioxide Anion Gap BUN Creatinine Est Cr Clr Drug Dosing Est GFR ( Amer) Est GFR (Non-Af Amer) BUN/Creatinine Ratio Glucose Calcium Urine Osmolality 223 L Ur Random Sodium 20 05/21/22 05/21/22 05/21/22 04:06 13:18 17:37 Sodium 125 L 127 L 126 L Potassium 4.8 Chloride 94 L Carbon Dioxide 24 Anion Gap 7 BUN 48 H Creatinine 1.76 H Est Cr Clr Drug Dosing 33.5 Est GFR ( Amer) 30.7 Est GFR (Non-Af Amer) 26.5 BUN/Creatinine Ratio 27.3 H Glucose 108 H Calcium 8.3 L Urine Osmolality Ur Random Sodium PG Care Time/CCT Total # of Minutes Spent Total Time Spent with Patient: Total time spent is greater than 50% in coordination of care (as documented) at patient's floor/unit and/or counseling patient: Coding Level of Care Code 79862 Subseq Hosp Care Lvl 3 Diagnoses Hyponatremia E87.1 Pain due to malignant neoplasm metastatic to bone G89.3; C79.51 Metastatic renal cell carcinoma C64.9 Hypomagnesemia E83.42 Hypothyroidism E03.9 Hypothyroidism type: unspecified Essential (primary) hypertension I10 Chronic kidney disease, stage 4 (severe) N18.4 Absent kidney, acquired Z90.5 UTI (urinary tract infection) N39.0 Constipation K59.00 DVT prophylaxis Z29.9 (1) Hypothyroidism Hypothyroidism type: unspecified Qualified Code(s): E03.9 - Hypothyroidism, unspecified
[2022-05-22] MEDS: HYDROmorphone HCL 2 MG TAB PO PRN ×4 (03:24→21:00)
[2022-05-22] MEDS: LEVOTHYROXINE SODIUM 150 MCG TABLET PO SCH (06:03)
[2022-05-22 06:31] LABS: Hematocrit (blood only) 29.5 % (34.1-44.9); Hemoglobin 9.7 g/dl (12.0-16.0); Mean Corpuscular Hemoglobin 28.7 pg (25.0-34.0); Mean Corpuscular Hgb Conc 32.9 g/dL (32.0-36.0); Mean Corpuscular Volume 87.3 fL (80.0-100.0); Platelet Count 210 K/uL (130-400); RDW Coefficient of Variation 16.4 % (11.5-14.5); Red Blood Count 3.38 M/uL (3.93-5.22)
[2022-05-22 07:01] LABS: Albumin Level 3.6 gm/dl (3.4-5.0); BUN Creatinine Ratio 30.6 (10-20); Calcium 9.1 mg/dl (8.5-10.1); Creatinine Clr Calc Pharmacy 34.3 ml/min; Est GFR (Non-African American) 27.6 ml/min; Phosphorus 4.1 mg/dl (2.5-4.9); Potassium 5.1 mmol/L (3.5-5.1)
[2022-05-22] MEDS: GABAPENTIN 300 MG CAP PO SCH ×2 (09:27→21:00)
[2022-05-22] MEDS: HEPARIN SOD 5,000 UNIT/0.5 ML VIAL SQ SCH ×3 (09:27→22:09)
[2022-05-22] MEDS: SENNA 8.6 MG TAB PO SCH ×2 (09:27→21:00)
[2022-05-22] MEDS: lisinopril 20 MG TAB PO SCH ×2 (09:27→21:00)
[2022-05-22] MEDS: dexAMETHasone 4 MG TAB PO SCH (09:27)
[2022-05-22] MEDS: LIDOCAINE 5% 1 PATCH TD SCH (09:27)
[2022-05-22] MEDS: CALCITONIN SALMON NA 200 IU/AC 3.7 ML BTL SCH (09:28)
[2022-05-22] MEDS: IRON SUCROSE 200 MG in 0.9 % SODIUM CHLORIDE 100 ML IV SCH (09:33)
[2022-05-22] MEDS: DOCUSATE SODIUM 100 MG CAP PO SCH ×2 (09:33→21:00)
[2022-05-22] MEDS: POLYETHYLENE (MIRALAX) 17 GM PACK PO SCH (09:33)
[2022-05-22] MEDS: HEPARIN 100 UNIT/ML 5ML FLUSH FLUSH PRN (10:56)
[2022-05-22] MEDS: CHECK fentaNYL PATCH PLACEMENT SCH ×3 (10:59→22:18)
[2022-05-22] MEDS: SODIUM CHLORIDE 1 GM TABLET PO SCH ×2 (11:00→21:00)
--- NOTE | 2022-05-22 12:09 | Nephrology Progress Note ---
Date of Service May 22, 2022 Assessment & Plan (1) Hyponatremia: Plan: Chronic. Generally symptomatic. Peripheral and dependent edema. Oral solute intake decreased. Clinical presentation consistent with SIADH. Responded well to Tolvaptan. Urine osm to be updated today. Continue NaCl 1 gram BID. Start furosemide 20 mg daily. Document I/O's. Repeat metabolic profile tomorrow AM. Free water restriction 2 L now. (2) Anemia: Plan: Remains on daily venofer 200 mg x 5 doses. (3) Chronic kidney disease, stage 4 (severe): Plan: Creatinine stable at baseline 1.7 mg/dL. Medications appropriate of kidney dysfunction. Follow up with Dr. Candelaria post discharge. Admission and Anticipated Discharge Date Admission Date: May 15, 2022 Subjective No acute events overnight. Improvement in serum sodium noted with Tolvaptan. Eveline reports that her appetite is fairly good. Unfortunately, she remains debilitated by back pain. She expressed frustration in this regard. Some improvement with pain medications. Reports normal BM this AM. Review of Systems Review of Systems: All systems reviewed & are unremarkable except as noted in HPI & below Cardiovascular: + edema Physical Exam Constitutional: well developed; no acute distress Eyes: no scleral abnormality and no corneal abnormality ENMT: Mouth: no oral mucosal abnormality and oral mucous membranes not dry Neck: normal visual inspection and trachea midline Respiratory: normal respiratory effort Auscultation: lungs clear to auscultation bilaterally Cardiovascular: Rate/Rhythm: regular rate Heart Sounds: normal S1 and normal S2 Extremities: + edema Musculoskeletal: Extremities: no cyanosis and no clubbing Skin: normal turgor; no lesions Neurologic: Motor/Sensory: no tremor and no asterixis Psychiatric: Orientation: alert and oriented x 3 Results & Data ([facility]) Vital Signs (Past 12 Hours) Vital Signs Temp Pulse Pulse Resp BP Pulse Ox O2 Del Method 05/22/22 11:37 36.6 C 63 20 133/65 99 Room Air 05/22/22 08:00 60 05/22/22 08:00 Room Air 05/22/22 08:31 36.4 C L 65 19 129/59 L 98 Room Air 05/22/22 03:00 36.7 C 64 18 142/79 H 94 Laboratory Results Laboratory Results - last 24 hr 05/21/22 05/21/22 05/21/22 13:18 17:37 21:32 WBC RBC Hgb Hct MCV MCH MCHC RDW Std Deviation RDW Coeff of Gala Plt Count MPV Sodium 127 L 126 L 129 L Potassium Chloride Carbon Dioxide Anion Gap BUN Creatinine Est Cr Clr Drug Dosing Est GFR ( Amer) Est GFR (Non-Af Amer) BUN/Creatinine Ratio Glucose Calcium Phosphorus Albumin 05/22/22 05/22/22 06:14 06:14 WBC 8.90 RBC 3.38 L Hgb 9.7 L Hct 29.5 L MCV 87.3 MCH 28.7 MCHC 32.9 RDW Std Deviation 52.0 H RDW Coeff of Gala 16.4 H Plt Count 210 MPV 9.0 L Sodium 133 L Potassium 5.1 Chloride 101 Carbon Dioxide 26 Anion Gap 6 BUN 52 H Creatinine 1.70 H Est Cr Clr Drug Dosing 34.3 Est GFR ( Amer) 32.0 Est GFR (Non-Af Amer) 27.6 BUN/Creatinine Ratio 30.6 H Glucose 89 Calcium 9.1 Phosphorus 4.1 Albumin 3.6 PG Care Time/CCT Total # of Minutes Spent Total Time Spent with Patient: Total time spent is greater than 50% in coordination of care (as documented) at patient's floor/unit and/or counseling patient: Coding Level of Care Code 73051 Subseq Hosp Care Lvl 3 Diagnoses Hyponatremia E87.1 Anemia D64.9 Anemia type: unspecified type Chronic kidney disease, stage 4 (severe) N18.4 (1) Anemia Anemia type: unspecified type Qualified Code(s): D64.9 - Anemia, unspecified
[2022-05-22] MEDS: ACETAMINOPHEN 500 MG TAB PO PRN ×2 (12:26→19:42)
[2022-05-22] MEDS: FUROSEMIDE 20 MG TAB PO SCH (14:11)
[2022-05-22] MEDS: OXYBUTYNIN CHLORIDE XL 5 MG TABCR PO SCH (21:00)
[2022-05-22] MEDS: ACYCLOVIR 5% OINT 15 GM TUBE EXT SCH (21:00)
[2022-05-22 21:37] LABS: Albumin Level 3.8 gm/dl (3.4-5.0); BUN Creatinine Ratio 34.4 (10-20); Calcium 8.7 mg/dl (8.5-10.1); Creatinine Clr Calc Pharmacy 36.5 ml/min; Est GFR (African American) 34.4 ml/min; Est GFR (Non-African American) 29.7 ml/min; Phosphorus 3.2 mg/dl (2.5-4.9); Potassium 4.7 mmol/L (3.5-5.1)
[2022-05-23] MEDS: HYDROmorphone HCL 2 MG TAB PO PRN ×3 (04:20→15:43)
--- NOTE | 2022-05-23 05:31 | Hospitalist Progress Note ---
Date of Service May 22, 2022 Assessment & Plan (1) Hyponatremia: Plan: Continues to improve. 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 s/p Tolvaptan therapy this week along with salt supplementation and 3% saline. Low-dose PO lasix added today by Dr Patino to enhance free water excretion. lowest Na 122 this admission. in late February/early March also had severe hyponatremia to the low 110s requiring tolvaptan therapy. appreciate nephrology consultation today. plan - * NaCl 1gm BID * lasix 20mg po daily to enhance free water diuresis * adjusted synthroid for decompensated hypothyroidism * remain off of HCTZ * follow urine osm levels * BMP in am (2) Pain due to malignant neoplasm metastatic to bone: Plan: IMPROVED. Mets to left iliac bone, T12 and L2. Most of her pain is likely due to the iliac mets. s//p 4 XRT treatments this week. 10 fractions in total are planned. Dr Hill directing her XRT. Continue the following pain meds - * Tylenol prn * Gabapentin 300mg PO BID * Lidocaine patches * Hydromorphone 0.5mg IV q6 prn * Hydromorphone 2mg PO prn * calcitonin nasal spray * dexamethasone 4mg daily (Axitinib is on hold); dex may provide more bone pain relief than prednisone * fentanyl patch 12mcg q72h * bowel region (did move them today). Appreciate palliative care, rad onc, and onc consultations. Holding Axitinib at this time. (3) Metastatic renal cell carcinoma: Plan: Metastatic disease - current therapy Keytruda/Axitinib. Holding Axitinib with XRT. Next chemo treatment -- likely next week. 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 Admission and Anticipated Discharge Date Admission Date: May 15, 2022 Subjective patient sitting in chair during the encounter she had a good day overall had some back pain this am, but by the afternoon it was largely controlled she took a walk in the hallway with her family and felt good with no worsening of pain doing own ADLs without help eating well rivas is out and voiding fine tele overnight wnl Review of Systems Review of Systems: gen - no fevers cv - no cp, no orthopnea pulm - no cough or dyspnea GI - no abd pain, nausea, emesis Physical Exam Physical Exam: gen - comfortable appearing, sitting in chair -looks very good today mouth - MMM neck - no JVD heart - RRR, s1 s2, 2/6 systolic murmur RUSB lungs - CTA b/l abd - soft NT ND BS+ ext - trace edema b/l; right leg is larger than left leg (baseline); pulses 2+ b/l psych - awake, alert, oriented x 3 Results & Data Results & Data ([facility]) Vital Signs (Past 12 Hours) Vital Signs Temp Pulse Pulse Pulse Resp BP Pulse Ox 05/23/22 03:00 36.7 C 57 L 18 130/55 L 98 05/22/22 23:00 37.1 C 60 16 133/58 L 97 05/22/22 22:00 63 05/22/22 19:00 37.0 C 70 20 116/98 99 Laboratory Results Laboratory Results - last 24 hr 05/22/22 05/22/22 05/22/22 06:14 06:14 13:15 WBC 8.90 RBC 3.38 L Hgb 9.7 L Hct 29.5 L MCV 87.3 MCH 28.7 MCHC 32.9 RDW Std Deviation 52.0 H RDW Coeff of Gala 16.4 H Plt Count 210 MPV 9.0 L Sodium 133 L Potassium 5.1 Chloride 101 Carbon Dioxide 26 Anion Gap 6 BUN 52 H Creatinine 1.70 H Est Cr Clr Drug Dosing 34.3 Est GFR ( Amer) 32.0 Est GFR (Non-Af Amer) 27.6 BUN/Creatinine Ratio 30.6 H Glucose 89 Calcium 9.1 Phosphorus 4.1 Albumin 3.6 Urine Osmolality 301 L 05/22/22 21:01 WBC RBC Hgb Hct MCV MCH MCHC RDW Std Deviation RDW Coeff of Gala Plt Count MPV Sodium 131 L Potassium 4.7 Chloride 100 Carbon Dioxide 24 Anion Gap 7 BUN 55 H Creatinine 1.60 H Est Cr Clr Drug Dosing 36.5 Est GFR ( Amer) 34.4 Est GFR (Non-Af Amer) 29.7 BUN/Creatinine Ratio 34.4 H Glucose 106 H Calcium 8.7 Phosphorus 3.2 Albumin 3.8 Urine Osmolality PG Care Time/CCT Total # of Minutes Spent Total Time Spent with Patient: Total time spent is greater than 50% in coordination of care (as documented) at patient's floor/unit and/or counseling patient: Coding Level of Care Code 06869 Subseq Hosp Care Lvl 2 Diagnoses Hyponatremia E87.1 Pain due to malignant neoplasm metastatic to bone G89.3; C79.51 Metastatic renal cell carcinoma C64.9 Hypomagnesemia E83.42 Hypothyroidism E03.9 Hypothyroidism type: unspecified Essential (primary) hypertension I10 Chronic kidney disease, stage 4 (severe) N18.4 Absent kidney, acquired Z90.5 UTI (urinary tract infection) N39.0 Constipation K59.00 DVT prophylaxis Z29.9 (1) Hypothyroidism Hypothyroidism type: unspecified Qualified Code(s): E03.9 - Hypothyroidism, unspecified
[2022-05-23] MEDS: LEVOTHYROXINE SODIUM 150 MCG TABLET PO SCH (05:47)
[2022-05-23 07:21] LABS: BUN Creatinine Ratio 35.8 (10-20); Creatinine Clr Calc Pharmacy 38.6 ml/min; Est GFR (African American) 36.9 ml/min; Est GFR (Non-African American) 31.9 ml/min; Potassium 4.6 mmol/L (3.5-5.1)
[2022-05-23] MEDS: LIDOCAINE 5% 1 PATCH TD SCH (08:16)
[2022-05-23] MEDS: DOCUSATE SODIUM 100 MG CAP PO SCH (08:16)
[2022-05-23] MEDS: POLYETHYLENE (MIRALAX) 17 GM PACK PO SCH (08:16)
[2022-05-23] MEDS: SODIUM CHLORIDE 1 GM TABLET PO SCH (08:17)
[2022-05-23] MEDS: FUROSEMIDE 20 MG TAB PO SCH (08:17)
[2022-05-23] MEDS: dexAMETHasone 4 MG TAB PO SCH (08:17)
[2022-05-23] MEDS: HEPARIN SOD 5,000 UNIT/0.5 ML VIAL SQ SCH ×2 (08:17→13:32)
[2022-05-23] MEDS: lisinopril 20 MG TAB PO SCH (08:17)
[2022-05-23] MEDS: SENNA 8.6 MG TAB PO SCH (08:17)
[2022-05-23] MEDS: GABAPENTIN 300 MG CAP PO SCH (08:17)
[2022-05-23] MEDS: CALCITONIN SALMON NA 200 IU/AC 3.7 ML BTL SCH (08:18)
[2022-05-23] MEDS: IRON SUCROSE 200 MG in 0.9 % SODIUM CHLORIDE 100 ML IV SCH (08:21)
[2022-05-23] MEDS: ACYCLOVIR 5% OINT 15 GM TUBE EXT SCH ×2 (08:22→12:43)
[2022-05-23] MEDS: CHECK fentaNYL PATCH PLACEMENT SCH (08:22)
[2022-05-23 09:48] LABS: Appearance Urine Cloudy (Clear); Bacteria Urine Automated Negative (Negative); Bilirubin Urine Negative (Negative); Blood Urine 3+ (Negative); Color Urine Yellow; Epithelial Cell Urine Auto >30 /lpf (0-5); Glucose Urine UA Negative (Negative); Ketones Urine Negative (Negative); Leukocyte Esterase Urine 2+ (Negative); Nitrite Urine Negative (Negative); Protein Urine 1+ (Negative); RBC Urine Automated >30 /hpf (0-4); Specific Gravity Urine 1.007 (1.000-1.030); Urobilinogen Urine Negative (Negative); WBC Urine Automated >30 /hpf (0-5)
[2022-05-23] MEDS ORDERED: cephALEXin 500 MG CAP PO SCH (10:30)
--- NOTE | 2022-05-23 10:43 | Nephrology Progress Note ---
Date of Service May 23, 2022 Assessment & Plan (1) Hyponatremia: Plan: Chronic. Some persistent fluid retention noted. Clinical presentation consistent with SIADH, decreased solute intake, and mild hypervolemia. Responded well to Tolvaptan. Continue NaCl 1 gram BID and furosemide 20 mg daily. Document I/O's. Repeat metabolic profile tomorrow AM. Free water restriction 1.8 L daily. (2) Anemia: Plan: Remains on daily venofer 200 mg daily (day 35). (3) Chronic kidney disease, stage 4 (severe): Plan: Creatinine stable at baseline 1.7 mg/dL. Medications appropriate of kidney dysfunction. Follow up with Dr. Candelaria post discharge. Admission and Anticipated Discharge Date Admission Date: May 15, 2022 Subjective No acute events overnight. Eveline was out of bed and ambulating in her room this morning. She feels well. Pain control improved. Appetite fair. Review of Systems Review of Systems: All systems reviewed & are unremarkable except as noted in HPI & below Physical Exam Constitutional: well developed; no acute distress Eyes: no scleral abnormality and no corneal abnormality ENMT: Mouth: no oral mucosal abnormality and oral mucous membranes not dry Neck: normal visual inspection and trachea midline Respiratory: normal respiratory effort Auscultation: lungs clear to auscultation bilaterally Cardiovascular: Rate/Rhythm: regular rate Heart Sounds: normal S1 and normal S2 Extremities: + edema Musculoskeletal: Extremities: no cyanosis and no clubbing Skin: normal turgor; no lesions Neurologic: Motor/Sensory: no tremor and no asterixis Psychiatric: Orientation: alert and oriented x 3 Results & Data ([facility]) Vital Signs (Past 12 Hours) Vital Signs Temp Pulse Pulse Pulse Resp BP Pulse Ox 05/23/22 08:08 36.4 C L 65 20 156/72 H 98 05/23/22 07:00 58 L 05/23/22 03:00 36.7 C 57 L 18 130/55 L 98 05/22/22 23:00 37.1 C 60 16 133/58 L 97 O2 Del Method 05/23/22 08:08 Room Air 05/23/22 07:00 05/23/22 03:00 05/22/22 23:00 Laboratory Results Laboratory Results - last 24 hr 05/22/22 05/22/22 05/23/22 13:15 21:01 05:59 Sodium 131 L 134 L Potassium 4.7 4.6 Chloride 100 102 Carbon Dioxide 24 25 Anion Gap 7 7 BUN 55 H 54 H Creatinine 1.60 H 1.51 H Est Cr Clr Drug Dosing 36.5 38.6 Est GFR ( Amer) 34.4 36.9 Est GFR (Non-Af Amer) 29.7 31.9 BUN/Creatinine Ratio 34.4 H 35.8 H Glucose 106 H 92 Calcium 8.7 9.0 Phosphorus 3.2 Albumin 3.8 Urine Color Urine Appearance Urine pH Ur Specific [place] Urine Protein Urine Glucose (UA) Urine Ketones Urine Blood Urine Nitrite Urine Bilirubin Urine Urobilinogen Ur Leukocyte Esterase Urine WBC (Auto) Urine RBC (Auto) U Hyaline Cast (Auto) U Epithel Cells (Auto) Urine Bacteria (Auto) Ur Renal Epithelial Cell Urine Osmolality 301 L 05/23/22 09:30 Sodium Potassium Chloride Carbon Dioxide Anion Gap BUN Creatinine Est Cr Clr Drug Dosing Est GFR ( Amer) Est GFR (Non-Af Amer) BUN/Creatinine Ratio Glucose Calcium Phosphorus Albumin Urine Color Yellow Urine Appearance Cloudy A Urine pH 5.0 Ur Specific [place] 1.007 Urine Protein 1+ H Urine Glucose (UA) Negative Urine Ketones Negative Urine Blood 3+ H Urine Nitrite Negative Urine Bilirubin Negative Urine Urobilinogen Negative Ur Leukocyte Esterase 2+ H Urine WBC (Auto) >30 H Urine RBC (Auto) >30 H U Hyaline Cast (Auto) 1-5 U Epithel Cells (Auto) >30 H Urine Bacteria (Auto) Negative Ur Renal Epithelial Cell Not Reportable Urine Osmolality PG Care Time/CCT Total # of Minutes Spent Total Time Spent with Patient: Total time spent is greater than 50% in coordination of care (as documented) at patient's floor/unit and/or counseling patient: Coding Level of Care Code 15963 Subseq Hosp Care Lvl 3 Diagnoses Hyponatremia E87.1 Anemia D64.9 Anemia type: unspecified type Chronic kidney disease, stage 4 (severe) N18.4 (1) Anemia Anemia type: unspecified type Qualified Code(s): D64.9 - Anemia, unspecified
[2022-05-23] MEDS: HEPARIN 100 UNIT/ML 5ML FLUSH FLUSH PRN (11:18)
[2022-05-23 11:48] VITALS: TEMP 98.6; O2SAT 96
[2022-05-23] MEDS: ACETAMINOPHEN 500 MG TAB PO PRN (12:42)
[2022-05-23] MEDS: fentaNYL 12 MCG/HR TDSY TD SCH (13:31)
[2022-05-23 15:55] VITALS: PULSE 57
[2022-05-23 15:57] VITALS: BP 174/78
--- NOTE | 2022-05-23 16:08 | Discharge Summary ---
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 Patient comes to the EMD for complaints of acute worsening of her left lower back pain. The patient was onHydrocodone APAP 10/325, BID PRN and Hydrocodone 5/325 prn breakthrough pain at home, which she endorses that she was not really using much until yesterday with scheduled and PRN doses. This did not provide her much relief. The pain is in her left lower back/iliac/SI joint. This pain is sharp and stabbing, worsened with her rolling or sitting forward and standing. Once she stands, she is unable to straighten up or walk. Her daughter endorses that she has been stooping over and shuffling with her pain. The pain occasionally will radiate t o her left hip, but does not go down her leg. They have been in contact with their primary oncologist. She has not been on any other pain adjunctive medications and has not been on much higher doses of narcotics. Will provide multi-tiered approach with excalation as needed. Her current therapy is Pembrolizumab with axitinib with Prolia. The patient is due for her Pembrolizumab this week. Continue her Axitinib PO BID (patient to bring from home). Will consult haematology for continuation of her Keytruda while in house if warranted as well continued adjuvant pain therapy. Will consult radiation oncology for evaluation for possible palliative radiation. Discharge Exam gen - comfortable appearing, sitting in chair -looks very good today mouth - MMM neck - no JVD heart - RRR, s1 s2, 2/6 systolic murmur RUSB lungs - CTA b/l abd - soft NT ND BS+ ext - trace edema b/l; right leg is larger than left leg (baseline); pulses 2+ b/l psych - awake, alert, oriented x 3 Discharge Data Allergies Allergy/AdvReac Type Severity Reaction Status Date / Time No Known Drug Allergies Allergy Verified 05/15/22 14:46 Consultations 05/15/22 12:36 ED Decision to Admit Stat 05/15/22 16:29 Consult Hematology Routine Consult Radiation Oncology Routine 05/17/22 12:46 Consult Palliative Care Routine 05/21/22 06:03 Consult Nephrology Routine Ordered Studies 05/15/22 10:31 CT abd pelvis wo con Stat CT lumbar spine wo con Stat 05/17/22 09:51 CT guide rad therapy pelvis Routine 05/20/22 20:31 US venous doppler LE RT Urgent Hospital Course (1) Hyponatremia: Continues to improve. 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 s/p Tolvaptan therapy this week along with salt supplementation and 3% saline. Low-dose PO lasix added today by Dr Patino to enhance free water excretion. lowest Na 122 this admission. in late February/early March also had severe hyponatremia to the low 110s requiring tolvaptan therapy. appreciate nephrology consultation today. plan - * NaCl 1gm BID * lasix 20mg po daily to enhance free water diuresis * adjusted synthroid for decompensated hypothyroidism * remain off of HCTZ * follow urine osm levels * BMP in am (2) Pain due to malignant neoplasm metastatic to bone: IMPROVED. Mets to left iliac bone, T12 and L2. Most of her pain is likely due to the iliac mets. s//p 4 XRT treatments this week. 10 fractions in total are planned. Dr Hill directing her XRT. Continue the following pain meds - * Tylenol prn * Gabapentin 300mg PO BID * Lidocaine patches * Hydromorphone 0.5mg IV q6 prn * Hydromorphone 2mg PO prn * calcitonin nasal spray * dexamethasone 4mg daily (Axitinib is on hold); dex may provide more bone pain relief than prednisone * fentanyl patch 12mcg q72h * bowel region (did move them today). Appreciate palliative care, rad onc, and onc consultations. Holding Axitinib at this time. (3) Metastatic renal cell carcinoma: Metastatic disease - current therapy Keytruda/Axitinib. Holding Axitinib with XRT. Next chemo treatment -- likely next week. (4) Hypomagnesemia: replaced resolved (5) Hypothyroidism: Continue Synthroid TSH in early April and this admission both high Increased synthroid to 150mcg/day repeat TSH 6 weeks (6) Essential (primary) hypertension: Stopped HCTZ due to ongoing issues with hyponatremia Cont lisinopril BPs acceptable today (7) Chronic kidney disease, stage 4 (severe): baseline CrCl low 30s BMPs stable (8) Absent kidney, acquired: LEFT Nephrectomy secondary to RCC (9) UTI (urinary tract infection): resolved s/p 7-day course keflex abx d/c rivas is out (10) Constipation: severe opiate-induced cont senna 2 tabs BID cont colace BID cont miralax (11) DVT prophylaxis: heparin SC TID Plan cont PT, OT Eveline, daughter, updated by phone today home tomorrow if pain controlled and Na is stable?? Home Health Attestation I certify that this patient is under my care and that I, or a physicians fitness assistant working with me, had a face to-face encounter that meets the home health fgbj-lb-qczv encounter requirements with this patient. 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 absences from home require considerable and taxing effort and are for medical reasons or restorationism services or infrequently or of short duration when for other reasons) because: Poor Endurance; SOB Minimal Exertion Transportation Assistance/Unable to Leave Home Unassisted Certification for Home Health Services: Based on the above findings, I certify that this patient is confined to the home and needs intermittent long term care, physical therapy and/or speech therapy or continues to need occupational therapy. The patient is under my care, and I have initiated the establishment of the plan of care. This patient will be followed by a physician who will periodically review the plan of care. Discharge Plan Discharge Items Patient Disposition: Home - Home Health Services Reason For Visit: INTRACTABLE BACK PAIN Discharge Diagnosis: 1. severe back and pelvic pain due to bony mets from cancer 2. kidney cancer 3. urinary tract infection 4. hyponatremia (low sodium level) - improved; discharge sodium level 134 (normal 135-145) 5. high blood pressure 6. hypothyroidism Activity: As commented below Activity Comment: light activities as tolerated/as desired Lifting: No more than 10 pounds Bathing: No limitations Driving/Machine Use: No driving due to usage of narcotic pain killer medication Non-emergency contact: Primary Care Provider, Specialist, Pickle Maker and Oncologist Call non-emergency contact if: you have any medication questions, your symptoms worsen, your pain is not controlled, your pain is worsening, your pain is unusual for you, your pain is concerning for you and you have a fever Follow-up/Referrals: Charlene Candelaria MD [Physician] - (within 1 week for your low sodium ) Maximino Hill MD [Physician] - 05/24/22 (please call first thing Tuesday AM, 05/24/22, to confirm time of your next radiation treatment) Dutch Moore DO [Primary Care Provider] - 06/02/22 11:20 am Suzan Tang MD [Physician] - (may see Dr Tang for adjustment of your pain medications, if needed, within 1-2 weeks) Dorita Galeana MD [Physician] - 05/25/22 (Tuesday as scheduled for blood work) Diet: Regular Fluids: 1800ml (7 cups) Addtl Attending Provider Instructions: Romero Lauren were hospitalized at [facility] for severe low back pain due to cancer in the bones of the lumbar spine and pelvis. You received a combination of various oral, topical, and IV pain medications to relieve the pain. In addition, Dr Maximino Hill from radiation oncology saw you in consult and recommended 10 radiation treatments to help control the left lower back pain. You have received [address] Suzan Tang from palliative care saw you to help with your pain control. At this time we are using a combination of the following medications for your pain - * fentanyl patch - 12.5mcg strength, applied to your skin, and changed every 72 hours * you are due to change this patch out on 05/26/22, at NOON * this prescription will need a prior authorization from your insurance company - we will complete such first thing tomorrow morning * hydromorphone tablets - 2mg every 4 hours as needed by mouth for pain relief * gabapentin 300mg twice daily * nzyz-vsx-pkxzyqv tylenol, 1000mg up to 3 times a day as needed for additional pain relief * lxgh-nya-achexpn "Salonpas" pain patches - as desired for additional pain relief - follow instructions on box * may use heating pad as desired/as needed * dexamethasone steroid - 4mg once daily x 7 days with food; first dose on 05/24/22 Additional Recommendations - 1. prevention/treatment of constipation - * mivi-aqh-nbiutcd miralax 1 serving by mouth daily * qruq-gsb-chhhjys senokot 2 tabs by mouth daily 2. urinary tract infection - * cefdinir 300mg once daily x 5 days, first dose on Tuesday05/24/22 3. for hyponatremia / low sodium - * restrict total 24-hour fluid intake to about 1800cc * salt tablets (sodium chloride) - 1 gram twice daily, first dose tonight * furosemide 20mg once daily every morning (water pill/diuretic) 4. high blood pressure pills - * please STOP your combination lisinopril-hydrochlorothiazide medication * please START lisinopril 20mg by mouth twice daily, first dose tonight 5. thyroid medication - * we made a slight adjustment to your thyroid medication * your dose is now 150mcg daily of your levothyroxine * take your first dose tomorrow, 05/24/22 Return to [facility] if - * you have fever over 100 degrees * you have worsening pain/uncontrollable pain despite taking all of the above pain medications * you have worsening blood in your urine, heavy clots, etc * you have shortness of breath or chest pain * you have severe constipation unrelieved by your constipation medications * any other concerns It was our pleasure to care for you at [facility]! Please continue to feel better and enjoy being home, Dr Dukes Pending Studies at Discharge: No Stand-Alone Forms: My [facility], Smoking Cessation Medications and DC Order Prescriptions: New lisinopril 20 mg Tablet 20 mg PO BID Qty: 60 5RF acetaminophen [Tylenol Extra Strength] 500 mg Tablet 1,000 mg PO TID PRN (Reason: pain) Qty: 30 0RF Rx Instructions: purchase svab-kvb-sqdiqqv sennosides [Senokot] 8.6 mg Tablet 17.2 mg PO DAILY Qty: 60 0RF Rx Instructions: purchase fobh-xuh-busyfdz polyethylene glycol 3350 [Miralax] 17 gram Powder In Packet 17 g PO DAILY Qty: 30 0RF Rx Instructions: purchase nkod-csu-kkrlwus sodium chloride 1 gram Tablet 1 g PO BID Qty: 60 2RF hydromorphone [Dilaudid] 2 mg Tablet 2 mg PO Q4H PRN (Reason: pain) Qty: 45 0RF gabapentin 300 mg Capsule 300 mg PO BID Qty: 60 2RF furosemide 20 mg Tablet 20 mg PO QAM Qty: 30 5RF fentanyl 12 mcg/hr Patch 72 Hour 12 mcg transdermal Q3D Qty: 10 0RF dexamethasone 4 mg Tablet 4 mg PO DAILY 7 Days Qty: 7 0RF Rx Instructions: first dose on 05/24/22. cefdinir 300 mg capsule 300 mg PO DAILY 5 Days Qty: 5 0RF Rx Instructions: first dose on 05/24/22. Continued oxybutynin chloride [Ditropan XL] 10 mg tablet extended release 24 hr 10 mg PO HS Qty: 90 1RF calcium carbonate-vitamin D3 [Caltrate with Vitamin D3] 600 mg(1,500mg) -800 unit tablet 1 tab PO QAM multivitamin [One Daily Multivitamin] tablet 1 tab PO QAM simvastatin [Zocor] 20 mg tablet 20 mg PO HS ketoconazole 2 % cream 1 applic topical BID PRN (Reason: Rash) Rx Instructions: Apply to affected areas on forehead BID x 4 weeks glucosamine-chondroitin [Osteo Bi-Flex] 250-200 mg Tablet 1 tab PO QAM dfwdc-kh-8-xdv-wyz-kaudhzy-ast [MegaRed Pride-3 Krill Oil] 1,000-230-60 mg Capsule 1 cap PO QAM Changed levothyroxine 150 mcg capsule 150 mcg PO DAILY Qty: 30 5RF Discontinued lisinopril-hydrochlorothiazide 20-12.5 mg tablet 1 tab PO BID Qty: 180 3RF Inlyta 5 mg tablet 5 mg PO BID docusate sodium 50 mg Capsule 0 mg PO BID sulfamethoxazole-trimethoprim [Bactrim DS] 800-160 mg tablet 1 tab PO Q12H PRN (Reason: uti) Discharge Orders: Discharge Order (Routine); Ordered 05/23/22 Ordered By: Colby Gomez/Other Patient Handouts: ED Hyponatremia Admission Data Admit Date/Time: 05/15/22 12:48 Attending Provider: Colby Dukes Admit Provider: Jr Frank Primary Care Provider: Dutch Moore Other Providers: [facility],Home Healthcare ; Jr Frank ; Dorita Galeana ; Scot Sorto ; Suzan Tang ; Charlene Candelaria Coding Diagnoses Hyponatremia E87.1 Pain due to malignant neoplasm metastatic to bone G89.3; C79.51 Metastatic renal cell carcinoma C64.9 Hypomagnesemia E83.42 Hypothyroidism E03.9 Hypothyroidism type: unspecified Essential (primary) hypertension I10 Chronic kidney disease, stage 4 (severe) N18.4 Absent kidney, acquired Z90.5 UTI (urinary tract infection) N39.0 Constipation K59.00 DVT prophylaxis Z29.9
== END 2022-05-23 16:58 | disposition home health service (06) | DRG 543 ==
LOC: ED 10:22 → 3E 12:48 → SUATTDRO 12:48 → 3E 15:42 → 2E 05-20 20:22

== ENCOUNTER 2022-06-26 12:50 | Observation (INO) ==
--- NOTE | 2022-06-26 13:38 | Emergency Department Note ---
Impression & Plan Ambulatory dysfunction, Fall, H/O renal cell cancer, Bony metastasis, Acute bilateral knee pain, CKD (chronic kidney disease) stage 4, GFR 15-29 ml/min ED Provider Note NAME: ISABELLA SAMPSON AGE: 82 SEX: F : 1940 ARRIVES VIA: Ambulance INFORMANT: Patient, ED PROVIDER(S): Wilfredo Lowery MD Chief Complaint: Weakness, fall, ambulatory dysfunction HPI: Patient presents with the above symptoms from home. The patient states that she tried to get up earlier today and tried to walk and felt as though her right knee gave out she fell to her right side striking the right side of her body against the wall and then down to her knees. The patient denies any head strike or LOC. The patient does not take blood thinners. Patient denies any chest pain or any pain from striking her right side against the wall. Patient reportedly was 88% on room air in route was placed on 2 L nasal cannula. No prior history of DVT or PE. The patient is receiving chemo and radiation treatment for history of RCC with bony mets. The patient is taking Dilaudid and does use fentanyl patches for pain. Patient Nuys any chest pain shortness of breath or leg swelling. The patient does complain of some bilateral knee pain localized to the anterior aspects bilaterally. Achy nonradiating slightly worse with range of motion or movement. ROS: See HPI for pertinent positives and negatives. A total of 10 systems were r eviewed and otherwise negative. Past medical history: See below Surgical history: See below Social history: See below Physical Exam: GENERAL: NAD, wearing a mask, non-toxic. Wearing glasses. EYE EXAM: Normal conjunctiva. PERRL, no anisocoria and EOM's grossly intact w/o pain. NECK: Supple, no nuchal rigidity, no adenopathy, non-tender. No signs of meningismus. FROM of the neck with good chin to chest and neck extension. No stridor. LUNGS: Clear to auscultation. Normal chest wall mechanics. HEART: NSR, systolic ejection murmur noted. ABDOMEN: Abdomen soft, non-tender, normo-active bowel sounds, no masses, no rebound or guarding. BACK: No CVA TTP. SKIN: No rashes and no bruising. UPPER EXTREMITIES: Upper extremities are grossly normal. LOWER EXTREMITIES: Grossly normal, no edema. Mild bilateral knee discomfort without obvious deformity neurovascular tact distally but decreased range of motion secondary to discomfort. NEURO EXAM: A&O x3, cranial nerves II-XII grossly intact, normal speech, moves all 4 extremities but moves bilateral lower extremities with symmetric weakness. Differential diagnoses: Infection, dehydration, metabolic abnormality, hypo/hyperglycemia, electrolyte disturbance, anemia, hypoxia, cardiac sources, intracerebral event, toxicologic, neurologic, as well as other pathologies. Course: Patient was seen and evaluated the bedside. Full history physical exam was performed. EKG interpreted by me Sinus bradycardia with first-degree AV block, rate of 59, prolonged CA, left axis deviation. No significant change from comparison April 14, 2022. Imaging Studies: See Below Cardiac monitoring: An order was placed for continuous cardiac monitoring. The monitor shows a rate of 62 with sinus rhythm. MDM: Patient was seen due to concern for ambulatory dysfunction weakness and knee pain. Blood work was obtained. Patient has a normal white count with a hemoglobin of 11. Platelet count is unremarkable. Patient kidney function 2.2. Patient CKD 4 with normal mag. TSH is elevated free T4 is normal. Patient's COVID is negative. Patient did have plain films completed which did not show any acute process. Patient's chest x-ray showed her multifocal metastatic disease. Hip and pelvis x-ray with no acute bony abnormality and the bilateral knee x-rays do not show any acute findings. I did trial the patient off her oxygen and the patient was satting in the mid 90s without any supplemental. Patient does not complain of any chest pains or shortness of breath. The patient does still suffer from ambulatory dysfunction and weakness and I did speak with the on-call hospitalist Dr. Moore and the patient was admitted to the medicine service. 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) Essential (primary) hypertension Frequent UTI Gait disturbance Uses cane for ambulation History of recent blood transfusion Most recent 04/02/22 ([facility])- hgb at time in the 7s (now stable at 9.3 on most recent 04/07/22 labs) Hyperlipidemia Hypertension Hypomagnesemia Hyponatremia Hypothyroidism Hypothyroidism Metastatic renal cell carcinoma to bone Osteoarthritis Pain due to malignant neoplasm metastatic to bone Urinary incontinence UTI (urinary tract infection) Surgical History H/O breast surgery Re-Excision Left Breast Tissue (2019) H/O mastectomy Left Breast Mastectomy (11/12/19): LMA#4 at [facility]. No issues noted per post-op anesthesia progress note. Hx of cholecystectomy Hx of colonoscopy Port-A-Cath in place (04/26/22) Port placement and fluoroscopy. Dr. Shelley Status post left breast lumpectomy Left Breast Lumpectomy with Needle Localization and Left Adams Lymph Node Biopsy Family History Mother Thyroid disease Father Osteoarthritis Brother Colon cancer Grandmother Colon cancer Other No family history of adverse response to anesthesia Denies family history of Ovarian cancer Prostate cancer Myocardial infarction Breast cancer Social History Smoking Status: Former smoker Tobacco Type: Cigarettes Age Started Using Tobacco: 18; Age Quit Using Tobacco: 29; packs per day: 0.5; Years Smoked: 11; Cigarettes Per Day: 10; Number of Years Since Quit: 52; Second Hand Exposure: No; Hx Alcohol Use: Yes Alcohol type: wine Hx Substance Use: No Preferred Language: Singaporean Communication Ability: Effective Visual Impairment: No Limitations 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: Normal Instructional Resource Teacher Required: No Beliefs That Will Affect Care: None marital status: / Current Living Situation: Alone Current Living Situation Comment: daughter staying with her current occupational status: retired How many Children do You have: 3 Other Information That Helps Us Care for You: No Feels Safe at Home: Yes Safety Concerns: Feels Safe At This Time Childhood Exposure to Second-Hand Smoke: Yes caffeine: Yes during the past year weight has: increased > 10 lbs Dental Care, Regularly: No Physical Activity Frequency: Does not Exercise Seatbelt Use: always Sunscreen Use: No Assistive Devices: Denture - Upper, Denture - Lower, Glasses and Walker Allergies Allergies Allergy/AdvReac Type Severity Reaction Status Date / Time No Known Drug Allergies Allergy Unknown Verified 06/26/22 15:42 Home Meds Home Medications Medication Instructions Recorded Confirmed calcium carbonate 600 mg-vitamin 1 tab PO QAM 06/27/19 06/26/22 D3 20 mcg (800 unit) tablet (Caltrate with Vitamin D3) multivitamin (One Daily 1 tab PO QAM 06/27/19 06/26/22 Multivitamin tablet) glucosamine-chondroitin 250 mg-200 1 tab PO QAM 04/21/22 06/26/22 mg tablet (Osteo Bi-Flex) krill 1,000 mg-omega-3 230 mg-dha 1 cap PO QAM 04/21/22 06/26/22 60 ld-mwt-nzysmppif-astaxan capsule (MegaRed Lykens-3 Krill Oil) simvastatin 20 mg tablet (Zocor) 20 mg PO HS 04/21/22 06/26/22 axitinib 5 mg tablet (Inlyta) 5 mg PO BID 06/02/22 06/26/22 polyethylene glycol 3350 17 gram 17 g PO DAILY PRN Constipation 06/02/22 06/26/22 oral powder packet (Miralax) sennosides 8.6 mg tablet (Senokot) 8.6 mg PO HS 06/09/22 06/26/22 cranberry 500 mg capsule 500 mg PO QAM 06/26/22 06/26/22 fentanyl 25 mcg/hr transdermal 25 mcg transdermal [id number] 06/26/22 06/26/22 patch lisinopril 20 mg tablet 20 mg PO BID 06/26/22 06/26/22 lorazepam 0.5 mg tablet 0.5 mg PO DAILY PRN Anxiety 06/26/22 06/26/22 magnesium oxide 400 mg (241.3 mg 400 mg PO DAILY 06/26/22 06/26/22 magnesium) tablet tramadol 50 mg tablet 50 mg PO Q6 PRN Pain 06/26/22 06/26/22 Previous Rx's Medication Instructions Recorded oxybutynin chloride 10 mg 10 mg PO HS #90 tabs 03/22/22 tablet,extended release 24 hr (Ditropan XL) acetaminophen 500 mg tablet 1,000 mg PO TID PRN pain #30 tabs 05/23/22 (Tylenol Extra Strength) furosemide 20 mg tablet 20 mg PO QAM #30 tabs 05/23/22 gabapentin 300 mg capsule 300 mg PO BID #60 caps 05/23/22 levothyroxine 150 mcg capsule 150 mcg PO DAILY #30 caps 05/23/22 sodium chloride 1 gram tablet 1 g PO BID #60 tabs 05/23/22 sulfamethoxazole 400 1 tab PO DAILY #90 tabs 06/11/22 mg-trimethoprim 80 mg tablet (Bactrim) hydromorphone 2 mg tablet 2 mg PO Q4H PRN pain #60 tabs 06/15/22 (Dilaudid) Results & Data (ED) Vital Signs Vital Signs - 24 hr 06/26/22 13:11 06/26/22 13:11 06/26/22 14:05 Pulse Rate 80 80 Pulse Rate [Right Finger] 78 Respiratory Rate 18 18 18 Respiratory Effort / Characteristics Non-Labored Respiratory Depth Normal Respiratory Pattern Regular Regular Blood Pressure 135/66 Blood Pressure [Right Arm] 120/82 Blood Pressure Mean 89 Blood Pressure Mean [Right Arm] 94 Blood Pressure Position Sitting Blood Pressure Position [Right Arm] Sitting Pulse Oximetry 97 97 99 Oxygen Delivery Method Nasal Cannula Nasal Cannula Nasal Cannula Oxygen Flow Rate 2 2 2 Sepsis Recent Fever Within 48 Hours No Sepsis New/Unexplained Change in Mental Status No Sepsis Action Taken by Nursing No Action Required 06/26/22 14:05 Pulse Rate Pulse Rate [Right Finger] Respiratory Rate Respiratory Effort / Characteristics Respiratory Depth Respiratory Pattern Blood Pressure Blood Pressure [Right Arm] Blood Pressure Mean Blood Pressure Mean [Right Arm] Blood Pressure Position Blood Pressure Position [Right Arm] Pulse Oximetry Oxygen Delivery Method Nasal Cannula Oxygen Flow Rate 2 Sepsis Recent Fever Within 48 Hours Sepsis New/Unexplained Change in Mental Status Sepsis Action Taken by Care Home Medications Current Medication List: was personally reviewed by me Laboratory Data Attestation: I reviewed the patient's lab results. Result diagrams: 06/26/22 13:51 06/26/22 13:51 Lab Results 06/26/22 06/26/22 06/26/22 Range/Units 13:51 13:51 13:51 WBC 5.55 (4.8-10.8) K/ul RBC 3.69 L (3.93-5.22) M/uL Hgb 11.0 L (12.0-16.0) g/dl Hct 32.8 L (34.1-44.9) % MCV 88.9 (80.0-100.0) fL MCH 29.8 (25.0-34.0) pg MCHC 33.5 (32.0-36.0) g/dL RDW Std Deviation 54.0 H (36.4-46.3) fL RDW Coeff of Gala 16.7 H (11.5-14.5) % Plt Count 139 (130-400) K/uL MPV 9.4 (9.4-12.3) fL Immature Gran % (Auto) 0.2 % Neut % (Auto) 60.0 % Lymph % (Auto) 18.0 % [place] % (Auto) 13.9 % Eos % (Auto) 7.7 % Baso % (Auto) 0.2 % Neut # (Auto) 3.33 (1.4-6.5) K/uL Lymph # (Auto) 1.00 L (1.2-3.4) K/uL [place] # (Auto) 0.77 (0.24-0.82) K/uL Eos # (Auto) 0.43 (0-0.50) K/uL Baso # (Auto) 0.01 (0-0.2) K/uL Immature Gran # (Auto) 0.01 (0.00-0.02) K/uL Sodium 138 (136-145) mmol/L Potassium 4.3 (3.5-5.1) mmol/L Chloride 106 (98-107) mmol/L Carbon Dioxide 24 (21-32) mmol/L Anion Gap 8 (3-11) BUN 24 H (6-23) mg/dl Creatinine 2.20 H (0.6-1.2) mg/dl Est Cr Clr Drug Dosing 25.9 ml/min Est GFR ( Amer) 23.3 ml/min Est GFR (Non-Af Amer) 20.1 ml/min BUN/Creatinine Ratio 10.9 (10-20) Glucose 97 (70-99(Fasting)) mg/dl Calcium 8.5 (8.5-10.1) mg/dl Magnesium 1.8 (1.7-2.4) mg/dl Total Bilirubin 0.8 (0.2-1.0) mg/dl AST 26 (13-39) U/L ALT 17 (7-52) U/L Alkaline Phosphatase 83 (34-104) U/L Total Protein 6.6 (6.0-8.3) gm/dl Albumin 3.6 (3.4-5.0) gm/dl Globulin 3.0 (2.5-4.0) gm/dl Albumin/Globulin Ratio 1.2 (0.9-2) TSH 5.441 H (0.300-4.500) uIu/ml Free T4 1.17 (0.61-1.60) ng/dl SARS-CoV-2, RNA, NAAT (NEGATIVE) 06/26/22 Range/Units 14:00 WBC (4.8-10.8) K/ul RBC (3.93-5.22) M/uL Hgb (12.0-16.0) g/dl Hct (34.1-44.9) % MCV (80.0-100.0) fL MCH (25.0-34.0) pg MCHC (32.0-36.0) g/dL RDW Std Deviation (36.4-46.3) fL RDW Coeff of Gala (11.5-14.5) % Plt Count (130-400) K/uL MPV (9.4-12.3) fL Immature Gran % (Auto) % Neut % (Auto) % Lymph % (Auto) % [place] % (Auto) % Eos % (Auto) % Baso % (Auto) % Neut # (Auto) (1.4-6.5) K/uL Lymph # (Auto) (1.2-3.4) K/uL [place] # (Auto) (0.24-0.82) K/uL Eos # (Auto) (0-0.50) K/uL Baso # (Auto) (0-0.2) K/uL Immature Gran # (Auto) (0.00-0.02) K/uL Sodium (136-145) mmol/L Potassium (3.5-5.1) mmol/L Chloride (98-107) mmol/L Carbon Dioxide (21-32) mmol/L Anion Gap (3-11) BUN (6-23) mg/dl Creatinine (0.6-1.2) mg/dl Est Cr Clr Drug Dosing ml/min Est GFR ( Amer) ml/min Est GFR (Non-Af Amer) ml/min BUN/Creatinine Ratio (10-20) Glucose (70-99(Fasting)) mg/dl Calcium (8.5-10.1) mg/dl Magnesium (1.7-2.4) mg/dl Total Bilirubin (0.2-1.0) mg/dl AST (13-39) U/L ALT (7-52) U/L Alkaline Phosphatase (34-104) U/L Total Protein (6.0-8.3) gm/dl Albumin (3.4-5.0) gm/dl Globulin (2.5-4.0) gm/dl Albumin/Globulin Ratio (0.9-2) TSH (0.300-4.500) uIu/ml Free T4 (0.61-1.60) ng/dl SARS-CoV-2, RNA, NAAT NEGATIVE (NEGATIVE) Administered Medications Axitinib (Axitinib) 1 each PO BID EMELY Stop: 07/26/22 23:29 Last Admin: 06/27/22 00:08 Dose: 1 each Documented By: SIOMARA Co-signed By: GOPAL Fentanyl (Fentanyl 25 Mcg/Hr Tdsy) 25 mcg TD Q3D EMELY Stop: 07/10/22 17:31 Last Admin: 06/26/22 18:20 Dose: 25 mcg Documented By: HEBERT Gabapentin (Gabapentin 300 Mg Cap) 300 mg PO BID EMELY Stop: 07/26/22 20:59 Last Admin: 06/26/22 21:05 Dose: 300 mg Documented By: SIOMARA Heparin Sodium (Porcine) (Heparin Sod 5,000 Unit/0.5 Ml Vial) 5,000 units SQ Q8 EMELY Stop: 07/26/22 21:59 Last Admin: 06/27/22 06:01 Dose: 5,000 units Documented By: Admin: 06/26/22 21:05 Dose: 5,000 units Documented By: SIOMARA Levothyroxine Sodium (Levothyroxine Sodium 150 Mcg Tablet) 150 mcg PO DAILYBB [facility] Stop: 07/27/22 06:29 Last Admin: 06/27/22 06:01 Dose: 150 mcg Documented By: SIOMARA Wick (Fentanyl Patch Remove & Waste) 1 each N/A Q3D EMELY Stop: 07/26/22 17:31 Last Admin: 06/26/22 18:21 Dose: 1 each Documented By: HEBERT Co-signed By: SHERLYN Wick (Check Fentanyl Patch Placement) 1 each N/A QS [facility] Stop: 07/26/22 17:31 Last Admin: 06/26/22 23:10 Dose: 1 each Documented By: Admin: 06/26/22 18:21 Dose: 1 each Documented By: HEBERT Oxybutynin Chloride (Oxybutynin Chloride Xl 5 Mg Tabcr) 10 mg PO HS EMELY Stop: 07/26/22 20:59 Last Admin: 06/26/22 21:05 Dose: 10 mg Documented By: SIOMARA Simvastatin (Simvastatin 20 Mg Tab) 20 mg PO HS EMELY Stop: 07/26/22 20:59 Last Admin: 06/26/22 21:04 Dose: 20 mg Documented By: SIOMARA Sodium Chloride (Sodium Chloride 1 Gm Tablet) 1 gm PO BID EMELY Stop: 07/26/22 20:59 Last Admin: 06/26/22 21:04 Dose: 1 gm Documented By: SIOMARA Discontinued Medications Sodium Chloride (Nss 1000ml) 500 mls @ 999 mls/hr IV .Q31M ONE Stop: 06/26/22 15:37 Last Infusion: 06/26/22 15:51 Dose: 0 mls/hr Documented By: Admin: 06/26/22 15:14 Dose: 999 mls/hr Documented By: JUVENTINO Lactated Ringer's (Lr) 1,000 mls @ 90 mls/hr IV .Q11H7M ONE Stop: 06/27/22 03:11 Last Infusion: 06/27/22 06:08 Dose: 0 mls/hr Documented By: Admin: 06/26/22 18:14 Dose: 90 mls/hr Documented By: HEBERT Magnesium Sulfate/Dextrose (Magnesium Sulfate / D5w) 1 gm in 100 mls @ 50 mls/hr IV Q2H EMELY Stop: 06/26/22 20:14 Last Infusion: 06/26/22 23:05 Dose: 0 mls/hr Documented By: KGKalin Admin: 06/26/22 21:03 Dose: 50 mls/hr Documented By: KGKalin Infusion: 06/26/22 20:39 Dose: 0 mls/hr Documented By: Admin: 06/26/22 18:14 Dose: 50 mls/hr Documented By: HEBERT Imaging Data Radiologist's Impression: Chest X-Ray 06/26/22 13:06 SINGLE VIEW CHEST CLINICAL HISTORY: Generalized weakness. Recent fall. FINDINGS: An AP, portable, upright chest radiograph is compared to study dated 04/26/2022 and correlated with chest CT dated 03/30/2022. Partially degraded A left subclavian central venous infusion port is unchanged in position. The heart is enlarged noting atherosclerotic calcification of the thoracic aorta. The pulmonary vascularity is noncongested. Chronic interstitial thickening with evidence of chronic interstitial lung disease is similar to previous. Numerous pulmonary nodules are again noted and consistent with multifocal metastatic disease. This was better assessed on the 03/30/[address] There is no evidence of superimposed airspace consolidation or large pleural effusion. Scarring/atelectasis is noted at the lung bases. No pneumothorax is seen. The skeletal structures are osteopenic. The bony thorax is grossly intact. Arthritic change is seen in the shoulders. IMPRESSION: 1. Cardiomegaly with no acute cardiopulmonary abnormality identified. 2. Findings of multifocal pulmonary metastatic disease and chronic interstitial lung disease are similar to previous. ACT 112: Negative or not required by law. Electronically signed by: Dom Ordaz M.D. 06/26/2022 2:09 PM Hip/Pelvis X-Ray 06/26/22 13:06 SINGLE VIEW PELVIS; 2 VIEWS RIGHT HIP; SINGLE VIEW LEFT HIP CLINICAL HISTORY: Difficulty weightbearing. Renal cell carcinoma. Recent fall. FINDINGS: An AP view of the pelvis with AP and frog leg views of the right hip and a frog leg view of the left hip are correlated with a pelvic CT dated 05/15/2022 and nuclear bone scan dated 03/31/2022. The skeletal structures are osteopenic. There is no radiographic evidence of acute fracture involving the hips or bony pelvis. Mild arthritic change and joint space narrowing is seen in the hips. There is mild sclerotic change in the sacroiliac joints. No osteolytic or blastic lesions are seen. The left iliac lesion seen by CT and bone scan is not visible on x-ray. Lumbosacral spondylosis is partially visualized. There is no bowel obstruction. The overlying soft tissues are within normal limits. A surgical clip is present in the left hemipelvis. IMPRESSION: No acute bony abnormality is identified. Electronically signed by: Dom Ordaz M.D. 06/26/2022 2:41 PM Knee X-Ray 06/26/22 13:06 LEFT KNEE 3 VIEWS CLINICAL HISTORY: Fall. Left knee pain. FINDINGS: AP, crosstable lateral, and sunrise views of the left knee are obtained. Correlation is made with nuclear bone scan dated 03/31/2022. The skeletal structures are osteopenic. No fracture is identified. There is moderate to advanced tricompartmental degenerative joint space narrowing, greatest in the lateral compartment. There are large marginal osteophytes, patellar enthesophytes, and degenerative beaking of the tibial spine. No lytic or blastic lesion is seen. A calcified fabella is incidentally noted. There is a small joint effusion. Mild soft tissue swelling is noted. IMPRESSION: 1. Mild soft tissue swelling and small joint effusion with no acute bony abnormality identified. 2. Osteopenia and degenerative change as above. Electronically signed by: Dom Ordaz M.D. 06/26/2022 2:27 PM Knee X-Ray 06/26/22 13:06 RIGHT KNEE 3 VIEWS CLINICAL HISTORY: Difficulty weightbearing. Recent fall. Knee pain. FINDINGS: AP, crosstable lateral, and sunrise views of the right knee are compared to study dated 09/24/2011. The skeletal structures are osteopenic. No fracture is seen. There is moderate to advanced tricompartmental degenerative joint space narrowing, greatest in the lateral and patellofemoral compartments. There are large marginal osteophytes and patellar enthesophytes. There is no evidence of lytic or blastic lesion. A calcified fabella is incidentally noted. There is no joint effusion. Mild soft tissue edema overlies the medial aspect of the knee. IMPRESSION: 1. Mild soft tissue swelling with no acute bony abnormality identified. 2. Osteopenia and degenerative change as above. Electronically signed by: Dom Ordaz M.D. 06/26/2022 2:16 PM Discharge Plan Visit Data Chief Complaint: Weakness Stated Complaint: Weakness ED Provider: Wilfredo Lowery Discharge Problem: Ambulatory dysfunction, Fall, H/O renal cell cancer, Bony metastasis, Acute bilateral knee pain, CKD (chronic kidney disease) stage 4, GFR 15-29 ml/min Patient Disposition: Admitted As Inpatient Discharge Instructions Interventions: ED Discharge Assessment Last Done: 06/26/22 15:56
--- NOTE | 2022-06-26 14:10 | XRay Report ---
SINGLE VIEW CHEST CLINICAL HISTORY: Generalized weakness. Recent fall. FINDINGS: An AP, portable, upright chest radiograph is compared to study dated 04/26/2022 and correlat ed with chest CT dated 03/30/2022. Partially degraded A left subclavian central venous infusion port i s unchanged in position. The heart is enlarged noting atherosclerotic calcification of the thoracic a ryan. The pulmonary vascularity is noncongested. Chronic interstitial thickening with evidence of chr onic interstitial lung disease is similar to previous. Numerous pulmonary nodules are again noted and consistent with multifocal metastatic disease. This was better assessed on the 03/30/[address] T here is no evidence of superimposed airspace consolidation or large pleural effusion. Scarring/atelec tasis is noted at the lung bases. No pneumothorax is seen. The skeletal structures are osteopenic. Th e bony thorax is grossly intact. Arthritic change is seen in the shoulders. IMPRESSION: 1. Cardiomegaly with no acute cardiopulmonary abnormality identified. 2. Findings of multifocal pulmonary metastatic disease and chronic interstitial lung disease are mitzi lar to previous. ACT 112: Negative or not required by law. Electronically signed by: Dom Ordaz M.D. 06/26/2022 2:09 PM
[2022-06-26 14:19] LABS: Basophils # (auto) 0.01 K/uL (0-0.2); Basophils % (auto) 0.2 %; Eosinophils # (auto) 0.43 K/uL (0-0.50); Eosinophils % (auto) 7.7 %; Hematocrit (blood only) 32.8 % (34.1-44.9); Immature Granulocytes # (auto) 0.01 K/uL (0.00-0.02); Immature Granulocytes % (auto) 0.2 %; Mean Corpuscular Hemoglobin 29.8 pg (25.0-34.0); Mean Corpuscular Hgb Conc 33.5 g/dL (32.0-36.0); Mean Corpuscular Volume 88.9 fL (80.0-100.0); Mean Platelet Volume 9.4 fL (9.4-12.3); Monocytes # (auto) 0.77 K/uL (0.24-0.82); Monocytes % (auto) 13.9 %; Neutrophils # (auto) 3.33 K/uL (1.4-6.5); Platelet Count 139 K/uL (130-400); RDW Coefficient of Variation 16.7 % (11.5-14.5); Red Blood Count 3.69 M/uL (3.93-5.22); White Blood Count 5.55 K/ul (4.8-10.8)
--- NOTE | 2022-06-26 14:19 | XRay Report ---
RIGHT KNEE 3 VIEWS CLINICAL HISTORY: Difficulty weightbearing. Recent fall. Knee pain. FINDINGS: AP, crosstable lateral, and sunrise views of the right knee are compared to study dated . The skeletal structures are osteopenic. No fracture is seen. There is moderate to advanced t ricompartmental degenerative joint space narrowing, greatest in the lateral and patellofemoral compar tments. There are large marginal osteophytes and patellar enthesophytes. There is no evidence of lyti c or blastic lesion. A calcified fabella is incidentally noted. There is no joint effusion. Mild soft tissue edema overlies the medial aspect of the knee. IMPRESSION: 1. Mild soft tissue swelling with no acute bony abnormality identified. 2. Osteopenia and degenerative change as above. Electronically signed by: Dom Ordaz M.D. 06/26/2022 2:16 PM
--- NOTE | 2022-06-26 14:29 | XRay Report ---
LEFT KNEE 3 VIEWS CLINICAL HISTORY: Fall. Left knee pain. FINDINGS: AP, crosstable lateral, and sunrise views of the left knee are obtained. Correlation is mad e with nuclear bone scan dated 03/31/2022. The skeletal structures are osteopenic. No fracture is ident ified. There is moderate to advanced tricompartmental degenerative joint space narrowing, greatest in the lateral compartment. There are large marginal osteophytes, patellar enthesophytes, and degenerat eitan beaking of the tibial spine. No lytic or blastic lesion is seen. A calcified fabella is incidenta lly noted. There is a small joint effusion. Mild soft tissue swelling is noted. IMPRESSION: 1. Mild soft tissue swelling and small joint effusion with no acute bony abnormality identified. 2. Osteopenia and degenerative change as above. Electronically signed by: Dom Ordaz M.D. 06/26/2022 2:27 PM
--- NOTE | 2022-06-26 14:43 | XRay Report ---
SINGLE VIEW PELVIS; 2 VIEWS RIGHT HIP; SINGLE VIEW LEFT HIP CLINICAL HISTORY: Difficulty weightbearing. Renal cell carcinoma. Recent fall. FINDINGS: An AP view of the pelvis with AP and frog leg views of the right hip and a frog leg view of the left hip are correlated with a pelvic CT dated 05/15/2022 and nuclear bone scan dated 03/31/2022. T he skeletal structures are osteopenic. There is no radiographic evidence of acute fracture involving the hips or bony pelvis. Mild arthritic change and joint space narrowing is seen in the hips. There i s mild sclerotic change in the sacroiliac joints. No osteolytic or blastic lesions are seen. The left iliac lesion seen by CT and bone scan is not visible on x-ray. Lumbosacral spondylosis is partially visualized. There is no bowel obstruction. The overlying soft tissues are within normal limits. A meghan gical clip is present in the left hemipelvis. IMPRESSION: No acute bony abnormality is identified. Electronically signed by: Dom Ordaz M.D. 06/26/2022 2:41 PM
[2022-06-26 14:52] LABS: Albumin Globulin Ratio 1.2 (0.9-2); Albumin Level 3.6 gm/dl (3.4-5.0); BUN Creatinine Ratio 10.9 (10-20); Bilirubin,Total 0.8 mg/dl (0.2-1.0); Calcium 8.5 mg/dl (8.5-10.1); Creatinine Clr Calc Pharmacy 25.9 ml/min; Est GFR (African American) 23.3 ml/min; Est GFR (Non-African American) 20.1 ml/min; Magnesium 1.8 mg/dl (1.7-2.4); Potassium 4.3 mmol/L (3.5-5.1); Total Protein 6.6 gm/dl (6.0-8.3)
[2022-06-26 14:54] LABS: Thyroid Stimulating Hormone 5.441 uIu/ml (0.300-4.500)
[2022-06-26] MEDS ORDERED: SODIUM CHLORIDE 0.9% 1000ML 500 ML IV ONE (15:07)
[2022-06-26 15:40] LABS: T4 Free Thyroxine 1.17 ng/dl (0.61-1.60)
--- NOTE | 2022-06-26 15:55 | History & Physical Report ---
Date of Service June 26, 2022 Assessment & Plan (1) Fall: Plan: Patient with fall following generalized overall weakness - without fractures noted on plain films however with pinpoint tenderness to left femoral head/neck- CT obtained; no fractures noted either. - Effusion to right knee- follow, ice - PT/OT consult - Case management consult for rehab evaluation (2) Generalized weakness: Plan: Multifactorial at this time to include: pharmacological/decrease nutritional intake/deconditioning - Will hold Axitinib tonight- consider discussion with haematology/oncology for thoughts on dose adjustment - PT/OT consultation - Eval for rehab - Nutritional consultation for supplementation (3) Metastatic renal cell carcinoma: Plan: With metastasis- - Axitinib to restart 06/25 - Continue pembrolizumab (4) SIADH (syndrome of inappropriate ADH production): Plan: Previous admission required 3% saline and tolvaptan for decrease in sodium to 127 - she remains on 1 salt tab per day - 138 on admission (5) Hypothyroidism: Plan: Remains mildly elevated with TSH T4 normal - Continue home Synthroid (6) Osteoarthritis of knee: Plan: Continue Tylenol, ICE (7) Vitamin D deficiency: Plan: Continue supplementation (8) Hypercholesterolemia: Plan: Continue Simivastatin (9) Cancer related pain: Plan: Pain better controlled following radiation therapy and adjustment of her pain medications on previous - Continue fentanyl - Continue Gabapentin - Continue Tramadol - Continue oral Dilaudid (10) TERRENCE (acute kidney injury): Plan: Mild elevation in her [employer]ING [employer]ER - will gently hydrate overnight with LR 90ml/hr - Hold Lasix - Hold ACEi - Follow in AM (11) Anemia: Plan: Secondary to cancer treatments - HGB stable following her 2U PRBC 2.5 weeks ago - Normocytic - Platelet count 139 History of Present Illness Primary Care Provider: Dutch Moore, DO 81 YOF with medical history of: HTN, CKD, Hypothyroidism, HLD, Obesity, 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 Received 2u PRBC 06/09. She is due for PET scan to evaluate staging and therapy. Patient comes to the [facility] today following 2 falls at home both on 06/25/22. Patient fell while she was coming out of her bathroom as her right leg gave out, she landed on her right knee and right side. She needed help getting up as she was then to weak to put weight on her leg as well as get up. Prior to going to bed she was trying to get her legs up and slid out of bed landing on her buttocks. She again needed help getting back in bed as well as getting dressed this morning. Overall the patient states that she is just more fatigued overall, with decrease in oral food and liquid intake. They did discuss her current therapy with her Oncologist and had some thoughts of possibly adjusting her medications and holding her Axitinib tonight. Patient and Family are awaiting the PET scan evaluation and discussion with ongoing care following that. Eveline is open to working with PT/OT as her pain is controlled and she would want to maintain her functional status and time with her family. Will admit to medical floor, obtain CT scan of her left hip as she has pain with palpation at the femoral head and neck. Nutritional consult for supplementation. PT/OT evaluation and Case management consultation for rehab evaluation needs. COVID test on admission is: NEGATIVE Allergies Allergy/AdvReac Type Severity Reaction Status Date / Time No Known Drug Allergies Allergy Unknown Verified 06/26/22 15:42 Home Medications Medication Instructions Recorded Confirmed Type calcium carbonate 600 mg-vitamin 1 tab PO QAM 06/27/19 06/26/22 History D3 20 mcg (800 unit) tablet (Caltrate with Vitamin D3) multivitamin (One Daily 1 tab PO QAM 06/27/19 06/26/22 History Multivitamin tablet) oxybutynin chloride 10 mg 10 mg PO HS #90 tabs 03/22/22 06/26/22 Rx tablet,extended release 24 hr (Ditropan XL) glucosamine-chondroitin 250 mg-200 1 tab PO QAM 04/21/22 06/26/22 History mg tablet (Osteo Bi-Flex) krill 1,000 mg-omega-3 230 mg-dha 1 cap PO QAM 04/21/22 06/26/22 History 60 ht-amd-utsqnlbka-astaxan capsule (MegaRed [place]-3 Krill Oil) simvastatin 20 mg tablet (Zocor) 20 mg PO HS 04/21/22 06/26/22 History acetaminophen 500 mg tablet 1,000 mg PO TID PRN pain #30 tabs 05/23/22 06/26/22 Rx (Tylenol Extra Strength) furosemide 20 mg tablet 20 mg PO QAM #30 tabs 05/23/22 06/26/22 Rx gabapentin 300 mg capsule 300 mg PO BID #60 caps 05/23/22 06/26/22 Rx levothyroxine 150 mcg capsule 150 mcg PO DAILY #30 caps 05/23/22 06/26/22 Rx sodium chloride 1 gram tablet 1 g PO BID #60 tabs 05/23/22 06/26/22 Rx axitinib 5 mg tablet (Inlyta) 5 mg PO BID 06/02/22 06/26/22 History polyethylene glycol 3350 17 gram 17 g PO DAILY PRN Constipation 06/02/22 06/26/22 History oral powder packet (Miralax) sennosides 8.6 mg tablet (Senokot) 8.6 mg PO HS 06/09/22 06/26/22 History sulfamethoxazole 400 1 tab PO DAILY #90 tabs 06/11/22 06/26/22 Rx mg-trimethoprim 80 mg tablet (Bactrim) hydromorphone 2 mg tablet 2 mg PO Q4H PRN pain #60 tabs 06/15/22 06/26/22 Rx (Dilaudid) cranberry 500 mg capsule 500 mg PO QAM 06/26/22 06/26/22 History fentanyl 25 mcg/hr transdermal 25 mcg transdermal [id number] 06/26/22 06/26/22 History patch lisinopril 20 mg tablet 20 mg PO BID 06/26/22 06/26/22 History lorazepam 0.5 mg tablet 0.5 mg PO DAILY PRN Anxiety 06/26/22 06/26/22 History magnesium oxide 400 mg (241.3 mg 400 mg PO DAILY 06/26/22 06/26/22 History magnesium) tablet tramadol 50 mg tablet 50 mg PO Q6 PRN Pain 06/26/22 06/26/22 History 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) Essential (primary) hypertension Frequent UTI Gait disturbance Uses cane for ambulation History of recent blood transfusion Most recent 04/02/22 ([facility])- hgb at time in the 7s (now stable at 9.3 on most recent 04/07/22 labs) Hyperlipidemia Hypertension Hypomagnesemia Hyponatremia Hypothyroidism Hypothyroidism Metastatic renal cell carcinoma to bone Osteoarthritis Pain due to malignant neoplasm metastatic to bone Urinary incontinence UTI (urinary tract infection) Surgical History H/O breast surgery Re-Excision Left Breast Tissue (2019) H/O mastectomy Left Breast Mastectomy (11/12/19): LMA#4 at [facility]. No issues noted per post-op anesthesia progress note. Hx of cholecystectomy Hx of colonoscopy Port-A-Cath in place (04/26/22) Port placement and fluoroscopy. Dr. Shelley Status post left breast lumpectomy Left Breast Lumpectomy with Needle Localization and Left [place] Lymph Node Biopsy Family History Mother Thyroid disease Father Osteoarthritis Brother Colon cancer Grandmother Colon cancer Other No family history of adverse response to anesthesia Denies family history of Ovarian cancer Prostate cancer Myocardial infarction Breast cancer Social History Smoking Status: Former smoker Tobacco Type: Cigarettes Age Started Using Tobacco: 18; Age Quit Using Tobacco: 29; packs per day: 0.5; Years Smoked: 11; Cigarettes Per Day: 10; Number of Years Since Quit: 52; Second Hand Exposure: No; Hx Alcohol Use: Yes Alcohol type: wine Hx Substance Use: No Preferred Language: Mongolian Communication Ability: Effective Visual Impairment: No Limitations 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: Normal Resource Program Teacher Required: No Beliefs That Will Affect Care: None marital status: / Current Living Situation: Alone Current Living Situation Comment: daughter staying with her current occupational status: retired How many Children do You have: 3 Other Information That Helps Us Care for You: No Feels Safe at Home: Yes Safety Concerns: Feels Safe At This Time Childhood Exposure to Second-Hand Smoke: Yes caffeine: Yes during the past year weight has: increased > 10 lbs Dental Care, Regularly: No Physical Activity Frequency: Does not Exercise Seatbelt Use: always Sunscreen Use: No Assistive Devices: Denture - Upper, Denture - Lower, Glasses and Walker Review of Systems Review of Systems: REVIEW OF SYSTEMS: Constitutional: (+) fatigue, weakness, fever, sweats or chills Eyes: No diplopia, no worsening or blurred vision ENT: normal hearing, no trouble swallowing Respiratory: No cough, sputum, dyspnea at rest or on exertion Cardiovascular: No chest pain, tightness or palpitations Abdomen: No pain, nausea, vomiting, diarrhea or constipation Musculoskeletal: (+) right knee and left hip pain, chronic back pain, NO calf pain, swelling Neurologic: No weakness, numbness/tingling, or balance problems Psychiatric: No anxiety or depression Skin: No rash or itch Physical Exam Physical Exam: PHYSICAL EXAM: General: awake, alert, fatigued appearing Head: Normocephalic, atraumatic ENT: PERRL, EOMI, no pharyngeal exudate, mucous membranes moist Neuro: AAO x 3, speech clear and appropriate, strength intact bilaterally 5/5, sensation intact and equal all extremities and dermatomes, left leg with minimal drift and pain at left hip Chest: equal rise and fall of the chest, no accessory muscle use, no heaves or thrills, Clear to auscultation, on room air, Cardiac: Regular rate and rhythm, telemetry reviewed, skin warm dry, cap refill <3 seconds, peripheral pulses +2 no JVD, Grade III systolic murmur best heard left SB, no JVD, no edema GI: NABS x 4 quadrants, soft, nontender to palpation, no rebound, guarding or tenderness : Spontaneously voiding, no pain, no CVA tenderness, Extremities: Normal inspection, no peripheral edema or erythema, calfs nontender to palpation Psych: Normal mood and affect Skin: no rash or erythema Results & Data Results & Data ([facility]) Vital Signs (Past 12 Hours) Vital Signs Pulse Pulse Resp BP BP Pulse Ox O2 Del Method 06/26/22 14:05 Nasal Cannula 06/26/22 14:05 78 18 120/82 99 Nasal Cannula 06/26/22 13:11 80 18 97 Nasal Cannula 06/26/22 13:11 80 18 135/66 97 Nasal Cannula O2 Flow Rate 06/26/22 14:05 2 06/26/22 14:05 2 06/26/22 13:11 2 06/26/22 13:11 2 Laboratory Results Abnormal lab results 06/26/22 06/26/22 06/26/22 Range/Units 13:51 13:51 13:51 RBC 3.69 L (3.93-5.22) M/uL Hgb 11.0 L (12.0-16.0) g/dl Hct 32.8 L (34.1-44.9) % RDW Std Deviation 54.0 H (36.4-46.3) fL RDW Coeff of Gala 16.7 H (11.5-14.5) % Lymph # (Auto) 1.00 L (1.2-3.4) K/uL BUN 24 H (6-23) mg/dl Creatinine 2.20 H (0.6-1.2) mg/dl TSH 5.441 H (0.300-4.500) uIu/ml Diagnostic Findings Chest X-Ray 06/26/22 13:06 SINGLE VIEW CHEST CLINICAL HISTORY: Generalized weakness. Recent fall. FINDINGS: An AP, portable, upright chest radiograph is compared to study dated 04/26/2022 and correlated with chest CT dated 03/30/2022. Partially degraded A left subclavian central venous infusion port is unchanged in position. The heart is enlarged noting atherosclerotic calcification of the thoracic aorta. The pul monary vascularity is noncongested. Chronic interstitial thickening with evidence of chronic interstitial lung disease is similar to previous. Numerous pulmonary nodules are again noted and consistent with multifocal metastatic disease. This was better assessed on the 03/30/[address] There is no evidence of superimposed airspace consolidation or large pleural effusion. Scarring/atelectasis is noted at the lung bases. No pneumothorax is seen. The skeletal structures are osteopenic. The bony thorax is grossly intact. Arthritic change is seen in the shoulders. IMPRESSION: 1. Cardiomegaly with no acute cardiopulmonary abnormality identified. 2. Findings of multifocal pulmonary metastatic disease and chronic interstitial lung disease are similar to previous. ACT 112: Negative or not required by law. Electronically signed by: Dom Ordaz M.D. 06/26/2022 2:09 PM Hip/Pelvis X-Ray 06/26/22 13:06 SINGLE VIEW PELVIS; 2 VIEWS RIGHT HIP; SINGLE VIEW LEFT HIP CLINICAL HISTORY: Difficulty weightbearing. Renal cell carcinoma. Recent fall. FINDINGS: An AP view of the pelvis with AP and frog leg views of the right hip and a frog leg view of the left hip are correlated with a pelvic CT dated 05/15/2022 and nuclear bone scan dated 03/31/2022. The skeletal structures are osteopenic. There is no radiographic evidence of acute fracture involving the hips or bony pelvis. Mild arthritic change and joint space narrowing is seen in the hips. There is mild sclerotic change in the sacroiliac joints. No osteolytic or blastic lesions are seen. The left iliac lesion seen by CT and bone scan is not visible on x-ray. Lumbosacral spondylosis is partially visualized. There is no bowel obstruction. The overlying soft tissues are within normal limits. A surgical clip is present in the left hemipelvis. IMPRESSION: No acute bony abnormality is identified. Electronically signed by: Dom Ordaz M.D. 06/26/2022 2:41 PM Knee X-Ray 06/26/22 13:06 LEFT KNEE 3 VIEWS CLINICAL HISTORY: Fall. Left knee pain. FINDINGS: AP, crosstable lateral, and sunrise views of the left knee are obtained. Correlation is made with nuclear bone scan dated 03/31/2022. The skeletal structures are osteopenic. No fracture is identified. There is moderate to advanced tricompartmental degenerative joint space narrowing, greatest in the lateral compartment. There are large marginal osteophytes, patellar enthesophytes, and degenerative beaking of the tibial spine. No lytic or blastic lesion is seen. A calcified fabella is incidentally noted. There is a small joint effusion. Mild soft tissue swelling is noted. IMPRESSION: 1. Mild soft tissue swelling and small joint effusion with no acute bony abnormality identified. 2. Osteopenia and degenerative change as above. Electronically signed by: Dom Ordaz M.D. 06/26/2022 2:27 PM Knee X-Ray 06/26/22 13:06 RIGHT KNEE 3 VIEWS CLINICAL HISTORY: Difficulty weightbearing. Recent fall. Knee pain. FINDINGS: AP, crosstable lateral, and sunrise views of the right knee are compared to study dated 09/24/2011. The skeletal structures are osteopenic. No fracture is seen. There is moderate to advanced tricompartmental degenerative joint space narrowing, greatest in the lateral and patellofemoral compartments. There are large marginal osteophytes and patellar enthesophytes. There is no evidence of lytic or blastic lesion. A calcified fabella is incidentally noted. There is no joint effusion. Mild soft tissue edema overlies the medial aspect of the knee. IMPRESSION: 1. Mild soft tissue swelling with no acute bony abnormality identified. 2. Osteopenia and degenerative change as above. Electronically signed by: Dom Ordaz M.D. 06/26/2022 2:16 PM Medications Administered Home Medications calcium carbonate 600 mg-vitamin D3 20 mcg (800 unit) tablet (Caltrate with Vitamin D3) 1 tab PO QAM 06/27/19 [History Confirmed 06/26/22] multivitamin (One Daily Multivitamin tablet) 1 tab PO QAM 06/27/19 [History Confirmed 06/26/22] oxybutynin chloride 10 mg tablet,extended release 24 hr (Ditropan XL) 10 mg PO HS #90 tabs 03/22/22 [Rx Confirmed 06/26/22] glucosamine-chondroitin 250 mg-200 mg tablet (Osteo Bi-Flex) 1 tab PO QAM 04/21/22 [History Confirmed 06/26/22] krill 1,000 mg-omega-3 230 mg-dha 60 be-cop-hwcdzkxez-astaxan capsule (MegaRed [place]-3 Krill Oil) 1 cap PO QAM 04/21/22 [History Confirmed 06/26/22] simvastatin 20 mg tablet (Zocor) 20 mg PO HS 04/21/22 [History Confirmed 06/26/22] acetaminophen 500 mg tablet (Tylenol Extra Strength) 1,000 mg PO TID PRN pain #30 tabs 05/23/22 [Rx Confirmed 06/26/22] furosemide 20 mg tablet 20 mg PO QAM #30 tabs 05/23/22 [Rx Confirmed 06/26/22] gabapentin 300 mg capsule 300 mg PO BID #60 caps 05/23/22 [Rx Confirmed 06/26/22] levothyroxine 150 mcg capsule 150 mcg PO DAILY #30 caps 05/23/22 [Rx Confirmed 06/26/22] sodium chloride 1 gram tablet 1 g PO BID #60 tabs 05/23/22 [Rx Confirmed 06/26/22] axitinib 5 mg tablet (Inlyta) 5 mg PO BID 06/02/22 [History Confirmed 06/26/22] polyethylene glycol 3350 17 gram oral powder packet (Miralax) 17 g PO DAILY PRN Constipation 06/02/22 [History Confirmed 06/26/22] sennosides 8.6 mg tablet (Senokot) 17.2 mg PO DAILY PRN Constipation 06/09/22 [History Confirmed 06/26/22] sulfamethoxazole 400 mg-trimethoprim 80 mg tablet (Bactrim) 1 tab PO DAILY #90 tabs 06/11/22 [Rx Confirmed 06/26/22] hydromorphone 2 mg tablet (Dilaudid) 2 mg PO Q4H PRN pain #60 tabs 06/15/22 [Rx Confirmed 06/26/22] cranberry 500 mg capsule 500 mg PO QAM 06/26/22 [History Confirmed 06/26/22] fentanyl 25 mcg/hr transdermal patch 25 mcg transdermal [id number] 06/26/22 [History Confirmed 06/26/22] lisinopril 20 mg tablet 20 mg PO BID 06/26/22 [History Confirmed 06/26/22] lorazepam 0.5 mg tablet 0.5 mg PO DAILY PRN Anxiety 06/26/22 [History Confirmed 06/26/22] magnesium oxide 400 mg (241.3 mg magnesium) tablet 400 mg PO DAILY 06/26/22 [History Confirmed 06/26/22] tramadol 50 mg tablet 50 mg PO Q6 PRN Pain 06/26/22 [History Confirmed 06/26/22] ECG Additional Comments: Sinus bradycardia with 1st degree A-V block Left axis deviation Right bundle branch block Abnormal ECG When compared with ECG of 14-APR-2022 12:06, No significant change was found Code Status & VTE Plan Code Status CODE: DNR/DNI VTE: SCDS, Heparin 5000 units sub q BID VTE Prophylaxis Plan VTE Prophylaxis will be ordered: Yes Supervising Physician Co-Signing Physician Notes I supervised RUSS Almodovar on this admission. I interviewed and examined the patient independently of him. The plan is as written in his note except for any following changes/exceptions: None 82yo F w/ hx of RCC who presents with weakness and fall at home. Likely deconditioning from age & cancer with possible contribution of pain meds. Will admit for pain control and PT/OT and possible rehab. PG Care Time/CCT Total # of Minutes Spent Total Time Spent with Patient: Total time spent is greater than 50% in coordination of care (as documented) at patient's floor/unit and/or counseling patient: Coding Level of Care Code 78438 Initial Inpt Care Lvl 3 Diagnoses Fall W19.XXXA Generalized weakness R53.1 Metastatic renal cell carcinoma C64.9 SIADH (syndrome of inappropriate ADH production) E22.2 Hypothyroidism E03.9 Osteoarthritis of knee M17.10 Vitamin D deficiency E55.9 Hypercholesterolemia E78.00 Cancer related pain G89.3 TERRENCE (acute kidney injury) N17.9 Anemia D64.9
[2022-06-26] MEDS ORDERED: LACTATED RINGER'S 1,000 ML IV ONE (16:05)
--- NOTE | 2022-06-26 16:08 | CT Scan Report ---
CT SCAN OF THE LEFT HIP WITHOUT IV CONTRAST CLINICAL HISTORY: Fall. Left hip pain. COMPARISON STUDY: Radiographs of the left hip dated 06/26/2022. Pelvic CT dated 05/15/2022. TECHNIQUE: CT scan of the left hip is performed from the bony pelvis to the femoral shaft. Images are reviewed in the axial, sagittal, and coronal planes. IV contrast was not administered for this exami nation. A dose lowering technique was utilized adhering to the principles of ALARA. CT DOSE: 741.63 mGy.cm FINDINGS: The skeletal structures are osteopenic. There is no evidence of fracture involving the left hip or the visualized left hemipelvis. There is no evidence of avascular necrosis of the left femora l head. Moderate arthritic change and joint space narrowing is seen in the left hip. No lytic or dani tic lesion is identified. There is generalized atrophy of the regional musculature. No soft tissue co ntusion or hematoma is identified. There is no left pelvic sidewall or inguinal lymphadenopathy. IMPRESSION: No acute bony abnormality is identified. ACT 112: Negative or not required by law. Electronically signed by: Dom Ordaz M.D. 06/26/2022 4:06 PM
--- NOTE | 2022-06-26 16:13 | Electrocardiogram Report ---
Test Reason : Blood Pressure : / mmHG Vent. Rate : 059 BPM Atrial Rate : 059 BPM P-R Int : 218 ms QRS Dur : 134 ms QT Int : 440 ms P-R-T Axes : 028 -34 032 degrees QTc Int : 435 ms Sinus bradycardia with 1st degree A-V block Left axis deviation Right bundle branch block Abnormal ECG When compared with ECG of 14-APR-2022 12:06, No significant change was found Confirmed by Jose Becker ([id number]) on 06/26/2022 4:13:30 PM Referred By: REFERRED SELF Confirmed By:Jose Becker
[2022-06-26] MEDS ORDERED: traMADol HCL 50 MG TABLET PO PRN (17:32)
[2022-06-26] MEDS ORDERED: SENNA 8.6 MG TAB PO PRN (17:32)
[2022-06-26] MEDS ORDERED: ONDANSETRON INJ 2 MG/ML 2 ML VIAL IV PRN (17:32)
[2022-06-26] MEDS ORDERED: POLYETHYLENE (MIRALAX) 17 GM PACK PO PRN (17:32)
[2022-06-26] MEDS ORDERED: LORazepam 0.5 MG TAB PO PRN (17:32)
[2022-06-26] MEDS: MAGNESIUM SULFATE / D5W 1 GM/100 ML BAG IV SCH ×2 (18:14→21:03)
[2022-06-26] MEDS: fentaNYL 25 MCG/HR TDSY TD SCH (18:20)
[2022-06-26] MEDS: CHECK fentaNYL PATCH PLACEMENT SCH ×2 (18:21→23:10)
[2022-06-26 19:35] LABS: Appearance Urine Cloudy (Clear); Bacteria Urine Automated 1+ (Negative); Blood Urine Trace (Negative); Color Urine Dark Yellow; Glucose Urine UA Negative (Negative); Ketones Urine Negative (Negative); Leukocyte Esterase Urine 2+ (Negative); Nitrite Urine Negative (Negative); Protein Urine 2+ (Negative); RBC Urine Automated 0-4 /hpf (0-4); Specific Gravity Urine 1.017 (1.000-1.030); Urobilinogen Urine Negative (Negative); WBC Urine Automated >30 /hpf (0-5)
[2022-06-26 19:38] LABS: Bilirubin Urine 1+ (Negative)
[2022-06-26] MEDS: SIMVASTATIN 20 MG TAB PO SCH (21:04)
[2022-06-26] MEDS: SODIUM CHLORIDE 1 GM TABLET PO SCH (21:04)
[2022-06-26] MEDS: HEPARIN SOD 5,000 UNIT/0.5 ML VIAL SQ SCH (21:05)
[2022-06-26] MEDS: OXYBUTYNIN CHLORIDE XL 5 MG TABCR PO SCH (21:05)
[2022-06-26] MEDS: GABAPENTIN 300 MG CAP PO SCH (21:05)
[2022-06-27] MEDS: AXITINIB PO SCH ×3 (00:08→20:41)
[2022-06-27] MEDS: HEPARIN SOD 5,000 UNIT/0.5 ML VIAL SQ SCH ×3 (06:01→22:21)
[2022-06-27] MEDS: LEVOTHYROXINE SODIUM 150 MCG TABLET PO SCH (06:01)
--- NOTE | 2022-06-27 07:33 | Hospitalist Progress Note ---
Date of Service June 27, 2022 Assessment & Plan (1) Fall: Plan: Patient with fall following generalized overall weakness - without fractures of knees hips or pelvis - Effusion to right knee- follow, ice - PT/OT consult - Case management consult for rehab evaluation (2) Generalized weakness: Plan: Multifactorial at this time to include: pharmacological/decrease nutritional intake/deconditioning - Will hold Axitinib tonight- - PT/OT consultation - Eval for rehab - Nutritional consultation for supplementation (3) Metastatic renal cell carcinoma: Plan: With metastasis- to lung - Axitinib was on hold - Continue pembrolizumab -urine shows >100,000 gram positives in hher urine, will hold prophylactic Bactrim use ceftriaxone and await sensitivities (4) SIADH (syndrome of inappropriate ADH production): Plan: Previous admission required 3% saline and tolvaptan for decrease in sodium to 127 - she remains on 1 salt tab per day - 138 on admission (5) Hypothyroidism: Plan: Remains mildly elevated with TSH T4 normal - Continue home Synthroid (6) Osteoarthritis of knee: Plan: Continue Tylenol, ICE (7) Vitamin D deficiency: Plan: Continue supplementation (8) Hypercholesterolemia: Plan: Continue Simivastatin (9) Cancer related pain: Plan: Pain better controlled following radiation therapy and adjustment of her pain medications on previous - Continue fentanyl - Continue Gabapentin - Continue Tramadol - Continue oral Dilaudid (10) TERRENCE (acute kidney injury): Plan: Mild elevation in her [employer] -improved after hydration - Hold Lasix but caution with her shortness of breath episode - Hold ACEi - (11) Anemia: Plan: Secondary to cancer treatments - HGB stable following her 2U PRBC 2.5 weeks ago - Normocytic - Platelet count 139 Admission and Anticipated Discharge Date Admission Date: June 26, 2022 Subjective this pt had some paroxysmal shortness of breath that resolved, she is without distress at this time Review of Systems Review of Systems: Mild distress and fatigue no headache, no visual changes no speech or swallowing issues no chest pain, pressure or palpitations shortness of breath, non productive cough no abdominal pain, nausea or vomiting, diarrhea or constipation no dysuria, hematuria or frequency some right knee pain no back pain, CVA tenderness or radicular pain no bruising, bleeding or rashes no focal signs of weakness or numbness or altered sensation no complaints of anxiety or depression.. Physical Exam Physical Exam: The patient appeared stable but chornically ill Vital signs as documented. Head exam is normocephalic atraumatic Neck is without JVD, thyromegaly, or carotid bruits. Lungs are coarse breath sounds R>L Cardiac exam, Rhythm is regular.. No murmurs, rubs or gallops. Abdominal exam reveals normal bowel sounds, soft non tender, no masses Extremities right knee is tender and with swelling Neurologic exam is alert and oriented, no focal loss of strength or sensation Skin is without bruises or rashes Psychologically is without concerns for anxiety or depression.. Results & Data Results & Data ([facility]) Vital Signs (Past 12 Hours) Vital Signs Temp Pulse Resp BP Pulse Ox O2 Del Method 06/26/22 22:00 98.4 F 78 18 144/80 H 96 Room Air PG Care Time/CCT Total # of Minutes Spent Total Time Spent with Patient: Total time spent is greater than 50% in coordination of care (as documented) at patient's floor/unit and/or counseling patient: Coding Level of Care Code 56789 Subseq Hosp Care Lvl 2 Diagnoses Fall W19.XXXA Generalized weakness R53.1 Metastatic renal cell carcinoma C64.9 SIADH (syndrome of inappropriate ADH production) E22.2 Hypothyroidism E03.9 Osteoarthritis of knee M17.10 Vitamin D deficiency E55.9 Hypercholesterolemia E78.00 Cancer related pain G89.3 TERRENCE (acute kidney injury) N17.9 Anemia D64.9
[2022-06-27] MEDS: CHECK fentaNYL PATCH PLACEMENT SCH ×2 (08:31→14:55)
[2022-06-27] MEDS: HEPARIN 100 UNIT/ML 5ML FLUSH FLUSH PRN (09:11)
[2022-06-27] MEDS: CALCIUM 600MG + VIT D 400 IU TAB PO SCH (09:12)
[2022-06-27] MEDS: SODIUM CHLORIDE 1 GM TABLET PO SCH ×2 (09:12→20:40)
[2022-06-27] MEDS: GABAPENTIN 300 MG CAP PO SCH ×2 (09:12→20:41)
[2022-06-27 09:26] LABS: Basophils # (auto) 0.01 K/uL (0-0.2); Basophils % (auto) 0.2 %; Eosinophils # (auto) 0.47 K/uL (0-0.50); Eosinophils % (auto) 9.8 %; Hemoglobin 10.6 g/dl (12.0-16.0); Immature Granulocytes # (auto) 0.02 K/uL (0.00-0.02); Immature Granulocytes % (auto) 0.4 %; Lymphocytes # (auto) 0.88 K/uL (1.2-3.4); Lymphocytes % (auto) 18.3 %; Mean Corpuscular Hgb Conc 32.1 g/dL (32.0-36.0); Mean Corpuscular Volume 90.4 fL (80.0-100.0); Mean Platelet Volume 9.7 fL (9.4-12.3); Monocytes # (auto) 0.55 K/uL (0.24-0.82); Monocytes % (auto) 11.5 %; Neutrophils # (auto) 2.87 K/uL (1.4-6.5); Neutrophils % (auto) 59.8 %; Platelet Count 133 K/uL (130-400); RDW Coefficient of Variation 16.5 % (11.5-14.5); RDW Standard Deviation 54.9 fL (36.4-46.3); Red Blood Count 3.65 M/uL (3.93-5.22)
[2022-06-27 09:51] LABS: BUN Creatinine Ratio 12.4 (10-20); Calcium 8.2 mg/dl (8.5-10.1); Creatinine Clr Calc Pharmacy 32.2 ml/min; Est GFR (African American) 30.3 ml/min; Est GFR (Non-African American) 26.1 ml/min; Potassium 4.2 mmol/L (3.5-5.1)
[2022-06-27] MEDS ORDERED: FUROSEMIDE INJ 20 MG/2 ML VIAL IV ONE (10:00)
[2022-06-27] MEDS: HYDROmorphone HCL 2 MG TAB PO PRN (13:36)
[2022-06-27] MEDS ORDERED: COUGH DROP (SUGAR FREE) LOZ 24 LOZ/1 BOX BUCCAL ONE (13:39)
[2022-06-27] MEDS ORDERED: SULFA/TRIMETH 400/80MG TAB PO SCH (13:45)
[2022-06-27] MEDS: cefTRIAXone SODIUM 2,000 MG in DEXTROSE 5% 50 ML IV SCH (14:53)
[2022-06-27] MEDS: ACETAMINOPHEN 325 MG TAB PO PRN (17:19)
[2022-06-27] MEDS: OXYBUTYNIN CHLORIDE XL 5 MG TABCR PO SCH (20:41)
[2022-06-27] MEDS: SIMVASTATIN 20 MG TAB PO SCH (20:41)
[2022-06-28] MEDS: CHECK fentaNYL PATCH PLACEMENT SCH ×3 (00:15→15:58)
[2022-06-28] MEDS: HEPARIN SOD 5,000 UNIT/0.5 ML VIAL SQ SCH ×3 (06:10→21:29)
[2022-06-28] MEDS: LEVOTHYROXINE SODIUM 150 MCG TABLET PO SCH (06:10)
[2022-06-28] MEDS: HEPARIN 100 UNIT/ML 5ML FLUSH FLUSH PRN ×3 (06:54→17:36)
[2022-06-28 07:20] LABS: Basophils # (auto) 0.01 K/uL (0-0.2); Basophils % (auto) 0.2 %; Eosinophils # (auto) 0.53 K/uL (0-0.50); Eosinophils % (auto) 10.3 %; Hematocrit (blood only) 31.5 % (34.1-44.9); Hemoglobin 10.6 g/dl (12.0-16.0); Immature Granulocytes # (auto) 0.03 K/uL (0.00-0.02); Immature Granulocytes % (auto) 0.6 %; Lymphocytes # (auto) 1.02 K/uL (1.2-3.4); Lymphocytes % (auto) 19.8 %; Mean Corpuscular Hemoglobin 29.1 pg (25.0-34.0); Mean Corpuscular Hgb Conc 33.7 g/dL (32.0-36.0); Mean Corpuscular Volume 86.5 fL (80.0-100.0); Mean Platelet Volume 9.9 fL (9.4-12.3); Monocytes # (auto) 0.59 K/uL (0.24-0.82); Monocytes % (auto) 11.5 %; Neutrophils # (auto) 2.96 K/uL (1.4-6.5); Neutrophils % (auto) 57.6 %; Platelet Count 143 K/uL (130-400); RDW Coefficient of Variation 15.9 % (11.5-14.5); RDW Standard Deviation 50.2 fL (36.4-46.3); Red Blood Count 3.64 M/uL (3.93-5.22); White Blood Count 5.14 K/ul (4.8-10.8)
[2022-06-28 07:41] LABS: BUN Creatinine Ratio 13.5 (10-20); Calcium 8.3 mg/dl (8.5-10.1); Creatinine Clr Calc Pharmacy 34.9 ml/min; Est GFR (African American) 33.4 ml/min; Est GFR (Non-African American) 28.8 ml/min; Magnesium 1.8 mg/dl (1.7-2.4)
[2022-06-28] MEDS: GABAPENTIN 300 MG CAP PO SCH ×2 (08:29→21:29)
[2022-06-28] MEDS: SODIUM CHLORIDE 1 GM TABLET PO SCH ×2 (08:29→21:29)
[2022-06-28] MEDS: CALCIUM 600MG + VIT D 400 IU TAB PO SCH (08:30)
[2022-06-28] MEDS: AXITINIB PO SCH ×2 (08:30→20:23)
[2022-06-28] MEDS: cefTRIAXone SODIUM 2,000 MG in DEXTROSE 5% 50 ML IV SCH (08:34)
--- NOTE | 2022-06-28 11:27 | Hospitalist Progress Note ---
Date of Service June 28, 2022 Assessment & Plan (1) Fall: Plan: Patient with fall following generalized overall weakness - without fractures of knees hips or pelvis - Effusion to right knee- follow, ice - PT/OT consult - Case management consult for rehab evaluation (2) Generalized weakness: Plan: Multifactorial at this time to include: pharmacological/decrease nutritional intake/deconditioning - Will hold Axitinib *UTIin animmunocompromisedfemaleevidenced by + gram-positive cocci culture and treatment with amoxicillin po as is enterococcus faecalis - PT/OT consultation - Eval for rehab - Nutritional consultation for supplementation (3) Metastatic renal cell carcinoma: Plan: With metastasis- to lung - Axitinib was on hold - Continue pembrolizumab -urine shows >100,000 enterococcus faecalis, will hold prophylactic Bactrim, sensitive to amoxicillin (4) SIADH (syndrome of inappropriate ADH production): Plan: Previous admission required 3% saline and tolvaptan for decrease in sodium to 127 - she remains on 1 salt tab per day - 138 on admission (5) Hypothyroidism: Plan: Remains mildly elevated with TSH T4 normal - Continue home Synthroid (6) Osteoarthritis of knee: Plan: Continue Tylenol, ICE (7) Vitamin D deficiency: Plan: Continue supplementation (8) Hypercholesterolemia: Plan: Continue Simivastatin (9) Cancer related pain: Plan: Pain better controlled following radiation therapy and adjustment of her pain medications on previous - Continue fentanyl - Continue Gabapentin - Continue Tramadol - Continue oral Dilaudid (10) TERRENCE (acute kidney injury): 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 hydration - Hold Lasix but caution with her shortness of breath episode - Hold ACEi - (11) Anemia: Plan: Secondary to cancer treatments - HGB stable following her 2U PRBC 2.5 weeks ago - Normocytic - Platelet count 139 Admission and Anticipated Discharge Date Admission Date: June 26, 2022 Subjective this pt is not feeling much better probably due to fact that she has enterococcal uti that is not sensitive to ceftriaxone, also still coughing with drinking, for swallowing study 06/28/22 Review of Systems Review of Systems: Mild distress and fatigue no headache, no visual changes no speech or swallowing issues no chest pain, pressure or palpitations productive cough when drinking liquids no abdominal pain, nausea or vomiting, diarrhea or constipation no dysuria, hematuria or frequency some right knee pain no back pain, CVA tenderness or radicular pain no bruising, bleeding or rashes no focal signs of weakness or numbness or altered sensation no complaints of anxiety or depression.. Physical Exam Physical Exam: The patient appeared stable but chornically ill Vital signs as documented. Head exam is normocephalic atraumatic Neck is without JVD, thyromegaly, or carotid bruits. Lungs are coarse breath sounds R>L Cardiac exam, Rhythm is regular.. No murmurs, rubs or gallops. Abdominal exam reveals normal bowel sounds, soft non tender, no masses Extremities right knee is tender and with swelling Neurologic exam is alert and oriented, no focal loss of strength or sensation Skin is without bruises or rashes Psychologically is without concerns for anxiety or depression.. Results & Data Results & Data ([facility]) Vital Signs (Past 12 Hours) Vital Signs Temp Pulse Resp BP Pulse Ox O2 Del Method 06/28/22 08:50 99.1 F 82 18 166/75 H 92 Room Air PG Care Time/CCT Total # of Minutes Spent Total Time Spent with Patient: Total time spent is greater than 50% in coordination of care (as documented) at patient's floor/unit and/or counseling patient: Coding Level of Care Code 65990 Subseq Hosp Care Lvl 2 Diagnoses Fall W19.XXXA Generalized weakness R53.1 Metastatic renal cell carcinoma C64.9 SIADH (syndrome of inappropriate ADH production) E22.2 Hypothyroidism E03.9 Osteoarthritis of knee M17.10 Vitamin D deficiency E55.9 Hypercholesterolemia E78.00 Cancer related pain G89.3 TERRENCE (acute kidney injury) N17.9 Anemia D64.9
[2022-06-28] MEDS ORDERED: AMOXICILLIN 500 MG CAP PO SCH (12:00)
[2022-06-28] MEDS: HYDROmorphone HCL 2 MG TAB PO PRN ×2 (16:50→21:28)
[2022-06-28] MEDS: AMOXICILLIN 500 MG CAP PO SCH (21:28)
[2022-06-28] MEDS: SIMVASTATIN 20 MG TAB PO SCH (21:29)
[2022-06-28] MEDS: OXYBUTYNIN CHLORIDE XL 5 MG TABCR PO SCH (21:29)
[2022-06-29] MEDS: CHECK fentaNYL PATCH PLACEMENT SCH ×3 (00:50→15:37)
[2022-06-29] MEDS: LEVOTHYROXINE SODIUM 150 MCG TABLET PO SCH (05:41)
[2022-06-29] MEDS: HYDROmorphone HCL 2 MG TAB PO PRN ×3 (05:42→22:04)
[2022-06-29] MEDS: HEPARIN SOD 5,000 UNIT/0.5 ML VIAL SQ SCH ×3 (05:42→22:07)
[2022-06-29] MEDS: AXITINIB PO SCH (06:59)
[2022-06-29] MEDS: SODIUM CHLORIDE 1 GM TABLET PO SCH ×2 (07:49→22:06)
[2022-06-29] MEDS: AMOXICILLIN 500 MG CAP PO SCH (07:49)
[2022-06-29] MEDS: GABAPENTIN 300 MG CAP PO SCH ×2 (07:49→22:06)
[2022-06-29] MEDS: CALCIUM 600MG + VIT D 400 IU TAB PO SCH (07:50)
[2022-06-29 07:56] LABS: Basophils # (auto) 0.01 K/uL (0-0.2); Basophils % (auto) 0.2 %; Eosinophils # (auto) 0.54 K/uL (0-0.50); Eosinophils % (auto) 9.7 %; Hematocrit (blood only) 33.3 % (34.1-44.9); Immature Granulocytes # (auto) 0.04 K/uL (0.00-0.02); Immature Granulocytes % (auto) 0.7 %; Lymphocytes # (auto) 0.94 K/uL (1.2-3.4); Lymphocytes % (auto) 16.9 %; Mean Corpuscular Hemoglobin 28.9 pg (25.0-34.0); Mean Corpuscular Volume 87.6 fL (80.0-100.0); Mean Platelet Volume 9.9 fL (9.4-12.3); Monocytes # (auto) 0.67 K/uL (0.24-0.82); Neutrophils # (auto) 3.37 K/uL (1.4-6.5); Neutrophils % (auto) 60.5 %; Platelet Count 164 K/uL (130-400); RDW Standard Deviation 51.8 fL (36.4-46.3); White Blood Count 5.57 K/ul (4.8-10.8)
--- NOTE | 2022-06-29 10:24 | CT Scan Report ---
LUMBAR SPINE CT CT DOSE: 1019.82 mGy.cm HISTORY: eval osteoblastic lesions t12 l1 ? chord comp TECHNIQUE: Multiaxial CT images of the lumbar spine were performed and reformatted in the sagittal an d coronal plane without the use of contrast. A dose lowering technique was utilized adhering to the principles of ALARA. COMPARISON: CT lumbar spine 05/15/2022. FINDINGS: No significant change in the T12, L2, left posterior iliac bone osteoblastic metastatic les ions. No soft tissue component associated with these lesions. No new osteoblastic metastatic foci drew ntified within the lumbar spine. The sacrum appears intact. Subtle nondisplaced fracture within the a nterior osteophyte/anterior superior endplate of L2 as seen on sagittal image 56. This suggests a pat hologic fracture. No significant loss of height or retropulsion identified. Grade 2 anterolisthesis o f L4 on L5, unchanged. This results in moderate central canal narrowing at this level. No change in t he partially visualized left renal mass and left periaortic lymphadenopathy. IMPRESSION: 1. Subtle nondisplaced fracture within the anterior osteophyte/anterior superior endplate of L2 which is new from the prior study. No significant loss of height or retropulsion identified. 2. No change in the T12, L2, left posterior iliac bone osteoblastic metastatic lesions. 3. Moderate central canal narrowing at L4-L5, unchanged. 4. Redemonstration of the patient's known left renal mass and left periaortic lymphadenopathy. ACT 112: Negative or not required by law. Electronically signed by: Vinod Yanez M.D. 06/29/2022 10:22 AM
[2022-06-29] MEDS ORDERED: diphenhydrAMINE Capsule 25 MG CAP PO PRN (10:52)
--- NOTE | 2022-06-29 11:06 | Hospitalist Progress Note ---
Date of Service June 29, 2022 Assessment & Plan (1) Fall: Plan: Patient with fall following generalized overall weakness - without fractures of knees hips or pelvis - Effusion to right knee- follow, ice - PT/OT consult - Case management consult for rehab evaluation (2) Generalized weakness: Plan: Multifactorial at this time to include: pharmacological/decrease nutritional intake/deconditioning - Axitinib *UTIin animmunocompromisedfemaleevidenced by + gram-positive cocci culture and treatment with iv Daptomycin as is enterococcus faecalis, attempted po amoxil with resultant rash - PT/OT consultation - Eval for rehab - Nutritional consultation for supplementation (3) Metastatic renal cell carcinoma: Plan: With metastasis- to lung - Axitinib - Continue pembrolizumab -urine shows >100,000 enterococcus faecalis, will hold prophylactic Bactrim, Daptomycin. Long discussion with Dr Tang for goals of care, pt wants to go to rehab to improve to attempt to return home, she is realistic about her progression of disease if rehab pt cannot continue chemotherapy due to cost to rehab center pt will miss outpt PET CT so recommendation of Dr Galeana will be to have bone scan and CT chest ABD pelvis with notification once compete for her review to guage effectiveness of previous chemo (4) SIADH (syndrome of inappropriate ADH production): Plan: Previous admission required 3% saline and tolvaptan for decrease in sodium to 127 - she remains on 1 salt tab per day - 138 on admission (5) Hypothyroidism: Plan: Remains mildly elevated with TSH T4 normal - Continue home Synthroid (6) Osteoarthritis of knee: Plan: Continue Tylenol, ICE (7) Vitamin D deficiency: Plan: Continue supplementation (8) Hypercholesterolemia: Plan: Continue Simivastatin (9) Cancer related pain: Plan: Pain better controlled following radiation therapy and adjustment of her pain medications on previous - Continue fentanyl - Continue Gabapentin - Continue Tramadol - Continue oral Dilaudid (10) TERRENCE (acute kidney injury): Plan: with CKD3 improved TERRENCE but will still not be in range for CT contrast -improved after hydration - Holding Lasix but caution with her shortness of breath episode - Hold ACEi - (11) Anemia: Plan: Secondary to cancer treatments, previous iron levels checked 05/16/22 - HGB stable following her 2U PRBC 2.5 weeks ago - Normocytic - Platelet count 139 Admission and Anticipated Discharge Date Admission Date: June 26, 2022 Subjective Pt is feeling better except for a rash and pruritus that occurred after using Amoxil to treat an enterococcal uti Although still coughing with drinking, swallowing study 06/29/22 did not show any aspiration per speech evaluation Review of Systems Review of Systems: Mild distress and fatigue no headache, no visual changes no speech or swallowing issues no chest pain, pressure or palpitations productive cough when drinking liquids no abdominal pain, nausea or vomiting, diarrhea or constipation no dysuria, hematuria or frequency some right knee pain no back pain, CVA tenderness or radicular pain redness to cheeks and feet no focal signs of weakness or numbness or altered sensation no complaints of anxiety or depression.. Physical Exam Physical Exam: The patient appeared stable but chornically ill Vital signs as documented. Head exam is normocephalic atraumatic Neck is without JVD, thyromegaly, or carotid bruits. Lungs are coarse breath sounds R>L Cardiac exam, Rhythm is regular.. No murmurs, rubs or gallops. Abdominal exam reveals normal bowel sounds, soft non tender, no masses Extremities right knee is tender and with swelling Neurologic exam is alert and oriented, no focal loss of strength or sensation Skin is with redness to cheeks and feet Psychologically is without concerns for anxiety or depression.. Results & Data Results & Data ([facility]) Vital Signs (Past 12 Hours) Vital Signs Temp Pulse Resp BP Pulse Ox O2 Del Method 06/29/22 07:04 99.5 F 88 20 154/81 H 96 Room Air PG Care Time/CCT Total # of Minutes Spent Total Time Spent with Patient: Total time spent is greater than 50% in coordination of care (as documented) at patient's floor/unit and/or counseling patient: Coding Level of Care Code 58025 Subseq Hosp Care Lvl 2 Diagnoses Fall W19.XXXA Generalized weakness R53.1 Metastatic renal cell carcinoma C64.9 SIADH (syndrome of inappropriate ADH production) E22.2 Hypothyroidism E03.9 Osteoarthritis of knee M17.10 Vitamin D deficiency E55.9 Hypercholesterolemia E78.00 Cancer related pain G89.3 TERRENCE (acute kidney injury) N17.9 Anemia D64.9
[2022-06-29] MEDS: DAPTOmycin 350 MG in SYRINGE 0 ML IV SCH (12:30)
[2022-06-29] MEDS: HEPARIN 100 UNIT/ML 5ML FLUSH FLUSH PRN (12:30)
[2022-06-29] MEDS: fentaNYL 25 MCG/HR TDSY TD SCH (16:13)
[2022-06-29] MEDS: OXYBUTYNIN CHLORIDE XL 5 MG TABCR PO SCH (22:05)
[2022-06-29] MEDS: SIMVASTATIN 20 MG TAB PO SCH (22:06)
[2022-06-30] MEDS: CHECK fentaNYL PATCH PLACEMENT SCH ×3 (00:58→17:00)
[2022-06-30] MEDS: HYDROmorphone HCL 2 MG TAB PO PRN ×3 (05:51→18:49)
[2022-06-30] MEDS: LEVOTHYROXINE SODIUM 150 MCG TABLET PO SCH (05:52)
[2022-06-30] MEDS: CALCIUM 600MG + VIT D 400 IU TAB PO SCH (07:36)
[2022-06-30] MEDS: GABAPENTIN 300 MG CAP PO SCH ×2 (07:43→20:35)
[2022-06-30] MEDS: HEPARIN SOD 5,000 UNIT/0.5 ML VIAL SQ SCH ×2 (07:43→20:36)
[2022-06-30] MEDS: SODIUM CHLORIDE 1 GM TABLET PO SCH ×2 (07:43→20:35)
[2022-06-30 08:29] LABS: Basophils # (auto) 0.02 K/uL (0-0.2); Basophils % (auto) 0.3 %; Eosinophils # (auto) 0.63 K/uL (0-0.50); Eosinophils % (auto) 10.8 %; Hematocrit (blood only) 33.4 % (34.1-44.9); Hemoglobin 10.7 g/dl (12.0-16.0); Immature Granulocytes # (auto) 0.01 K/uL (0.00-0.02); Immature Granulocytes % (auto) 0.2 %; Lymphocytes # (auto) 1.16 K/uL (1.2-3.4); Lymphocytes % (auto) 19.8 %; Mean Corpuscular Volume 90.5 fL (80.0-100.0); Mean Platelet Volume 10.1 fL (9.4-12.3); Monocytes # (auto) 0.92 K/uL (0.24-0.82); Monocytes % (auto) 15.7 %; Neutrophils # (auto) 3.12 K/uL (1.4-6.5); Neutrophils % (auto) 53.2 %; Platelet Count 186 K/uL (130-400); RDW Coefficient of Variation 16.6 % (11.5-14.5); Red Blood Count 3.69 M/uL (3.93-5.22); White Blood Count 5.86 K/ul (4.8-10.8)
[2022-06-30 08:47] LABS: BUN Creatinine Ratio 12.4 (10-20); Calcium 7.9 mg/dl (8.5-10.1); Est GFR (Non-African American) 25.9 ml/min; Potassium 4.4 mmol/L (3.5-5.1)
--- NOTE | 2022-06-30 08:55 | CT Scan Report ---
CT chest diagnostic wo con, CT abd pelvis oral con only CT DOSE: 2254.93 mGy.cm HISTORY: eval for progression of renal cell CA TECHNIQUE: Multiaxial CT images of the chest , abdomen, and pelvis were performed without contrast. Oral contrast was administered for the abdomen and pelvis CTA. A dose lowering technique was utilized adhering to the principles of ALARA. COMPARISON: Chest CT 03/30/2022. Abdomen and pelvis CT 05/15/2022. CT lumbar spine February 27, 2022. FINDINGS: Chest CT: The central airways are patent. Mild interstitial thickening and dependent changes noted at the lung bases. There is respiratory motion artifact. No pneumothorax. There are innumerable bilater al pulmonary nodules consistent the patient's known metastatic disease. These have increased in size and number compared to the prior study. Some these demonstrate central cavitation. For comparative pu rposes a dominant nodule within the lingula measures 1.5 cm, previously measuring 1.1 cm. A left subc lavian Port-A-Cath terminates at the distal SVC. There is a small hiatus hernia. Mildly enlarged AP w indow and hilar lymph nodes have also increased in size and are concerning for metastatic involvement . The osteoblastic sternal lesion is again noted. Abdomen/pelvis CT: No pneumoperitoneum. No pneumatosis. No significant change in the left posterior i liac, T12, and L2 osteoblastic metastatic foci. Nondisplaced fracture within the anterior osteophyte at L2 is also unchanged. Cholecystectomy. No hepatic or splenic masses on this noncontrast study. Nor mal right adrenal gland, pancreas, and right kidney. Persistent left adrenal gland thickening. There is again noted an infiltrative left renal mass with left para-aortic lymphadenopathy. This is similar to the prior study. There is thickening of the distal left renal vein which may represent tumor invo lvement. Soft tissue tumor extension into the surrounding perinephric fat and left anterior pararenal space remains unchanged. No change in the 11 mm left perinephric soft tissue nodule on image 220. No pelvic free fluid. The bladder is decompressed by Iyer catheter. The uterus and ovaries are unremar kable. No bowel wall thickening or obstruction. Moderate well-formed stool seen within the colon. Nor mal appendix. Left lower quadrant subcutaneous infiltration favors a medication injection. IMPRESSION: 1. Innumerable bilateral pulmonary nodules which have increased in size and number compared the [address] consistent with progressive metastatic disease. 2. Mild enlargement of the AP window and bilateral hilar lymph nodes also concerning for metastatic d isease. 3. No significant change in the infiltrative left renal mass and left para-aortic lymphadenopathy. Th ere is mild thickening of the distal left renal vein which is suspicious for tumor involvement. 4. No significant change in the scattered osteoblastic metastatic disease as described above. ACT 112: Negative or not required by law. Electronically signed by: Vinod Yanez M.D. 06/30/2022 8:52 AM
[2022-06-30] MEDS: DAPTOmycin 350 MG in SYRINGE 0 ML IV SCH (12:04)
--- NOTE | 2022-06-30 16:01 | Nuclear Medicine Report ---
WHOLE-BODY NUCLEAR BONE SCAN CLINICAL HISTORY: Renal cell carcinoma with metastatic bone disease. COMPARISON STUDY: Nuclear bone scan dated 03/31/2022. CT scan of the chest, abdomen, and pelvis dated . TECHNIQUE: Three hours following the IV administration of 27.0 mCi of technetium 99m MDP, whole body nuclear bone scan was performed in the anterior and posterior projections. FINDINGS: Large foci of abnormal tracer uptake are again seen within the calvarium, the sternum, and left iliac wing consistent with known osseous metastatic disease. Question new lesions in the left femoral shaf t and the left scapula. There are also new right posterior rib lesions. Foci of activity within the t horacolumbar spine corresponds to known metastatic lesions. Typically degenerative uptake is identified in the shoulders, sternoclavicular joints, knees, and fee t. There is expected excreted activity within the right renal collecting system and bladder. No signific ant tracer excretion is seen in the left kidney. Activity is seen within a Iyer catheter and bag. IMPRESSION: 1. Again seen is evidence of multifocal osseous metastatic disease. 2. Suspect new lesions within the left scapula cm, right posterior ribs, and the left femoral shaft. ACT 112: Negative or not required by law. Electronically signed by: Dom Ordaz M.D. 06/30/2022 4:00 PM
[2022-06-30] MEDS ORDERED: dexAMETHasone 4 MG in SYRINGE 0 ML IV ONE (16:21)
[2022-06-30] MEDS: SIMVASTATIN 20 MG TAB PO SCH (20:35)
[2022-06-30] MEDS: OXYBUTYNIN CHLORIDE XL 5 MG TABCR PO SCH (20:36)
--- NOTE | 2022-06-30 20:56 | Hospitalist Progress Note ---
Date of Service June 30, 2022 Assessment & Plan (1) Enterococcus UTI: (2) Drug reaction: (3) Polyarticular arthritis: Plan: b/l feet - suspect gout could be a serum sickness type reaction to the amoxicillin but less likely (4) Depression: (5) Ambulatory dysfunction: (6) Fall: (7) Bony metastasis: (8) CKD (chronic kidney disease) stage 4, GFR 15-29 ml/min: (9) Anemia: (10) Cancer related pain: (11) Hypertension: (12) Hypercholesterolemia: (13) Hypothyroidism: (14) SIADH (syndrome of inappropriate ADH production): (15) Metastatic renal cell carcinoma: (16) Aortic stenosis: (17) DVT prophylaxis: (18) Encephalopathy acute: Plan: metabolic - UTI, etc toxic - benadryl, pain meds, other? Plan 1. cont daptomycin another day, then consider switch to PO linezolid to complete her course for UTI 2. dexamethasone 4mg IV x 1 for #2, #3 - likely to need several days 3. start zoloft 25mg HS for depression; watch for worsening of #14 4. BMP in am for stability of CKD and Na 5. stop benadryl - may be contributing to altered MS 6. CT scans and bone scan reviewed -- progressive stage 4 renal cell ca despite chemo - consider formal palliative care consult, hospice discussions 7. financial foundations representative consult will discuss care with Dr Galeana updated pt's daughter by phone - will discuss test results at bedside tomorrow with patient and her daughter support given to patient Admission and Anticipated Discharge Date Admission Date: June 26, 2022 Subjective c/o b/l foot numbness/pain - started last 24 hours with ambulation her feet hurt she was very tearful today depressed doesn't want to go to rehab she isn't sure about continuing treatment for her cancer eating fair at best no dyspnea rash a little better today I updated pt's daughter Eveline today by phone asked [employer] Systems Administrator to come & pray with patient this afternoon Review of Systems Review of Systems: gen - fever yesterday, none today; no chills; fatigue ongoing cv - no cp pulm - no dyspnea at rest GI - no pain musculo - back pain present - about 5/10 on pain scale skin - ongoing rash with pruritis Physical Exam Physical Exam: gen - tearful, sad, depressed; obese, NAD mouth - MM slightly dry, no thrush neck - no JVD heart - RRR, s1, s2, 2/6 ROSY LSB lungs - rales bases skin - diffuse erythematous rash on arms/legs (more so the legs); no hives abd - soft NT ND BS+ musculo - right great toe podagra; left great toe podagra; multiple toes with synovitis and erythema ext - mild edema b/l, pulses 2+ b/l psych - depressed Results & Data Results & Data ([facility]) Vital Signs (Past 12 Hours) Vital Signs Temp Pulse Resp BP Pulse Ox O2 Del Method 06/30/22 19:55 Room Air 06/30/22 15:09 37.4 C 79 18 120/73 94 Room Air Laboratory Results labs reviewed blood cx's negative urine cx enterococcus - sens to linezolid & dapto differential on cbc - high eosinophils c/w drug reaction PG Care Time/CCT Total # of Minutes Spent Total Time Spent with Patient: Total time spent is greater than 50% in coordination of care (as documented) at patient's floor/unit and/or counseling patient: Coding Level of Care Code 18648 Subseq Hosp Care Lvl 3 Diagnoses Enterococcus UTI N39.0; B95.2 Drug reaction T50.905A Polyarticular arthritis M13.0 Depression F32.A Ambulatory dysfunction R26.2 Fall W19.XXXA Bony metastasis C79.51 CKD (chronic kidney disease) stage 4, GFR 15-29 ml/min N18.4 Anemia D64.9 Cancer related pain G89.3 Hypertension I10 Hypercholesterolemia E78.00 Hypothyroidism E03.9 SIADH (syndrome of inappropriate ADH production) E22.2 Metastatic renal cell carcinoma C64.9 Aortic stenosis I35.0 Cardiac valve disease etiology: nonrheumatic DVT prophylaxis Z29.9 Encephalopathy acute G93.40 (1) Aortic stenosis Cardiac valve disease etiology: nonrheumatic Qualified Code(s): I35.0 - Nonrheumatic aortic (valve) stenosis
[2022-06-30] MEDS: SERTRALINE HCL 50 MG TABLET PO SCH (22:04)
[2022-07-01] MEDS: LEVOTHYROXINE SODIUM 150 MCG TABLET PO SCH (05:42)
[2022-07-01] MEDS: HYDROmorphone HCL 2 MG TAB PO PRN ×3 (05:42→19:46)
[2022-07-01] MEDS: CHECK fentaNYL PATCH PLACEMENT SCH ×3 (05:43→15:28)
[2022-07-01] MEDS: SODIUM CHLORIDE 1 GM TABLET PO SCH ×2 (07:32→20:38)
[2022-07-01] MEDS: HEPARIN SOD 5,000 UNIT/0.5 ML VIAL SQ SCH ×2 (07:32→20:38)
[2022-07-01] MEDS: CALCIUM 600MG + VIT D 400 IU TAB PO SCH (07:33)
[2022-07-01] MEDS: HEPARIN 100 UNIT/ML 5ML FLUSH FLUSH PRN (07:33)
[2022-07-01] MEDS: GABAPENTIN 300 MG CAP PO SCH ×2 (07:33→20:38)
[2022-07-01 08:42] LABS: BUN Creatinine Ratio 17.3 (10-20); Calcium 7.7 mg/dl (8.5-10.1); Creatinine Clr Calc Pharmacy 37.9 ml/min; Est GFR (Non-African American) 31.9 ml/min; Potassium 4.7 mmol/L (3.5-5.1)
[2022-07-01] MEDS: DAPTOmycin 350 MG in SYRINGE 0 ML IV SCH (11:39)
[2022-07-01] MEDS ORDERED: FAMOTIDINE 20 MG in SYRINGE 3 ML IV ONE (14:15)
[2022-07-01] MEDS: FUROSEMIDE 20 MG TAB PO SCH (15:10)
[2022-07-01] MEDS: FEXOFENADINE 60 MG TAB PO SCH ×2 (15:10→20:38)
[2022-07-01] MEDS: dexAMETHasone 4 MG in SYRINGE 0 ML IV SCH (15:11)
[2022-07-01] MEDS: SIMVASTATIN 20 MG TAB PO SCH (20:39)
[2022-07-01] MEDS: OXYBUTYNIN CHLORIDE XL 5 MG TABCR PO SCH (20:39)
[2022-07-01] MEDS: SERTRALINE HCL 50 MG TABLET PO SCH (20:39)
--- NOTE | 2022-07-01 21:47 | Hospitalist Progress Note ---
Date of Service July 01, 2022 Assessment & Plan (1) Enterococcus UTI: Plan: day #3 of daptomycin plan 7 days of Rx (2) Drug reaction: Plan: 2nd amoxicillin eosinophilia on recent cbc w/ diff along with rash all c/w drug rxn (3) Polyarticular arthritis: Plan: b/l feet - suspect gout could be a serum sickness type reaction to the amoxicillin but less likely improved today was on HCTZ up until late April which would have increased her uric acid levels; CKD also will increase uric acid levels (4) Depression: Plan: stable on zoloft (5) Ambulatory dysfunction: Plan: PT, OT (6) Fall: (7) Bony metastasis: Plan: fentanyl patch 25mcg q72h dilaudid 2mg po q4h prn steroids will help as well cont gabapentin 300mg BID (8) CKD (chronic kidney disease) stage 4, GFR 15-29 ml/min: Plan: BMP daily (9) Anemia: Plan: stable (10) Cancer related pain: Plan: see above (11) Hypertension: Plan: labile BPs, likely due to pain, stress/anxiety, etc lisinopril has been on hold (12) Hypercholesterolemia: (13) Hypothyroidism: Plan: TSH mildly high; could consider modest increase in dose (175 from 150) (14) SIADH (syndrome of inappropriate ADH production): Plan: resume lasix cont salt tabs (15) Metastatic renal cell carcinoma: Plan: progressive based on hatch-CT and bone scan I spoke with Dr Galeana -- 2nd line therapies can be offered to patient if she desires such or could pursue palliative/hospice route patient to discuss with her family over the next few days/weeks (16) Aortic stenosis: (17) DVT prophylaxis: Plan: heparin 5000 BID (18) Encephalopathy acute: Plan: metabolic - UTI, etc toxic - benadryl, pain meds, other? improved Plan 1. cont daptomycin 2. cont dexamethasone 4mg but increase to BID dosing -- this will help pruritis/rash, gout, bone pain, appetite, etc. 3. cont zoloft 25mg HS for depression; watch for worsening of #14 total time today over 2 visits = 70 minutes (complex care coordination, discussion w/ daughter & patient regarding test results/options for care/etc) Admission and Anticipated Discharge Date Admission Date: June 26, 2022 Subjective 2 visits to bedside today first visit -- reports feeling modestly better today eating a little better b/l foot pain is improved able to weight bear more comfortably no dyspnea still with diffuse rash & pruritis 2nd visit - Daughter Eveline was at bedside we discussed her recent CT chest/abd/pelvis and bone scan discussed that the CT chest showed progressive pulmonary mets despite use of first line chemotherapy patient appropriately very very tearful/sad we discussed options for care we discussed rehab post-discharge we discussed her goals for her care - her main goal is to ultimately return home she has lived in the same house for 50 + years Eveline stated that she & her sisters want to help their mother as much as possible and ideally allow her to ultimately return home if it is safe/feasible we discussed whether she would want to continue chemotherapy, go on hospice, etc during this discussion she stated she wanted to go to rehab, get stronger so she could return home, and then potentially start hospice she understands that the disease is progressing and that she has been miserable throughout the summer due to pain, etc Review of Systems Review of Systems: gen - no fevers, no chills cv - no cp, no orthopnea pulm - no dyspnea at rest GI - no nausea/emesis skin - rash on face, arms, legs, torso -- pruritic - rivas in place musculo - b/l foot pain (big toes especially) Physical Exam Physical Exam: gen - NAD, but intermittently sad/tearful, overall looks modestly better than yesterday mouth - MMM, thrush plaques present on buccal mucosa neck - no JVD heart - RRR, s1, s2, 2/6 ROSY LSB lungs - rales bases - dry sounding skin - erythematous rash on arms/legs/face/torso - slightly better than yesterday abd - soft NT ND BS+ musculo - right great toe podagra; left great toe podagra; multiple toes with synovitis and erythema -- all improved today; less tenderness to palpation ext - <1+ edema b/l, pulses 2+ b/l psych - restricted affect, a/o x 3 Results & Data Results & Data ([facility]) Vital Signs (Past 12 Hours) Vital Signs Temp Pulse Resp BP Pulse Ox O2 Del Method 07/01/22 20:53 37.1 C 102 H 14 170/48 H 92 Room Air Laboratory Results Laboratory Results - last 24 hr 09/01/22 07:36 Sodium 134 L Potassium 4.7 Chloride 103 Carbon Dioxide 25 Anion Gap 6 BUN 26 H Creatinine 1.50 H Est Cr Clr Drug Dosing 37.9 Est GFR ( Amer) 37.0 Est GFR (Non-Af Amer) 31.9 BUN/Creatinine Ratio 17.3 Glucose 147 H Calcium 7.7 L PG Care Time/CCT Total # of Minutes Spent Total Time Spent with Patient: Total time spent is greater than 50% in coordination of care (as documented) at patient's floor/unit and/or counseling patient: Prolonged Care Time Prolonged Care Time: Yes Total Prolonged Care Time: 70 Coding Level of Care Code 59792 Subseq Hosp Care Lvl 3 (25 - SIGNIFICANT, SEPARATELY IDENTIFIABLE ) Diagnoses Enterococcus UTI N39.0; B95.2 Drug reaction T50.905A Polyarticular arthritis M13.0 Depression F32.A Ambulatory dysfunction R26.2 Fall W19.XXXA Bony metastasis C79.51 CKD (chronic kidney disease) stage 4, GFR 15-29 ml/min N18.4 Anemia D64.9 Cancer related pain G89.3 Hypertension I10 Hypercholesterolemia E78.00 Hypothyroidism E03.9 SIADH (syndrome of inappropriate ADH production) E22.2 Metastatic renal cell carcinoma C64.9 Aortic stenosis I35.0 Cardiac valve disease etiology: nonrheumatic DVT prophylaxis Z29.9 Encephalopathy acute G93.40 Additional Codes Prolonged Care Time - Prolonged Care Time: Yes ([id number]) (1) Aortic stenosis Cardiac valve disease etiology: nonrheumatic Qualified Code(s): I35.0 - Nonrheumatic aortic (valve) stenosis
[2022-07-02] MEDS: ACETAMINOPHEN 325 MG TAB PO PRN ×3 (02:28→20:26)
[2022-07-02] MEDS: CHECK fentaNYL PATCH PLACEMENT SCH ×4 (02:30→23:34)
[2022-07-02] MEDS: dexAMETHasone 4 MG in SYRINGE 0 ML IV SCH ×2 (02:55→14:48)
[2022-07-02] MEDS ORDERED: hydrALAZINE HCL 20 MG/ML VIAL IV ONE (03:06)
[2022-07-02] MEDS: LEVOTHYROXINE SODIUM 150 MCG TABLET PO SCH (05:39)
[2022-07-02 06:16] LABS: Hematocrit (blood only) 32.5 % (34.1-44.9); Hemoglobin 10.7 g/dl (12.0-16.0); Mean Corpuscular Hemoglobin 28.6 pg (25.0-34.0); Mean Corpuscular Hgb Conc 32.9 g/dL (32.0-36.0); Mean Corpuscular Volume 86.9 fL (80.0-100.0); Mean Platelet Volume 9.8 fL (9.4-12.3); Platelet Count 221 K/uL (130-400); RDW Coefficient of Variation 15.7 % (11.5-14.5); RDW Standard Deviation 49.7 fL (36.4-46.3); Red Blood Count 3.74 M/uL (3.93-5.22)
[2022-07-02 06:46] LABS: BUN Creatinine Ratio 20.3 (10-20); Creatinine Clr Calc Pharmacy 42.8 ml/min; Est GFR (African American) 42.7 ml/min; Est GFR (Non-African American) 36.9 ml/min; Potassium 4.6 mmol/L (3.5-5.1)
[2022-07-02] MEDS: CALCIUM 600MG + VIT D 400 IU TAB PO SCH (09:35)
[2022-07-02] MEDS: GABAPENTIN 300 MG CAP PO SCH ×2 (09:36→20:27)
[2022-07-02] MEDS: FEXOFENADINE 60 MG TAB PO SCH ×2 (09:36→20:27)
[2022-07-02] MEDS: SODIUM CHLORIDE 1 GM TABLET PO SCH ×2 (09:37→20:28)
[2022-07-02] MEDS: HEPARIN SOD 5,000 UNIT/0.5 ML VIAL SQ SCH ×2 (09:37→20:27)
[2022-07-02] MEDS: HYDROmorphone HCL 2 MG TAB PO PRN ×2 (09:46→14:47)
[2022-07-02] MEDS: FUROSEMIDE 20 MG TAB PO SCH (10:08)
[2022-07-02] MEDS: DAPTOmycin 350 MG in SYRINGE 0 ML IV SCH (13:03)
[2022-07-02] MEDS: HEPARIN 100 UNIT/ML 5ML FLUSH FLUSH PRN (14:48)
[2022-07-02] MEDS ORDERED: amLODIPine BESYLATE 5 MG TAB PO ONE (15:42)
[2022-07-02] MEDS: fentaNYL 25 MCG/HR TDSY TD SCH (16:45)
--- NOTE | 2022-07-02 20:21 | Hospitalist Progress Note ---
Date of Service July 02, 2022 Assessment & Plan (1) Enterococcus UTI: Plan: day #4 of daptomycin can switch to zyvox 600mg PO BID x 3 days starting tomorrow (2) Drug reaction: Plan: 2nd amoxicillin eosinophilia on recent cbc w/ diff along with rash all c/w drug rxn rash improved with IV dexamethasone (3) Polyarticular arthritis: Plan: b/l feet - suspected gout could be a serum sickness type reaction to the amoxicillin but less likely either way it is improved was on HCTZ up until late April which would have increased her uric acid levels; CKD also will increase uric acid levels consider checking uric acid level am (4) Depression: Plan: will need to hold zoloft while on zyvox (5) Ambulatory dysfunction: Plan: PT, OT (6) Fall: (7) Bony metastasis: Plan: fentanyl patch 25mcg q72h; increased to 25mcg on 06/17/22 dilaudid 2mg po q4h prn cont dexamethasone cont gabapentin 300mg BID cont tylenol prn (8) CKD (chronic kidney disease) stage 4, GFR 15-29 ml/min: Plan: BMP daily (9) Anemia: Plan: stable (10) Cancer related pain: Plan: see above (11) Hypertension: Plan: labile BPs, likely due to pain, stress/anxiety, etc lisinopril has been on hold start amlodipine 5mg daily (12) Hypercholesterolemia: (13) Hypothyroidism: Plan: TSH mildly high; could consider modest increase in dose (175 from 150) (14) SIADH (syndrome of inappropriate ADH production): Plan: resumed lasix cont salt tabs BMP am for stability (15) Metastatic renal cell carcinoma: Plan: progressive based on hatch-CT and bone scan Dr Galeana spoke with patient & her daughter at bedside today; discussed 2nd line treatments patient uncertain if she will pursue additional treatment she is going to discuss w/ her children her options (16) Aortic stenosis: (17) DVT prophylaxis: Plan: heparin 5000 BID (18) Encephalopathy acute: Plan: metabolic - UTI, etc toxic - benadryl, pain meds, other resolved Plan 1. cont daptomycin today then Zyvox tomorrow 2. cont dexamethasone 4mg BID -- this will help pruritis/rash, gout, bone pain, appetite, etc. Admission and Anticipated Discharge Date Admission Date: June 26, 2022 Subjective c/o pain in back pain in b/l feet improved, however energy is fair appetite is fair no dyspnea daughter from [place] area was at bedside during the visit questions answered Review of Systems Review of Systems: gen - no fevers/chills; fatigue/weakness same or slightly better cv - no cp, no orthopnea pulm - no cough GI - ongoing dysphagia but it is intermittent - rivas in place Physical Exam Physical Exam: gen - NAD, looks a little better today mouth - MMM, thrush plaques present on buccal mucosa neck - no JVD heart - RRR, s1, s2, 2/6 ROSY LSB lungs - dry rales b/l bases unchanged skin - erythematous rash on arms/legs/face/torso - nearly resolved abd - soft NT ND BS+ musculo - right great toe podagra improved; left great toe podagra improved; multiple toes left foot with synovitis and erythema -- all improved once again; no tenderness to palpation any joints ext - <1+ edema b/l, pulses 2+ b/l Results & Data Results & Data ([facility]) Vital Signs (Past 12 Hours) Vital Signs Temp Pulse Resp BP Pulse Ox O2 Del Method 07/02/22 17:50 151/77 H 07/02/22 16:15 182/84 H 07/02/22 15:30 36.3 C L 63 16 186/93 H 97 Room Air Laboratory Results Laboratory Results - last 24 hr 07/02/22 07/02/22 05:59 05:59 WBC 6.20 RBC 3.74 L Hgb 10.7 L Hct 32.5 L MCV 86.9 MCH 28.6 MCHC 32.9 RDW Std Deviation 49.7 H RDW Coeff of Gala 15.7 H Plt Count 221 MPV 9.8 Sodium 133 L Potassium 4.6 Chloride 102 Carbon Dioxide 24 Anion Gap 7 BUN 27 H Creatinine 1.33 H Est Cr Clr Drug Dosing 42.8 Est GFR ( Amer) 42.7 Est GFR (Non-Af Amer) 36.9 BUN/Creatinine Ratio 20.3 H Glucose 156 H Calcium 8.0 L PG Care Time/CCT Total # of Minutes Spent Total Time Spent with Patient: Total time spent is greater than 50% in coordination of care (as documented) at patient's floor/unit and/or counseling patient: Coding Level of Care Code 34152 Subseq Hosp Care Lvl 2 Diagnoses Enterococcus UTI N39.0; B95.2 Drug reaction T50.905A Polyarticular arthritis M13.0 Depression F32.A Ambulatory dysfunction R26.2 Fall W19.XXXA Bony metastasis C79.51 CKD (chronic kidney disease) stage 4, GFR 15-29 ml/min N18.4 Anemia D64.9 Cancer related pain G89.3 Hypertension I10 Hypercholesterolemia E78.00 Hypothyroidism E03.9 SIADH (syndrome of inappropriate ADH production) E22.2 Metastatic renal cell carcinoma C64.9 Aortic stenosis I35.0 Cardiac valve disease etiology: nonrheumatic DVT prophylaxis Z29.9 Encephalopathy acute G93.40 (1) Aortic stenosis Cardiac valve disease etiology: nonrheumatic Qualified Code(s): I35.0 - Nonrheumatic aortic (valve) stenosis
[2022-07-02] MEDS: OXYBUTYNIN CHLORIDE XL 5 MG TABCR PO SCH (20:28)
[2022-07-02] MEDS: SERTRALINE HCL 50 MG TABLET PO SCH (20:28)
[2022-07-02] MEDS: SIMVASTATIN 20 MG TAB PO SCH (20:28)
[2022-07-02] MEDS: NYSTATIN SUSP 500,000 U/5 ML UDC PO SCH (20:51)
[2022-07-03] MEDS: dexAMETHasone 4 MG in SYRINGE 0 ML IV SCH ×2 (02:41→15:23)
[2022-07-03] MEDS: HEPARIN 100 UNIT/ML 5ML FLUSH FLUSH PRN ×2 (02:41→15:24)
[2022-07-03] MEDS: HYDROmorphone HCL 2 MG TAB PO PRN ×2 (05:45→13:51)
[2022-07-03] MEDS: LEVOTHYROXINE SODIUM 150 MCG TABLET PO SCH (05:45)
[2022-07-03] MEDS: CHECK fentaNYL PATCH PLACEMENT SCH ×2 (09:04→15:23)
[2022-07-03] MEDS: CALCIUM 600MG + VIT D 400 IU TAB PO SCH (09:05)
[2022-07-03] MEDS: FEXOFENADINE 60 MG TAB PO SCH ×2 (09:05→20:47)
[2022-07-03] MEDS: FUROSEMIDE 20 MG TAB PO SCH (09:05)
[2022-07-03] MEDS: SODIUM CHLORIDE 1 GM TABLET PO SCH ×2 (09:06→20:47)
[2022-07-03] MEDS: HEPARIN SOD 5,000 UNIT/0.5 ML VIAL SQ SCH ×3 (09:06→20:47)
[2022-07-03] MEDS: GABAPENTIN 300 MG CAP PO SCH ×2 (09:06→20:47)
[2022-07-03] MEDS: LINEZOLID 600 MG TAB PO SCH ×2 (09:13→20:47)
[2022-07-03] MEDS: NYSTATIN SUSP 500,000 U/5 ML UDC PO SCH ×4 (09:13→20:47)
[2022-07-03 09:16] LABS: BUN Creatinine Ratio 26.4 (10-20); Calcium 7.9 mg/dl (8.5-10.1); Creatinine Clr Calc Pharmacy 45.5 ml/min; Est GFR (African American) 46.1 ml/min; Est GFR (Non-African American) 39.7 ml/min; Magnesium 2.1 mg/dl (1.7-2.4); Uric Acid 5.6 mg/dl (2.6-7.2)
[2022-07-03] MEDS ORDERED: amLODIPine BESYLATE 5 MG TAB PO SCH (10:00)
[2022-07-03] MEDS: ACETAMINOPHEN 325 MG TAB PO PRN ×2 (12:28→20:46)
[2022-07-03] MEDS: OXYBUTYNIN CHLORIDE XL 5 MG TABCR PO SCH (20:47)
[2022-07-03] MEDS: SIMVASTATIN 20 MG TAB PO SCH (20:47)
--- NOTE | 2022-07-03 20:55 | Hospitalist Progress Note ---
Date of Service July 03, 2022 Assessment & Plan (1) Enterococcus UTI: Plan: s/p 4 days of daptomycin day #1 today of zyvox 600mg PO BID; planning 3 days of zyvox then stopping all abx d/c rivas at conclusion of abx and give voiding trial then (2) Drug reaction: Plan: 2nd amoxicillin eosinophilia on recent cbc w/ diff along with rash all c/w drug rxn rash resolved with IV dexamethasone (3) Polyarticular arthritis: Plan: b/l feet - suspected gout could be a serum sickness type reaction to the amoxicillin but much less likely either way it is improved / resolving was on HCTZ up until late April which would have increased her uric acid levels; CKD also will increase uric acid levels uric acid level today noted wean IV dexamethasone 4mg BID to dex 4mg po daily starting in am give 4mg daily for 2-3 days, then wean to 2mg/day for bone pain related to metastatic disease, etc (4) Depression: Plan: will need to hold zoloft while on zyvox may be better to consider wellbutrin - little risk of SIADH with wellbutrin (5) Ambulatory dysfunction: Plan: PT, OT (6) Fall: (7) Bony metastasis: Plan: fentanyl patch 25mcg q72h; increased to 25mcg on 06/17/22 dilaudid 2mg po q4h prn cont dexamethasone cont gabapentin 300mg BID schedule tylenol 1gm TID (8) CKD (chronic kidney disease) stage 4, GFR 15-29 ml/min: Plan: BMP daily (9) Anemia: Plan: stable cbc am (10) Cancer related pain: Plan: see above (11) Hypertension: Plan: labile BPs, likely due to pain, stress/anxiety, etc lisinopril has been on hold due to labile creatinine levels continue amlodipine 2.5mg daily (12) Hypercholesterolemia: (13) Hypothyroidism: Plan: TSH mildly high; could consider modest increase in dose (175 from 150) (14) SIADH (syndrome of inappropriate ADH production): Plan: resumed lasix cont salt tabs BMP am for stability (15) Metastatic renal cell carcinoma: Plan: progressive based on hatch-CT and bone scan Dr Galeana spoke with patient & her daughter at bedside today; discussed 2nd line treatments patient uncertain if she will pursue additional treatment she is going to discuss w/ her children her options (16) Aortic stenosis: (17) DVT prophylaxis: Plan: heparin 5000 BID (18) Encephalopathy acute: Plan: metabolic - UTI, etc toxic - benadryl, pain meds, other resolved Plan daughters updated at bedside Admission and Anticipated Discharge Date Admission Date: June 26, 2022 Subjective saw patient late in the day 2 daughters were present early in the day she had considerable pain and simply felt unwell pain got a little better as the day went on her daughter Eveline mentions that tylenol is effective when she gets it eating fair didn't go outside today to [facility] b/l foot pain essentially resolved rash resolved no further pruritis had a little gross hematuria earlier today Review of Systems Review of Systems: gen - no fevers cv - no orthopnea pulm - no dyspnea GI - continues with occasional issues w/ choking on food/dysphagia - rivas in place Physical Exam Physical Exam: gen - NAD, lying comfortably in bed mouth - MMM, thrush plaques improved neck - no JVD heart - RRR, s1, s2, 2/6 ROSY LSB lungs - dry rales b/l bases unchanged skin - rash fully resolved (previously on face, arms, legs, a little on torso, etc) abd - soft NT ND BS+ musculo - right great toe podagra improved/resolving; no tenderness to palpation of right first MTP joint; left great toe podagra improved; multiple toes left foot with synovitis and erythema -- all improved once again; no tenderness to palpation any joints ext - <1+ edema b/l, pulses 2+ b/l Results & Data Results & Data ([facility]) Vital Signs (Past 12 Hours) Vital Signs Temp Pulse Resp BP Pulse Ox O2 Del Method 07/03/22 15:33 36.9 C 56 L 16 136/80 94 Room Air 07/03/22 10:21 127/67 Laboratory Results Laboratory Results - last 24 hr 07/03/22 08:09 Sodium 133 L Potassium 5.0 Chloride 103 Carbon Dioxide 24 Anion Gap 6 BUN 33 H Creatinine 1.25 H Est Cr Clr Drug Dosing 45.5 Est GFR ( Amer) 46.1 Est GFR (Non-Af Amer) 39.7 BUN/Creatinine Ratio 26.4 H Glucose 138 H Uric Acid 5.6 Calcium 7.9 L Magnesium 2.1 PG Care Time/CCT Total # of Minutes Spent Total Time Spent with Patient: Total time spent is greater than 50% in coordination of care (as documented) at patient's floor/unit and/or counseling patient: Coding Level of Care Code 44739 Subseq Hosp Care Lvl 2 Diagnoses Enterococcus UTI N39.0; B95.2 Drug reaction T50.905A Polyarticular arthritis M13.0 Depression F32.A Ambulatory dysfunction R26.2 Fall W19.XXXA Bony metastasis C79.51 CKD (chronic kidney disease) stage 4, GFR 15-29 ml/min N18.4 Anemia D64.9 Cancer related pain G89.3 Hypertension I10 Hypercholesterolemia E78.00 Hypothyroidism E03.9 SIADH (syndrome of inappropriate ADH production) E22.2 Metastatic renal cell carcinoma C64.9 Aortic stenosis I35.0 Cardiac valve disease etiology: nonrheumatic DVT prophylaxis Z29.9 Encephalopathy acute G93.40 (1) Aortic stenosis Cardiac valve disease etiology: nonrheumatic Qualified Code(s): I35.0 - Nonrheumatic aortic (valve) stenosis
[2022-07-03] MEDS ORDERED: ACETAMINOPHEN 500 MG TAB PO SCH (21:15)
[2022-07-04] MEDS: CHECK fentaNYL PATCH PLACEMENT SCH ×4 (00:05→20:16)
[2022-07-04] MEDS: LEVOTHYROXINE SODIUM 150 MCG TABLET PO SCH (05:28)
[2022-07-04] MEDS: ACETAMINOPHEN 500 MG TAB PO SCH ×3 (07:06→20:15)
[2022-07-04 07:23] LABS: Hematocrit (blood only) 32.9 % (34.1-44.9); Mean Corpuscular Hemoglobin 29.3 pg (25.0-34.0); Mean Corpuscular Hgb Conc 33.4 g/dL (32.0-36.0); Mean Corpuscular Volume 87.7 fL (80.0-100.0); Mean Platelet Volume 9.6 fL (9.4-12.3); Platelet Count 250 K/uL (130-400); RDW Standard Deviation 51.8 fL (36.4-46.3); Red Blood Count 3.75 M/uL (3.93-5.22); White Blood Count 8.46 K/ul (4.8-10.8)
[2022-07-04 07:48] LABS: Calcium 7.9 mg/dl (8.5-10.1); Creatinine Clr Calc Pharmacy 43.4 ml/min; Est GFR (African American) 43.5 ml/min; Est GFR (Non-African American) 37.6 ml/min; Potassium 4.6 mmol/L (3.5-5.1)
[2022-07-04] MEDS: HEPARIN 100 UNIT/ML 5ML FLUSH FLUSH PRN (08:31)
[2022-07-04] MEDS: FUROSEMIDE 20 MG TAB PO SCH (09:05)
[2022-07-04] MEDS: SODIUM CHLORIDE 1 GM TABLET PO SCH ×2 (09:06→20:16)
[2022-07-04] MEDS: amLODIPine BESYLATE 5 MG TAB PO SCH (09:06)
[2022-07-04] MEDS: dexAMETHasone 4 MG TAB PO SCH (09:06)
[2022-07-04] MEDS: NYSTATIN SUSP 500,000 U/5 ML UDC PO SCH ×4 (09:07→20:16)
[2022-07-04] MEDS: LINEZOLID 600 MG TAB PO SCH ×2 (09:07→20:16)
[2022-07-04] MEDS: CALCIUM 600MG + VIT D 400 IU TAB PO SCH (09:07)
[2022-07-04] MEDS: GABAPENTIN 300 MG CAP PO SCH ×2 (09:07→20:16)
[2022-07-04] MEDS: FEXOFENADINE 60 MG TAB PO SCH ×2 (09:07→20:16)
[2022-07-04] MEDS: HEPARIN SOD 5,000 UNIT/0.5 ML VIAL SQ SCH ×2 (09:08→20:16)
[2022-07-04] MEDS: HYDROmorphone HCL 2 MG TAB PO PRN (17:47)
[2022-07-04] MEDS: OXYBUTYNIN CHLORIDE XL 5 MG TABCR PO SCH (20:16)
[2022-07-04] MEDS: SIMVASTATIN 20 MG TAB PO SCH (20:16)
--- NOTE | 2022-07-04 20:52 | Hospitalist Progress Note ---
Date of Service July 04, 2022 Assessment & Plan (1) Enterococcus UTI: Plan: s/p 4 days of daptomycin day #2 today of zyvox 600mg PO BID; planning 3 days of zyvox then stopping all abx d/c rivas at conclusion of abx and give voiding trial then (2) Drug reaction: Plan: 2nd amoxicillin eosinophilia on recent cbc w/ diff along with rash all c/w drug rxn rash resolved with IV dexamethasone (3) Polyarticular arthritis: Plan: b/l feet - suspected gout could be a serum sickness type reaction to the amoxicillin but much less likely either way it is resolved was on HCTZ up until late April which would have increased her uric acid levels; CKD also will increase uric acid levels uric acid level this admission noted cont dexamethasone 4mg daily give 4mg daily for 2-3 days, then wean to 2mg/day for bone pain related to metastatic disease, etc would potentially keep on the dex indefinitely if ok with hematology/oncology (4) Depression: Plan: will need to hold zoloft while on zyvox may be better to consider wellbutrin - little risk of SIADH with wellbutrin (5) Ambulatory dysfunction: Plan: PT, OT rehab post-d/c (6) Bony metastasis: Plan: fentanyl patch 25mcg q72h; increased to 25mcg on 06/17/22 dilaudid 2mg po q4h prn cont dexamethasone cont gabapentin 300mg BID cont tylenol 1gm TID pain control acceptable today (7) CKD (chronic kidney disease) stage 4, GFR 15-29 ml/min: Plan: BMP daily stable (8) Anemia: Plan: stable H/H today - even despite mild intermittent gross hematuria (9) Cancer related pain: Plan: see above (10) Hypertension: Plan: labile BPs, likely due to pain, stress/anxiety, etc lisinopril has been on hold due to labile creatinine levels - would not resume continue amlodipine 2.5mg daily (11) Hypercholesterolemia: (12) Hypothyroidism: Plan: TSH mildly high; could consider modest increase in dose (175 from 150) (13) SIADH (syndrome of inappropriate ADH production): Plan: resumed lasix cont salt tabs BMP am for stability recheck urine osm and urine Na level (14) Metastatic renal cell carcinoma: Plan: progressive based on hatch-CT and bone scan Dr Galeana spoke with patient & her daughter at bedside on Tuesday; discussed 2nd line treatments patient uncertain if she will pursue additional treatment she is going to discuss w/ her children her options (15) Aortic stenosis: (16) DVT prophylaxis: Plan: heparin 5000 BID (17) Encephalopathy acute: Plan: metabolic - UTI, etc toxic - benadryl, pain meds, other resolved Plan daughters updated at bedside multiple times over the last few days dispo - SNF Admission and Anticipated Discharge Date Admission Date: June 26, 2022 Subjective had an overall good day today went outside to [employer] with family - it felt good to do so eating decently no pain in either foot - at rest or with weight bearing pain in back remains - was bad this am, now improved no new complaints Review of Systems Review of Systems: gen - energy is somewhat better; appetite also better cv - no orthopnea or pain pulm - no dyspnea GI - no pain Physical Exam Physical Exam: gen - NAD, sitting in chair, looks very good today mouth - MMM, thrush plaques improved; hoarse voice today neck - no JVD heart - RRR, s1, s2, 2/6 ROSY LSB lungs - dry rales b/l bases unchanged skin - previous rash on face, arms, legs, etc fully resolved abd - soft NT ND BS+ musculo - right great toe podagra resolved; no tenderness to palpation of right first MTP joint; left great toe podagra resolved; multiple toes left foot with synovitis and erythema -- resolved; no tenderness to palpation any joints ext - trace edema b/l, pulses 2+ b/l psych - affect more full than prior exams Results & Data Results & Data ([facility]) Vital Signs (Past 12 Hours) Vital Signs Temp Pulse Resp BP Pulse Ox O2 Del Method 07/04/22 15:39 37 C 66 16 155/77 H 94 Room Air Laboratory Results Laboratory Results - last 24 hr 07/04/22 07/04/22 07:13 07:13 WBC 8.46 RBC 3.75 L Hgb 11.0 L Hct 32.9 L MCV 87.7 MCH 29.3 MCHC 33.4 RDW Std Deviation 51.8 H RDW Coeff of Gala 16.0 H Plt Count 250 MPV 9.6 Sodium 132 L Potassium 4.6 Chloride 101 Carbon Dioxide 25 Anion Gap 6 BUN 38 H Creatinine 1.31 H Est Cr Clr Drug Dosing 43.4 Est GFR ( Amer) 43.5 Est GFR (Non-Af Amer) 37.6 BUN/Creatinine Ratio 29.0 H Glucose 114 H Calcium 7.9 L PG Care Time/CCT Total # of Minutes Spent Total Time Spent with Patient: Total time spent is greater than 50% in coordination of care (as documented) at patient's floor/unit and/or counseling patient: Coding Level of Care Code 32332 Subseq Hosp Care Lvl 2 Diagnoses Enterococcus UTI N39.0; B95.2 Drug reaction T50.905A Polyarticular arthritis M13.0 Depression F32.A Ambulatory dysfunction R26.2 Bony metastasis C79.51 CKD (chronic kidney disease) stage 4, GFR 15-29 ml/min N18.4 Anemia D64.9 Cancer related pain G89.3 Hypertension I10 Hypercholesterolemia E78.00 Hypothyroidism E03.9 SIADH (syndrome of inappropriate ADH production) E22.2 Metastatic renal cell carcinoma C64.9 Aortic stenosis I35.0 Cardiac valve disease etiology: nonrheumatic DVT prophylaxis Z29.9 Encephalopathy acute G93.40 (1) Aortic stenosis Cardiac valve disease etiology: nonrheumatic Qualified Code(s): I35.0 - Nonrheumatic aortic (valve) stenosis
[2022-07-05] MEDS: LEVOTHYROXINE SODIUM 150 MCG TABLET PO SCH (06:17)
[2022-07-05] MEDS: HYDROmorphone HCL 2 MG TAB PO PRN ×2 (06:19→18:24)
[2022-07-05 08:01] LABS: BUN Creatinine Ratio 30.3 (10-20); Calcium 7.9 mg/dl (8.5-10.1); Creatinine Clr Calc Pharmacy 43.1 ml/min; Est GFR (African American) 43.1 ml/min; Est GFR (Non-African American) 37.2 ml/min; Potassium 4.1 mmol/L (3.5-5.1)
[2022-07-05] MEDS: CHECK fentaNYL PATCH PLACEMENT SCH ×3 (08:02→23:43)
[2022-07-05] MEDS: ACETAMINOPHEN 500 MG TAB PO SCH ×3 (08:03→20:25)
[2022-07-05] MEDS: SODIUM CHLORIDE 1 GM TABLET PO SCH ×2 (08:03→20:25)
[2022-07-05] MEDS: LINEZOLID 600 MG TAB PO SCH ×2 (08:03→20:26)
[2022-07-05] MEDS: FEXOFENADINE 60 MG TAB PO SCH ×2 (08:03→20:27)
[2022-07-05] MEDS: dexAMETHasone 4 MG TAB PO SCH (08:04)
[2022-07-05] MEDS: CALCIUM 600MG + VIT D 400 IU TAB PO SCH (08:04)
[2022-07-05] MEDS: GABAPENTIN 300 MG CAP PO SCH ×2 (08:04→20:27)
[2022-07-05] MEDS: amLODIPine BESYLATE 5 MG TAB PO SCH ×2 (08:04→20:27)
[2022-07-05] MEDS: FUROSEMIDE 20 MG TAB PO SCH (08:04)
[2022-07-05] MEDS: NYSTATIN SUSP 500,000 U/5 ML UDC PO SCH ×4 (08:07→20:26)
[2022-07-05] MEDS: HEPARIN SOD 5,000 UNIT/0.5 ML VIAL SQ SCH ×2 (08:09→20:28)
[2022-07-05] MEDS: fentaNYL 25 MCG/HR TDSY TD SCH (16:51)
[2022-07-05] MEDS: SIMVASTATIN 20 MG TAB PO SCH (20:26)
[2022-07-05] MEDS: OXYBUTYNIN CHLORIDE XL 5 MG TABCR PO SCH (20:26)
--- NOTE | 2022-07-05 21:24 | Hospitalist Progress Note ---
Date of Service July 05, 2022 Assessment & Plan (1) Enterococcus UTI: Plan: s/p 4 days of daptomycin followed by 3 days of zyvox 600mg PO BID (had also had 1 day of amoxicillin but then drug rxn to such) stop all abx after tonight's zyvox dose d/c rivas in AM tomorrow for trial of void (2) Drug reaction: Plan: 2nd amoxicillin rash fully resolved with IV/PO dexamethasone remains on heidi 60mg BID - can d/c such (3) Polyarticular arthritis: Plan: b/l feet - suspected gout could have been a serum sickness type reaction to the amoxicillin but much less likely either way it is fully resolved uric acid level this admission noted cont dexamethasone 4mg daily give 4mg daily for 2-3 days, then wean to 2mg/day for bone pain related to metastatic disease, etc would potentially keep on the dex indefinitely if ok with hematology/oncology I did send a [place] message to Dr Galeana today re: the dexamethasone patient is OFF axitinib at this time thus steroids acceptable (4) Depression: Plan: consider wellbutrin - little risk of SIADH with wellbutrin Urine Na and Urine osm still very c/w SIADH; SSRI likely to make this worse (5) Ambulatory dysfunction: Plan: PT, OT rehab post-d/c at [facility] (6) Bony metastasis: Plan: fentanyl patch 25mcg q72h; increased to 25mcg on 06/17/22 dilaudid 2mg po q4h prn cont dexamethasone 4mg day; lower dose to 2mg/day at discharge cont gabapentin 300mg BID cont tylenol 1gm TID pain control acceptable today -- encouraged her to ask for the dilaudid more frequently if needed - she usually only takes it 1x/day (7) CKD (chronic kidney disease) stage 4, GFR 15-29 ml/min: Plan: stable Creatinine once again today (1.3) (8) Anemia: Plan: stable H/H yesterday this is despite mild intermittent gross hematuria from her kidney cancer (9) Cancer related pain: Plan: see above (10) Hypertension: Plan: labile BPs, likely due to pain, stress/anxiety, etc lisinopril has been on hold due to labile creatinine levels - would not resume moving forward continue amlodipine but increase to 2.5mg BID (11) Hypercholesterolemia: Plan: statin (12) Hypothyroidism: Plan: TSH mildly high; could consider modest increase in dose (175 from 150) (13) SIADH (syndrome of inappropriate ADH production): Plan: cont lasix cont NaCl 1gm BID Na level 134 today urine osm and urine Na level still c/w SIADH (14) Metastatic renal cell carcinoma: Plan: progressive based on hatch-CT and bone scan this admission with progressive pulmonary mets Dr Galeana spoke with patient & her daughter at bedside on Tuesday07/02/22; d iscussed 2nd line chemo treatments patient uncertain if she will pursue additional treatment in the future she is going to discuss w/ her children her options plan is for [facility] for rehab her goal is to ultimately get home patient uncertain if she will simply pursue hospice after rehab OR resume cancer treatment (15) Aortic stenosis: (16) DVT prophylaxis: Plan: heparin 5000 BID (17) Encephalopathy acute: Plan: metabolic - UTI, etc toxic - benadryl, pain meds, other resolved Plan daughters updated at bedside multiple times over the last few days Eveline her daughter updated by phone this evening dispo - SNF ([facility]) -- hopefully Tuesday07/06/22 Admission and Anticipated Discharge Date Admission Date: June 26, 2022 Subjective had back pain this am but improved as day went on sitting in chair during the visit no new complaints asks about [facility] - when she might go ambulating in room today without difficulty no pain in feet moving bowels eating decently today Review of Systems 2 Review of Systems: cv - no orthopnea, no cp pulm - no dyspnea GI - no pain or nausea/emesis Physical Exam Physical Exam: gen - NAD, sitting in chair, best she has looked since last week mouth - MMM, thrush plaques resolved; mild hoarse voice neck - no JVD heart - RRR, s1, s2, 2/6 ROSY LSB lungs - dry rales b/l bases unchanged skin - no rash any location abd - soft NT ND BS+ musculo - all gouty arthritis of b/l feet resolved ext - trace edema b/l, pulses 2+ b/l; venous pooling in feet but cap refill brisk b/l psych - a/o x 3 Results & Data Results & Data ([facility]) Vital Signs (Past 12 Hours) Vital Signs Temp Pulse Resp BP Pulse Ox 07/05/22 16:12 37 C 73 18 129/64 97 Laboratory Results Laboratory Results - last 24 hr 07/05/22 07/05/22 07/05/22 07:23 17:30 17:30 Sodium 134 L Potassium 4.1 Chloride 104 Carbon Dioxide 24 Anion Gap 6 BUN 40 H Creatinine 1.32 H Est Cr Clr Drug Dosing 43.1 Est GFR ( Amer) 43.1 Est GFR (Non-Af Amer) 37.2 BUN/Creatinine Ratio 30.3 H Glucose 101 H Calcium 7.9 L Urine Osmolality 487 L Ur Random Sodium 68 PG Care Time/CCT Total # of Minutes Spent Total Time Spent with Patient: Total time spent is greater than 50% in coordination of care (as documented) at patient's floor/unit and/or counseling patient: Coding Level of Care Code 56144 Subseq Hosp Care Lvl 2 Diagnoses Enterococcus UTI N39.0; B95.2 Drug reaction T50.905A Polyarticular arthritis M13.0 Depression F32.A Ambulatory dysfunction R26.2 Bony metastasis C79.51 CKD (chronic kidney disease) stage 4, GFR 15-29 ml/min N18.4 Anemia D64.9 Cancer related pain G89.3 Hypertension I10 Hypercholesterolemia E78.00 Hypothyroidism E03.9 SIADH (syndrome of inappropriate ADH production) E22.2 Metastatic renal cell carcinoma C64.9 Aortic stenosis I35.0 Cardiac valve disease etiology: nonrheumatic DVT prophylaxis Z29.9 Encephalopathy acute G93.40 (1) Aortic stenosis Cardiac valve disease etiology: nonrheumatic Qualified Code(s): I35.0 - Nonrheumatic aortic (valve) stenosis
[2022-07-06] MEDS ORDERED: FEXOFENADINE 60 MG TAB PO PRN (05:11)
[2022-07-06] MEDS: LEVOTHYROXINE SODIUM 150 MCG TABLET PO SCH (05:36)
[2022-07-06] MEDS: CHECK fentaNYL PATCH PLACEMENT SCH ×3 (07:44→23:47)
[2022-07-06] MEDS: amLODIPine BESYLATE 5 MG TAB PO SCH ×2 (08:21→20:23)
[2022-07-06] MEDS: GABAPENTIN 300 MG CAP PO SCH ×2 (08:22→20:21)
[2022-07-06] MEDS: SODIUM CHLORIDE 1 GM TABLET PO SCH ×2 (08:22→20:23)
[2022-07-06] MEDS: CALCIUM 600MG + VIT D 400 IU TAB PO SCH (08:23)
[2022-07-06] MEDS: ACETAMINOPHEN 500 MG TAB PO SCH ×3 (08:23→20:21)
[2022-07-06] MEDS: FUROSEMIDE 20 MG TAB PO SCH (08:25)
[2022-07-06] MEDS: NYSTATIN SUSP 500,000 U/5 ML UDC PO SCH ×4 (08:25→20:22)
[2022-07-06] MEDS: dexAMETHasone 4 MG TAB PO SCH (08:25)
[2022-07-06] MEDS: HEPARIN SOD 5,000 UNIT/0.5 ML VIAL SQ SCH ×2 (08:26→20:21)
--- NOTE | 2022-07-06 16:50 | Hospitalist Progress Note ---
Date of Service July 06, 2022 Assessment & Plan (1) Enterococcus UTI: Plan: s/p 4 days of daptomycin followed by 3 days of zyvox 600mg PO BID (had also had 1 day of amoxicillin but then drug rxn to such) passed TOV after Iyer removed (2) Drug reaction: Plan: 2nd amoxicillin rash fully resolved with IV/PO dexamethasone and heidi 60mg BID (3) Polyarticular arthritis: Plan: b/l feet - suspected gout could have been a serum sickness type reaction to the amoxicillin but much less likely either way it is fully resolved uric acid level this admission noted cont dexamethasone 4mg daily give 4mg daily for 2-3 days, then wean to 2mg/day on 07/08 for bone pain related to metastatic disease, etc would potentially keep on the dex indefinitely if ok with hematology/oncology patient is OFF axitinib at this time thus steroids acceptable (4) Depression: Plan: consider wellbutrin - little risk of SIADH with wellbutrin Urine Na and Urine osm still very c/w SIADH; SSRI likely to make this worse (5) Ambulatory dysfunction: Plan: PT, OT rehab post-d/c at [facility] (6) Bony metastasis: Plan: fentanyl patch 25mcg q72h; increased to 25mcg on 06/17/22 dilaudid 2mg po q4h prn cont dexamethasone 4mg day; lower dose to 2mg/day at discharge cont gabapentin 300mg BID cont tylenol 1gm TID pain control acceptable (7) CKD (chronic kidney disease) stage 4, GFR 15-29 ml/min: Plan: stable Creatinine (8) Anemia: Plan: stable H/H this is despite mild intermittent gross hematuria from her kidney cancer (9) Cancer related pain: Plan: see above (10) Hypertension: Plan: labile BPs, likely due to pain, stress/anxiety, etc lisinopril has been on hold due to labile creatinine levels - would not resume moving forward continue amlodipine but increased to 2.5mg BID-can change to 5mg daily for ease of administration on discharge (11) Hypercholesterolemia: Plan: statin (12) Hypothyroidism: Plan: TSH mildly high; could consider modest increase in dose (175 from 150) but would repeat when not acutely ill in 4 weeks (13) SIADH (syndrome of inappropriate ADH production): Plan: cont lasix cont NaCl 1gm BID Na level 134 urine osm and urine Na level still c/w SIADH (14) Metastatic renal cell carcinoma: Plan: progressive based on hatch-CT and bone scan this admission with progressive pulmonary mets Dr Galeana spoke with patient & her daughter at bedside on Tuesday07/02/22; discussed 2nd line chemo treatments patient uncertain if she will pursue additional treatment in the future she is going to discuss w/ her children her options plan is for [facility] for rehab her goal is to ultimately get home patient uncertain if she will simply pursue hospice after rehab OR resume cancer treatment (15) Aortic stenosis: Plan: mild on ECHO 2017 but examines with loud harsh murmur so suspect worsening follow as outpt no evidence of heart failure (16) DVT prophylaxis: Plan: heparin 5000 BID (17) Encephalopathy acute: Plan: metabolic - UTI, etc toxic - benadryl, pain meds, other resolved Plan dispo - SNF ([facility]) -- awaiting insurance auth for Wed discharge Admission and Anticipated Discharge Date Admission Date: June 26, 2022 Anticipated date of discharge: 07/07/22 Subjective Pt feels very well, much better than when she came in. Has no complaints. Is eating, drinking, moving bowels, no urinary problems. Review of Systems Review of Systems: All systems reviewed & are unremarkable except as noted in HPI & below Physical Exam Physical Exam: gen - NAD, sitting in chair heart - RRR, s1, s2, 2/6 ROSY LSB lungs -CTAB no wcr skin - no rash abd - soft NT ND BS+ musculo - all gouty arthritis of b/l feet resolved ext - trace edema b/l, pulses 2+ b/l; venous pooling in feet but cap refill brisk b/l psych - a/o x 3 Results & Data Results & Data ([facility]) Vital Signs (Past 12 Hours) Vital Signs Temp Pulse Pulse Resp BP Pulse Ox O2 Del Method 07/06/22 14:20 36.6 C 54 L 20 102/63 93 Room Air 07/06/22 07:26 36.6 C 51 L 16 159/70 H 95 Room Air Laboratory Results 07/05/22 07/05/22 Range/Units 17:30 17:30 Urine Osmolality 487 L (500-800) mOsm/kg Ur Random Sodium 68 mmol/L PG Care Time/CCT Total # of Minutes Spent Total Time Spent with Patient: Total time spent is greater than 50% in coordination of care (as documented) at patient's floor/unit and/or counseling patient: Coding Level of Care Code 44919 Subseq Hosp Care Lvl 1 Diagnoses Enterococcus UTI N39.0; B95.2 Drug reaction T50.905A Polyarticular arthritis M13.0 Depression F32.A Ambulatory dysfunction R26.2 Bony metastasis C79.51 CKD (chronic kidney disease) stage 4, GFR 15-29 ml/min N18.4 Anemia D64.9 Cancer related pain G89.3 Hypertension I10 Hypercholesterolemia E78.00 Hypothyroidism E03.9 SIADH (syndrome of inappropriate ADH production) E22.2 Metastatic renal cell carcinoma C64.9 Aortic stenosis I35.0 Cardiac valve disease etiology: nonrheumatic DVT prophylaxis Z29.9 Encephalopathy acute G93.40 (1) Aortic stenosis Cardiac valve disease etiology: nonrheumatic Qualified Code(s): I35.0 - Nonrheumatic aortic (valve) stenosis
[2022-07-06] MEDS: SIMVASTATIN 20 MG TAB PO SCH (20:22)
[2022-07-06] MEDS: OXYBUTYNIN CHLORIDE XL 5 MG TABCR PO SCH (20:22)
[2022-07-07] MEDS: HYDROmorphone HCL 2 MG TAB PO PRN ×2 (03:28→07:54)
[2022-07-07] MEDS: LEVOTHYROXINE SODIUM 150 MCG TABLET PO SCH (05:44)
[2022-07-07] MEDS: CHECK fentaNYL PATCH PLACEMENT SCH ×2 (07:50→18:48)
[2022-07-07] MEDS: CALCIUM 600MG + VIT D 400 IU TAB PO SCH (08:05)
[2022-07-07] MEDS: amLODIPine BESYLATE 5 MG TAB PO SCH (08:05)
[2022-07-07] MEDS: GABAPENTIN 300 MG CAP PO SCH ×2 (08:06→19:43)
[2022-07-07] MEDS: dexAMETHasone 4 MG TAB PO SCH (08:06)
[2022-07-07] MEDS: FUROSEMIDE 20 MG TAB PO SCH (08:06)
[2022-07-07] MEDS: NYSTATIN SUSP 500,000 U/5 ML UDC PO SCH ×4 (08:07→19:45)
[2022-07-07] MEDS: HEPARIN SOD 5,000 UNIT/0.5 ML VIAL SQ SCH ×2 (08:07→19:46)
[2022-07-07] MEDS: SODIUM CHLORIDE 1 GM TABLET PO SCH ×2 (08:08→19:44)
[2022-07-07] MEDS: ACETAMINOPHEN 500 MG TAB PO SCH ×3 (08:09→22:07)
[2022-07-07] MEDS: OXYBUTYNIN CHLORIDE XL 5 MG TABCR PO SCH (19:45)
[2022-07-07] MEDS: SIMVASTATIN 20 MG TAB PO SCH (19:46)
--- NOTE | 2022-07-07 21:31 | Hospitalist Progress Note ---
Date of Service July 07, 2022 Assessment & Plan (1) Enterococcus UTI: Plan: s/p 4 days of daptomycin followed by 3 days of zyvox 600mg PO BID (had also had 1 day of amoxicillin but then drug rxn to such) passed TOV after Iyer removed Plan to restart home Bactrim for prophylaxis once daily after discharge (2) Drug reaction: Plan: 2nd amoxicillin rash fully resolved with IV/PO dexamethasone and heidi 60mg BID (3) Polyarticular arthritis: Plan: b/l feet - suspected gout could have been a serum sickness type reaction to the amoxicillin but much less likely either way it is fully resolved uric acid level this admission noted cont dexamethasone 4mg daily give 4mg daily for 1 more day, then wean to 2mg/day on discharge for bone pain related to metastatic disease, etc would potentially keep on the dex indefinitely if ok with hematology/oncology patient is OFF axitinib at this time thus steroids acceptable (4) Depression: Plan: consider wellbutrin - little risk of SIADH with wellbutrin Urine Na and Urine osm still very c/w SIADH; SSRI likely to make this worse (5) Ambulatory dysfunction: Plan: PT/OT recommending rehab, but unfortunately this was denied by her insurance company Patient to now return home with home health and family support She is walking now 250 feet with a walker and contact-guard assistance which is a big improvement from previous (6) Bony metastasis: Plan: Is controlled now with fentanyl patch 25mcg q72h; increased to 25mcg on 06/17/22 Continue dilaudid 2mg po q4h prn cont dexamethasone 4mg day; lower dose to 2mg/day at discharge cont gabapentin 300mg BID cont tylenol 1gm TID (7) CKD (chronic kidney disease) stage 4, GFR 15-29 ml/min: Plan: stable Creatinine (8) Anemia: Plan: stable H/H this is despite mild intermittent gross hematuria from her kidney cancer (9) Cancer related pain: Plan: see above (10) Hypertension: Plan: labile BPs, likely due to pain, stress/anxiety, etc lisinopril has been on hold due to labile creatinine levels - would not resume moving forward continue amlodipine 5 mg daily which was started this admission (11) Hypercholesterolemia: Plan: statin (12) Hypothyroidism: Plan: TSH mildly high; could consider modest increase in dose (175 from 150) but would repeat when not acutely ill in 4 weeks (13) SIADH (syndrome of inappropriate ADH production): Plan: cont lasix 20 mg daily cont NaCl 1gm BID Na level 134 on last check urine osm and urine Na level still c/w SIADH Follow BMP as an outpatient (14) Metastatic renal cell carcinoma: Plan: progressive based on hatch-CT and bone scan this admission with progressive pulmonary mets Dr Galeana spoke with patient & her daughter at bedside on Tuesday07/02/22; discussed 2nd line chemo treatments patient uncertain if she will pursue additional treatment in the future versus entering into hospice she is going to discuss w/ her children her options (15) Aortic stenosis: Plan: mild on ECHO 2017 but examines with loud harsh murmur so suspect worsening follow as outpt if desired but with metastatic cancer, she is not a candidate for valve replacement no evidence of heart failure on examination (16) Encephalopathy acute: Plan: metabolic - UTI, etc toxic - benadryl, pain meds, other resolved for many days (17) DVT prophylaxis: Plan: heparin 5000 BID Plan dispo -rehab has now been denied, plan is to return home with home health and family support on 07/08 Care discussed with her daughter at the bedside Admission and Anticipated Discharge Date Admission Date: June 26, 2022 Anticipated date of discharge: 07/08/22 Subjective Patient has no complaints. No pain in the feet. No chest pains or shortness of breath. She is eating well, moving her bowels. She is disappointed that she was denied rehab stay. I came back to see her again later in the evening when her daughter was present. Her daughter was very upset that her rehab stay was denied and we reviewed why this was the case. Review of Systems Review of Systems: All systems reviewed & are unremarkable except as noted in HPI & below Physical Exam Physical Exam: gen - NAD, sitting in chair heart - RRR, s1, s2, 2/6 ROSY LSB lungs -CTAB no wcr skin - no rash abd - soft NT ND BS+ musculo - all gouty arthritis of b/l feet resolved ext - trace edema b/l, pulses 2+ b/l; venous pooling in feet but cap refill brisk b/l psych - a/o x 3 Results & Data Results & Data ([facility]) Vital Signs (Past 12 Hours) Vital Signs Temp Pulse Resp BP Pulse Ox 07/07/22 14:46 36.4 C L 64 20 129/71 94 PG Care Time/CCT Total # of Minutes Spent Total Time Spent with Patient: Total time spent is greater than 50% in coordination of care (as documented) at patient's floor/unit and/or counseling patient: Coding Level of Care Code 52863 Subseq Hosp Care Lvl 1 Diagnoses Enterococcus UTI N39.0; B95.2 Drug reaction T50.905A Polyarticular arthritis M13.0 Depression F32.A Ambulatory dysfunction R26.2 Bony metastasis C79.51 CKD (chronic kidney disease) stage 4, GFR 15-29 ml/min N18.4 Anemia D64.9 Cancer related pain G89.3 Hypertension I10 Hypercholesterolemia E78.00 Hypothyroidism E03.9 SIADH (syndrome of inappropriate ADH production) E22.2 Metastatic renal cell carcinoma C64.9 Aortic stenosis I35.0 Cardiac valve disease etiology: nonrheumatic Encephalopathy acute G93.40 DVT prophylaxis Z29.9 (1) Aortic stenosis Cardiac valve disease etiology: nonrheumatic Qualified Code(s): I35.0 - Nonrheumatic aortic (valve) stenosis
[2022-07-08] MEDS: CHECK fentaNYL PATCH PLACEMENT SCH ×3 (00:03→14:44)
[2022-07-08] MEDS: HYDROmorphone HCL 2 MG TAB PO PRN ×2 (00:31→06:07)
[2022-07-08] MEDS: LEVOTHYROXINE SODIUM 150 MCG TABLET PO SCH (06:07)
[2022-07-08 07:14] VITALS: BP 151/86; TEMP 98.4; O2SAT 92
[2022-07-08] MEDS: ACETAMINOPHEN 500 MG TAB PO SCH ×2 (08:36→13:36)
[2022-07-08] MEDS: CALCIUM 600MG + VIT D 400 IU TAB PO SCH (08:37)
[2022-07-08] MEDS: amLODIPine BESYLATE 5 MG TAB PO SCH (08:37)
[2022-07-08] MEDS: GABAPENTIN 300 MG CAP PO SCH (08:38)
[2022-07-08] MEDS: HEPARIN SOD 5,000 UNIT/0.5 ML VIAL SQ SCH (08:38)
[2022-07-08] MEDS: dexAMETHasone 4 MG TAB PO SCH (08:38)
[2022-07-08] MEDS: NYSTATIN SUSP 500,000 U/5 ML UDC PO SCH ×2 (08:41→12:49)
[2022-07-08] MEDS: SODIUM CHLORIDE 1 GM TABLET PO SCH (08:42)
[2022-07-08] MEDS: FUROSEMIDE 20 MG TAB PO SCH (08:42)
[2022-07-08] MEDS: HEPARIN 100 UNIT/ML 5ML FLUSH FLUSH PRN (12:08)
--- NOTE | 2022-07-08 13:13 | Discharge Summary ---
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 Received 2u PRBC 06/09. She is due for PET scan to evaluate staging and therapy. Patient comes to the [facility] today following 2 falls at home both on 06/25/22. Patient fell while she was coming out of her bathroom as her right leg gave out, she landed on her right knee and right side. She needed help getting up as she was then to weak to put weight on her leg as well as get up. Prior to going to bed she was trying to get her legs up and slid out of bed landing on her buttocks. She again needed help getting back in bed as well as getting dressed this morning. Overall the patient states that she is just more fatigued overall, with decrease in oral food and liquid intake. They did discuss her current therapy with her Oncologist and had some thoughts of possibly adjusting her medications and holding her Axitinib tonight. Patient and Family are awaiting the PET scan evaluation and discussion with ongoing care following that. Eveline is open to working with PT/OT as her pain is controlled and she would want to maintain her functional status and time with her family. Will admit to medical floor, obtain CT scan of her left hip as she has pain with palpation at the femoral head and neck. Nutritional consult for supplementation. PT/OT evaluation and Case management consultation for rehab evaluation needs. COVID test on admission is: NEGATIVE Principal Diagnosis Falls, UTI, Metastatic renal cell carcinoma Discharge Exam gen - NAD, sitting in chair heart - RRR, s1, s2, 2/6 ROSY LSB lungs -CTAB no wcr skin - no rash abd - soft NT ND BS+ musculo - all gouty arthritis of b/l feet resolved ext - trace edema b/l, pulses 2+ b/l psych - a/o x 3 Discharge Data Allergies Allergy/AdvReac Type Severity Reaction Status Date / Time amoxicillin Allergy Mild Rash Unverified 07/02/22 11:21 Consultations 08/27/22 15:07 ED Decision to Admit Stat Ordered Studies 06/26/22 15:27 CT hip LT wo con Urgent 06/29/22 09:06 CT lumbar spine wo con Routine 06/29/22 18:11 CT Abd and Pelvis [CT abd pelvis oral con only] Urgent CT chest diagnostic wo con Urgent Hospital Course (1) Enterococcus UTI: s/p 4 days of daptomycin followed by 3 days of zyvox 600mg PO BID (had also had 1 day of amoxicillin but then drug rxn to such) passed TOV after Iyer removed Plan to restart home Bactrim for prophylaxis once daily after discharge (2) Drug reaction: 2nd amoxicillin rash fully resolved with IV/PO dexamethasone and heidi 60mg BID (3) Polyarticular arthritis: b/l feet - suspected gout could have been a serum sickness type reaction to the amoxicillin but much less likely either way it is fully resolved uric acid level this admission noted received dexamethasone 4mg daily x many days and then wean to 2mg/day on discharge for bone pain related to metastatic disease, etc would potentially keep on the dex indefinitely if ok with hematology/oncology- d/w Dr. Galeana who said this was fine patient is OFF axitinib at this time thus steroids acceptable (4) Depression: consider wellbutrin as an outpt - little risk of SIADH with wellbutrin Urine Na and Urine osm still very c/w SIADH; SSRI likely to make this worse (5) Ambulatory dysfunction: PT/OT recommending rehab, but unfortunately this was denied by her insurance company Patient to now return home with home health and family support She is walking now 250 feet with a walker and contact-guard assistance which is a big improvement from previous (6) Bony metastasis: Is controlled now with fentanyl patch 25mcg q72h; increased to 25mcg on 06/17/22 Continue dilaudid 2mg po q4h prn cont dexamethasone 2mg/day at discharge cont gabapentin 300mg BID cont tylenol 1gm TID (7) CKD (chronic kidney disease) stage 4, GFR 15-29 ml/min: stable Creatinine (8) Anemia: stable H/H this is despite mild intermittent gross hematuria from her kidney cancer (9) Cancer related pain: see above (10) Hypertension: labile BPs, likely due to pain, stress/anxiety, etc lisinopril has been on hold due to labile creatinine levels - would not resume moving forward continue amlodipine 5 mg daily which was started this admission (11) Hypercholesterolemia: statin (12) Hypothyroidism: TSH mildly high; could consider modest increase in dose (175 from 150) but would repeat when not acutely ill in 4 weeks (13) SIADH (syndrome of inappropriate ADH production): cont lasix 20 mg daily cont NaCl 1gm BID Na level 134 on last check urine osm and urine Na level still c/w SIADH Follow BMP as an outpatient (14) Metastatic renal cell carcinoma: progressive based on hatch-CT and bone scan this admission with progressive pulmonary mets Dr Galeana spoke with patient & her daughter at bedside on Tuesday07/02/22; discussed 2nd line chemo treatments patient uncertain if she will pursue additional treatment in the future versus entering into hospice she is going to discuss w/ her children her options (15) Aortic stenosis: mild on ECHO 2017 but examines with loud harsh murmur so suspect worsening follow as outpt if desired but with metastatic cancer, she is not a candidate for valve replacement no evidence of heart failure on examination (16) Encephalopathy acute: metabolic - UTI, etc toxic - benadryl, pain meds, other resolved for many days (17) DVT prophylaxis: heparin 5000 BID Plan dispo -rehab has now been denied, plan is to return home with home health and family support on 07/08 Home Health Attestation I certify that this patient is under my care and that I, or a physicians assistant women's basketball coach working with me, had a face to-face encounter that meets the home health nzld-[id number] encounter requirements with this patient. The encounter with the patient was in whole, or in part, for the following medi suma condition, which is the primary reason for home health care (list medical condition): enterococcus UTI I certify that, based on my findings, the following services are medically necessary home health services: My clinical findings support the need for the above services because: OT Assess ADL Status and Restore Function w ADLs PT Assessment for Endurance / Balance / Strength PT Eval for Safety and Mobility PT Eval for Safety, Gait Training, Assistive Devices PT Gait and Balance Training, Strengthening and Safety Skilled Nsg Assessment Further, I certify that my clinical findings support that this patient is homebound (i.e. absences from home require considerable and taxing effort and are for medical reasons or caodaism services or infrequently or of short duration when for other reasons) because: Supportive Aid - Walker Transportation Assistance/Unable to Leave Home Unassisted Certification for Home Health Services: Based on the above findings, I certify that this patient is confined to the home and needs intermittent mcfp care, physical therapy and/or speech therapy or continues to need occupational therapy. The patient is under my care, and I have initiated the establishment of the plan of care. This patient will be followed by a physician who will periodically review the plan of care. Total Time Total Time Spent Total Time Spent (In Minutes): 35 min Discharge Plan Discharge Items Patient Disposition: Home - Home Health Services Reason For Visit: FALL WITH REHAB EVALUATION Discharge Diagnosis: UTI, Fall, chronic pain due to bony metastases Condition on Discharge: Fair Activity: As commented below Non-emergency contact: Primary Care Provider and Oncologist Call non-emergency contact if: you have any medication questions and your symptoms worsen Follow-up/Referrals: Dutch Moore DO [Primary Care Provider] - (Follow up within 1-2 weeks) Dorita Galeana MD [Physician] - (Please follow up within 1 week) Diet: Regular Addtl Attending Provider Instructions: You were admitted after having a fall and were found to have a UTI. This was treated with antibiotics. As your strength and ability to walk improved, your insurance company denied authorization of payment for a rehab stay. You will have home health arranged to work with you at home to continue to improve your strength. Please continue your same pain medications as before and dexamethasone will be added on daily as well. Please follow up with Dr. Galeana within the week to discuss future treatment plans for your cancer. Your lisinopril medication was stopped due to intermittent issues with your kidney function. It will be replaced with a different blood pressure medication called amlodipine to be taken once daily. Pending Studies at Discharge: No Stand-Alone Forms: My [facility] Medications and DC Order Prescriptions: New amlodipine [Norvasc] 5 mg Tablet 5 mg PO QAM Qty: 30 0RF dexamethasone 2 mg tablet 2 mg PO DAILY Qty: 30 0RF Continued oxybutynin chloride [Ditropan XL] 10 mg tablet extended release 24 hr 10 mg PO HS Qty: 90 1RF sulfamethoxazole-trimethoprim [Bactrim] 400-80 mg tablet 1 tab PO DAILY Qty: 90 0RF hydromorphone [Dilaudid] 2 mg tablet 2 mg PO Q4H PRN (Reason: pain) Qty: 60 0RF polyethylene glycol 3350 [Miralax] 17 gram powder in packet 17 g PO DAILY PRN (Reason: Constipation) Rx Instructions: purchase sqcu-ggz-wiacezb calcium carbonate-vitamin D3 [Caltrate with Vitamin D3] 600 mg(1,500mg) -800 unit tablet 1 tab PO QAM multivitamin [One Daily Multivitamin] tablet 1 tab PO QAM acetaminophen [Tylenol Extra Strength] 500 mg Tablet 1,000 mg PO TID PRN (Reason: pain) Qty: 30 0RF Rx Instructions: purchase hstz-wox-xorrwua sodium chloride 1 gram Tablet 1 g PO BID Qty: 60 2RF gabapentin 300 mg Capsule 300 mg PO BID Qty: 60 2RF furosemide 20 mg Tablet 20 mg PO QAM Qty: 30 5RF levothyroxine 150 mcg capsule 150 mcg PO DAILY Qty: 30 5RF sennosides [Senokot] 8.6 mg tablet 8.6 mg PO HS Rx Instructions: purchase gokj-xmw-tjfbzie simvastatin [Zocor] 20 mg tablet 20 mg PO HS glucosamine-chondroitin [Osteo Bi-Flex] 250-200 mg Tablet 1 tab PO QAM ettwu-gl-2-bjg-oki-dgzisvx-ast [MegaRed [place]-3 Krill Oil] 1,000-230-60 mg Capsule 1 cap PO QAM fentanyl 25 mcg/hr patch 72 hour 25 mcg transdermal CQ72HR magnesium oxide 400 mg (241.3 mg magnesium) tablet 400 mg PO DAILY lorazepam 0.5 mg tablet 0.5 mg PO DAILY PRN (Reason: Anxiety) tramadol 50 mg tablet 50 mg PO Q6 PRN (Reason: Pain) cranberry 500 mg Capsule 500 mg PO QAM Rx Instructions: administer with meals Discontinued Inlyta 5 mg tablet 5 mg PO BID lisinopril 20 mg tablet 20 mg PO BID Discharge Orders: Discharge Order (Routine); Ordered 07/08/22 Ordered By: Millicent Pisano Admission Data Admit Date/Time: 06/26/22 15:05 Attending Provider: Millicent Pisano Admit Provider: Breezy Moore Primary Care Provider: Dutch Moore Other Providers: Breezy Moore ; Ashlie Mack [place] Coding Level of Care Code D/C DAY MANAGEMENT >30 MINS Diagnoses Enterococcus UTI N39.0; B95.2 Drug reaction T50.905A Polyarticular arthritis M13.0 Depression F32.A Ambulatory dysfunction R26.2 Bony metastasis C79.51 CKD (chronic kidney disease) stage 4, GFR 15-29 ml/min N18.4 Anemia D64.9 Cancer related pain G89.3 Hypertension I10 Hypercholesterolemia E78.00 Hypothyroidism E03.9 SIADH (syndrome of inappropriate ADH production) E22.2 Metastatic renal cell carcinoma C64.9 Aortic stenosis I35.0 Cardiac valve disease etiology: nonrheumatic Encephalopathy acute G93.40 DVT prophylaxis Z29.9
[2022-07-08] MEDS: fentaNYL 25 MCG/HR TDSY TD SCH (14:46)
[2022-07-08 16:00] VITALS: PULSE 64
--- NOTE | 2022-07-08 16:30 | Palliative Care Consultation ---
Date of Consultation July 08, 2022 Assessment & Plan (1) Generalized weakness: Her daughters are concerned about fall risk at home. Eveline has expressed interest in physical therapy to improve her strength and safety. She had been planning rehab at [facility] on discharge which was denied by her insurance. She has [facility] for home nursing and PT. (2) Palliative care encounter: I talked with Eveline and her daughters about options for care at home. Being at home is a major quality of life issue for her. She is very anxious to return home. She realizes that she is not a good candidate for further cancer treatment. We discussed support options at home including home care versus hospice. We discussed hospice focus on symptom management rather than disease management, and generally labs and testing are deferred unless necessary to manage her comfort. They would treat treatable acute conditions at home such as UTI. Her daughters asked about whether she could have PT or additional radiation therapy with hospice. At this time radiation therapy is not indicated and pain is controlled with her current medications which can be adjusted if needed for symptom management. Given Eveline's preference for home physical therapy, at this time, plan would be to return home with home care support and transition to hospice when appropriate. Discussed with case management, notified Dr. Pisano. History of Present Illness Reason for Consultation: goals of care Requesting Physician: Dr. Pisano Attending Physician: Millicent Pisano MD History of Present Illness 82 yo lady with history of renal cell carcinoma metastatic to bone and lung, known to palliative care. She was admitted after a fall at home. She has had ongoing problems with back and flank pain and completed radiation therapy. She is also on fentanyl 25mcg patch and oral dilaudid as needed. She has reported that pain is reasonably controlled. She is planning to go home and family requested palliative care consult to discuss options for plan of care at home. Allergies Allergy/AdvReac Type Severity Reaction Status Date / Time amoxicillin Allergy Mild Rash Unverified 07/02/22 11:21 Home Medications Medication Instructions Recorded Confirmed Type calcium carbonate 600 mg-vitamin 1 tab PO QAM 06/27/19 06/26/22 History D3 20 mcg (800 unit) tablet (Caltrate with Vitamin D3) multivitamin (One Daily 1 tab PO QAM 06/27/19 06/26/22 History Multivitamin tablet) oxybutynin chloride 10 mg 10 mg PO HS #90 tabs 03/22/22 06/26/22 Rx tablet,extended release 24 hr (Ditropan XL) glucosamine-chondroitin 250 mg-200 1 tab PO QAM 04/21/22 06/26/22 History mg tablet (Osteo Bi-Flex) krill 1,000 mg-omega-3 230 mg-dha 1 cap PO QAM 04/21/22 06/26/22 History 60 qp-auk-xdhzehwfx-astaxan capsule (MegaRed [place]-3 Krill Oil) simvastatin 20 mg tablet (Zocor) 20 mg PO HS 04/21/22 06/26/22 History acetaminophen 500 mg tablet 1,000 mg PO TID PRN pain #30 tabs 05/23/22 06/26/22 Rx (Tylenol Extra Strength) furosemide 20 mg tablet 20 mg PO QAM #30 tabs 05/23/22 06/26/22 Rx gabapentin 300 mg capsule 300 mg PO BID #60 caps 05/23/22 06/26/22 Rx levothyroxine 150 mcg capsule 150 mcg PO DAILY #30 caps 05/23/22 06/26/22 Rx sodium chloride 1 gram tablet 1 g PO BID #60 tabs 05/23/22 06/26/22 Rx polyethylene glycol 3350 17 gram 17 g PO DAILY PRN Constipation 06/02/22 06/26/22 History oral powder packet (Miralax) sennosides 8.6 mg tablet (Senokot) 8.6 mg PO HS 06/09/22 06/26/22 History sulfamethoxazole 400 1 tab PO DAILY #90 tabs 06/11/22 06/26/22 Rx mg-trimethoprim 80 mg tablet (Bactrim) hydromorphone 2 mg tablet 2 mg PO Q4H PRN pain #60 tabs 06/15/22 06/26/22 Rx (Dilaudid) cranberry 500 mg capsule 500 mg PO QAM 06/26/22 06/26/22 History fentanyl 25 mcg/hr transdermal 25 mcg transdermal CQ72HR 06/26/22 06/26/22 History patch lorazepam 0.5 mg tablet 0.5 mg PO DAILY PRN Anxiety 06/26/22 06/26/22 History magnesium oxide 400 mg (241.3 mg 400 mg PO DAILY 06/26/22 06/26/22 History magnesium) tablet tramadol 50 mg tablet 50 mg PO Q6 PRN Pain 06/26/22 06/26/22 History amlodipine 5 mg tablet (Norvasc) 5 mg PO QAM #30 tabs 07/08/22 Rx dexamethasone 2 mg tablet 2 mg PO DAILY #30 tabs 07/08/22 Rx Patient History Medical History Absent kidney, acquired Anemia Aortic stenosis Mild aortic stenosis (PADMINI 1.7cm2) per 07/2018 echo Cancer related pain Chronic anemia Chronic kidney disease, stage 4 (severe) Constipation 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) Essential (primary) hypertension Frequent UTI Gait disturbance Uses cane for ambulation History of recent blood transfusion Most recent 04/02/22 ([facility])- hgb at time in the 7s (now stable at 9.3 on most recent 04/07/22 labs) Hyperlipidemia Hypertension Hypomagnesemia Hyponatremia Hypothyroidism Hypothyroidism Metastatic renal cell carcinoma to bone Osteoarthritis Pain due to malignant neoplasm metastatic to bone Urinary incontinence UTI (urinary tract infection) Surgical History H/O breast surgery Re-Excision Left Breast Tissue (2018) H/O mastectomy Left Breast Mastectomy (11/12/19): LMA#4 at [facility]. No issues noted per post-op anesthesia progress note. Hx of cholecystectomy Hx of colonoscopy Port-A-Cath in place (04/26/22) Port placement and fluoroscopy. Dr. Shelley Status post left breast lumpectomy Left Breast Lumpectomy with Needle Localization and Left [place] Lymph Node Biopsy Family History Mother Thyroid disease Father Osteoarthritis Brother Colon cancer Grandmother Colon cancer Other No family history of adverse response to anesthesia Denies family history of Ovarian cancer Prostate cancer Myocardial infarction Breast cancer Social History Smoking Status: Former smoker Tobacco Type: Cigarettes Age Started Using Tobacco: 18; Age Quit Using Tobacco: 29; packs per day: 0.5; Years Smoked: 11; Cigarettes Per Day: 10; Number of Years Since Quit: 52; Second Hand Exposure: No; Hx Alcohol Use: Yes Alcohol type: wine Hx Substance Use: No Preferred Language: Greenlandic Communication Ability: Effective Visual Impairment: No Limitations 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: Normal Packing Room Supervisor Required: No Beliefs That Will Affect Care: None marital status: / Current Living Situation: Alone Current Living Situation Comment: daughter staying with her current occupational status: retired How many Children do You have: 3 Feels Safe at Home: Yes Childhood Exposure to Second-Hand Smoke: Yes caffeine: Yes during the past year weight has: increased > 10 lbs Dental Care, Regularly: No Physical Activity Frequency: Does not Exercise Seatbelt Use: always Sunscreen Use: No Assistive Devices: Bedside Commode, Cane, Walker and Wheelchair Review of Systems Review of Systems: PPS 50% Physical Exam Constitutional: no acute distress Respiratory: normal respiratory effort; no labored breathing Musculoskeletal: Extremities: extremities normal to inspection Neurologic: awake; not confused Results & Data ([facility]) Vital Signs (Past 12 Hours) Vital Signs Temp Pulse Pulse Resp BP Pulse Ox O2 Del Method 07/08/22 15:57 98.4 F 82 64 18 151/86 H 92 07/08/22 07:13 98.4 F 82 18 151/86 H 92 Room Air PG Care Time/CCT Total # of Minutes Spent Total Time Spent: 50 Total Time Spent with Patient: Total time spent is greater than 50% in coordination of care (as documented) at patient's floor/unit and/or counseling patient:hospice, symptom management, patient and family education and support Coding Level of Care Code 36966 Initial Inpt Care Lvl 1 Diagnoses Generalized weakness R53.1 Palliative care encounter Z51.5
== END 2022-07-08 16:47 | disposition home health service (06) ==
LOC: ED 12:50 → INTOOBSV 15:05 → 3N 15:05 → SUATTDRO 15:05 → 3N 15:56